=== PATIENT | female | born 1980 | race Caucasian/White ===

== ENCOUNTER 2023-06-23 20:13 | Inpatient (IN) | payer MEDICAID, SELFPAY ==
[2023-06-23 20:22] VITALS: BP 146/68; PULSE 120; RESP 16; TEMP 37.3; O2SAT 97; BMI 20.7
--- NOTE | 2023-06-23 21:18 | XRR_ITS ---
PROCEDURE INFORMATION: Exam: XR Right Tibia and Fibula Exam date and time: 06/23/2023 10:36 PM Age: 42 years old Clinical indication: Pain; Swelling, leg or foot; Right; Prior surgery; Surgery date: 1-6 months; Surgery type: Ankle orif 05/17/2023; Patient HX: Multiple skin ulcerations and infected drainage to incision site from aknle surgery. ; Additional info: Pain, skin ulceration post op TECHNIQUE: Imaging protocol: Radiologic exam of the right tibia and fibula. Views: 2 views. COMPARISON: No relevant prior studies available. FINDINGS: Bones/joints: Distal fibular orthopedic plate in place with a surgical screw extending through the fibula into the tibia. Posterior malleolar cortical irregularity may reflect sequelae of a prior fracture, if clinical concern for osteomyelitis exists in this area consider further evaluation with a CT scan or MRI. Soft tissues: Soft tissue swelling about the ankle. XR/XR tibia fibula RT 2V [id number] IMPRESSION: 1. Distal fibular orthopedic plate in place with a surgical screw extending through the fibula into the tibia. 2. Posterior malleolar cortical irregularity may reflect sequelae of a prior fracture, if clinical concern for osteomyelitis exists in this area consider further evaluation with a CT scan or MRI. 3. Soft tissue swelling about the ankle.
--- NOTE | 2023-06-23 21:18 | XRR_ITS ---
PROCEDURE INFORMATION: Exam: XR Right Foot Exam date and time: 06/23/2023 10:36 PM Age: 42 years old Clinical indication: Pain; Swelling, leg or foot; Right; Prior surgery; Surgery date: 1-6 months; Surgery type: Ankle orif 05/17/2023; Patient HX: Multiple skin ulcerations and infected drainage to incision site from aknle surgery. ; Additional info: Pain, skin ulceration post op TECHNIQUE: Imaging protocol: Radiologic exam of the right foot. Views: 3 or more views. COMPARISON: No relevant prior studies available. FINDINGS: Bones/joints: Distal fibular orthopedic plate in place with a surgical screw extending through the fibula into the tibia. Posterior malleolar cortical irregularity may reflect sequelae of prior fracture, if clinical concern for osteomyelitis exists in this area consider further evaluation with a CT scan or MRI. Soft tissues: Soft tissue swelling about the foot and ankle. Minimal subcutaneous emphysema seen about the foot and ankle may be postsurgical in nature, underlying infection is also a consideration. XR/XR foot RT min 3V* [id number] IMPRESSION: 1. Distal fibular orthopedic plate in place with a surgical screw extending through the fibula into the tibia. 2. Posterior malleolar cortical irregularity may reflect sequelae of prior fracture, if clinical concern for osteomyelitis exists in this area consider further evaluation with a CT scan or MRI. 3. Soft tissue swelling about the foot and ankle. 4. Minimal subcutaneous emphysema seen about the foot and ankle may be postsurgical in nature, underlying infection is also a consideration.
[2023-06-23 21:57] LABS: Basophils % 0.3 %; Eosinophils # 0.1 10^3/uL (0.0-0.8); Eosinophils % 1.2 %; Hematocrit 26.4 % (36-47); Lymphocytes # 1.3 10^3/uL (0.8-4.8); Mean Corpuscular HGB Conc 31.4 g/dL (30-55); Mean Corpuscular Hemoglobin 30.2 pg (27-33); Monocytes # 0.6 10^3/uL (0.2-0.9); Monocytes % 5.1 %; Neutrophils # 9.13 10^3/uL (1.8-7.7); Neutrophils % 79.5 %; Nucleated Red Blood Cells % 0 %; Platelet Count 535 10^3/cmm (157-399); Red Blood Count 2.75 10^6/uL (3.85-5.65); Red Cell Distribution Width 16.1 % (12.1-15.1)
[2023-06-23 22:17] LABS: HCG, Serum Qual Negative (Negative)
[2023-06-23 22:18] LABS: Erythrocyte Sedimentation Rate 50 mm/hr (0-15)
[2023-06-23 22:23] LABS: Alanine Aminotransferase 46 U/L (0-33); Albumin Level 3.1 g/dL (3.5-5.2); Alkaline Phosphatase 535 U/L (35-105); Anion Gap 17.9 (5-19); Aspartate Amino Transferase 11 U/L (0-32); Blood Urea Nitrogen 25 mg/dL (6-20); Carbon Dioxide 25 mmol/L (22-29); Chloride 85 mmol/L (98-107); Glomerular Filtration Rate 38.5 mL/min (90-130); Osmolality Calculated 291 mOsm/kg (285-295); Sodium 125 mmol/L (136-145); Total Bilirubin 0.3 mg/dL (0.15-1.2); Total Protein 7.1 g/dL (6.6-8.7)
[2023-06-23 22:24] LABS: Lactic Sepsis W/Reflex 1.4 mmol/L (0.5-2.2)
[2023-06-23 22:30] LABS: Glucose 569 mg/dL (65-115); Potassium 2.9 mmol/L (3.5-5.1)
[2023-06-23 22:40] LABS: Slide Review Slide Review Perform
[2023-06-23 22:48] LABS: C Reactive Protein 502.4 mg/L (0.0-4.9)
--- NOTE | 2023-06-23 22:52 | CTR_ITS ---
PROCEDURE INFORMATION: Exam: CT Right Lower Extremity Without Contrast Exam date and time: 06/23/2023 11:50 PM Age: 42 years old Clinical indication: Pain; Swelling, leg or foot; Foot and lower leg; Right; Prior surgery; Surgery date: 1-6 months; Surgery type: Ankle orif 05/17/2023; Patient HX: Swelling and redness from mid calf thru all of foot with multiple skin ulcerations and purulent drainage from incision site. Ankle orif on 05/17/2023. ; Additional info: Swelling, redness, drainage. TECHNIQUE: Imaging protocol: CT of the right lower extremity without contrast was performed. Radiation optimization: All CT scans at this facility use at least one of these dose optimization techniques: automated exposure control; mA and/or kV adjustment per patient size (includes targeted exams where dose is matched to clinical indication); or iterative reconstruction. Contrast material: OMNI 350; Contrast volume: 75 ml; Contrast route: INTRAVENOUS (IV); REPORTING DATA: Count of CT and Cardiac NM exams in prior 12 months: This patient has received 0 known CTs and 0 known cardiac nuclear medicine studies in the 12 months prior to the current study. COMPARISON: CR (LOW EXM, ) 06/23/2023 10:36 PM RADIATION DOSE METRICS: Total DLP (mGy-cm): 1089.95 FINDINGS: Bones/joints: Orthopedic plate seen in place overlying the distal fibula bridging a fracture in this area with good alignment at the fracture site. Cortical irregularity along the posterior malleolus likely reflects a small avulsion fracture, osteomyelitis is felt unlikely. Soft tissues: 5.1 x 1.1 collection of fluid containing air over the medial malleolus in the subcutaneous fat, best seen series 23, image 187, perhaps reflecting an abscess depending on the clinical scenario. Additionally a large amount of subcutaneous edema is seen about the foot and ankle, perhaps reflecting cellulitis and/or postsurgical changes. Subcutaneous emphysema is also seen over the distal fibula, likely postsurgical in nature, infection is not excluded. CT/CT lower leg RT w con [id number] IMPRESSION: 1. Orthopedic plate seen in place overlying the distal fibula bridging a fracture in this area with good alignment at the fracture site. 2. Cortical irregularity along the posterior malleolus likely reflects a small avulsion fracture, osteomyelitis is felt unlikely. 3. 5.1 x 1.1 collection of fluid containing air over the medial malleolus in the subcutaneous fat, best seen series 23, image 187, perhaps reflecting an abscess depending on the clinical scenario. Additionally a large amount of subcutaneous edema is seen about the foot and ankle, perhaps reflecting cellulitis and/or postsurgical changes. 4. Subcutaneous emphysema is also seen over the distal fibula, likely postsurgical in nature, infection is not excluded.
[2023-06-23 22:53] VITALS: BP 121/61; PULSE 123
[2023-06-23 23:00] VITALS: BP 140/79; PULSE 119; O2SAT 97
[2023-06-23] MEDS: insulin regular-human 100 units/1 mL 10 UNIT IVP (23:03)
[2023-06-23 23:04] LABS: Glucose Point of Care 546 mg/dL (70-110)
[2023-06-23] MEDS: potassium chloride oral liq 20 mEq/15 mL UDC PO (23:11)
[2023-06-23] MEDS: sodium chlor 0.9% + KCl 40 mEq 40 MEQ/1,000 ML BAG 500 MEQ IV (23:14)
[2023-06-23 23:30] VITALS: BP 108/62; PULSE 115; RESP 24; O2SAT 100
[2023-06-23] MEDS: iohexol 350 mg/mL 500 mL Btl (per mL) IV (23:55)
[2023-06-24] VITALS (30 sets, daily range): BP systolic 72–137; BP diastolic 44–91; PULSE 88–121; RESP 15–25; TEMP 36.4–38; O2SAT 90–100
[2023-06-24 00:03] LABS: Add Urine Microscopic? YES; Bilirubin Urine Neg (Negative); Blood Urine Neg (Negative); Glucose Urine UA 4+ (Normal); Ketones Urine Negative (Negative); Leukocyte Esterase Urine 2+ (Negative); Nitrate Urine Negative (Negative); Protein Urine Trace (Negative); Urine Appearance Hazy (CLEAR); Urine Color Yellow (Yellow); Urobilinogen Urine Neg (Negative); pH Urine 5 (5-7)
[2023-06-24 00:04] LABS: Add Urine Culture? No; Amorphous Sediment Urine 2+ /hpf; Bacteria Urine TRACE /hpf; RBC Urine 0-4 /hpf (0-2); Squamous Epithelial Cell Urine 15-25 /hpf (0-5); Trichomonas Urine 1+ /hpf; WBC Urine >100 /hpf (0-5)
[2023-06-24 00:12] LABS: Glucose Point of Care 307 mg/dL (70-110)
[2023-06-24 01:12] LABS: Glucose Point of Care 258 mg/dL (70-110)
[2023-06-24] MEDS: oxyCODONE-APAP 5-325 mg Tablet 2 TAB PO (01:19)
--- NOTE | 2023-06-24 01:19 | W.ED.WOUNDLC ---
HPI - Wound/Laceration General: Chief Complaint: Wound/Laceration Stated Complaint: Rt cast cutting into leg Time Seen by Provider: 06/23/23 20:15 History of Present Illness: 42-year-old female with a history of an ORIF to her right ankle in [place] on 05/19. She has been in a cast. She developed a fever a couple of days ago. She was placed on ciprofloxacin at an outside facility. She says that her pain is gotten worse, with smelly drainage coming out of the cast. And continued fevers. She is not vomiting. Associated symptoms: Reports chills, fever(s) and nausea; Denies vomiting Review of Systems Const: Reports: fever(s) and chills ENMT: Denies: throat pain Card: Denies: chest pain or palpitations Resp: Reports: non-productive cough; Denies: dyspnea or productive cough GI: Reports: nausea; Denies: abdominal pain or vomiting Skin/Breast: Reports: erythema, skin tenderness and changing lesions [facility] PFSH: Medical History (Updated 06/24/23 @ 02:02 by Salomon Cutler DO) Type 1 diabetes Surgical History (Updated 06/24/23 @ 01:59 by Jair Cha MD) History of appendectomy History of surgery on lower extremity History of tonsillectomy Social History Smoking and tobacco status: current every day smoker Alcohol intake: former Substance/Drug Use: current Substance/Drug use type: Marijuana Physical Exam Const: GENERAL APPEARANCE: cooperative and ill appearing; not frail appearing HENMT: COMMON NORMALS: normocephalic, atraumatic and Normal external nose present HEAD & SCALP: normocephalic and atraumatic FACE & SINUS: normal facial exam and face symmetric NOSE: Normal external nose present Eye: COMMON NORMALS: Equal, round and reactive pupils present and EOMs intact bilaterally PUPIL: Yes Equal, round and reactive pupils present Neck/C-Spine: GENERAL: Yes trachea midline Chest: CHEST: Yes Symmetrical chest wall rise Resp: COMMON NORMALS: normal respiratory effort, No retractions, No use of accessory muscles and clear to auscultation bilaterally AUSCULTATION: clear to auscultation bilaterally Cardio: COMMON NORMALS: regular rhythm RATE: tachycardic RHYTHM: regular rhythm GI: COMMON NORMALS: Normal to inspection, nondistended, normoactive bowel sounds present Extremity: NARRATIVE EXTREMITY EXAM: Cast is removed on the right for exam. The patient has swelling and edema with beefy erythema to the right foot. Surgical incision is lateral, with sutures in place. There is purulent drainage from the inferior portion of the incision, with skin ulceration over the lateral foot as well. Neuro: TOYA COMA SCALE: document GCS findings Toya coma scale eye opening: Spontaneous [place] coma scale verbal response: Orientated [place] coma scale motor response: Obey commands [place] coma scale total score: 15 SENSORY EXAM: Yes extremities (intact) Psych: COMMON NORMALS: speech normal SPEECH: Yes normal speech Skin: COMMON NORMALS: no rashes or lesions noted GENERAL SKIN EXAM: no rashes or lesions noted Course Vital Signs: Vital signs: Vital Signs Temperature 99.1 F 06/23/23 20:22 Pulse Rate 120 H 06/23/23 20:22 Respiratory Rate 20 H 06/24/23 01:19 Blood Pressure 146/68 06/23/23 20:22 Pulse Oximetry 98 06/24/23 01:19 Oxygen Delivery Me thod Room Air 06/23/23 20:22 MDM - Wound/Laceration Medical Decision Making Patient is awake and talking. She is mildly tachycardic. Temperature is 99.1. White blood cell count is 11.5 with a hemoglobin of 8.3. Her sugar is 569 on serum testing. Creatinine is 1.5. Urinalysis shows greater than 100 whites with 2+ leukocyte Estrace, but is contaminated with squamous cells. Her potassium was 2.9, which is repleted. She is given IV insulin here with some improvement in her sugar. She is not acidotic. Lactic acid is negative. However, her CRP is 502. Spoke with orthopedics. They are willing to consult and see her in the morning. Spoke with hospitalist who has seen the patient in the ER. CT scan does not reveal necrotizing fasciitis signs, but does show a 5 x 1 cm abscess present with surrounding cellulitis. She has had vancomycin and Zosyn in the ER after blood cultures. Lab Data 06/23/23 21:25 06/23/23 21:25 Radiology Impressions Foot X-Ray 06/23/23 21:18 IMPRESSION: 1. Distal fibular orthopedic plate in place with a surgical screw extending through the fibula into the tibia. 2. Posterior malleolar cortical irregularity may reflect sequelae of prior fracture, if clinical concern for osteomyelitis exists in this area consider further evaluation with a CT scan or MRI. 3. Soft tissue swelling about the foot and ankle. 4. Minimal subcutaneous emphysema seen about the foot and ankle may be postsurgical in nature, underlying infection is also a consideration. Tibia/Fibula X-Ray 06/23/23 21:18 IMPRESSION: 1. Distal fibular orthopedic plate in place with a surgical screw extending through the fibula into the tibia. 2. Posterior malleolar cortical irregularity may reflect sequelae of a prior fracture, if clinical concern for osteomyelitis exists in this area consider further evaluation with a CT scan or MRI. 3. Soft tissue swelling about the ankle. Lower Extremity CT 06/23/23 22:52 IMPRESSION: 1. Orthopedic plate seen in place overlying the distal fibula bridging a fracture in this area with good alignment at the fracture site. 2. Cortical irregularity along the posterior malleolus likely reflects a small avulsion fracture, osteomyelitis is felt unlikely. 3. 5.1 x 1.1 collection of fluid containing air over the medial malleolus in the subcutaneous fat, best seen series 23, image 187, perhaps reflecting an abscess depending on the clinical scenario. Additionally a large amount of subcutaneous edema is seen about the foot and ankle, perhaps reflecting cellulitis and/or postsurgical changes. 4. Subcutaneous emphysema is also seen over the distal fibula, likely postsurgical in nature, infection is not excluded. Laboratory Results WBC 11.50 10^3/uL (3.29-11.43) H 06/23/23 21:25 RBC 2.75 10^6/uL (3.85-5.65) L 06/23/23 21:25 Hgb 8.30 g/dL (11.27-16.99) L 06/23/23 21:25 Hct 26.4 % (36-47) L 06/23/23 21:25 MCV 96.0 fl (85-98) 06/23/23 21:25 MCH 30.2 pg (27-33) 06/23/23 21:25 MCHC 31.4 g/dL (30-55) 06/23/23 21:25 RDW 16.1 % (12.1-15.1) H 06/23/23 21:25 Plt Count 535 10^3/cmm (157-399) H 06/23/23 21:25 MPV 11.0 fL (7.4-10.4) H 06/23/23 21:25 Neut % (Auto) 79.5 % 06/23/23 21:25 Lymph % (Auto) 11.0 % 06/23/23 21:25 [place] % (Auto) 5.1 % 06/23/23 21:25 Eos % (Auto) 1.2 % 06/23/23 21:25 Baso % (Auto) 0.3 % 06/23/23 21:25 Neut # (Auto) 9.13 10^3/uL (1.8-7.7) H 06/23/23 21:25 Lymph # (Auto) 1.3 10^3/uL (0.8-4.8) 06/23/23 21:25 [place] # (Auto) 0.6 10^3/uL (0.2-0.9) 06/23/23 21:25 Eos # (Auto) 0.1 10^3/uL (0.0-0.8) 06/23/23 21:25 Baso # (Auto) 0.0 10^3/uL (0.0-0.1) 06/23/23 21:25 Nucleated RBC % (auto) 0 % 06/23/23 21: Nucleated RBCs # 0.0 /100WBC 06/23/23 21:25 ESR 50 mm/hr (0-15) H 06/23/23 21:25 Sodium 125 mmol/L (136-145) L 06/23/23 21:25 Potassium 2.9 mmol/L (3.5-5.1) L 06/23/23 21:25 Chloride 85 mmol/L (98-107) L 06/23/23 21:25 Carbon Dioxide 25 mmol/L (22-29) 06/23/23 21:25 Anion Gap 17.9 (5-19) 06/23/23 21:25 BUN 25 mg/dL (6-20) H 06/23/23 21:25 Creatinine 1.5 mg/dL (0.5-0.9) H 06/23/23 21:25 GFR Calculation 38.5 mL/min (90-130) L 06/23/23 21:25 Glucose 569 mg/dL (65-115) H* 06/23/23 21:25 POC Glucose 258 mg/dL (70-110) H 06/24/23 01:08 Calculated Osmolality 291 mOsm/kg (285-295) 06/23/23 21:25 Lactic Acid 1.4 mmol/L (0.5-2.2) 06/23/23 21:25 Calcium 9.0 mg/dL (8.5-10.5) 06/23/23 21:25 Total Bilirubin 0.3 mg/dL (0.15-1.2) 06/23/23 21:25 AST 11 U/L (0-32) 06/23/23 21:25 ALT 46 U/L (0-33) H 06/23/23 21:25 Alkaline Phosphatase 535 U/L (35-105) H 06/23/23 21:25 C-Reactive Protein 502.4 mg/L (0.0-4.9) H 06/23/23 21:25 Total Protein 7.1 g/dL (6.6-8.7) 06/23/23 21:25 Albumin 3.1 g/dL (3.5-5.2) L 06/23/23 21:25 Globulin 4.0 g/dL (1.3-4.6) 06/23/23 21:25 HCG, Qual Negative (Negative) 06/23/23 10:50 Urine Color Yellow (Yellow) 06/23/23 23:27 Urine Appearance Hazy (CLEAR) A 06/23/23 23:27 Urine pH 5 (5-7) 06/23/23 23:27 Ur Specific [place] 1.010 (1.005-1.030) 06/23/23 23:27 Urine Protein Trace (Negative) 06/23/23 23:27 Urine Glucose (UA) 4+ (Normal) H 06/23/23 23:27 Urine Ketones Negative (Negative) 06/23/23 23: Urine Blood Neg (Negative) 06/23/23 23: Urine Nitrate Negative (Negative) 06/23/23 23:27 Urine Bilirubin Neg (Negative) 06/23/23 23:27 Urine Urobilinogen Neg mg/dL (Negative) 06/23/23 23:27 Ur Leukocyte Esterase 2+ (Negative) H 06/23/23 23:27 Urine RBC 0-4 /hpf (0-2) H 06/23/23 23:27 Urine WBC >100 /hpf (0-5) H 06/23/23 23:27 Ur Squamous Epith Cells 15-25 /hpf (0-5) H 06/23/23 23:27 Amorphous Sediment 2+ /hpf 06/23/23 23:27 Urine Bacteria Trace /hpf (NONE) 06/23/23 23:27 Urine Trichomonas 1+ /hpf H 06/23/23 23:27 All radiology interpretation(s) finalized by discharge Discharge Plan Discharge Patient Disposition: Admitted As Inpatient Clinical Impression: Infected surgical wound, Abscess of skin of right ankle, Acute hyperglycemia, Acute hypokalemia Condition: Fair Coding Level of Care Code ED [employer] Specialist for Claudy Morgan
--- NOTE | 2023-06-24 01:52 | USR_ITS ---
PROCEDURE INFORMATION: Exam: US Retroperitoneal; Complete; Kidneys and Bladder Exam date and time: 06/24/2023 2:23 AM Age: 42 years old Clinical indication: Screening exam; Other: History of renal abscess; Additional info: Fever, HX of renal abscess TECHNIQUE: Imaging protocol: Real-time ultrasound of the retroperitoneum with image documentation. Complete exam focused on the kidneys and bladder. COMPARISON: No relevant prior studies available. FINDINGS: Right kidney: The right kidney measures 8.9 x 4.2 x 4 cm. No right hydronephrosis. There are no stones. Left kidney: The left kidney measures 8.9 x 6.3 x 5.6 cm. Nonspecific mild dilation of the left renal pelvis. There are no stones. Urinary bladder: Distended urinary bladder. No bladder wall thickening. US/US renal BI* [id number] IMPRESSION: 1. Nonspecific mild dilation of the left renal pelvis. 2. Distended urinary bladder.
--- NOTE | 2023-06-24 01:56 | PM.HP ---
Providers/Chief Complaint Admitting Physician: Jair Cha MD Chief Complaint: Rt cast cutting into leg History of Present Illness Anna Hart is a 42 year old female presents to the emergency department with complaints of feeling intermittent fevers for perhaps a week, some discomfort in the cast area for the last 3 days, difficulty moving the toes and feeling her toes in the right lower extremity for 3 days. She has had more swelling than usual, and some pain. She reports she initially sustained an ankle fracture sometime before May 17, and had ankle ORIF to fix this on May 17. She has been in a cast since then. She reports she did not follow-up appropriately, but when she did have follow-up it was reported this had not yet healed. She has since moved from [place] where the surgery was done. She states she has history of significant infections in the past with renal abscesses back in February for which she was on at least 4 weeks of Rocephin. 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 When she was on the Rocephin she did have a PICC line. Review of Systems General: Reports: 10 or more systems reviewed and unremarkable except in HPI and below Card: Denies: chest pain Resp: Denies: dyspnea GI: Denies: abdominal pain Musc: Reports: extremity pain and extremity swelling Medications/Allergies Allergies Allergy/AdvReac Type Severity Reaction Status Date / Time amoxicillin Allergy ALGY-Rash Verified 06/23/23 20:32 clavulanic acid Allergy ALGY-Difficulty Verified 06/23/23 20:32 [From Augmentin] Breathing Penicillins Allergy ALGY-Rash Verified 06/23/23 20:32 PFSH Acute PFSH: Medical History (Updated 06/24/23 @ 02:25 by Jair Cha MD) Chronic kidney disease Type 1 diabetes Surgical History (Updated 06/24/23 @ 01:59 by Jair Cha MD) History of appendectomy History of surgery on lower extremity History of tonsillectomy Social History (Updated 06/24/23 @ 02:00 by Jair Cha MD) Smoking and tobacco status: current every day smoker Alcohol intake: former Substance/Drug Use: current Substance/Drug use type: Marijuana Other PFSH information: Supplemental PFSH Information: Reports history of kidney disease When asked if she uses drugs she reports her father uses methamphetamine, and puts it in his coffee and if I did a urine drug screen on her it might be positive, as she had some coughing Vitals/I&O/Wt Last Vital Signs Temp 99.1 F 06/23/23 20:22 Pulse 120 H 06/23/23 20:22 Resp 20 H 06/24/23 01:19 BP 146/68 06/23/23 20:22 Pulse Ox 98 06/24/23 01:19 O2 Del Method Room Air 06/23/23 20:22 Weight last 48 hrs Weight 53.07 kg Physical Exam Narrative: General exam is white female, no distress Neck is supple no lymphadenopathy thyromegaly Cardiovascular slight tachycardia, no murmur Lungs clear no wheezing or crackles Abdomen is soft nontender. No obvious organomegaly exam is deferred Extremity left no cyanosis clubbing or edema, right with edema, sutures, slight amount of exudate lowest portion of surgical wound. She can dorsiflex. Cap refill in toes is about 2 seconds. Slightly moves toes to prompting Neuro: No obvious focal deficits. Skin see findings above Data 06/23/23 21:25 06/23/23 21:25 Other Labs: Sedimentation rate is 50 Lactic acid 1.4, calcium 9.0 LFTs normal with exception of ALT of 46 and alk phos of 535 CRP 502 Albumin 3.1 hCG negative Urinalysis with greater than 100 whites, 15-25 squamous 1+ trichomonas in urine I have ordered a chest x-ray, a.m. lab, TSH, magnesium, HIV, hepatitis panel, urine culture Lower extremity CT demonstrates orthopedic hardware, fluid collection medial malleolus with concern of possible abscess, subcutaneous emphysema distal fibula. Osteomyelitis not ruled out Tibia and fibula x-ray I reviewed demonstrating concern of osteomyelitis posterior malleolus, swelling, and orthopedic hardware. Foot x-ray shows the same and I reviewed this personally as well. Micro: Microbiology 06/23/23 21:42 Blood Culture - Preliminary Blood SPECIMEN COLLECTED 06/23/23 21:25 Blood Culture - Preliminary Blood SPECIMEN COLLECTED A&P Assessment and plan (1) Infected surgical wound: Patient presents with an infected right lower extremity surgical wound, with concern of abscess. She reports she has had fever for least a week, and really has not been able to feel or move her toes in 3 days with her cast on. Cast was removed in the emergency department. She has obvious erythema, concern for abscess on CT, and probable osteomyelitis. Orthopedic consult will be obtained I discussed with the patient that she could possibly lose her foot or leg secondary to this infection. She reports she is aware of this. Initiate vancomycin and meropenem Cultures have already been drawn I am concerned about her previous PICC line in and history of renal abscess. I have some concern about methamphetamine use secondary to her answers to questions regarding her social history. As she has low-grade fever, history of central line previously, will additionally start with a transthoracic echocardiogram. Note that ESR and CRP were elevated CBC, BMP tomorrow Does not appear septic currently. Pain control (2) Cellulitis: See above (3) Abscess: See above (4) UTI (urinary tract infection): Concern for UTI on urinalysis Culture urine IV meropenem should suffice for any urinary organism Check renal ultrasound Consider CT scan if creatinine improves secondary to her past history of renal abscesses in Trichomonas is noted in the urine. Initiate Flagyl 500 mg twice daily for 7 days. (5) Type 1 diabetes: Blood sugar markedly elevated She indicates she is on 20 units of long-acting insulin and a sliding scale As I will be making her n.p.o., she is already received a dose of insulin in the ER, will give her 10 units of Lantus now. Initiate 20 units of Lantus every night Moderate sliding scale No current anion gap, and no significant suspicion for DKA currently. Serum ketones were not checked, but urine ketones negative. (6) Chronic kidney disease: Patient has history of chronic kidney disease Avoid renal toxic medication BMP daily (7) Acute hypokalemia: Supplementation initiated in the ER. Recheck potassium after supplementation Check magnesium level (8) Anemia: I think this is most likely secondary to her infection. From her description this may have been going on for weeks. Other cofactors could be her chronic kidney disease. Check iron studies. (9) Transaminitis: Check hepatitis panel, HIV Plan Probable drug use Full code currently Heparin for DVT prophylaxis Attestations Medical Necessity Statement*: Will require greater than 2 midnight stay for evaluation and treatment of orthopedic hardware infection with cellulitis, possible abscess, UTI. Has significant threat to limb and/or life from current condition. Diagnoses Infected surgical wound T81.49XA Cellulitis L03.90 Abscess L02.91 UTI (urinary tract infection) N39.0 Type 1 diabetes E10.9 Chronic kidney disease N18.9 Acute hypokalemia E87.6 Anemia D64.9 Transaminitis R74.01 Time Spent (min) 49
--- NOTE | 2023-06-24 02:09 | XRR_ITS ---
PROCEDURE INFORMATION: Exam: XR Chest Exam date and time: 06/24/2023 2:42 AM Age: 42 years old Clinical indication: Fever and shortness of breath; Patient HX: Fever with mild hypoxia TECHNIQUE: Imaging protocol: Radiologic exam of the chest. Views: 1 view. COMPARISON: No relevant prior studies available. FINDINGS: Lungs: There are patchy left basilar opacities. Pleural spaces: Unremarkable. No pleural effusion. No pneumothorax. Heart/Mediastinum: No cardiomegaly. Bones/joints: No acute fracture. XR/XR chest 1V portable [id number] IMPRESSION: Left basilar atelectasis or other infiltrates.
[2023-06-24 02:31] LABS: Glucose Point of Care 261 mg/dL (70-110)
[2023-06-24 02:38] LABS: Thyroid Stimulating Hormone 2.51 uIU/mL (0.27-4.20)
[2023-06-24 02:46] LABS: Glucose Point of Care 245 mg/dL (70-110)
[2023-06-24 02:48] LABS: HIV 1 & 2 Antibody Non-Reactive (Non-Reactiv); HIV 1 & 2 Antigen Non-Reactive (Non-Reactiv)
[2023-06-24] MEDS: sodium chloride 0.9% 500 ML 999 ML IV (02:48)
[2023-06-24 02:49] LABS: Hepatitis A Antibody IgM Non-Reactive (Nonreactive); Hepatitis B Core IgM Non-Reactive (Nonreactive); Hepatitis B Surface Antigen Non-Reactive (Nonreactive); Hepatitis C Virus Antibody Non-Reactive (Nonreactive)
[2023-06-24 02:53] LABS: Ferritin 845 ng/mL (15-150); Iron 11 ug/dL (37-145); Percent Saturation 6.7 % (20-50); Total Iron Binding Capacity 164 mcg/dl; Unsaturated Iron Binding 153 ug/dL (112-347)
[2023-06-24] MEDS: naloxone 0.4 mg/ml SDV IVP (03:11)
[2023-06-24] MEDS: vancomycin 1,250 MG/250 ML PIGGYBACK 250 MG IV (03:21)
--- NOTE | 2023-06-24 03:46 | USCV_ITS ---
Anna Hart Age: 42 Gender: F : 1980 Exam Date: 06/24/2023 08:34 Ordering Phys: Jair Cha MD Technologist: ELSY [place]am [place] [facility] [place]: fever BP: 130 / 85 HR: 94 Rhythm: Sinus Technical Quality: Adequate MEASUREMENTS (Male / Female) Normal Values 2D ECHO LV Chamber Size 3.9 cm RV Chamber Size 2.2 cm LVOT Diameter 2.0 cm LV Ejection Fraction MOD 2C 59.9 % LV Ejection Fraction 2C AL 60.1 % LA Diameter 3.4 cm LA Width 3.4 cm LA Height 3.8 cm RA Width 3.4 cm RA Height 3.9 cm Aorta at Sinotubular Diameter 2.3 cm IVC Diameter 1.7 cm M-MODE Aortic Annulus Diameter 3.1 cm LA Ao Ratio MM 1.3 MV E Point Septal Separation 1.0 cm DOPPLER AV Peak Velocity 163.0 cm/s LVOT Peak Velocity 119.0 cm/s AV Area Cont Eq vti 2.7 cm squared AV Area Cont Eq pk 2.3 cm squared MV Peak Velocity 165.0 cm/s MV Area PHT 3.5 cm squared Mitral E to A Ratio 1.5 MV E' Velocity 87.5 cm/s Mitral E to MV E' Ratio 15.7 Mitral E to LV E' Lateral Ratio 15.7 Mitral E to LV E' Septal Ratio 15.9 TR Peak Velocity 125.0 cm/s TR Peak Gradient 6.3 mmHg TV Peak E Velocity 93.0 cm/s Right Atrial Pressure 3.0 mmHg Pulmonary Artery Systolic Pressu 9.3 mmHg PV Peak Velocity 100.0 cm/s FINDINGS Left Ventricle Normal left ventricular size, systolic function and wall thickness, with no regional wall motion abnormalities. LV EF is 55-60%. Right Ventricle The right ventricle is normal in size and function. Right Atrium The right atrium is normal in size. Left Atrium The left atrium is normal in size. Mitral Valve Structurally normal mitral valve. There is mild mitral regurgitation. Aortic Valve Structurally normal aortic valve without significant sclerosis or stenosis. There is no aortic regurgitation. Tricuspid Valve Trace tricuspid regurgitation. Insufficient TR jet to calculate RVSP Pulmonic Valve Not well visualized Pericardium Normal pericardium without effusion. Aorta Normal ascending aorta dimension. IVC The inferior vena cava appears normal. CONCLUSIONS LV systolic function is normal with EF 55 to 60%. Mild mitral regurgitation Trace tricuspid regurgitation No comparison studies are available. Orion Brown MD (Electronically Signed) Final Date: 24 June 2023 18:33 S
[2023-06-24] MEDS: insulin glargine 100 units/1 mL 10 UNIT SUBCUT (04:10)
[2023-06-24] MEDS: heparin 5,000 unit/mL INJ 1 mL 5000 UNIT SUBCUT (04:10)
[2023-06-24] MEDS: sodium chloride 0.9% 1,000 ML 125 ML IV (04:12)
[2023-06-24] MEDS: meropenem 1,000 MG in sodium chloride 0.9% (plus) 50 ML 100 MG IV ×3 (04:14→18:31)
[2023-06-24 06:36] LABS: Glucose Point of Care 257 mg/dL (70-110)
[2023-06-24 06:36] LABS: Glucose Point of Care 242 mg/dL (70-110)
--- NOTE | 2023-06-24 07:30 | PM.CONSULT ---
Providers/Reason For Consult Consulting Physician/Specialty*: Cade Cohen.P.Musa/podiatry Reason for Consult*: Infected hardware right ankle status post open reduction internal fixation Attending Physician: Jair Cha MD History of Present Illness History of Present Illness Anna Hart is a 42 year old female who presented to the emergency department early this morning 06/24/2023 with complaint of general malaise, intermittent fevers, pain to right ankle and drainage coming from the cast. Patient states that she had a right ankle fracture last month (May) when she lived in [place]. She was fishing when she slipped and fell and injured her right ankle. She continued to walk on it throughout the rest of the day. When she woke up the next morning the pain was worse. She went to the emergency department in [place] where they found that she had a right ankle fracture. Patient underwent open reduction internal fixation right ankle May 17. Patient states that after her surgery she remained in the hospital for approximately 6 days. She was then discharged with instructions to follow-up in the outpatient setting. Patient states that she was noncompliant and did not go to a single follow-up appointment after discharge from the hospital. She began to have family issues to the point that she moved here to [place] to live with her cousin approximately 1 week ago. She has been walking on her right ankle for approximately 3 to 4 weeks now, per the patient. Patient states that she knows that she has been noncompliant with her postoperative course and she fears that it may be to the point that she needs an amputation. Patient also has history of significant infections including renal abscess back in February for which she was treated with IV antibiotics. Podiatry is consulted by orthopedics to evaluate patient and provide recommendations for treatment and to determine if the limb is salvageable or not. Patient has a history of type 1 diabetes and presented to the emergency department with a blood glucose of 569 mg/dL. Work-up in the emergency department including CT scan of the right lower extremity showed subcutaneous emphysema surrounding the ankle with accumulation medially. A sending gas to the level of the mid tibia. Review of Systems General: Reports: 10 or more systems reviewed and unremarkable except in HPI and below Const: Denies: fever(s), chills, body aches or change in appetite Eyes: Denies: change in vision or blurry vision Card: Denies: chest pain, palpitations or irregular heart rhythm Resp: Denies: dyspnea GI: Denies: abdominal pain, nausea, vomiting or diarrhea Musc: Reports: joint stiffness Skin/Breast: Reports: non-healing lesions and lesions Neuro: Reports: numbness in extremities Medications/Allergies Home Medications Medication Instructions Recorded Confirmed Last Taken Type amitriptyline 25 mg tablet 25 mg PO BID 06/24/23 06/24/23 Unknown History gabapentin 600 mg tablet 600 mg PO TID 06/24/23 06/24/23 Unknown History hydrocodone 5 mg-acetaminophen 325 2 tab PO Q4H PRN Pain 06/24/23 06/24/23 Unknown History mg tablet ibuprofen 800 mg tablet 800 mg PO Q8H PRN Pain 06/24/23 06/24/23 Unknown History insulin NPH isoph U-100 human 100 10 unit SUBCUT BID 06/24/23 06/24/23 Unknown History unit/mL subcutaneous suspension (Novolin N NPH U-100 Insulin isophane) insulin lispro 100 unit/mL See Rx Instructions .Route .COMPLEX 06/24/23 06/24/23 Unknown History subcutaneous pen (Humalog KwikPen (U-100) Insulin) lamotrigine 150 mg tablet 150 mg PO DAILY 06/24/23 06/24/23 Unknown History (Lamictal) sulfamethoxazole 800 1 tab PO BID 06/24/23 06/24/23 Unknown History mg-trimethoprim 160 mg tablet Allergies Allergy/AdvReac Type Severity Reaction Status Date / Time amoxicillin Allergy ALGY-Rash Verified 06/23/23 20:32 clavulanic acid Allergy ALGY-Difficulty Verified 06/23/23 20:32 [From Augmentin] Breathing Penicillins Allergy ALGY-Rash Verified 06/23/23 20:32 Current Medications Generic Name Dose Route Start Last Admin Trade Name Freq PRN Reason Stop Dose Admin Heparin Sodium (Porcine) 5,000 unit 06/24/23 03:46 06/24/23 04:10 Heparin 5,000 Unit/Ml Inj 1 Ml SUBCUT 5,000 unit Q12H FABIAN Administration Meropenem 1,000 mg/ Sodium 50 mls @ 100 mls/hr 06/24/23 02:15 06/24/23 04:51 Chloride IV Infused Q8H FABIAN Infusion Protocol Sodium Chloride 1,000 mls @ 125 mls/hr 06/24/23 03:46 06/24/23 04:12 Sodium Chloride 0.9% IV 125 mls/hr .Q8H FABIAN Administration Insulin Human Lispro 0 unit 06/24/23 08:00 06/24/23 08:21 Insulin Lispro 100 Unit/1 Ml SUBCUT 6 unit WM&BEDTIME FABIAN Administration Protocol Metronidazole 500 mg 06/24/23 09:00 06/24/23 08:21 Metronidazole 500 Mg Tablet PO 500 mg BID FABIAN Administration Oxycodone HCl 5 mg 06/24/23 03:46 06/24/23 08:23 Oxycodone 5 Mg Ir Tab/Cap PO 5 mg Q6H PRN Administration SEVERE PAIN PFSH Acute PFSH: Medical History (Updated 06/24/23 @ 09:13 by Osman Doan PA-C) Chronic kidney disease Type 1 diabetes Surgical History (Updated 06/24/23 @ 01:59 by Jair Cha MD) History of appendectomy History of surgery on lower extremity History of tonsillectomy Social History (Updated 06/24/23 @ 02:00 by Jair Cha MD) Smoking and tobacco status: current every day smoker Alcohol intake: former Substance/Drug Use: current Substance/Drug use type: Marijuana Vitals/I&O/Wt Last Vital Signs Temp 97.5 F L 06/24/23 08:06 Pulse 95 06/24/23 08:06 Resp 16 06/24/23 08:23 BP 97/59 06/24/23 08:06 Pulse Ox 99 06/24/23 08:06 O2 Del Method Room Air 06/24/23 08:06 06/23/23 06/24/23 06/24/23 22:59 06:59 14:59 Intake Total 1550 / 1550 Output Total 200 / 200 Balance 1350 / 1350 Weight last 48 hrs Weight 117 lb Physical Exam Narrative: BELOW IS A FOCUSED LOWER EXTREMITY EXAM GENERAL: A&O x 3 VASCULAR: DP/PT pulses palpable 2/4 with CFT intact, <3seconds to distal digits. Significant edema to right foot and ankle DERMATOLOGICAL: Right lateral ankle incision shows sutures intact with dehiscence at the level of the malleolus with phlegmon present. Circumferential erythema of the foot and ankle with active purulent drainage from the lateral ankle incision. Medial malleoli are superficial abrasion from rubbing in cast with surrounding erythema. Dorsal lateral fifth metatarsophalangeal joint has full-thickness ulceration with surrounding erythema and active serosanguineous drainage. Again, likely attributed to rubbing of postoperative cast. MUSCULOSKELETAL: Pain with palpation of right ankle circumferentially as well as with calf squeeze. Pain with range of motion of right ankle joint. NEUROLOGICAL: Neurological sensation to the affected foot and ankle is present through L4-S1 dermatomes with no hyper/hypoesthesias, negative Tinel or Valleix's sign IMAGING: CT scan of right lower extremity person interpreted by me which shows fluid accumulation with subcutaneous emphysema at the area of the medial malleolus. Gas visualized at the level of the syndesmosis along the lateral fibula as well as posterior tibia up to the level of the mid tibia. Indicative of gas producing infection throughout the right ankle extending up to the mid tibia. Data 06/23/23 21:25 06/23/23 21:25 Micro: Microbiology 06/23/23 21:42 Blood Culture - Preliminary Blood SPECIMEN COLLECTED 06/23/23 21:25 Blood Culture - Preliminary Blood SPECIMEN COLLECTED A&P Assessment and plan (1) Osteomyelitis of ankle: (2) Infected surgical wound: (3) Abscess of skin of right ankle: (4) Cellulitis: (5) Type 1 diabetes: Plan LABS AND CLINICAL INFO: Right ankle abscess, infected hardware and gas gangrene extending proximally to the level of the mid tibia WBC 11.5 ESR 50 CRP 502.4 ABX: Vanco/meropenem/Flagyl PLAN: -Patient seen and evaluated. All clinical information pertaining to patient's condition reviewed. Based on clinical and imaging findings the extent of the infection necessitates below the knee amputation of the right lower extremity to prevent potential loss of life. Imaging was reviewed with the patient and patient questions answered regarding the extent of the infection. Patient verbalized understanding to the level of the infection and the necessary steps for source control. Discussion was had with orthopedic colleagues about podiatry recommendations. -Podiatry recommends below the knee amputation of right lower extremity. Limb deemed unsalvageable given the extent of gas gangrene -Nonweightbearing to right lower extremity -Continue IV antibiotic therapy -No further recommendations by podiatry at this time. Podiatry will sign off. Please reconsult if needed. Coding Level of Care Code Acute Code for Chg Fwd Diagnoses Osteomyelitis of ankle M86.9 Infected surgical wound T81.49XA Abscess of skin of right ankle L02.415 Cellulitis L03.90 Type 1 diabetes E10.9
[2023-06-24] MEDS: metroNIDAZOLE 500 MG Tablet PO (08:21)
[2023-06-24] MEDS: insulin lispro 100 unit/1 mL SUBCUT ×2 (08:21→21:04)
[2023-06-24] MEDS: oxyCODONE 5 mg IR Tab/Cap PO ×2 (08:23→21:12)
--- NOTE | 2023-06-24 09:09 | PM.CONSULT ---
Providers/Reason For Consult Consulting Physician/Specialty*: Orthopedics Reason for Consult*: Right leg pain Attending Physician: Jair Cha MD History of Present Illness History of Present Illness Anna Hart is a 42 year old female who is traveled here from [place] had increased right lower extremity pain following an ORIF of her right ankle performed in May. She did not have a follow-up and has developed increased pain swelling. She does admit to tobacco use admits to alcohol use as well as methamphetamine use. She presented to the emergency room with a grossly infected right lower extremity. She states she has had uncontrolled diabetes. She has had sharp stabbing pain any use of the right lower extremity is made her symptoms much worse. She admits to running fevers. She has had drainage from the incisional sites. She has not found any relief. Review of Systems General: Reports: 10 or more systems reviewed and unremarkable except in HPI and below Card: Denies: chest pain Resp: Denies: dyspnea GI: Denies: abdominal pain Musc: Reports: extremity pain and extremity swelling Medications/Allergies Home Medications Medication Instructions Recorded Confirmed Last Taken Type hydrocodone 5 mg-acetaminophen 325 2 tab PO Q4H PRN Pain 06/24/23 06/24/23 Unknown History mg tablet insulin NPH isoph U-100 human 100 10 unit SUBCUT BID 06/24/23 06/24/23 Unknown History unit/mL (3 mL) subcutaneous pen insulin lispro 100 unit/mL See Rx Instructions .Route .COMPLEX 06/24/23 06/24/23 Unknown History subcutaneous pen (Humalog KwikPen (U-100) Insulin) sulfamethoxazole 800 1 tab PO BID 06/24/23 06/24/23 Unknown History mg-trimethoprim 160 mg tablet Allergies Allergy/AdvReac Type Severity Reaction Status Date / Time amoxicillin Allergy ALGY-Rash Verified 06/23/23 20:32 clavulanic acid Allergy ALGY-Difficulty Verified 06/23/23 20:32 [From Augmentin] Breathing Penicillins Allergy ALGY-Rash Verified 06/23/23 20:32 Current Medications Generic Name Dose Route Start Last Admin Trade Name Freq PRN Reason Stop Dose Admin Heparin Sodium (Porcine) 5,000 unit 06/24/23 03:46 06/24/23 04:10 Heparin 5,000 Unit/Ml Inj 1 Ml SUBCUT 5,000 unit Q12H FABIAN Administration Meropenem 1,000 mg/ Sodium 50 mls @ 100 mls/hr 06/24/23 02:15 06/24/23 04:51 Chloride IV Infused Q8H FABIAN Infusion Protocol Sodium Chloride 1,000 mls @ 125 mls/hr 06/24/23 03:46 06/24/23 04:12 Sodium Chloride 0.9% IV 125 mls/hr .Q8H FABIAN Administration Insulin Human Lispro 0 unit 06/24/23 08:00 06/24/23 08:21 Insulin Lispro 100 Unit/1 Ml SUBCUT 6 unit WM&BEDTIME FABIAN Administration Protocol Metronidazole 500 mg 06/24/23 09:00 06/24/23 08:21 Metronidazole 500 Mg Tablet PO 500 mg BID FABIAN Administration Oxycodone HCl 5 mg 06/24/23 03:46 06/24/23 08:23 Oxycodone 5 Mg Ir Tab/Cap PO 5 mg Q6H PRN Administration SEVERE PAIN PFSH Acute PFSH: Medical History (Updated 06/24/23 @ 09:13 by Osman Doan PA-C) Chronic kidney disease Type 1 diabetes Surgical History (Updated 06/24/23 @ 01:59 by Jair Cha MD) History of appendectomy History of surgery on lower extremity History of tonsillectomy Social History (Updated 06/24/23 @ 02:00 by Jair Cha MD) Smoking and tobacco status: current every day smoker Alcohol intake: former Substance/Drug Use: current Substance/Drug use type: Marijuana Vitals/I&O/Wt Last Vital Signs Temp 97.5 F L 06/24/23 08:06 Pulse 95 06/24/23 08:06 Resp 16 06/24/23 08:23 BP 97/59 06/24/23 08:06 Pulse Ox 99 06/24/23 08:06 O2 Del Method Room Air 06/24/23 08:06 06/23/23 06/24/23 06/24/23 22:59 06:59 14:59 Intake Total 1550 / 1550 Output Total 200 / 200 Balance 1350 / 1350 Weight last 48 hrs Weight 117 lb Physical Exam Narrative: Splint on the right lower extremity was removed shows grossly infected right lower extremity. No palpable pain in the right knee or hip. Full range of motion left lower extremity. Toes are warm with 2+ swelling throughout the right lower extremity. Red erythematous. HENMT: COMMON NORMALS: normocephalic HEAD & SCALP: normocephalic Resp: COMMON NORMALS: normal respiratory effort Cardio: COMMON NORMALS: regular rate and regular rhythm RATE: regular rate RHYTHM: regular rhythm GI: COMMON NORMALS: Soft to palpation and non-tender PALPATION: Yes Soft to palpation : COMMON NORMALS: Yes no CVA tenderness BLADDER/KIDNEY EXAM: Yes no CVA tenderness Back/Pelvis: COMMON NORMALS: no CVA tenderness Psych: COMMON NORMALS: mental status grossly normal and cooperative Data 06/23/23 21:25 06/23/23 21:25 Micro: Microbiology 06/23/23 21:42 Blood Culture - Preliminary Blood SPECIMEN COLLECTED 06/23/23 21:25 Blood Culture - Preliminary Blood SPECIMEN COLLECTED Other CT: Radiologist's impression: CCESSION #: [id number] CT/CT lower leg RT w con [id number] IMPRESSION: 1. ? Orthopedic plate seen in place overlying the distal fibula bridging a fracture in this area with good alignment at the fracture site. 2. ? Cortical irregularity along the posterior malleolus likely reflects a small avulsion fracture, osteomyelitis is felt unlikely. 3. ? 5.1 x 1.1 collection of fluid containing air over the medial malleolus in the subcutaneous fat, best seen series 23, image 187, perhaps reflecting an abscess depending on the clinical scenario. Additionally a large amount of subcutaneous edema is seen about the foot and ankle, perhaps reflecting cellulitis and/or postsurgical changes. 4. ? Subcutaneous emphysema is also seen over the distal fibula, likely postsurgical in nature, infection is not excluded. ? A&P Assessment and plan (1) Osteomyelitis of ankle: Discussed with Dr. Rubio he is posing a right BKA given the nature of her osteomyelitis. Discussed with the patient she understands and is in agreement. Proceed with a right BKA. At length with patient to pursue tobacco cessation as well as pursue abstinence of her polysubstance abuse with methamphetamine and alcohol and nicotine. (2) Type 1 diabetes: (3) Acute hyperglycemia: Coding Level of Care Code Acute Code for g Fwd Diagnoses Osteomyelitis of ankle M86.9 Type 1 diabetes E10.9 Acute hyperglycemia R73.9 Time Spent (min) 32
--- NOTE | 2023-06-24 09:35 | PC.PHAR ---
PT PROVIDED MED LIST, WHICH WAS DOCUMENTED. CALLED [facility] IN [place] [phone] TO VERIFY. CORRECTIONS WERE MADE TO NOVOLIN N- (IS VIAL NOT PEN). IN ADDITION: 4 OTHER MEDS NOT ON PT LIST. GABAPENTIN 600 MG 3 TIMES DAILY, IBUPROFEN 800 MG 1 EVER 8 HOURS NEEDED FOR PAIN, LAMICTAL 150 MG 1 DAILY, AMITRIPTYLINE 25 MG 1 TWICE DAILY, ALL LAST FILLED IN APRIL. 06/24/23
[2023-06-24 11:32] LABS: Blood Urea Nitrogen 20 mg/dL (6-20); Calcium 8.4 mg/dL (8.5-10.5); Carbon Dioxide 19 mmol/L (22-29); Chloride 98 mmol/L (98-107); Glucose 75 mg/dL (65-115); Osmolality Calculated 273 mOsm/kg (285-295); Sodium 131 mmol/L (136-145)
[2023-06-24] MEDS: dextrose 50% syringe 50 mL 25 ML IVP (11:33)
--- NOTE | 2023-06-24 11:33 | PC.NURSE ---
Patient up to use the bathroom and states that her blood sugar feels low. Patient states, I feel dizzy. Patient blood sugar checked and it was 67. Patient is NPO because she maybe having surgery today. Per protocol patient was alert and talking and was given a 1/2 amp of D50 and D5 was started at [address] Cha notified.
[2023-06-24 11:35] LABS: Anion Gap 17.7 (5-19); Potassium 3.7 mmol/L (3.5-5.1)
[2023-06-24] MEDS: morphine 4 mg/mL SDV 1 mL 2 MG IVP (11:37)
[2023-06-24] MEDS: dextrose 5 % 500 ML 100 ML IV (12:27)
[2023-06-24 12:53] LABS: Glucose Point of Care 91 mg/dL (70-110)
[2023-06-24] MEDS: sodium chloride 0.9% 1,000 ML 30 ML IV (15:45)
--- NOTE | 2023-06-24 16:06 | ANES.PREANE2 ---
Pre-Anesthetic Assessment Height/Weight: Height 1.6 m Weight 53.07 kg Temp Pulse Resp BP Pulse Ox O2 Del Method 97.9 F 98 18 95/63 98 Room Air 06/24/23 12:15 06/24/23 12:15 06/24/23 12:15 06/24/23 12:15 06/24/23 12:15 06/24/23 12:15 Operation Date: 06/24/23 15:30 Proposed Procedures p Below Knee Amputation(Right) - Ochoa Rubio, DO Was Beta Kesha taken within 24 hours: N/A Was Clonidine taken within 24 hours: N/A Last intake: Intake Last Liquid Date 06/23/23 Last Liquid Time 21:00 Last Solid Date 06/23/23 Last Solid Time 09:00 Social Tobacco Meth Exam alert, oriented x 3 and clear to auscultation bilaterally Airway Submandibular: within normal limits Cervical ROM: within normal limits Mallampati: Class II Comments: Comments: Edentulous History/ROS No significant history except as noted CV/HEM + Blood cultures Metabolic Diabetes Mellitus T1 DM requires insulin Neuropsych Anxiety Anesthetic Plan ASA status: 3 Anesthesia: General Risk of > 500 ml blood loss (7ml/kg in children): No Medications/Allergies Home Medications Medication Instructions Recorded Confirmed Last Taken Type amitriptyline 25 mg tablet 25 mg PO BID 06/24/23 06/24/23 Unknown History gabapentin 600 mg tablet 600 mg PO TID 06/24/23 06/24/23 Unknown History hydrocodone 5 mg-acetaminophen 325 2 tab PO Q4H PRN Pain 06/24/23 06/24/23 Unknown History mg tablet ibuprofen 800 mg tablet 800 mg PO Q8H PRN Pain 06/24/23 06/24/23 Unknown History insulin NPH isoph U-100 human 100 10 unit SUBCUT BID 06/24/23 06/24/23 Unknown History unit/mL subcutaneous suspension (Novolin N NPH U-100 Insulin isophane) insulin lispro 100 unit/mL See Rx Instructions .Route .COMPLEX 06/24/23 06/24/23 Unknown History subcutaneous pen (Humalog KwikPen (U-100) Insulin) lamotrigine 150 mg tablet 150 mg PO DAILY 06/24/23 06/24/23 Unknown History (Lamictal) sulfamethoxazole 800 1 tab PO BID 06/24/23 06/24/23 Unknown History mg-trimethoprim 160 mg tablet Allergies Allergy/AdvReac Type Severity Reaction Status Date / Time amoxicillin Allergy ALGY-Rash Verified 06/23/23 20:32 clavulanic acid Allergy ALGY-Difficulty Verified 06/23/23 20:32 [From Augmentin] Breathing Penicillins Allergy ALGY-Rash Verified 06/23/23 20:32 Current Medications Generic Name Dose Route Start Last Admin Trade Name Freq PRN Reason Stop Dose Admin Dextrose 25 ml 06/24/23 03:46 06/24/23 11:33 Dextrose 50% Syringe 50 Ml IVP 25 ml ONCE PRN Administration hypoglycemia protocol Protocol Heparin Sodium (Porcine) 5,000 unit 06/24/23 03:46 06/24/23 04:10 Heparin 5,000 Unit/Ml Inj 1 Ml SUBCUT 5,000 unit Q12H FABIAN Administration Meropenem 1,000 mg/ Sodium 50 mls @ 100 mls/hr 06/24/23 02:15 06/24/23 11:22 Chloride IV Infused Q8H FABIAN Infusion Protocol Dextrose 500 mls @ 100 mls/hr 06/24/23 03:46 06/24/23 12:27 D5w IV 100 mls/hr ONCE PRN Administration Adult Acute Hypoglycemia Prot Protocol Sodium Chloride 1,000 mls @ 30 mls/hr 06/24/23 15:30 06/24/23 15:45 Sodium Chloride 0.9% IV 06/25/23 15:29 30 mls/hr .Q24H FABIAN Administration Insulin Human Lispro 0 unit 06/24/23 08:00 06/24/23 12:35 Insulin Lispro 100 Unit/1 Ml SUBCUT Not Given WM&BEDTIME FABIAN Protocol Metronidazole 500 mg 06/24/23 09:00 06/24/23 08:21 Metronidazole 500 Mg Tablet PO 500 mg BID FABIAN Administration Morphine Sulfate 2 mg 06/24/23 03:46 06/24/23 11:37 Morphine 4 Mg/Ml Sdv 1 Ml IVP 2 mg Q4H PRN Administration SEVERE PAIN Oxycodone HCl 5 mg 06/24/23 03:46 06/24/23 08:23 Oxycodone 5 Mg Ir Tab/Cap PO 5 mg Q6H PRN Administration SEVERE PAIN PFSH Anesthesia Medical History Chronic kidney disease Type 1 diabetes Surgical History (Updated 06/24/23 @ 01:59 by Jair Cha MD) History of appendectomy History of surgery on lower extremity History of tonsillectomy Social History (Updated 06/24/23 @ 02:00 by Jair Cha MD) Smoking and tobacco status: current every day smoker Alcohol intake: former Substance/Drug Use: current Substance/Drug use type: Marijuana Supplemental [facility] Information Reports history of kidney disease When asked if she uses drugs she reports her father uses methamphetamine, and puts it in his coffee and if I did a urine drug screen on her it might be positive, as she had some coughing Data Anesthesia 06/23/23 21:25 06/24/23 10:53 Short CBC 06/23/23 Range/Units 21:25 WBC 11.50 H (3.29-11.43) 10^3/uL Hgb 8.30 L (11.27-16.99) g/dL Hct 26.4 L (36-47) % MCV 96.0 (85-98) fl Plt Count 535 H (157-399) 10^3/cmm Neut % (Auto) 79.5 % Neut # (Auto) 9.13 H (1.8-7.7) 10^3/uL BMP 06/23/23 06/24/23 21:25 10:53 Sodium 125 L 131 L Potassium 2.9 L 3.7 Chloride 85 L 98 Carbon Dioxide 25 19 L BUN 25 H 20 Creatinine 1.5 H 1.1 H Glucose 569 H* 75 Calcium 9.0 8.4 L Liver Function 06/23/23 Range/Units 21:25 Total Bilirubin 0.3 (0.15-1.2) mg/dL AST 11 (0-32) U/L ALT 46 H (0-33) U/L Alkaline Phosphatase 535 H (35-105) U/L Albumin 3.1 L (3.5-5.2) g/dL Urine 06/23/23 Range/Units 23:27 Urine Color Yellow (Yellow) Urine Appearance Hazy A (CLEAR) Urine pH 5 (5-7) Ur Specific [place] 1.010 (1.005-1.030) Urine Protein Trace (Negative) Urine Glucose (UA) 4+ H (Normal) Urine Ketones Negative (Negative) Urine Nitrate Negative (Negative) Urine Bilirubin Neg (Negative) Ur Leukocyte Esterase 2+ H (Negative) Urine RBC 0-4 H (0-2) /hpf Urine WBC >100 H (0-5) /hpf Blood Bank 06/24/23 15:22 Blood Type O Positive Rho(D) Type Positive Coags 06/23/23 06/23/23 21:25 21:25 ESR 50 H C-Reactive Protein 502.4 H Microbiology 06/23/23 21:42 Blood Culture - Preliminary Blood 06/23/23 21:25 Blood Culture - Preliminary Blood Cardiac Studies: No Data to Display
[2023-06-24 16:36] LABS: Glucose Point of Care 97 mg/dL (70-110)
[2023-06-24] MEDS: vancomycin 1,000 MG SDV 1000 MG XX (17:20)
--- NOTE | 2023-06-24 17:49 | PM.OP ---
Operative Report Date of procedure: June 24, 2023 Pre-op diagnosis: Infected ankle on the right Post-op diagnosis: same Procedure done: Right below the knee amputation Surgeon: Ochoa Rubio DO Estimated blood loss (mL): 25 Procedure: Right below the knee amputation patient brought to operative suite after undergoing anesthesia was placed in supine position.? All areas of pressure well-padded.? Patient had a tourniquet applied.? Patient was then prepped and draped normal sterile fashion.? Patient had skin incision made circumferentially around the leg.? The tibia was exposed and cut.? The fibula was exposed and cut.? Posterior tibial nerve and sural nerve were identified and retracted.? And cut.? The tibial vessels were tied with silk ties.? And cut.? The flap of muscle and skin were made posteriorly.? The tibia cut was beveled.? Wounds were irrigated.? And then the gastroc muscle flap was then brought up and sutured over the bone and then the skin posteriorly was sutured to the skin with nylon suture.? Sterile dressings were applied patient was transferred to the PACU in stable condition.
--- NOTE | 2023-06-24 18:04 | ANE.PACU2 ---
Inpatient post-anesthesia follow up: Airway intact: Yes Vital signs: Temperature 97.9 F Pulse Rate 98 Respiratory Rate 18 Blood Pressure 95/63 Pulse Oximetry 98 Oxygen Delivery Me thod [ Room Air Current Rate & Del kaleigh] Oxygen Delivery Me thod Room Air Oxygen Flow Rate 6 Fraction of Inspir ed Oxygen Hydration adequate: Yes Nausea and vomiting: No Pain level: 1 Mental status: Baseline (Somnolent but responds to verbal cues)
[2023-06-24 18:27] LABS: Glucose Point of Care 147 mg/dL (70-110)
[2023-06-24 20:53] LABS: Glucose Point of Care 226 mg/dL (70-110)
[2023-06-24] MEDS: gabapentin 300 mg Capsule 600 MG PO (21:03)
[2023-06-24] MEDS: insulin glargine 100 units/1 mL 20 UNIT SUBCUT (21:04)
[2023-06-25] VITALS (13 sets, daily range): BP systolic 105–147; BP diastolic 65–82; PULSE 82–97; RESP 15–20; TEMP 36.6–36.8; O2SAT 97–100
[2023-06-25 01:31] LABS: Glucose Point of Care 265 mg/dL (70-110)
[2023-06-25] MEDS: oxyCODONE 5 mg IR Tab/Cap PO ×3 (03:20→16:01)
[2023-06-25] MEDS: meropenem 1,000 MG in sodium chloride 0.9% (plus) 50 ML 100 MG IV ×3 (03:21→22:20)
[2023-06-25] MEDS: vancomycin 1,000 MG in sodium chloride 0.9% 250 ML 250 MG IV (04:39)
[2023-06-25] MEDS: heparin 5,000 unit/mL INJ 1 mL 5000 UNIT SUBCUT ×2 (04:40→16:02)
[2023-06-25] MEDS: acetaminophen 1,000 MG/100 ML PIGGYBACK 400 MG IV (05:07)
[2023-06-25 05:13] LABS: Hematocrit 27.4 % (36-47); Mean Corpuscular HGB Conc 30.7 g/dL (30-55); Mean Corpuscular Hemoglobin 30.1 pg (27-33); Mean Corpuscular Volume 98.2 fl (85-98); Mean Platelet Volume 10.8 fL (7.4-10.4); Platelet Count 612 10^3/cmm (157-399); Red Blood Count 2.79 10^6/uL (3.85-5.65); Red Cell Distribution Width 16.7 % (12.1-15.1); White Blood Count 18.52 10^3/uL (3.29-11.43)
[2023-06-25 05:34] LABS: Alanine Aminotransferase 27 U/L (0-33); Albumin Level 2.5 g/dL (3.5-5.2); Alkaline Phosphatase 450 U/L (35-105); Anion Gap 22.1 (5-19); Aspartate Amino Transferase 22 U/L (0-32); Blood Urea Nitrogen 24 mg/dL (6-20); Calcium 8.2 mg/dL (8.5-10.5); Carbon Dioxide 18 mmol/L (22-29); Chloride 100 mmol/L (98-107); Globulin 3.6 g/dL (1.3-4.6); Glomerular Filtration Rate 61.4 mL/min (90-130); Glucose 351 mg/dL (65-115); Osmolality Calculated 298 mOsm/kg (285-295); Potassium 5.1 mmol/L (3.5-5.1); Sodium 135 mmol/L (136-145); Total Bilirubin 0.3 mg/dL (0.15-1.2); Total Protein 6.1 g/dL (6.6-8.7)
[2023-06-25 05:51] LABS: Absolute Segmented Neutrophil 15.7 10/cmm (1.6-7.1); Eosinophils 0 %; Lymphocytes 8 %; Monocytes Absolute 0.4 10^3/cmm (0.1-0.6); Platelet Estimate Increased (Normal); Segmented Neutrophils 85 %; Slide Review Slide Review Perform; Total Cells Counted 100 (0-100)
[2023-06-25 05:52] LABS: Smudge Cells 1+
[2023-06-25 06:25] LABS: Glucose Point of Care 462 mg/dL (70-110)
--- NOTE | 2023-06-25 06:36 | P.CONIM_ITS ---
Providers/Reason For Consult Consulting Physician/Specialty*: Deandra Traylor MD / Infectious Disease Reason for Consult*: GPC bacteremia, possible endocarditis Requesting Physician: Jair Cha MD Attending Physician: Jair Cha MD History of Present Illness History of Present Illness Anna Hart is a 42 year old female who was admitted to the hospital on June 24, 2023 after presenting with complaints of generalized malaise fever pain and drainage from the right ankle. Patient had recently sustained a right ankle fracture in May 2023 when she lived in [facility]. It appears this was a mechanical fall. She underwent open reduction internal fixation of the right ankle on May 17. States that her postop course was complicated by an MRSA infection however unable to give me any details about the same. She did not comply with restrictions post her surgery. She came in here on June 24, 2023 after having recently moved to the area with discharge from the right ankle. CT scan of the right lower extremity showed subcutaneous emphysema surrounding the ankle and an abscess medially. Ascending gas was seen to the level of mid tibia. Patient is now status post right BKA on June 24, 2023. Blood culture obtained upon admission is showing GPC's awaiting further identification. Of note patient has a history of MRSA bacteremia in January 2023. Patient states the primary source was not identified, however she had multiple abscesses affecting the kidneys and states that she was told all her bones are infected as well . Her urine culture at that time and also showed E. coli. He states she received an extended course of IV ceftriaxone for treatment while on midline at home. She discontinued treatment in May just prior to her ankle surgery. She states she also had a MRSA infection of her foot in Sep 2022. Review of Systems General: Reports: 10 or more systems reviewed and unremarkable except in HPI and below Const: Denies: fever(s), chills or body aches Eyes: Denies: change in vision, blurry vision or photophobia ENMT: Reports: hoarseness; Denies: throat pain, enlarged tonsils, odynophagia or nasal congestion Card: Denies: chest pain, palpitations, irregular heart rhythm, edema, swelling of feet/ankles, lightheadedness, pre-syncope, dyspnea on exertion or orthopnea Resp: Denies: dyspnea, productive cough, non-productive cough, wheezing, stridor, pain on inspiration, change in phlegm color, hemoptysis or chest congestion GI: Denies: abdominal pain, nausea, vomiting, hematemesis, coffee ground emesis, dysphagia, heartburn, diarrhea, constipation, GI cramping, change in stool character, hematochezia or melena : Denies: flank pain, difficulty voiding, dysuria, urinary frequency, urinary urgency, urinary hesitancy or hematuria Musc: Denies: neck pain, back pain, extremity pain, joint swelling, joint warmth or deformity Neuro: Denies: headache(s), numbness in extremities, weakness in extremities, sensory changes, difficulty walking, frequent falls, dizziness, vertigo, behavioral changes, Slurred speech present or seizure-like activity Psych: Denies: anxiety, depression, suicidal ideation or homicidal ideation Endo: Denies: polyuria, polydipsia, tired all the time, cold intolerance or hot flashes Derrick/Lymph: Denies: easy bruising or easy bleeding Medications/Allergies Home Medications Medication Instructions Recorded Confirmed Last Taken Type amitriptyline 25 mg tablet 25 mg PO BID 06/24/23 06/24/23 Unknown History gabapentin 600 mg tablet 600 mg PO TID 06/24/23 06/24/23 Unknown History hydrocodone 5 mg-acetaminophen 325 2 tab PO Q4H PRN Pain 06/24/23 06/24/23 Unkn own History mg tablet ibuprofen 800 mg tablet 800 mg PO Q8H PRN Pain 06/24/23 06/24/23 Unknown History insulin NPH isoph U-100 human 100 10 unit SUBCUT BID 06/24/23 06/24/23 Unknown History unit/mL subcutaneous suspension (Novolin N NPH U-100 Insulin isophane) insulin lispro 100 unit/mL See Rx Instructions .Route .COMPLEX 06/24/23 06/24/23 Unknown History subcutaneous pen (Humalog KwikPen (U-100) Insulin) lamotrigine 150 mg tablet 150 mg PO DAILY 06/24/23 06/24/23 Unknown History (Lamictal) sulfamethoxazole 800 1 tab PO BID 06/24/23 06/24/23 Unknown History mg-trimethoprim 160 mg tablet Allergies Allergy/AdvReac Type Severity Reaction Status Date / Time amoxicillin Allergy ALGY-Rash Verified 06/23/23 20:32 clavulanic acid Allergy ALGY-Difficulty Verified 06/23/23 20:32 [From Augmentin] Breathing Penicillins Allergy ALGY-Rash Verified 06/23/23 20:32 Current Medications Generic Name Dose Route Start Last Admin Trade Name Sebastian PRN Reason Stop Dose Admin Dextrose 25 ml 06/24/23 03:46 06/24/23 11:33 Dextrose 50% Syringe 50 Ml IVP 25 ml ONCE PRN Administration hypoglycemia protocol Protocol Gabapentin 600 mg 06/24/23 15:00 06/24/23 21:03 Gabapentin 300 Mg Capsule PO 600 mg TID FABIAN Administration Heparin Sodium (Porcine) 5,000 unit 06/24/23 03:46 06/25/23 04:40 Heparin 5,000 Unit/Ml Inj 1 Ml SUBCUT 5,000 unit Q12H FABIAN Administration Meropenem 1,000 mg/ Sodium 50 mls @ 100 mls/hr 06/24/23 02:15 06/25/23 04:10 Chloride IV Infused Q8H FABIAN Infusion Protocol Dextrose 500 mls @ 100 mls/hr 06/24/23 03:46 06/24/23 19:06 D5w IV Infused ONCE PRN Infusion Adult Acute Hypoglycemia Prot Protocol Vancomycin HCl 1,000 mg/ 250 mls @ 250 mls/hr 06/25/23 03:30 06/25/23 06:22 Sodium Chloride IV Infused Q24H FABIAN Infusion Insulin Glargine 20 unit 06/24/23 21:00 06/24/23 21:04 Insulin Glargine 100 Units/1 Ml SUBCUT 20 unit BEDTIME FABIAN Administration Insulin Human Lispro 0 unit 06/24/23 08:00 06/24/23 21:04 Insulin Lispro 100 Unit/1 Ml SUBCUT 6 unit WM&BEDTIME FABIAN Administration Protocol Metronidazole 500 mg 06/24/23 09:00 06/24/23 08:21 Metronidazole 500 Mg Tablet PO 500 mg BID FABIAN Administration Oxycodone HCl 5 mg 06/24/23 03:46 06/25/23 03:20 Oxycodone 5 Mg Ir Tab/Cap PO 5 mg Q6H PRN Administration SEVERE PAIN PFSH Acute PFSH: Medical History Chronic kidney disease Type 1 diabetes Surgical History History of appendectomy History of surgery on lower extremity History of tonsillectomy Social History Smoking and tobacco status: current every day smoker Alcohol intake: former Substance/Drug Use: current Substance/Drug use type: Marijuana Vitals/I&O/Wt Last Vital Signs Temp 97.9 F 06/25/23 03:51 Pulse 88 06/25/23 03:51 Resp 18 06/25/23 03:51 BP 141/77 06/25/23 03:51 Pulse Ox 100 06/25/23 03:51 O2 Del Method Room Air 06/25/23 03:51 O2 Flow Rate 6 06/24/23 17:49 06/24/23 06/24/23 06/25/23 14:59 22:59 06:59 Intake Total 1050 / 1050 900 / 1950 880 / 2830 Output Total Balance 1050 / 1050 875 / 1925 880 / 2805 Weight last 48 hrs Weight 53.07 kg Physical Exam Narrative: General: No acute distress, AO x3 HEENT: PERRLA, pupils bilaterally equal and reactive, pallors not present Chest: Normal vesicular breath sounds, no added sounds, equal good air entry nirmala aterally CVS: S1-S2 regular, no murmurs, no tachycardia, no gallops, no rubs Abdomen: Soft, nontender, no organomegaly, bowel sounds present Neuro: No focal deficits, no facial deformity, AO x3, power 5/5 in all limbs; s/p right BKA Data 06/25/23 04:53 06/25/23 04:53 Micro: Microbiology 06/25/23 04:59 Blood Culture - Preliminary Blood SPECIMEN COLLECTED 06/25/23 04:53 Blood Culture - Preliminary Blood SPECIMEN COLLECTED 06/23/23 21:42 Blood Culture - Preliminary Blood DIRECT GRAM STAIN: GRAM POSITIVE COCCI IN PAIRS AND CHAINS 06/23/23 21:25 Blood Culture - Preliminary DIRECT GRAM STAIN: GRAM POSITIVE COCCI IN PAIRS AND CHAINS Blood FINDINGS: Lungs:? There are patchy left basilar opacities. Pleural spaces: Unremarkable. No pleural effusion. No pneumothorax. Heart/Mediastinum: No cardiomegaly. Bones/joints: No acute fracture. XR/XR chest 1V portable [id number] IMPRESSION: Left basilar atelectasis or other infiltrates. [facility] [address] [place] [address] Ultrasound Report Signed Patient: Anna Hart Unit #: [id number] : 1980 Age/Sex: 42 / F ADM Date: 06/24/23 Loc: [facility] Room/Bed: [facility][note 3] Attending Dr: Jair Cha MD Ordering Provider/Ordering MD: Salomon Cutler DO Date of Service: 06/24/23 Procedure(s): US renal BI* [id number] Accession Number(s): [id number] Report Number: [id number] PROCEDURE INFORMATION: Exam: US Retroperitoneal; Complete; Kidneys and Bladder Exam date and time: 06/24/2023 2:23 AM Age: 42 years old Clinical indication: Screening exam; Other: History of renal abscess; Additional info: Fever, HX of renal abscess TECHNIQUE: Imaging protocol: Real-time ultrasound of the retroperitoneum with image documentation. Complete exam focused on the kidneys and bladder. COMPARISON: No relevant prior studies available. FINDINGS: Right kidney: The right kidney measures 8.9 x 4.2 x 4 cm. No right hydronephrosis. There are no stones. Left kidney: The left kidney measures 8.9 x 6.3 x 5.6 cm.? Nonspecific mild dilation of the left renal pelvis. There are no stones. Urinary bladder: Distended urinary bladder. No bladder wall thickening. US/US renal BI* [id number] IMPRESSION: 1. ? Nonspecific mild dilation of the left renal pelvis. 2. ? Distended urinary bladder. CT/CT lower leg RT w con [id number] IMPRESSION: 1. ? Orthopedic plate seen in place overlying the distal fibula bridging a fracture in this area with good alignment at the fracture site. 2. ? Cortical irregularity along the posterior malleolus likely reflects a small avulsion fracture, osteomyelitis is felt unlikely. 3. ? 5.1 x 1.1 collection of fluid containing air over the medial malleolus in the subcutaneous fat, best seen series 23, image 187, perhaps reflecting an abscess depending on the clinical scenario. Additionally a large amount of subcutaneous edema is seen about the foot and ankle, perhaps reflecting cellulitis and/or postsurgical changes. 4. ? Subcutaneous emphysema is also seen over the distal fibula, likely postsurgical in nature, infection is not excluded. XR/XR tibia fibula RT 2V [id number] IMPRESSION: 1. ? Distal fibular orthopedic plate in place with a surgical screw extending through the fibula into the tibia. 2. ? Posterior malleolar cortical irregularity may reflect sequelae of a prior fracture, if clinical concern for osteomyelitis exists in this area consider further evaluation with a CT scan or MRI. 3. ? Soft tissue swelling about the ankle. 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 She is now status post below-knee amputation Blood culture is positive for gram-positive cocci in pairs and chains awaiting further identification. Echocardiogram TTE without any gross vegetations Recent history of what appears to be Staph aureus bacteremia per her history, treated with ceftriaxone. However without records cannot be sure of this. We will obtain prior records. We will await final identification and blood cultures. If isolate turns out to be Staph aureus patient would likely need a prolonged course of antibiotics. And evaluation for secondary seeding. Further recommendations to be based on identification of the isolate and review of prior records which are awaited from [place] currently. Continue meropenem and vancomycin while awaiting final identification. Discontinue metronidazole, meropenem will suffice for anaerobic coverage. blood cx taken today to ascertain clerance Consult Attestations Medical Necessity Statement: Per admitting Coding Level of Care Code Acute Code for Chg Fwd High MDM includes number and complexity of problems actively addressed during encounter, amount and/or complexity of data reviewed/ordered and described risk of complication, morbidity or mortality of management as documented Diagnoses Gram-positive bacteremia R78.81 Osteomyelitis of ankle M86.9 Prosthetic joint infection T84.50XA S/P BKA (below knee amputation) Z89.519
--- NOTE | 2023-06-25 07:42 | P.PN_ITS ---
Subjective Subjective: POD 1 Patient resting comfortably. Denies chest pain shortness of breath. Vitals/I&O/Wt Last Vital Signs Temp 98.1 F 06/25/23 07:08 Pulse 97 06/25/23 07:08 Resp 19 H 06/25/23 07:08 BP 147/82 06/25/23 07:08 Pulse Ox 98 06/25/23 07:08 O2 Del Method Room Air 06/25/23 07:08 O2 Flow Rate 6 06/24/23 17:49 06/24/23 06/25/23 06/25/23 22:59 06:59 14:59 Intake Total 900 / 1950 880 / 2830 Output Total Balance 875 / 1925 880 / 2805 Weight last 48 hrs Weight 117 lb Physical Exam Narrative: Patient is alert and orient x3 has good general appearance normal normal affect. Right BKA stump with dressing clean and dry. There is no signs of erythema or drainage no signs of infection. Good motor strength throughout left lower extremity. Fires in all motor groups. Skin is clear warm, feet are warm with good cap refill in all digits. Normal sensation to light touch. no medial thigh tenderness, negative Homans' sign. No palpable edema peripherally. HENMT: COMMON NORMALS: normocephalic HEAD & SCALP: normocephalic Data 06/25/23 04:53 06/25/23 04:53 Micro: Microbiology 06/25/23 04:59 Blood Culture - Preliminary Blood SPECIMEN COLLECTED 06/25/23 04:53 Blood Culture - Preliminary Blood SPECIMEN COLLECTED 06/23/23 21:42 Blood Culture - Preliminary Blood 06/23/23 21:25 Blood Culture - Preliminary Blood A&P Assessment and plan (1) S/P BKA (below knee amputation): Physical therapy to evaluate. Encourage incentive spirometry for pulmonary toilet. 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
[2023-06-25] MEDS: insulin lispro 100 unit/1 mL SUBCUT ×4 (07:52→21:52)
[2023-06-25] MEDS: lamoTRIgine 100 mg Tablet 150 MG PO (07:52)
[2023-06-25] MEDS: gabapentin 300 mg Capsule 600 MG PO ×3 (07:53→21:51)
[2023-06-25] MEDS: HYDROmorphone 1 mg/mL INJ 1 mL IVP ×2 (07:54→23:47)
[2023-06-25] MEDS: sodium chloride 0.9% 1,000 ML 125 ML IV ×2 (08:17→23:46)
--- NOTE | 2023-06-25 08:44 | PM.PN ---
Subjective Subjective: Reports she wants to feel better, and be able to get on with her life. She states she has been off and on antibiotics so frequently since February. She was having some issues with pain, and pain medication was changed to Dilaudid by infectious disease this morning, appropriately. She underwent right below the knee amputation yesterday. Medications: Reviewed: Yes Vitals/I&O/Wt Last Vital Signs Temp 98.1 F 06/25/23 07:08 Pulse 96 06/25/23 07:51 Resp 20 H 06/25/23 07:54 BP 147/82 06/25/23 07:08 Pulse Ox 98 06/25/23 07:51 O2 Del Method Room Air 06/25/23 07:51 O2 Flow Rate 6 06/24/23 17:49 06/24/23 06/25/23 06/25/23 22:59 06:59 14:59 Intake Total 900 / 1950 880 / 2830 Output Total 25 / 25 Balance 875 / 1925 880 / 2805 Weight last 48 hrs Weight 53.07 kg Physical Exam Narrative: General exam no distress Neck is supple no lymphadenopathy thyromegaly Cardiovascular regular rate and rhythm without murmur Lungs clear no wheezing or crackles Abdomen is soft nontender. No obvious organomegaly Extremity left no cyanosis clubbing or edema, right with below the knee amputation dressing clean and dry Data 06/25/23 04:53 06/25/23 04:53 Micro: Microbiology 06/23/23 23:27 Urine Culture - Final Urine,Clean Catch 06/25/23 04:59 Blood Culture - Preliminary Blood SPECIMEN COLLECTED 06/25/23 04:53 Blood Culture - Preliminary Blood SPECIMEN COLLECTED 06/23/23 21:42 Blood Culture - Preliminary Blood 06/23/23 21:25 Blood Culture - Preliminary Blood A&P Assessment and plan (1) Gram-positive bacteremia: Patient now has gram-positive bacteremia, awaiting identification and sensitivity. 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 Continue vancomycin. Repeat cultures were drawn this morning. (2) Osteomyelitis of ankle: Status post amputation, right below the knee amputation on June 24 (3) Prosthetic joint infection: See above (4) S/P BKA (below knee amputation): See above (5) Infected surgical wound: Patient presents with an infected right lower extremity surgical wound, with concern of abscess. She reports she has had fever for least a week, and really has not been able to feel or move her toes in 3 days with her cast on. Cast was removed in the emergency department. She has obvious erythema, concern for abscess on CT, and probable osteomyelitis. Orthopedic consult appreciated, right below the knee amputation performed June 24 Continue vancomycin and meropenem, awaiting cultures Transthoracic echo demonstrates normal EF, mild MR, trace TR With her bacteremia, will await identification of bacteria to determine treatment course and whether any other studies such as JARET will be needed. CBC, BMP tomorrow Continue to adjust medication for pain control (6) Cellulitis: Resolved with amputation (7) Abscess: Resolved with amputation (8) UTI (urinary tract infection): Concern for UTI on urinalysis Urine culture greater than 100,000 colonies mixed cherise Renal ultrasound demonstrated mild dilation of left renal pelvis, slightly distended bladder, no other findings Continue Flagyl for trichomonas noted on urinalysis (9) Type 1 diabetes: Continue long-acting insulin. Had hypoglycemia yesterday but was n.p.o. Continue sliding scale insulin, changed to moderate as she is now eating. Moderate sliding scale Slight anion gap today. Recheck BMP tomorrow, sooner should any tachycardia, vomiting occur. Interestingly, although she reports type 1 diabetes, she reports she has never been in DKA and has never been hospitalized for such. (10) Chronic kidney disease: Patient has history of chronic kidney disease Avoid renal toxic medication BMP daily (11) Acute hypokalemia: Resolved (12) Anemia: I think this is most likely secondary to her infection. From her description this may have been going on for weeks. Other cofactors could be her chronic kidney disease. Check iron studies. (13) Transaminitis: Hepatitis panel, HIV negative Plan Full code Heparin for DVT prophylaxis Attestations Medical Necessity Statement*: Needs continued hospitalization for IV antibiotics secondary to bacteremia. High risk of and/or disability with bacteremia, and close monitoring needed on vancomycin with levels, in this patient with renal dysfunction. Diagnoses Gram-positive bacteremia R78.81 Osteomyelitis of ankle M86.9 Prosthetic joint infection T84.50XA S/P BKA (below knee amputation) Z89.519 Infected surgical wound T81.49XA Cellulitis L03.90 Abscess L02.91 UTI (urinary tract infection) N39.0 Type 1 diabetes E10.9 Chronic kidney disease N18.9 Acute hypokalemia E87.6 Anemia D64.9 Transaminitis R74.01 Time Spent (min) 31
[2023-06-25] MEDS: metroNIDAZOLE 500 MG Tablet PO ×2 (09:45→18:07)
--- NOTE | 2023-06-25 09:58 | PC.CHAP ---
Pastoral Care Encounter/Spiritual Assessment Type of Contact [] Declined scenic artist visit [] Patient/Family/Request visit [] Outpatient visit [] Follow-up visit [] Physician referral [] Code/Alert [x] Routine visit [] Staff referral [] Actively dying [] Patient sleeping [] Family support [] [] Out of room [] Palliative care [] [] Receiving care in room [] Pre-surgical visit [] Trauma [] Long length of stay [] ICU visit [] Other: Relational/Emotional Strength [x] Patient feels connected with others/family/visitors/staff [] Distress [] Loneliness/isolation [] Abandonment Spirituality of Patient [x] Person of [place] [x] Attends Yarsani of their [place] [x] Believes in Prayer [x] Reads Bible or Druze materials [] There are Spiritual issues to be addressed Patent Clerk Interventions [x] Prayer [x] Active listening [] Non-anxious presence [x] Spiritual/emotional support [] Crisis/trauma care [] Spiritual counseling [] Bereavement support [] Provided bereavement packet [] Provided Bible/devotional materials [] Provided toy/stuffed animal, coloring book to patient or family member [] Provided Communion [] Anointing/[place] [] Salvation [x] Completed spiritual assessment [] Other: Impact on Illness or Injury [] Angry [] Fearful [] Anxious [] Often cries [] Exhaustion [] Unable to work [] Unable to attend mormon [] Unable to walk/stand [] Unable to read [] Unable to drive [] Unable to eat/drink [] Unable to sleep [] Unable to be with family [] Patient intubated [] Other: Summary Time spent with patient 10 min
[2023-06-25 11:02] LABS: Glucose Point of Care 378 mg/dL (70-110)
[2023-06-25] MEDS: acetaminophen 325 mg Tablet 650 MG PO (11:18)
[2023-06-25 15:49] LABS: Glucose Point of Care 285 mg/dL (70-110)
[2023-06-25 21:19] LABS: Glucose Point of Care 232 mg/dL (70-110)
[2023-06-25] MEDS: insulin glargine 100 units/1 mL 20 UNIT SUBCUT (21:52)
[2023-06-26] VITALS (17 sets, daily range): BP systolic 98–141; BP diastolic 59–86; PULSE 77–93; RESP 15–22; TEMP 36.4–36.9; O2SAT 94–100
[2023-06-26] MEDS: heparin 5,000 unit/mL INJ 1 mL 5000 UNIT SUBCUT ×2 (03:37→16:15)
[2023-06-26] MEDS: vancomycin 1,000 MG in sodium chloride 0.9% 250 ML 250 MG IV (03:37)
[2023-06-26] MEDS: oxyCODONE 5 mg IR Tab/Cap PO ×4 (03:40→18:06)
[2023-06-26 04:53] LABS: Basophils # 0.1 10^3/uL (0.0-0.1); Basophils % 0.5 %; Eosinophils # 0.1 10^3/uL (0.0-0.8); Eosinophils % 0.5 %; Hematocrit 21.6 % (36-47); Lymphocytes # 3.2 10^3/uL (0.8-4.8); Lymphocytes % 24.2 %; Mean Corpuscular HGB Conc 30.6 g/dL (30-55); Mean Corpuscular Hemoglobin 30.1 pg (27-33); Mean Corpuscular Volume 98.6 fl (85-98); Mean Platelet Volume 10.4 fL (7.4-10.4); Monocytes # 0.7 10^3/uL (0.2-0.9); Monocytes % 5.2 %; Neutrophils # 7.48 10^3/uL (1.8-7.7); Neutrophils % 56.8 %; Nucleated Red Blood Cells % 0 %; Platelet Count 510 10^3/cmm (157-399); Red Blood Count 2.19 10^6/uL (3.85-5.65); Red Cell Distribution Width 17.1 % (12.1-15.1); White Blood Count 13.18 10^3/uL (3.29-11.43)
[2023-06-26 05:17] LABS: Anion Gap 12.8 (5-19); Blood Urea Nitrogen 22 mg/dL (6-20); Calcium 7.7 mg/dL (8.5-10.5); Carbon Dioxide 23 mmol/L (22-29); Chloride 103 mmol/L (98-107); Glomerular Filtration Rate 69.3 mL/min (90-130); Glucose 163 mg/dL (65-115); Osmolality Calculated 287 mOsm/kg (285-295); Potassium 3.8 mmol/L (3.5-5.1); Sodium 135 mmol/L (136-145)
[2023-06-26 05:26] LABS: Slide Review Slide Review Perform
[2023-06-26] MEDS: meropenem 1,000 MG in sodium chloride 0.9% (plus) 50 ML 100 MG IV (06:27)
[2023-06-26 06:34] LABS: Glucose Point of Care 194 mg/dL (70-110)
--- NOTE | 2023-06-26 06:42 | P.PN_ITS ---
Subjective Subjective: Infectious disease progress note Blood culture identified with group B strep Continues to complain of pain. Afebrile, hemodynamically stable Leukocytosis improving from 18-13. Medications: Reviewed: Yes Vitals/I&O/Wt Last Vital Signs Temp 98 F 06/27/23 04:00 Pulse 74 06/27/23 04:00 Resp 15 06/27/23 04:00 BP 142/66 06/27/23 04:00 Pulse Ox 96 06/27/23 04:00 O2 Del Method Room Air 06/27/23 04:00 O2 Flow Rate 6 06/24/23 17:49 06/26/23 06/26/23 06/27/23 14:59 22:59 06:59 Intake Total 2170 / 2170 1490.417 / 3660.417 Balance 2170 / 2170 1490.417 / 3660.417 Physical Exam Narrative: General: No acute distress, AO x3 HEENT: PERRLA, pupils bilaterally equal and reactive, pallors not present Chest: Normal vesicular breath sounds, no added sounds, equal good air entry bilaterally CVS: S1-S2 regular, no murmurs, no tachycardia, no gallops, no rubs Abdomen: Soft, nontender, no organomegaly, bowel sounds present Neuro: No focal deficits, no facial deformity, AO x3, power 5/5 in all limbs; s/ p right BKA Data 06/27/23 04:13 06/27/23 04:13 Micro: Microbiology 06/23/23 21:42 Blood Culture - Final Blood Strep agalactiae - (group b) 06/23/23 21:25 Blood Culture - Final Blood Strep agalactiae - (group b) 06/24/23 16:50 Gram Stain - Final Leg - #1 Anaerobic Culture - Preliminary Wound Culture - Preliminary gram-positive cocci in chains 06/25/23 04:59 Blood Culture - Preliminary Blood NEGATIVE TO DATE 06/25/23 04:53 Blood Culture - Preliminary Blood NEGATIVE TO DATE A&P Assessment and plan (1) Gram-positive bacteremia: (2) 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 It appears osteomyelitis of the ankle was a result of a direct injury over the site. Blood culture from admission is positive for gram-positive cocci in pairs and chains identified as group B streptococcus. Follow-up blood cultures from June 25 thus far negative to date Wound culture from amputation site with GPC's in pairs and chains, expected to be group B streptococcus She has a recent history of what appears to be MSSA bacteremia per her description in February 2023, treated with ceftriaxone for over a month. However without records cannot be sure of this. Still awaiting prior records from [facility]. She denies IVDU Given a second bacteremia in close succession, will need to exclude possibility of endocarditis. TTE without gross vegetations, recommend JARET. She has no underlying cardiac or orthopedic hardware anymore. If JARET negative, likely that current bacteremia with Streptococcus is related to her right ankle infection for which she has appropriately received a below-knee amputation for source control measures. If JARET negative, will anticipate discharge with ceftriaxone for 2 weeks from date of clearance of bacteremia. Discontinue meropenem and vancomycin today. Change treatment to ceftriaxone 2 g IV every 24 hours given recovery of strep isolate. Further recommendations to be based on results of JARET. Hopefully we will have records soon. Continue metronidazole for trichomonas We will follow Attestations Medical Necessity Statement*: Per admitting Coding Level of Care Code Acute Code for Chg Fwd Moderate MDM includes number and complexity of problems actively addressed during encounter, amount and/or complexity of data reviewed/ordered and described risk of complication, morbidity or mortality of management as documented Diagnoses Gram-positive bacteremia R78.81 Osteomyelitis of ankle M86.9 Prosthetic joint infection T84.50XA S/P BKA (below knee amputation) Z89.519
--- NOTE | 2023-06-26 06:53 | PM.PN ---
Vitals/I&O/Wt Last Vital Signs Temp 98 F 06/26/23 04:00 Pulse 91 06/26/23 04:00 Resp 18 06/26/23 04:00 BP 105/59 06/26/23 04:00 Pulse Ox 95 06/26/23 04:00 O2 Del Method Room Air 06/26/23 04:00 O2 Flow Rate 6 06/24/23 17:49 06/25/23 06/25/23 06/26/23 14:59 22:59 06:59 Intake Total 1010 / 1010 1050 / 2060 250 / 2310 Output Total 1100 / 1100 Balance -90 / -90 1050 / 960 250 / 1210 Physical Exam Narrative: Patient is alert and orient x3 has good general appearance normal normal affect.? Right BKA stump with dressing clean and dry.? There is no signs of erythema or drainage no signs of infection.? Good motor strength throughout left lower extremity.? Fires in all motor groups in the left lower extremity.? Skin is clear warm, left foot is warm with good cap refill in all digits.? Normal sensation to light touch.? no medial thigh tenderness, negative Homans' sign.? No palpable edema peripherally. 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 We will see her back in the office in 1 week's time for wound check. Attestations Medical Necessity Statement*: Defer to Medical team Coding Level of Care Code Acute Code for Chg Fwd Diagnoses S/P BKA (below knee amputation) Z89.519
[2023-06-26] MEDS: lamoTRIgine 100 mg Tablet 150 MG PO (07:49)
[2023-06-26] MEDS: gabapentin 300 mg Capsule 600 MG PO ×3 (07:50→20:48)
[2023-06-26] MEDS: cefTRIAXone 2,000 MG in sodium chloride 0.9% (plus) 50 ML 100 MG IV (07:50)
[2023-06-26] MEDS: insulin lispro 100 unit/1 mL SUBCUT ×2 (07:50→18:05)
[2023-06-26] MEDS: metroNIDAZOLE 500 MG Tablet PO ×2 (07:50→18:06)
[2023-06-26] MEDS: HYDROmorphone 1 mg/mL INJ 1 mL IVP ×2 (07:52→16:15)
--- NOTE | 2023-06-26 07:52 | P.PN_ITS ---
Subjective Subjective: Anna reports she has some pain. Otherwise feeling a little bit better, and her sugars are better under better control. I have visited with her about the changes that we made today, and that Dr. Bianchi recommended JARET, blood transfusion has been ordered, after changing her antibiotics. Medications: Reviewed: Yes Vitals/I&O/Wt Last Vital Signs Temp 98 F 06/26/23 04:00 Pulse 91 06/26/23 04:00 Resp 18 06/26/23 04:00 BP 105/59 06/26/23 04:00 Pulse Ox 95 06/26/23 04:00 O2 Del Method Room Air 06/26/23 04:00 O2 Flow Rate 6 06/24/23 17:49 06/25/23 06/26/23 06/26/23 22:59 06:59 14:59 Intake Total 1050 / 2060 250 / 2310 50 / 50 Balance 1050 / 960 250 / 1210 50 / 50 Physical Exam Narrative: General exam no distress Cardiovascular regular rate and rhythm without murmur Lungs clear no wheezing or crackles Abdomen is soft nontender. No obvious organomegaly Extremity left no cyanosis clubbing or edema, right with below the knee amputation dressing clean and dry Data 06/26/23 04:30 06/26/23 04:30 Micro: Microbiology 06/25/23 04:59 Blood Culture - Preliminary Blood NEGATIVE TO DATE 06/25/23 04:53 Blood Culture - Preliminary Blood NEGATIVE TO DATE 06/23/23 21:42 Blood Culture - Preliminary Blood Strep agalactiae - (group b) 06/23/23 21:25 Blood Culture - Preliminary Blood Strep agalactiae - (group b) 06/24/23 16:50 Gram Stain - Final Leg - #1 06/23/23 23:27 Urine Culture - Final Urine,Clean Catch A&P Assessment and plan (1) Gram-positive bacteremia: Patient now has gram-positive bacteremia, 4 of 4 bottles group B strep. 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 Continue vancomycin. Repeat cultures were drawn on June 25, negative to date. Infectious disease has been consulted. Recommendation today with this iden tification is changing IV antibiotics to Rocephin. She has been placed on 2 g IV every 24 hours. Continue to monitor CBC and BMP daily. Repeat cultures, should her second set of cultures turn positive. White blood cell count is decreasing appropriately. (2) Osteomyelitis of ankle: Status post amputation, right below the knee amputation on June 24 (3) Prosthetic joint infection: See above (4) S/P BKA (below knee amputation): See above (5) Infected surgical wound: Patient presents with an infected right lower extremity surgical wound, with concern of abscess. She reports she has had fever for least a week, and really has not been able to feel or move her toes in 3 days with her cast on. Cast was removed in the emergency department. She has obvious erythema, concern for abscess on CT, and probable osteomyelitis. Orthopedic consult appreciated, right below the knee amputation performed June 24 Continue vancomycin and meropenem, awaiting cultures Transthoracic echo demonstrates normal EF, mild MR, trace TR With her bacteremia, a JARET will be obtained. Infectious diseases consulted cardiology for this, and that will likely happen tomorrow. CBC, BMP tomorrow Continue to adjust medication for pain control, increasing OxyContin IR interval. (6) Cellulitis: Resolved with amputation (7) Abscess: Resolved with amputation (8) UTI (urinary tract infection): Concern for UTI on urinalysis Urine culture greater than 100,000 colonies mixed cherise Renal ultrasound demonstrated mild dilation of left renal pelvis, slightly distended bladder, no other findings Continue Flagyl for trichomonas noted on urinalysis (9) Type 1 diabetes: Continue long-acting insulin. Had hypoglycemia yesterday but was n.p.o. Continue sliding scale insulin, moderate No evidence of DKA, anion gap appropriate today (10) Chronic kidney disease: Patient has history of chronic kidney disease Avoid renal toxic medication BMP daily (11) Acute hypokalemia: Resolved (12) Anemia: I think this is most likely secondary to her infection. From her description this may have been going on for weeks. Other cofactors could be her chronic kidney disease. Check iron studies. (13) Transaminitis: Hepatitis panel, HIV negative Plan Full code Heparin for DVT prophylaxis Attestations Medical Necessity Statement*: Needs continued hospitalization for IV antibiotics secondary to bacteremia Diagnoses Gram-positive bacteremia R78.81 Osteomyelitis of ankle M86.9 Prosthetic joint infection T84.50XA S/P BKA (below knee amputation) Z89.519 Infected surgical wound T81.49XA Cellulitis L03.90 Abscess L02.91 UTI (urinary tract infection) N39.0 Type 1 diabetes E10.9 Chronic kidney disease N18.9 Acute hypokalemia E87.6 Anemia D64.9 Transaminitis R74.01 Time Spent (min) 24
[2023-06-26] MEDS: sodium chloride 0.9% 1,000 ML 125 ML IV ×2 (07:53→22:04)
--- NOTE | 2023-06-26 09:02 | PM.CONSULT ---
Providers/Reason For Consult Consulting Physician/Specialty*: Orion Brown MD/ Cardiology Reason for Consult*: Rule out endocarditis/ Transesophageal echocardiogram Requesting Physician: Dr Traylor Attending Physician: Jair Cha MD History of Present Illness History of Present Illness Anna Hart is a 42 year old female with recent osteomyelitis and BKA is Streptococcus group B bacteremia. In the recent past she had MSSA bacteremia. Infectious disease requesting transesophageal echocardiogram as this will determine duration of antibiotics if she has endocarditis. Transthoracic echo did not reveal endocarditis. Review of Systems General: Reports: 10 or more systems reviewed and unremarkable except in HPI and below Const: Denies: fever(s), chills or body aches Eyes: Denies: change in vision, blurry vision or photophobia ENMT: Reports: hoarseness; Denies: throat pain, enlarged tonsils, odynophagia or nasal congestion Card: Denies: chest pain, palpitations, irregular heart rhythm, edema, swelling of feet/ankles, lightheadedness, pre-syncope, dyspnea on exertion or orthopnea Resp: Denies: dyspnea, productive cough, non-productive cough, wheezing, stridor, pain on inspiration, change in phlegm color, hemoptysis or chest congestion GI: Denies: abdominal pain, nausea, vomiting, hematemesis, coffee ground emesis, dysphagia, heartburn, diarrhea, constipation, GI cramping, change in stool character, hematochezia or melena : Denies: flank pain, difficulty voiding, dysuria, urinary frequency, urinary urgency, urinary hesitancy or hematuria Musc: Denies: neck pain, back pain, extremity pain, joint swelling, joint warmth or deformity Neuro: Denies: headache(s), numbness in extremities, weakness in extremities, sensory changes, difficulty walking, frequent falls, dizziness, vertigo, behavioral changes, Slurred speech present or seizure-like activity Psych: Denies: anxiety, depression, suicidal ideation or homicidal ideation Endo: Denies: polyuria, polydipsia, tired all the time, cold intolerance or hot flashes Derrick/Lymph: Denies: easy bruising or easy bleeding Medications/Allergies Home Medications Medication Instructions Recorded Confirmed Last Taken Type amitriptyline 25 mg tablet 25 mg PO BID 06/24/23 06/24/23 Unknown History gabapentin 600 mg tablet 600 mg PO TID 06/24/23 06/24/23 Unknown History hydrocodone 5 mg-acetaminophen 325 2 tab PO Q4H PRN Pain 06/24/23 06/24/23 Unknown History mg tablet ibuprofen 800 mg tablet 800 mg PO Q8H PRN Pain 06/24/23 06/24/23 Unknown History insulin NPH isoph U-100 human 100 10 unit SUBCUT BID 06/24/23 06/24/23 Unknown History unit/mL subcutaneous suspension (Novolin N NPH U-100 Insulin isophane) insulin lispro 100 unit/mL See Rx Instructions .Route .COMPLEX 06/24/23 06/24/23 Unknown History subcutaneous pen (Humalog KwikPen (U-100) Insulin) lamotrigine 150 mg tablet 150 mg PO DAILY 06/24/23 06/24/23 Unknown History (Lamictal) sulfamethoxazole 800 1 tab PO BID 06/24/23 06/24/23 Unknown History mg-trimethoprim 160 mg tablet Allergies Allergy/AdvReac Type Severity Reaction Status Date / Time amoxicillin Allergy ALGY-Rash Verified 06/23/23 20:32 clavulanic acid Allergy ALGY-Difficulty Verified 06/23/23 20:32 [From Augmentin] Breathing Penicillins Allergy ALGY-Rash Verified 06/23/23 20:32 Current Medications Generic Name Dose Route Start Last Admin Trade Name Sebastian PRN Reason Stop Dose Admin Acetaminophen 650 mg 06/24/23 03:46 06/25/23 11:18 Acetaminophen 325 Mg Tablet PO 650 mg Q6H PRN Administration Mild Pain Or Temp >/= 101 Dextrose 25 ml 06/24/23 03:46 06/24/23 11:33 Dextrose 50% Syringe 50 Ml IVP 25 ml ONCE PRN Administration hypoglycemia protocol Protocol Gabapentin 600 mg 06/24/23 15:00 06/26/23 07:50 Gabapentin 300 Mg Capsule PO 600 mg TID FABIAN Administration Heparin Sodium (Porcine) 5,000 unit 06/24/23 03:46 06/26/23 03:37 Heparin 5,000 Unit/Ml Inj 1 Ml SUBCUT 5,000 unit Q12H FABIAN Administration Hydromorphone HCl 1 mg 06/25/23 04:57 06/26/23 07:52 Hydromorphone 1 Mg/Ml Inj 1 Ml IVP 1 mg Q6H PRN Administration severe pain Dextrose 500 mls @ 100 mls/hr 06/24/23 03:46 06/24/23 19:06 D5w IV Infused ONCE PRN Infusion Adult Acute Hypoglycemia Prot Protocol Sodium Chloride 1,000 mls @ 75 mls/hr 06/25/23 08:00 06/26/23 07:53 Sodium Chloride 0.9% IV 125 mls/hr .[id number] FABIAN Administration Ceftriaxone Sodium 2,000 mg/ 50 mls @ 100 mls/hr 06/26/23 07:15 06/26/23 07:50 Sodium Chloride IV 100 mls/hr Q24H FABIAN Administration Protocol Insulin Glargine 20 unit 06/24/23 21:00 06/25/23 21:52 Insulin Glargine 100 Units/1 Ml SUBCUT 20 unit BEDTIME FABIAN Administration Insulin Human Lispro 0 unit 06/24/23 08:00 06/26/23 07:50 Insulin Lispro 100 Unit/1 Ml SUBCUT 6 unit WM&BEDTIME FABIAN Administration Protocol Lamotrigine 150 mg 06/25/23 09:00 06/26/23 07:49 Lamotrigine 100 Mg Tablet PO 150 mg DAILY FABIAN Administration Metronidazole 500 mg 06/25/23 09:00 06/26/23 07:50 Metronidazole 500 Mg Tablet PO 500 mg BID FABIAN Administration PFSH Acute PFSH: Medical History Chronic kidney disease Type 1 diabetes Surgical History History of appendectomy History of surgery on lower extremity History of tonsillectomy Social History Smoking and tobacco status: current every day smoker Alcohol intake: former Substance/Drug Use: current Substance/Drug use type: Marijuana Vitals/I&O/Wt Last Vital Signs Temp 97.7 F 06/26/23 08:00 Pulse 83 06/26/23 08:00 Resp 22 H 06/26/23 08:00 BP 117/63 06/26/23 08:00 Pulse Ox 97 06/26/23 08:00 O2 Del Method Room Air 06/26/23 08:00 O2 Flow Rate 6 06/24/23 17:49 06/25/23 06/26/23 06/26/23 22:59 06:59 14:59 Intake Total 1050 / 2060 250 / 2310 1050 / 1050 Balance 1050 / 960 250 / 1210 1050 / 1050 Physical Exam Narrative: GENERAL: Patient is alert, awake and oriented x3. [] NECK: No jugular vein distension. [] HEENT: No cyanosis. No icterus. No pallor. [] HEART: Regular S1 and S2. No murmur, rub or gallop. [] LUNGS: Clear to auscultate bilaterally. [] CENTRAL NERVOUS SYSTEM: Grossly nonfocal. [] EXTREMITIES: No significant edema Data 06/27/23 04:13 06/27/23 04:13 Micro: Microbiology 06/25/23 04:59 Blood Culture - Preliminary Blood NEGATIVE TO DATE 06/25/23 04:53 Blood Culture - Preliminary Blood NEGATIVE TO DATE 06/23/23 21:42 Blood Culture - Preliminary Blood Strep agalactiae - (group b) 06/23/23 21:25 Blood Culture - Preliminary Blood Strep agalactiae - (group b) 06/24/23 16:50 Gram Stain - Final Leg - #1 06/23/23 23:27 Urine Culture - Final Urine,Clean Catch A&P Assessment and plan (1) Gram-positive bacteremia: (2) S/P BKA (below knee amputation): (3) Chronic kidney disease: (4) Anemia: Plan We will proceed with transesophageal echocardiogram to rule out endocarditis. TTE not showing vegetations. N.p.o. past midnight. Antibiotic therapy per infectious disease recommendations. Thank you for involving us with care of this patient. We will continue to follow. Please call with questions. Consult Attestations Medical Necessity Statement: Care expected to cross 2 midnights. Coding Level of Care Code Acute Code for [facility] Fwd Diagnoses Gram-positive bacteremia R78.81 S/P BKA (below knee amputation) Z89.519 Chronic kidney disease N18.9 Anemia D64.9
[2023-06-26] MEDS: acetaminophen 325 mg Tablet 650 MG PO (09:48)
--- NOTE | 2023-06-26 10:45 | PC.CHAP ---
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 [] Patient/Family/Request visit [] Outpatient visit [] Follow-up visit [] Physician referral [] Code/Alert [x] Routine visit [] Staff referral [] Actively dying [] Patient sleeping [] Family support [] [] Out of room [] Palliative care [] [] Receiving care in room [] Pre-surgical visit [] Trauma [] Long length of stay [] ICU visit [] Other: Relational/Emotional Strength [] Patient feels connected with others/family/visitors/staff [x] Distress [] Loneliness/isolation [] Abandonment Spirituality of Patient [] Person of [place] [] Attends Congregational of their [place] [x] Believes in Prayer [] Reads Bible or Cheondoism materials [x] There are Spiritual issues to be addressed Tire Care Manager Interventions [x] Prayer [x] Active listening [] Non-anxious presence [] Spiritual/emotional support [] Crisis/trauma care [] Spiritual counseling [] Bereavement support [] Provided bereavement packet [] Provided Bible/devotional materials [] Provided toy/stuffed animal, coloring book to patient or family member [] Provided Communion [] Anointing/[place] [] Salvation [] Completed spiritual assessment [] Other: Impact on Illness or Injury [] Angry [x] Fearful [] Anxious [x] Often cries [] Exhaustion [x] Unable to work [] Unable to attend episcopalian [] Unable to walk/stand [] Unable to read [] Unable to drive [] Unable to eat/drink [] Unable to sleep [] Unable to be with family [] Patient intubated [] Other: Summary Time spent with patient 10 min
[2023-06-26 11:45] LABS: Glucose Point of Care 135 mg/dL (70-110)
[2023-06-26 16:56] LABS: Glucose Point of Care 193 mg/dL (70-110)
[2023-06-26] MEDS: amitriptyline 25 mg Tablet PO (18:06)
[2023-06-26 20:31] LABS: Glucose Point of Care 120 mg/dL (70-110)
[2023-06-27] VITALS (15 sets, daily range): BP systolic 136–174; BP diastolic 66–94; PULSE 74–98; RESP 15–20; TEMP 36.4–36.8; O2SAT 95–99
[2023-06-27] MEDS: HYDROmorphone 1 mg/mL INJ 1 mL IVP ×4 (00:06→21:22)
[2023-06-27] MEDS: oxyCODONE 5 mg IR Tab/Cap PO ×3 (03:47→22:13)
[2023-06-27] MEDS: heparin 5,000 unit/mL INJ 1 mL 5000 UNIT SUBCUT ×2 (03:47→15:04)
[2023-06-27 05:02] LABS: Mean Corpuscular HGB Conc 30.7 g/dL (30-55); Mean Corpuscular Volume 97.5 fl (85-98); Mean Platelet Volume 10.6 fL (7.4-10.4); Platelet Count 567 10^3/cmm (157-399); Red Blood Count 2.77 10^6/uL (3.85-5.65); Red Cell Distribution Width 18.2 % (12.1-15.1); White Blood Count 15.24 10^3/uL (3.29-11.43)
[2023-06-27 05:27] LABS: Anion Gap 13.5 (5-19); Blood Urea Nitrogen 13 mg/dL (6-20); Calcium 7.5 mg/dL (8.5-10.5); Carbon Dioxide 23 mmol/L (22-29); Chloride 108 mmol/L (98-107); Glomerular Filtration Rate 69.3 mL/min (90-130); Glucose 144 mg/dL (65-115); Osmolality Calculated 293 mOsm/kg (285-295); Potassium 4.5 mmol/L (3.5-5.1); Sodium 140 mmol/L (136-145)
[2023-06-27 05:57] LABS: Absolute Eosinophils 0.6 10^3/cmm (0.0-0.7); Absolute Neutrophil 8.2 10^3/cmm (1.4-6.5); Absolute Segmented Neutrophil 8.2 10/cmm (1.6-7.1); Eosinophils 4 %; Lymphocytes 24 %; Monocytes Absolute 0.2 10^3/cmm (0.1-0.6); Platelet Estimate Increased (Normal); Segmented Neutrophils 54 %; Slide Review Slide Review Perform; Total Cells Counted 100 (0-100)
[2023-06-27] MEDS: cefTRIAXone 2,000 MG in sodium chloride 0.9% (plus) 50 ML 100 MG IV (06:25)
[2023-06-27 06:29] LABS: Glucose Point of Care 165 mg/dL (70-110)
[2023-06-27] MEDS: metroNIDAZOLE 500 MG Tablet PO ×2 (08:00→17:50)
[2023-06-27] MEDS: lamoTRIgine 100 mg Tablet 150 MG PO (08:00)
[2023-06-27] MEDS: amitriptyline 25 mg Tablet PO ×2 (08:00→17:50)
[2023-06-27] MEDS: gabapentin 300 mg Capsule 600 MG PO ×3 (08:00→21:24)
--- NOTE | 2023-06-27 08:03 | PM.PN ---
Subjective Subjective: Anna reports she is doing okay. Pain is still present. She is ready for her JARET. No shortness of breath. Medications: Reviewed: Yes Vitals/I&O/Wt Last Vital Signs Temp 98 F 06/27/23 04:00 Pulse 74 06/27/23 04:00 Resp 17 06/27/23 07:44 BP 142/66 06/27/23 04:00 Pulse Ox 96 06/27/23 04:00 O2 Del Method Room Air 06/27/23 04:00 O2 Flow Rate 6 06/24/23 17:49 06/26/23 06/27/23 06/27/23 22:59 06:59 14:59 Intake Total 1490.417 / 3660.417 Balance 1490.417 / 3660.417 Physical Exam Narrative: General exam no distress Cardiovascular regular rate and rhythm without murmur Lungs clear no wheezing or crackles Abdomen is soft nontender. No obvious organomegaly Extremity left no cyanosis clubbing or edema, right with below the knee amputation dressing clean and dry Data 06/27/23 04:13 06/27/23 04:13 Micro: Microbiology 06/23/23 21:42 Blood Culture - Final Blood Strep agalactiae - (group b) 06/23/23 21:25 Blood Culture - Final Blood Strep agalactiae - (group b) 06/24/23 16:50 Gram Stain - Final Leg - #1 Anaerobic Culture - Preliminary Wound Culture - Preliminary Strep agalactiae - (group b) 06/25/23 04:59 Blood Culture - Preliminary Blood NEGATIVE TO DATE 06/25/23 04:53 Blood Culture - Preliminary Blood NEGATIVE TO DATE A&P Assessment and plan (1) Gram-positive bacteremia: Patient now has gram-positive bacteremia, 4 of 4 bottles group B strep. 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 Continue vancomycin. Repeat cultures were drawn on June 25, negative to date. Cultures from leg are also growing group B strep. Infectious disease has been consulted. IV antibiotics have been changed to Rocephin. She has been placed on 2 g IV every 24 hours. Continue to monitor CBC and BMP daily. Repeat cultures, should her second set of cultures turn positive. White blood cell count still slightly elevated. If cultures negative it read today, and after JARET is done, PICC line will likely be ordered. (2) Osteomyelitis of ankle: Status post amputation, right below the knee amputation on June 24 (3) Prosthetic joint infection: See above (4) S/P BKA (below knee amputation): See above (5) Infected surgical wound: Patient presents with an infected right lower extremity surgical wound, with concern of abscess. She reports she has had fever for least a week, and really has not been able to feel or move her toes in 3 days with her cast on. Cast was removed in the emergency department. She has obvious erythema, concern for abscess on CT, and probable osteomyelitis. Orthopedic consult appreciated, right below the knee amputation performed June 24 Continue Rocephin, leg and blood growing group B strep Transthoracic echo demonstrates normal EF, mild MR, trace TR With her bacteremia, a JARET will be obtained. Infectious diseases consulted cardiology for this, and that will likely happen today. CBC, BMP tomorrow Continue to adjust medication for pain control, increasing OxyContin IR interval. (6) Cellulitis: Resolved with amputation (7) Abscess: Resolved with amputation (8) UTI (urinary tract infection): Concern for UTI on urinalysis Urine culture greater than 100,000 colonies mixed cherise Renal ultrasound demonstrated mild dilation of left renal pelvis, slightly distended bladder, no other findings Continue Flagyl for trichomonas noted on urinalysis (9) Type 1 diabetes: Continue long-acting insulin. Continue sliding scale insulin, moderate No evidence of DKA. (10) Chronic kidney disease: Patient has history of chronic kidney disease Avoid renal toxic medication BMP daily (11) Acute hypokalemia: Resolved (12) Anemia: I think this is most likely secondary to her infection. From her description this may have been going on for weeks. Other cofactors could be her chronic kidney disease. She was transfused 1 unit of packed red blood cells on June 26 (13) Transaminitis: Hepatitis panel, HIV negative Plan Full code Heparin for DVT prophylaxis Attestations Medical Necessity Statement*: Needs continued IV antibiotics for strep bacteremia, close monitoring after right below the knee amputation Diagnoses Gram-positive bacteremia R78.81 Osteomyelitis of ankle M86.9 Prosthetic joint infection T84.50XA S/P BKA (below knee amputation) Z89.519 Infected surgical wound T81.49XA Cellulitis L03.90 Abscess L02.91 UTI (urinary tract infection) N39.0 Type 1 diabetes E10.9 Chronic kidney disease N18.9 Acute hypokalemia E87.6 Anemia D64.9 Transaminitis R74.01 Time Spent (min) 27
[2023-06-27] MEDS: sodium chloride 0.9% 1,000 ML 30 ML IV (11:29)
--- NOTE | 2023-06-27 11:32 | W.PM.OPSUD ---
Surgery/Procedure H&P Update DATE OF PROCEDURE: June 27, 2023 DATE H&P PERFORMED: 06/26/23 H&P UPDATE INFORMATION: I have reviewed H&P completed within last 30 days, I have examined patient prior to procedure and No changes to prior documentation PREOP DIAGNOSIS: Rule out endocarditis PRIMARY INDICATION FOR PROCEDURE: Rule out endocarditis PLANNED PROCEDURE: Operation Date: 06/27/23 12:00 Proposed Procedures p JARET(Not Applicable) - Orion Brown M.D Anesthesia team adminitering sedation
--- NOTE | 2023-06-27 11:33 | PM.PN ---
Subjective Subjective: Patient is doing well. She underwent transesophageal echocardiogram which showed no evidence of endocarditis. Vitals/I&O/Wt Last Vital Signs Temp 98.3 F 06/27/23 08:00 Pulse 93 06/27/23 11:20 Resp 18 06/27/23 11:20 BP 174/88 06/27/23 11:20 Pulse Ox 96 06/27/23 11:20 O2 Del Method Room Air 06/27/23 11:20 O2 Flow Rate 6 06/27/23 08:00 06/26/23 06/27/23 06/27/23 22:59 06:59 14:59 Intake Total 1490.417 / 3660.417 50 / 50 Balance 1490.417 / 3660.417 50 / 50 Physical Exam Narrative: GENERAL: Patient is alert, awake and oriented x3. [] NECK: No jugular vein distension. [] HEENT: No cyanosis. No icterus. No pallor. [] HEART: Regular S1 and S2. No murmur, rub or gallop. [] LUNGS: Clear to auscultate bilaterally. [] CENTRAL NERVOUS SYSTEM: Grossly nonfocal. [] EXTREMITIES: No significant edema Data 06/27/23 04:13 06/27/23 04:13 Micro: Microbiology 06/23/23 21:42 Blood Culture - Final Blood Strep agalactiae - (group b) 06/23/23 21:25 Blood Culture - Final Blood Strep agalactiae - (group b) 06/24/23 16:50 Gram Stain - Final Leg - #1 Anaerobic Culture - Preliminary Wound Culture - Preliminary Strep agalactiae - (group b) A&P Assessment and plan (1) Gram-positive bacteremia: (2) S/P BKA (below knee amputation): (3) Chronic kidney disease: (4) Anemia: Plan No vegetations seen on cardiac valves. Antibiotic therapy per ID and primary team Thank you for involving us with care of this patient. Please call with questions. Attestations Medical Necessity Statement*: Care expected to cross 2 midnights. Coding Level of Care Code Acute Code for [facility] Fwd Diagnoses Gram-positive bacteremia R78.81 S/P BKA (below knee amputation) Z89.519 Chronic kidney disease N18.9 Anemia D64.9
--- NOTE | 2023-06-27 12:00 | USCV_ITS ---
TolbertAnna allred Age: 42 Gender: F : 1980 Exam Date: 06/27/2023 12:27 Ordering Phys: Deandra Traylor MD Technologist: Van Falcon [place] [facility] [place]: ? veg BP: / HR: Rhythm: Sinus Technical Quality: Adequate MEASUREMENTS (Male / Female) Normal Values Medications Complications None Proc. Components After anesthesia team sedated patient, we proceeded with JARET probe insertion. FINDINGS Left Ventricle Normal in size and function. Right Ventricle Normal in size and function. Right Atrium Normal in size Left Atrium Normal in size LA Appendage No left atrial appendage thrombus seen IA Septum Normal Mitral Valve Structurally normal mitral valve. Mild mitral regurgitation. No vegetations seen Aortic Valve Structurally normal aortic valve. No vegetations seen. Tricuspid Valve Structurally noraml tricuspid valve. No vegetations seen Pulmonic Valve No vegetation seen Pericardium Normal Aorta Normal CONCLUSIONS LV systolic function is normal. No vegetations seen. Mild mitral regurgitation Orion Brown MD (Electronically Signed) Final Date: 07 July 2023 12:24 S
--- NOTE | 2023-06-27 12:24 | P.ANESASSM_ITS ---
Pre-Anesthetic Assessment Height/Weight: Height 1.6 m Weight 53.07 kg Temp Pulse Resp BP Pulse Ox O2 Del Method O2 Flow Rate 98.3 F 93 18 174/88 96 Room Air 6 06/27/23 08:00 06/27/23 11:20 06/27/23 11:20 06/27/23 11:20 06/27/23 11:20 06/27/23 11:20 06/27/23 08:00 Preop Diagnosis: Rule out endocarditis Operation Date: 06/24/23 15:30 Proposed Procedures p Below Knee Amputation(Right) - Ochoa Rubio DO Operation Date: 06/27/23 12:00 Proposed Procedures p JARET(Not Applicable) - Nguyen Dillon anesthetic complications: none Was Beta Kesha taken within 24 hours: N/A Was Clonidine taken within 24 hours: N/A Last intake: Intake Last Liquid Date 06/23/23 Last Liquid Time 21:00 Last Solid Date 06/23/23 Last Solid Time 09:00 Social Tobacco and No alcohol Exam alert and oriented x 3 Airway Submandibular: within normal limits Cervical ROM: within normal limits Mallampati: Class IV Dentition: full History/ROS No significant history except as noted CV/HEM None reported Chronic Renal Insufficiency Hepatic None reported Metabolic Diabetes Mellitus [facility] None reported Neuropsych None reported Anesthetic Plan ASA status: 3 Anesthesia: Anesthesia Evaluation, General and MAC Medications/Allergies Home Medications Medication Instructions Recorded Confirmed Last Taken Type amitriptyline 25 mg tablet 25 mg PO BID 06/24/23 06/24/23 Unknown History gabapentin 600 mg tablet 600 mg PO TID 06/24/23 06/24/23 Unknown History hydrocodone 5 mg-acetaminophen 325 2 tab PO Q4H PRN Pain 06/24/23 06/24/23 Unknown History mg tablet ibuprofen 800 mg tablet 800 mg PO Q8H PRN Pain 06/24/23 06/24/23 Unknown History insulin NPH isoph U-100 human 100 10 unit SUBCUT BID 06/24/23 06/24/23 Unknown History unit/mL subcutaneous suspension (Novolin N NPH U-100 Insulin isophane) insulin lispro 100 unit/mL See Rx Instructions .Route .COMPLEX 06/24/23 06/24/23 Unknown History subcutaneous pen (Humalog KwikPen (U-100) Insulin) lamotrigine 150 mg tablet 150 mg PO DAILY 06/24/23 06/24/23 Unknown History (Lamictal) sulfamethoxazole 800 1 tab PO BID 06/24/23 06/24/23 Unknown History mg-trimethoprim 160 mg tablet Allergies Allergy/AdvReac Type Severity Reaction Status Date / Time amoxicillin Allergy ALGY-Rash Verified 06/23/23 20:32 clavulanic acid Allergy ALGY-Difficulty Verified 06/23/23 20:32 [From Augmentin] Breathing Penicillins Allergy ALGY-Rash Verified 06/23/23 20:32 Current Medications Generic Name Dose Route Start Last Admin Trade Name Freq PRN Reason Stop Dose Admin Acetaminophen 650 mg 06/24/23 03:46 06/26/23 09:48 Acetaminophen 325 Mg Tablet PO 650 mg Q6H PRN Administration Mild Pain Or Temp >/= 101 Amitriptyline HCl 25 mg 06/26/23 18:00 06/27/23 08:00 Amitriptyline 25 Mg Tablet PO 25 mg BID FABIAN Administration Dextrose 25 ml 06/24/23 03:46 06/24/23 11:33 Dextrose 50% Syringe 50 Ml IVP 25 ml ONCE PRN Administration hypoglycemia protocol Protocol Gabapentin 600 mg 06/24/23 15:00 06/27/23 08:00 Gabapentin 300 Mg Capsule PO 600 mg TID FABIAN Administration Heparin Sodium (Porcine) 5,000 unit 06/24/23 03:46 06/27/23 03:47 Heparin 5,000 Unit/Ml Inj 1 Ml SUBCUT 5,000 unit Q12H FABIAN Administration Hydromorphone HCl 1 mg 06/25/23 04:57 06/27/23 07:44 Hydromorphone 1 Mg/Ml Inj 1 Ml IVP 1 mg Q6H PRN Administration severe pain Dextrose 500 mls @ 100 mls/hr 06/24/23 03:46 06/24/23 19:06 D5w IV Infused ONCE PRN Infusion Adult Acute Hypoglycemia Prot Protocol Sodium Chloride 1,000 mls @ 50 mls/hr 06/25/23 08:00 06/26/23 22:09 Sodium Chloride 0.9% IV 75 mls/hr .Q20H FABIAN Infusion Ceftriaxone Sodium 2,000 mg/ 50 mls @ 100 mls/hr 06/26/23 07:15 06/27/23 08:16 Sodium Chloride IV Infused Q24H FABIAN Infusion Protocol Sodium Chloride 1,000 mls @ 30 mls/hr 06/27/23 11:30 06/27/23 11:29 Sodium Chloride 0.9% IV 06/28/23 11:29 30 mls/hr .Q24H FABIAN Administration Insulin Glargine 20 unit 06/24/23 21:00 06/26/23 20:50 Insulin Glargine 100 Units/1 Ml SUBCUT Not Given BEDTIME FABIAN Insulin Human Lispro 0 unit 06/24/23 08:00 06/27/23 07:59 Insulin Lispro 100 Unit/1 Ml SUBCUT Not Given WM&BEDTIME FABIAN Protocol Lamotrigine 150 mg 06/25/23 09:00 06/27/23 08:00 Lamotrigine 100 Mg Tablet PO 150 mg DAILY FABIAN Administration Metronidazole 500 mg 06/25/23 09:00 06/27/23 08:00 Metronidazole 500 Mg Tablet PO 500 mg BID FABIAN Administration Oxycodone HCl 5 mg 06/26/23 07:52 06/27/23 03:47 Oxycodone 5 Mg Ir Tab/Cap PO 5 mg Q4H PRN Administration moderate PAIN PFSH Anesthesia Medical History Chronic kidney disease Type 1 diabetes Surgical History History of appendectomy History of surgery on lower extremity History of tonsillectomy Social History Smoking and tobacco status: current every day smoker Alcohol intake: former Substance/Drug Use: current Substance/Drug use type: Marijuana Supplemental PFSH Information Reports history of kidney disease When asked if she uses drugs she reports her father uses methamphetamine, and puts it in his coffee and if I did a urine drug screen on her it might be positive, as she had some coughing Data Anesthesia 06/27/23 04:13 06/27/23 04:13 Short CBC 06/26/23 06/27/23 Range/Units 04:30 04:13 WBC 13.18 H 15.24 H (3.29-11.43) 10^3/uL Hgb 6.60 L 8.30 L (11.27-16.99) g/dL Hct 21.6 L 27.0 L (36-47) % MCV 98.6 H 97.5 (85-98) fl Plt Count 510 H 567 H (157-399) 10^3/cmm Neut % (Auto) 56.8 % Neut # (Auto) 7.48 (1.8-7.7) 10^3/uL BMP 06/26/23 06/27/23 04:30 04:13 Sodium 135 L 140 Potassium 3.8 4.5 Chloride 103 108 H Carbon Dioxide 23 23 BUN 22 H 13 Creatinine 0.9 0.9 Glucose 163 H 144 H Calcium 7.7 L 7.5 L Blood Bank 06/24/23 15:22 Blood Type O Positive Rho(D) Type Positive Antibody Screen Negative Microbiology 06/23/23 21:42 Blood Culture - Final Blood Strep agalactiae - (group b) 06/23/23 21:25 Blood Culture - Final Blood Strep agalactiae - (group b) 06/24/23 16:50 Gram Stain - Final Leg - #1 Anaerobic Culture - Preliminary Wound Culture - Preliminary Strep agalactiae - (group b) Cardiac Studies: Echocardiogram 06/24/23
--- NOTE | 2023-06-27 13:10 | ANE.PACU2 ---
Inpatient post-anesthesia follow up: Airway intact: Yes Vital signs: Temperature 98.0 F Pulse Rate 86 Respiratory Rate 18 Blood Pressure 158/94 Pulse Oximetry 98 Oxygen Delivery Me thod [ Room Air Current Rate & Del kaleigh] Oxygen Delivery Me thod Room Air Oxygen Flow Rate 6 Fraction of Inspir ed Oxygen Hydration adequate: Yes Nausea and vomiting: No Pain level: 1 Mental status: Baseline
[2023-06-27 17:39] LABS: Glucose Point of Care 306 mg/dL (70-110)
[2023-06-27] MEDS: insulin lispro 100 unit/1 mL SUBCUT ×2 (17:50→21:24)
[2023-06-27 21:24] LABS: Glucose Point of Care 234 mg/dL (70-110)
[2023-06-27] MEDS: insulin glargine 100 units/1 mL 20 UNIT SUBCUT (21:25)
[2023-06-28] VITALS (14 sets, daily range): BP systolic 116–169; BP diastolic 66–81; PULSE 87–94; RESP 15–18; TEMP 36.7–37.1; O2SAT 92–98
--- NOTE | 2023-06-28 02:37 | PC.PHAR ---
Pharmacokinetic dosing service Date: 06/28/23 Time: 236 Objective: Patient: Anna Tolbert Floor: 270-1 Age: 42 yo Serum creatinine: 0.9 mg/dL Height: 63.0 Inches Weight (kg): 53.07 Diagnosis: Relevant medical/social history: Cultures and sensitivities: Other labs: Assessment: IBW (kg): 52.40 Dosing wt(kg): 53.07 Estimated Creatinine clearance (ml/min): 68.7 CRCL method: Cockcroft and Gault using ibw(default). Drug selected: Vancomycin Loading dose (mg): 0 Vd (liters): 47.8 (factor used: 0.9 L/kg) Rene (hr-1): 0.061 Half life (hrs): 11.36 Recommended dose: 1000 mg Interval: 18 hrs Infusion time (hrs): 1.5 Predicted peak (mcg/mL): 30.0 Predicted trough (mcg/mL): 10.96 Total body weight is being used for vancomycin dosing. Renal function is stable [ ] /unstable [ ] Recommendations: Give Vancomycin 1000 mg q 18 hrs with an expected Cpeak of 30.0 mcg/ml and an expected Ctrough of 10.96 mcg/ml Renal dosing of other antibiotics (review renal dosing of other medications and list guidelines here): Thank you for the consult, will continue to follow. Signature: Angela Mcallister [facility]
[2023-06-28] MEDS: heparin 5,000 unit/mL INJ 1 mL 5000 UNIT SUBCUT ×2 (03:58→14:50)
[2023-06-28] MEDS: vancomycin 1,000 MG in sodium chloride 0.9% 250 ML 250 MG IV ×2 (03:58→21:21)
[2023-06-28] MEDS: HYDROmorphone 1 mg/mL INJ 1 mL IVP ×4 (04:10→22:48)
[2023-06-28 05:06] LABS: Basophils # 0.1 10^3/uL (0.0-0.1); Basophils % 0.3 %; Eosinophils # 0.3 10^3/uL (0.0-0.8); Eosinophils % 1.7 %; Hematocrit 27.6 % (36-47); Lymphocytes # 3.5 10^3/uL (0.8-4.8); Lymphocytes % 20.2 %; Mean Corpuscular HGB Conc 30.8 g/dL (30-55); Mean Corpuscular Hemoglobin 30.2 pg (27-33); Mean Corpuscular Volume 98.2 fl (85-98); Monocytes # 0.7 10^3/uL (0.2-0.9); Monocytes % 4.1 %; Neutrophils # 8.83 10^3/uL (1.8-7.7); Neutrophils % 51.3 %; Nucleated Red Blood Cells % 0.1 %; Platelet Count 423 10^3/cmm (157-399); Red Blood Count 2.81 10^6/uL (3.85-5.65); White Blood Count 17.21 10^3/uL (3.29-11.43)
[2023-06-28] MEDS: oxyCODONE 5 mg IR Tab/Cap PO ×4 (05:12→21:11)
[2023-06-28 05:21] LABS: Slide Review Slide Review Perform
[2023-06-28 05:26] LABS: Alanine Aminotransferase 19 U/L (0-33); Albumin Level 2.2 g/dL (3.5-5.2); Alkaline Phosphatase 296 U/L (35-105); Blood Urea Nitrogen 7 mg/dL (6-20); Calcium 7.7 mg/dL (8.5-10.5); Carbon Dioxide 26 mmol/L (22-29); Chloride 103 mmol/L (98-107); Creatinine Clr Calc Pharmacy 103.6292; Globulin 3.4 g/dL (1.3-4.6); Glomerular Filtration Rate 110.7 mL/min (90-130); Glucose 99 mg/dL (65-115); Osmolality Calculated 282 mOsm/kg (285-295); Sodium 137 mmol/L (136-145); Total Bilirubin 0.2 mg/dL (0.15-1.2); Total Protein 5.6 g/dL (6.6-8.7)
[2023-06-28 05:33] LABS: Anion Gap 12.4 (5-19); Aspartate Amino Transferase 21 U/L (0-32); Potassium 4.4 mmol/L (3.5-5.1)
[2023-06-28 06:38] LABS: Glucose Point of Care 154 mg/dL (70-110)
--- NOTE | 2023-06-28 07:23 | XR_ITS ---
WS: [id number] XR chest 1V portable 32008 REASON FOR EXAM: Post PICC insertion FINDINGS: Left arm PICC line placement. The PICC line is in the superior vena cava proximal to the atrium in good position for use. IMPRESSION: Properly positioned left arm PICC line as above. PICC line position was discussed with the x-ray tech nologist at the time of the examination with no position change recommended. 8:25 a.m. 06/28/2023.
[2023-06-28] MEDS: cefTRIAXone 2,000 MG in sodium chloride 0.9% (plus) 50 ML 100 MG IV (07:26)
--- NOTE | 2023-06-28 08:34 | CT_ITS ---
WS: [id number] CT ABDOMEN PELVIS TECHNIQUE: Contrast-enhanced CT of the abdomen and pelvis with coronal and sagittal reformatted image s. CLINICAL INFORMATION: history of renal abscesses COMPARISON: None. DLP: 623.[address] scans at [facility] use at least one of these dose optimization techniques: automated e xposure control; mA and/or kV adjustment per patient size (includes targeted exams where dose is matc hed to clinical indication); or iterative reconstruction. FINDINGS: Diffuse body wall anasarca. Small bilateral pleural effusions. Bibasilar atelectasis. Marked hepatomegaly. Portal vein and splenic vein are patent. Spleen size upper limits of normal. Nor mal GE junction. Adrenal glands are normal. Normal renal parenchymal enhancement. No hydronephrosis. Normal caliber abdominal aorta. RIGHT renal cortical scarring. Markedly distended urinary bladder. Gallbladder is contracted. Normal pancreatic parenchymal enhance ment. Prominent inguinal lymph nodes RIGHT greater than LEFT nonspecific but likely reactive. Trace f ree fluid in the cul-de-sac. IMPRESSION: 1. Small bilateral pleural effusions with compressive atelectasis in the lung bases LEFT greater benito n RIGHT. Recommend correlation for pneumonia. 2. Marked hepatomegaly with heterogeneous parenchymal enhancement. Recommend correlation with liver function tests. 3. No hydronephrosis in either kidney. Normal renal parenchymal enhancement. RIGHT renal cortical sc arring. 4. Markedly distended urinary bladder. 5. Diffuse body wall anasarca.
--- NOTE | 2023-06-28 08:52 | PM.PN ---
Subjective Subjective: Pain is controlled patient is resting in bed. Vitals/I&O/Wt Last Vital Signs Temp 98.3 F 06/28/23 07:25 Pulse 89 06/28/23 07:25 Resp 16 06/28/23 07:25 BP 134/76 06/28/23 07:25 Pulse Ox 96 06/28/23 07:25 O2 Del Method Room Air 06/28/23 07:25 O2 Flow Rate 6 06/27/23 08:00 06/27/23 06/28/23 06/28/23 22:59 06:59 14:59 Intake Total 1589.583 / 1714.583 250 / 1963.583 50 / 50 Balance 1589.583 / 1714.583 250 / 1963.583 50 / 50 Physical Exam Narrative: Dressing was taken down the wound is clean dry and intact no evidence of any erythema or any evidence of any infection at this time Data 06/28/23 04:08 06/28/23 04:08 Micro: Microbiology 06/24/23 16:50 Gram Stain - Final Leg - #1 Anaerobic Culture - Preliminary Wound Culture - Preliminary Strep agalactiae - (group b) Coag positive Staphylococcus A&P Assessment and plan (1) S/P BKA (below knee amputation): Dressing changes as needed continue with physical therapy Attestations Medical Necessity Statement*: Per primary service Coding Level of Care Code Acute Code for [facility] Fwd Diagnoses S/P BKA (below knee amputation) Z89.519
--- NOTE | 2023-06-28 09:00 | PC.NURSE ---
I was requested by Dr. Rubio to assist with taking down the dressing to patient's surgical site, right BKA, and re-dressing it. Dressing was removed and incision assessed by Dr. Rubio and myself. Incision is well approximated and intact with running sutures. No s/s of infection noted. Surrounding area is pink and normal for ethnicity at this time. Small amount of gayatri blood drainage noted from incision. Verbal order received at bedside for dressing change and performed as followed using aseptic technique: cleansed incision with saline moistened gauze and patted dry. Covered incision with Xeroform and dry gauze. Secured with kerlix and OUMOU wrap. Patient tolerated procedure well with minimal discomfort to the incision site. She was hesitant to look at the incision, stating I'm afraid it will be awful like you see in the movies. I reassured her that it looked great and she did look at it and agreed that it looked better than she had anticipated. I provided education on s/s of wound infection, including: severe, increased pain that is not relieved with pain medications, sustained fever >101.0F, change in amount, color, clarity, or odor of the drainage. She verbalizes understanding. She denies further questions/concerns at this time. I placed the OUMOU wraps from her old dressing in a patient belongings bag and set on her window sill for her to take home with her, wash, and reuse if needed to outside of the clean dressing.
[2023-06-28] MEDS: iohexol 350 mg/mL 500 mL Btl (per mL) IV (09:26)
[2023-06-28] MEDS: insulin lispro 100 unit/1 mL SUBCUT ×4 (09:35→21:21)
[2023-06-28] MEDS: lamoTRIgine 100 mg Tablet 150 MG PO (09:36)
[2023-06-28] MEDS: gabapentin 300 mg Capsule 600 MG PO ×3 (09:36→21:11)
[2023-06-28] MEDS: amitriptyline 25 mg Tablet PO ×2 (09:36→18:07)
[2023-06-28] MEDS: metroNIDAZOLE 500 MG Tablet PO ×2 (09:36→18:07)
--- NOTE | 2023-06-28 10:00 | PM.PN ---
Subjective Subjective: Anna reports she is doing okay today. Is having occasional loose stool. Reports she has pain all over but not specific to her back. States her flanks hurt some. She underwent a PICC line today to facilitate outpatient treatment with ceftriaxone. Medications: Reviewed: Yes Vitals/I&O/Wt Last Vital Signs Temp 98.3 F 06/28/23 07:25 Pulse 89 06/28/23 07:25 Resp 16 06/28/23 07:25 BP 134/76 06/28/23 07:25 Pulse Ox 96 06/28/23 07:25 O2 Del Method Room Air 06/28/23 07:25 O2 Flow Rate 6 06/27/23 08:00 06/27/23 06/28/23 06/28/23 22:59 06:59 14:59 Intake Total 1589.583 / 1714.583 250 / 1964.583 170 / 170 Balance 1589.583 / 1714.583 250 / 1964.583 170 / 170 Physical Exam Narrative: General exam no distress Cardiovascular regular rate and rhythm without murmur Lungs clear no wheezing or crackles Abdomen is soft nontender. No obvious organomegaly Extremity left no cyanosis clubbing or edema, right with below the knee amputation dressing clean and dry with no evidence of infection. PICC line noted Data 06/28/23 04:08 06/28/23 04:08 Other Labs: Wound culture is now growing a coag positive staph in addition to strep group B Micro: Microbiology 06/24/23 16:50 Gram Stain - Final Leg - #1 Anaerobic Culture - Preliminary Wound Culture - Preliminary Strep agalactiae - (group b) Coag positive Staphylococcus A&P Assessment and plan (1) Gram-positive bacteremia: Patient now has gram-positive bacteremia, 4 of 4 bottles group B strep. 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 Repeat cultures were drawn on June 25, negative to date. She had been changed from vancomycin to Rocephin and the vancomycin was really added when wound culture started growing coag positive staph. Infectious diseases following. Cultures from leg are also growing group B strep. Plan currently is to continue Rocephin 2 g IV every 24 hours for 14 days from negative culture, however plan may change depending upon growth from wound. Continue to monitor CBC and BMP daily. White blood cell count has trended up. 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 She reports she has had fever for least a week, and really has not been able to feel or move her toes in 3 days with her cast on. Cast was removed in the emergency department. She has obvious erythema, concern for abscess on CT, and probable osteomyelitis. Orthopedic consult appreciated, right below the knee amputation performed June 24 Continue Rocephin, and vancomycin currently Transthoracic echo demonstrates normal EF, mild MR, trace TR JARET did not show endocarditis CBC, BMP tomorrow Continue to adjust medication for pain control, increasing OxyContin IR interval. (6) Cellulitis: Resolved with amputation (7) Abscess: Resolved with amputation (8) UTI (urinary tract infection): Concern for UTI on urinalysis Urine culture greater than 100,000 colonies mixed cherise Renal ultrasound demonstrated mild dilation of left renal pelvis, slightly distended bladder, no other findings Continue Flagyl for trichomonas noted on urinalysis to have 7 days total of treatment (9) Type 1 diabetes: Continue long-acting insulin. Continue sliding scale insulin, moderate No evidence of DKA. (10) Chronic kidney disease: Patient has history of chronic kidney disease Avoid renal toxic medication BMP daily (11) Acute hypokalemia: Resolved (12) Anemia: I think this is most likely secondary to her infection. From her description this may have been going on for weeks. Other cofactors could be her chronic kidney disease. She was transfused 1 unit of packed red blood cells on June 26 (13) Transaminitis: Hepatitis panel, HIV negative Plan Some loose stools. Check C. difficile toxin. This could explain elevated white blood cell count as well. Full code Heparin for DVT prophylaxis Attestations Medical Necessity Statement*: Needs continued hospital stay for IV antibiotics, CT scan of abdomen and pelvis, close follow-up considering white blood cell count increasing. Currently on vancomycin and ceftriaxone Diagnoses Gram-positive bacteremia R78.81 Osteomyelitis of ankle M86.9 Prosthetic joint infection T84.50XA S/P BKA (below knee amputation) Z89.519 Infected surgical wound T81.49XA Cellulitis L03.90 Abscess L02.91 UTI (urinary tract infection) N39.0 Type 1 diabetes E10.9 Chronic kidney disease N18.9 Acute hypokalemia E87.6 Anemia D64.9 Transaminitis R74.01 Time Spent (min) 25
[2023-06-28 10:31] LABS: Glucose Point of Care 170 mg/dL (70-110)
[2023-06-28] MEDS: tamsulosin 0.4 mg Capsule PO (14:36)
[2023-06-28 16:40] LABS: Glucose Point of Care 142 mg/dL (70-110)
[2023-06-28 20:40] LABS: Glucose Point of Care 184 mg/dL (70-110)
[2023-06-28] MEDS: acetaminophen 325 mg Tablet 650 MG PO (21:11)
[2023-06-28] MEDS: insulin glargine 100 units/1 mL 20 UNIT SUBCUT (21:21)
[2023-06-28 22:55] LABS: Glucose Point of Care 152 mg/dL (70-110)
[2023-06-29] VITALS (19 sets, daily range): BP systolic 121–174; BP diastolic 68–90; PULSE 68–109; RESP 14–20; TEMP 36.5–37; O2SAT 92–96
[2023-06-29] MEDS: heparin 5,000 unit/mL INJ 1 mL 5000 UNIT SUBCUT ×2 (03:05→15:25)
[2023-06-29] MEDS: oxyCODONE 5 mg IR Tab/Cap PO ×4 (03:05→20:20)
[2023-06-29 05:28] LABS: Hematocrit 25.6 % (36-47); Mean Corpuscular HGB Conc 29.7 g/dL (30-55); Mean Corpuscular Hemoglobin 29.8 pg (27-33); Mean Corpuscular Volume 100.4 fl (85-98); Mean Platelet Volume 10.2 fL (7.4-10.4); Platelet Count 485 10^3/cmm (157-399); Red Blood Count 2.55 10^6/uL (3.85-5.65); Red Cell Distribution Width 17.5 % (12.1-15.1); White Blood Count 15.23 10^3/uL (3.29-11.43)
[2023-06-29 05:47] LABS: Anion Gap 7.8 (5-19); Blood Urea Nitrogen 6 mg/dL (6-20); Calcium 7.5 mg/dL (8.5-10.5); Carbon Dioxide 33 mmol/L (22-29); Chloride 99 mmol/L (98-107); Glomerular Filtration Rate 92.7 mL/min (90-130); Glucose 137 mg/dL (65-115); Osmolality Calculated 282 mOsm/kg (285-295); Potassium 3.8 mmol/L (3.5-5.1); Sodium 136 mmol/L (136-145)
[2023-06-29 06:06] LABS: Slide Review Slide Review Perform
[2023-06-29 06:07] LABS: Absolute Eosinophils 0.6 10^3/cmm (0.0-0.7); Absolute Neutrophil 10.2 10^3/cmm (1.4-6.5); Absolute Segmented Neutrophil 10.1 10/cmm (1.6-7.1); Band Neutrophils Absolute 0.2 10^3/cmm (0.0-1.2); Eosinophils 4 %; Lymphocytes 21 %; Lymphocytes Absolute 3.2 10^3/cmm (1.2-3.4); Platelet Estimate Increased (Normal); Segmented Neutrophils 66 %; Total Cells Counted 100 (0-100)
[2023-06-29] MEDS: cefTRIAXone 2,000 MG in sodium chloride 0.9% (plus) 50 ML 100 MG IV (06:21)
[2023-06-29 06:28] LABS: Glucose Point of Care 176 mg/dL (70-110)
[2023-06-29] MEDS: HYDROmorphone 1 mg/mL INJ 1 mL IVP ×3 (06:32→18:31)
--- NOTE | 2023-06-29 07:40 | PM.PN ---
Subjective Subjective: Infectious disease progress note. JARET was completed and shows no signs of endocarditis CT of the chest abdomen and pelvis performed yesterday shows no evidence of persisting perinephric abscess Additional [place] are obtained [place] [facility] [place] [facility]. Per review of records Ms. Hart has a past medical history of bipolar 1 disorder, generalized anxiety disorder, type I DM, polysubstance abuse with meth use who was manic on her last admission in May 2023. She presented to an early May after she got her foot caught in the mud while fishing and rolled her right ankle. There was a comminuted impacted fracture of the right fibular metadiaphysis which was fixed. Notes from May indicate that she had a history of nonresolving perinephric abscess on her right kidney in January 2023 and gram-negative bacteremia which was treated with IV Rocephin, antibiotics were discontinued on January 23, 2023. It appears she had been planned for an interval nephrectomy at some point. CT abdomen and pelvis performed there in May 2023 did not show any signs of a perinephric abscess. Blood cultures were negative. Urine culture was positive for E. coli which was pansensitive. She was treated for UTI on this admission initially with cefepime and then converted to p.o. Bactrim at discharge. She did not follow-up with urology. Her leukocytosis ranged from 7.9 to 19K. Blood cx from 05/13 was negative I do not have any records available directly from January 2023 admission, however referencing notes from May 2023 it appears patient only had gram-negative bacteremia. There is no history of MSSA or gram-positive bacteremia on these records. Medications: Reviewed: Yes Vitals/I&O/Wt Last Vital Signs Temp 98.2 F 06/29/23 04:00 Pulse 68 06/29/23 04:00 Resp 16 06/29/23 06:32 BP 121/80 06/29/23 04:00 Pulse Ox 95 06/29/23 04:00 O2 Del Method Room Air 06/29/23 04:00 O2 Flow Rate 6 06/27/23 08:00 06/28/23 06/29/23 06/29/23 22:59 06:59 14:59 Intake Total 120 / 410 250 / 660 50 / 50 Output Total 1900 / 1900 950 / 2850 Balance -1780 / -1490 -700 / -2190 50 / 50 Physical Exam Narrative: General: No acute distress, AO x3 HEENT: PERRLA, pupils bilaterally equal and reactive, pallors not present Chest: Normal vesicular breath sounds, no added sounds, equal good air entry bilaterally CVS: S1-S2 regular, no murmurs, no tachycardia, no gallops, no rubs Abdomen: Soft, nontender, no organomegaly, bowel sounds present Neuro: No focal deficits, no facial deformity, AO x3, power 5/5 in all limbs Urinary Catheter Management: Bustos: Cath Placed During This Visit: yes Reason for Continuing Indwelling Catheter: Acute Urinary Retention or Obstruction Urinary Catheter Date of Insertion: 06/28/23 Urinary Catheter Time of Insertion: 14:45 Data 06/29/23 04:36 06/29/23 04:36 Micro: Microbiology 06/24/23 16:50 Gram Stain - Final Leg - #1 Anaerobic Culture - Preliminary Wound Culture - Final Strep agalactiae - (group b) Methicillin Resis Staph Aureus MRSA M.I.C. RX --------- ------ * Ampicillin >8 R * Ciprofloxacin <=1 S * Clindamycin <=0.5 S * Erythromycin >4 R * Gentamicin <=4 S * Levofloxacin <=1 S * Linezolid 2 S * Oxacillin >2 R * Penicillin >8 R * Rifampin <=1 S * Tetracycline <=4 S * Trimethoprim/Sulfamethoxazole <=0.5/9.5 S Vancomycin 2 S Daptomycin <=0.5 S Urine Culture Final 06/25/23-0807 >100,000 COLS/ML Mixed urogenital cherise on day 1 Blood Culture Final 06/26/23-1632 4 OF 4 BOTTLES POSITIVE DIRECT GRAM STAIN: GRAM POSITIVE COCCI IN PAIRS AND CHAINS Organism 1 Strep agalactiae - (group b) Growth IN 4 BOTTLES Strep Typing Strep Typing Gram Stain Charge Charge for Gram Stain CRITICAL RESULT YES/NO: YES CRITICAL CALLED BY: KATI TO AND READ BACK BY: JOVANNI DATE: 06/24/23 TIME: 1018 S aga(gr b M.I.C. RX --------- ------ * Ampicillin 0.12 S * Azithromycin >2 R * Cefepime <=0.25 S * Ceftriaxone <=0.25 S * Clindamycin >0.5 R * Erythromycin >0.5 R * Levofloxacin 0.5 S * Penicillin 0.06 S * Tetracycline >4 R Vancomycin 1 S [facility] [address] [place] [id number] [address] WU TRACEY, VINYL [employer] INST[employer]ER NAME: Anna Tolbert LOC: [facility] U #: [id number] AGE/SX: 42/F ROOM: 270 RE06/24/[address]: Jair Cha MD : 1980 BED: 1 DIS: FAX #: STATUS: ADM IN TLOC: Spec #: [id number] Yasmine: 06/25/23 Status: RES Req #: [id number] Recd: 06/25/[address]: Jair Cha MD Src: Blood SpDesc: Ordered: Bcult Procedure Result Verified Site Blood Culture Preliminary 06/26/23 NEGATIVE TO DATE Blood Culture Preliminary (changed) 06/25/23 SPECIMEN COLLECTED A&P Assessment and plan (1) Bacteremia due to group B Streptococcus: (2) S/P BKA (below knee amputation): (3) Prosthetic joint infection: (4) Osteomyelitis of ankle: (5) Gram-positive bacteremia: Plan 42-year-old lady with recent ORIF in May 2023 for ankle fracture currently presenting with osteomyelitis and hardware infection, now status post right BKA on June 24, 2023. Patient is an unreliable historian, uncertain if she had recurrent trauma. She did not keep any follows ups with her surgeons after her surgery. Blood culture from admission is positive for gram-positive cocci in pairs and chains identified as group B streptococcus. Follow-up blood cultures from June 25 thus far negative to date Wound culture from amputation site with group B streptococcus and MRSA. She denies IVDU however unreliable, prior notes from OSH indicate h/o polysubstance abuse include meth abuse and intoxication at time of admission in 05/2023. Other significant past history is that of a perinephric abscess in January 2023. General direct notes from this admission are not available, several references are noted in records from 05/2023. It appears patient has a history of a right perinephric abscess, pyelonephritis and E. coli bacteremia in January 2023 for which she was treated with ceftriaxone until January 23, 2023. He was again treated for E. coli UTI in May 2023 with p.o. Bactrim. It appears she was planned for an interval nephrectomy however she declined to follow-up with urology. JARET is currently negative for endocarditis. She has no underlying cardiac or orthopedic hardware anymore. She has been on treatment with meropenem and vancomycin initially, narrowed to ceftriaxone 2 g IV every 24 hours given recovery of strep isolate from blood. Current active issues include persistent leukocytosis however overall patient is clinically improving. He has developed some interim diarrhea for which C. difficile has been ordered. CT of the abdomen and pelvis did not show any current perinephric abscess. Stump site is being monitored by orthopedic service. Wound is clean dry and intact without evidence of any erythema or infection at this time. She is on daily dressing for the same. Plan: Continue ceftriaxone 2 g IV every 24 hours for group B strep bacteremia Source appears to be infected right ankle joint and hardware which is now status post a below-knee amputation. Recommend total treatment duration to be 14 days from clearance of bacteremia (06/25-07/09) Blood culture only with identification of Streptococcus, wound culture with Streptococcus and MRSA. Can discontinue IV vancomycin today. Change treatment to Bactrim DS twice daily for MRSA at wound site. Overall duration of both antibiotics until July 09, 2023. Patient does have persisting leukocytosis, however clinically showing all signs of improvement. No gross evidence of untreated infection. She has developed diarrhea in the interim, currently reporting 2 -3 episodes, C. difficile testing is pending. We will follow-up. Overall given clinical improvement, okay for discharge from ID standpoint f/up ID clinic in 2 weeks Attestations Medical Necessity Statement*: per admitting Coding Level of Care Code Acute Code for Chg Fwd Moderate MDM includes number and complexity of problems actively addressed during encounter, amount and/or complexity of data reviewed/ordered and described risk of complication, morbidity or mortality of management as documented Diagnoses Bacteremia due to group B Streptococcus R78.81; B95.1 S/P BKA (below knee amputation) Z89.519 Prosthetic joint infection T84.50XA Osteomyelitis of ankle M86.9 Gram-positive bacteremia R78.81
[2023-06-29] MEDS: amitriptyline 25 mg Tablet PO ×2 (08:07→18:31)
[2023-06-29] MEDS: metroNIDAZOLE 500 MG Tablet PO ×2 (08:07→18:31)
[2023-06-29] MEDS: lamoTRIgine 100 mg Tablet 150 MG PO (08:07)
[2023-06-29] MEDS: gabapentin 300 mg Capsule 600 MG PO ×3 (08:07→20:21)
[2023-06-29] MEDS: tamsulosin 0.4 mg Capsule PO (08:07)
[2023-06-29] MEDS: insulin lispro 100 unit/1 mL SUBCUT ×3 (08:08→20:21)
[2023-06-29] MEDS: sucralfate 1 gm Tablet PO ×2 (09:48→20:20)
[2023-06-29] MEDS: pantoprazole 40 mg SDV IVP ×2 (09:48→20:46)
[2023-06-29 11:25] LABS: Glucose Point of Care 132 mg/dL (70-110)
--- NOTE | 2023-06-29 16:29 | P.PN_ITS ---
Subjective Subjective: Patient was seen this morning, she continues to complain of generalized weakness, no fevers, no chills, no cough, denies bloody or black stools, she reports feeling tired, we discussed her anemia her hemoglobin 7.6, she denies ever having EGD or colonoscopy, no personal, history of colon cancer, plan is to give her a unit of blood today, and to monitor her hemoglobin closely, she is on heparin for DVT prophylaxis she is at high risk of hypercoagulable Vensel continue for now monitor hemoglobin, collect Hemoccult stool, started on Protonix, Carafate, there is a possibility that some of her anemia likely is multifactorial from bone marrow suppression from chronic infection, from antibiotics but it could also be a slow GI bleed we will have to monitor closely she is agreeable Vitals/I&O/Wt Last Vital Signs Temp 98.2 F 06/29/23 14:03 Pulse 98 06/29/23 14:03 Resp 17 06/29/23 14:03 BP 144/74 06/29/23 14:03 Pulse Ox 92 06/29/23 14:03 O2 Del Method Room Air 06/29/23 04:00 O2 Flow Rate 6 06/29/23 08:00 06/29/23 06/29/23 06/29/23 06:59 14:59 22:59 Intake Total 250 / 660 530 / 530 Output Total 950 / 2850 1525 / 1525 Balance -700 / -2190 530 / 530 -1525 / -995 Physical Exam Const: COMMON NORMALS: no acute distress and patient oriented x3 Resp: COMMON NORMALS: normal respiratory effort, No retractions, No use of accessory muscles and clear to auscultation bilaterally AUSCULTATION: clear to auscultation bilaterally Cardio: COMMON NORMALS: regular rate, regular rhythm, S1 normal heart sound present and S2 normal heart sound present RATE: regular rate RHYTHM: regular rhythm HEART SOUNDS: S1 normal heart sound present and S2 normal heart sound present GI: COMMON NORMALS: Normal to inspection, nondistended, normoactive bowel sounds present and non-tender Extremity: COMMON NORMALS: no pedal edema Neuro: COMMON NORMALS: patient oriented x3 Psych: COMMON NORMALS: mental status grossly normal Urinary Catheter Management: Bustos: Cath Placed During This Visit: yes Reason for Continuing Indwelling Catheter: Acute Urinary Retention or Obstruction Urinary Catheter Date of Insertion: 06/28/23 Urinary Catheter Time of Insertion: 14:45 Data 06/29/23 04:36 06/29/23 04:36 Micro: Microbiology 06/24/23 16:50 Gram Stain - Final Leg - #1 Anaerobic Culture - Preliminary Wound Culture - Final Strep agalactiae - (group b) Methicillin Resis Staph Aureus A&P Assessment and plan (1) Gram-positive bacteremia: Group B strep bacteremia Cultures from leg are also growing group B strep. Plan currently is to continue Rocephin 2 g IV every 24 hours for 14 days from negative culture Continue to monitor CBC and BMP daily. CT scan abdomen pelvis did not show any perinephric abscess Note the JARET was done and no evidence of endocarditis (2) Osteomyelitis of ankle: Status post amputation, right below the knee amputation on June 24 (3) Prosthetic joint infection: See above (4) S/P BKA (below knee amputation): See above (5) Infected surgical wound: Patient presents with an infected right lower extremity surgical wound, with concern of abscess. She reports she has had fever for least a week, and really has not been able to feel or move her toes in 3 days with her cast on. Cast was removed in the emergency department. She has obvious erythema, concern for abscess on CT, and probable osteomyelitis. Orthopedic consult appreciated, right below the knee amputation performed June 24 Continue Rocephin, and vancomycin currently Transthoracic echo demonstrates normal EF, mild MR, trace TR JARET did not show endocarditis CBC, BMP tomorrow Continue to adjust medication for pain control, increasing OxyContin IR interval. (6) Cellulitis: Resolved with amputation (7) Abscess: Resolved with amputation (8) UTI (urinary tract infection): Concern for UTI on urinalysis Urine culture greater than 100,000 colonies mixed cherise Renal ultrasound demonstrated mild dilation of left renal pelvis, slightly distended bladder, no other findings Continue Flagyl for trichomonas noted on urinalysis to have 7 days total of treatment (9) Type 1 diabetes: Continue long-acting insulin. Continue sliding scale insulin, moderate No evidence of DKA. (10) Chronic kidney disease: Patient has history of chronic kidney disease Avoid renal toxic medication BMP daily (11) Acute hypokalemia: Resolved (12) Anemia: - Does have evidence of iron deficiency anemia -Anemia could be multifactorial -From CKD -From bone marrow suppression -From infection -From antibiotics -It also possibly could be from a slow GI bleed, however no reported bloody or black stools, no hemodynamic compromise -However her hemoglobin 7.6 she is status post 1 unit during her hospitalization does report feeling fatigued and tired today -We will transfuse 1 unit PRBC -Monitor ferritin, iron, B12, folate -Hemoccult stool -For now continue heparin for DVT prophylaxis, as she is a high risk of h ypercoagulable events -Repeat hemoglobin in the afternoon (13) Transaminitis: Hepatitis panel, HIV negative Plan Patient was seen this morning, she continues to complain of generalized weakness, no fevers, no chills, no cough, denies bloody or black stools, she reports feeling tired, we discussed her anemia her hemoglobin 7.6, she denies ever having EGD or colonoscopy, no personal, history of colon cancer, plan is to give her a unit of blood today, and to monitor her hemoglobin closely, she is on heparin for DVT prophylaxis she is at high risk of hypercoagulable Vensel continue for now monitor hemoglobin, collect Hemoccult stool, started on Protonix, Carafate, there is a possibility that some of her anemia likely is multifactorial from bone marrow suppression from chronic infection, from antibiotics but it could also be a slow GI bleed we will have to monitor closely she is agreeable, continue IV Rocephin, Attestations Medical Necessity Statement*: Patient requires position for group B strep bacteremia, now with anemia, requiring transfusion Diagnoses Gram-positive bacteremia R78.81 Osteomyelitis of ankle M86.9 Prosthetic joint infection T84.50XA S/P BKA (below knee amputation) Z89.519 Infected surgical wound T81.49XA Cellulitis L03.90 Abscess L02.91 UTI (urinary tract infection) N39.0 Type 1 diabetes E10.9 Chronic kidney disease N18.9 Acute hypokalemia E87.6 Anemia D64.9 Transaminitis R74.01
[2023-06-29 17:04] LABS: Glucose Point of Care 388 mg/dL (70-110)
[2023-06-29 17:35] LABS: Ferritin 298 ng/mL (15-150); Iron 30 ug/dL (37-145); Percent Saturation 20.2 % (20-50); Total Iron Binding Capacity 148 mcg/dl; Unsaturated Iron Binding 118 ug/dL (112-347)
[2023-06-29 17:53] LABS: Vitamin B12 > 2000 pg/mL (232-1245)
[2023-06-29 20:11] LABS: Glucose Point of Care 224 mg/dL (70-110)
[2023-06-29] MEDS: insulin glargine 100 units/1 mL 20 UNIT SUBCUT (20:21)
[2023-06-29 23:24] LABS: Basophils # 0.1 10^3/uL (0.0-0.1); Basophils % 0.4 %; Eosinophils # 0.3 10^3/uL (0.0-0.8); Eosinophils % 1.6 %; Hematocrit 28.7 % (36-47); Lymphocytes # 3.2 10^3/uL (0.8-4.8); Mean Corpuscular HGB Conc 31.4 g/dL (30-55); Mean Corpuscular Hemoglobin 30.4 pg (27-33); Mean Platelet Volume 9.8 fL (7.4-10.4); Monocytes # 0.8 10^3/uL (0.2-0.9); Monocytes % 4.1 %; Neutrophils # 11.43 10^3/uL (1.8-7.7); Neutrophils % 61.5 %; Nucleated Red Blood Cells % 0 %; Platelet Count 515 10^3/cmm (157-399); Red Blood Count 2.96 10^6/uL (3.85-5.65); Red Cell Distribution Width 17.9 % (12.1-15.1); White Blood Count 18.58 10^3/uL (3.29-11.43)
[2023-06-29 23:57] LABS: Slide Review Slide Review Perform
[2023-06-30] VITALS (12 sets, daily range): BP systolic 134–176; BP diastolic 68–83; PULSE 91–106; RESP 16–19; TEMP 36.6–36.9; O2SAT 90–98
[2023-06-30] MEDS: oxyCODONE 5 mg IR Tab/Cap PO ×5 (00:25→21:27)
[2023-06-30 02:04] LABS: Folate Level 9.1 ng/mL (4.8-37.3)
[2023-06-30] MEDS: heparin 5,000 unit/mL INJ 1 mL 5000 UNIT SUBCUT ×2 (03:48→15:57)
[2023-06-30 05:24] LABS: Hematocrit 30.6 % (36-47); Mean Corpuscular HGB Conc 31.4 g/dL (30-55); Mean Corpuscular Hemoglobin 30.6 pg (27-33); Mean Corpuscular Volume 97.5 fl (85-98); Mean Platelet Volume 10.1 fL (7.4-10.4); Platelet Count 531 10^3/cmm (157-399); Red Blood Count 3.14 10^6/uL (3.85-5.65); White Blood Count 21.12 10^3/uL (3.29-11.43)
[2023-06-30 05:37] LABS: Anion Gap 6.2 (5-19); Blood Urea Nitrogen 6 mg/dL (6-20); Calcium 7.6 mg/dL (8.5-10.5); Carbon Dioxide 36 mmol/L (22-29); Chloride 99 mmol/L (98-107); Creatinine Clr Calc Pharmacy 103.6292; Glomerular Filtration Rate 110.7 mL/min (90-130); Glucose 104 mg/dL (65-115); Osmolality Calculated 282 mOsm/kg (285-295); Potassium 4.2 mmol/L (3.5-5.1); Sodium 137 mmol/L (136-145)
[2023-06-30 05:54] LABS: Slide Review Slide Review Perform
[2023-06-30 05:55] LABS: Absolute Eosinophils 0.2 10^3/cmm (0.0-0.7); Absolute Neutrophil 15.6 10^3/cmm (1.4-6.5); Absolute Segmented Neutrophil 14.8 10/cmm (1.6-7.1); Band Neutrophils Absolute 0.8 10^3/cmm (0.0-1.2); Eosinophils 1 %; Lymphocytes 12 %; Lymphocytes Absolute 2.5 10^3/cmm (1.2-3.4); Monocytes Absolute 0.8 10^3/cmm (0.1-0.6); Platelet Estimate Normal (Normal); Segmented Neutrophils 70 %; Total Cells Counted 100 (0-100)
[2023-06-30] MEDS: cefTRIAXone 2,000 MG in sodium chloride 0.9% (plus) 50 ML 100 MG IV (06:37)
[2023-06-30 06:47] LABS: Glucose Point of Care 84 mg/dL (70-110)
[2023-06-30] MEDS: pantoprazole 40 mg SDV IVP ×2 (08:38→21:27)
[2023-06-30 09:30] LABS: Erythrocyte Sedimentation Rate 58 mm/hr (0-15)
[2023-06-30 09:33] LABS: Alanine Aminotransferase 13 U/L (0-33); Albumin Level 2.5 g/dL (3.5-5.2); Alkaline Phosphatase 232 U/L (35-105); Aspartate Amino Transferase 9 U/L (0-32); C Reactive Protein 17.4 mg/L (0.0-4.9); Globulin 3.4 g/dL (1.3-4.6); Lipase 13 U/L (13-60); Total Bilirubin 0.2 mg/dL (0.15-1.2); Total Protein 5.9 g/dL (6.6-8.7)
[2023-06-30 09:40] LABS: Procalcitonin 0.17 ng/mL (0-0.5)
[2023-06-30] MEDS: HYDROmorphone 1 mg/mL INJ 1 mL IVP ×2 (10:06→16:18)
[2023-06-30 10:32] LABS: D Dimer 2.33 ug/mLFEU (0-0.59)
[2023-06-30] MEDS: metroNIDAZOLE 500 MG Tablet PO ×2 (10:45→21:27)
[2023-06-30] MEDS: lamoTRIgine 100 mg Tablet 150 MG PO (10:45)
[2023-06-30] MEDS: sucralfate 1 gm Tablet PO ×2 (10:45→21:27)
[2023-06-30] MEDS: sodium chloride 0.9% 1,000 ML 50 ML IV (10:45)
[2023-06-30] MEDS: amlodipine 10 mg Tablet PO (10:46)
[2023-06-30] MEDS: tamsulosin 0.4 mg Capsule PO (10:46)
[2023-06-30] MEDS: amitriptyline 25 mg Tablet PO ×2 (10:46→17:24)
[2023-06-30 11:02] LABS: Glucose Point of Care 136 mg/dL (70-110)
--- NOTE | 2023-06-30 12:48 | CTR_ITS ---
PROCEDURE INFORMATION: Exam: CTA Chest With Contrast Exam date and time: 06/30/2023 1:15 PM Age: 42 years old Clinical indication: Other: Weakness; Additional info: Leukocytosis, weaness, fatigue TECHNIQUE: Imaging protocol: Computed tomographic angiography of the chest with contrast. Exam focused on the arteries. 3D rendering (Not supervised by radiologist): MIP and/or 3D reconstructed images were created by the technologist. Radiation optimization: All CT scans at this facility use at least one of these dose optimization techniques: automated exposure control; mA and/or kV adjustment per patient size (includes targeted exams where dose is matched to clinical indication); or iterative reconstruction. Contrast material: OMNI 350; Contrast volume: 49 ml; Contrast route: INTRAVENOUS (IV); REPORTING DATA: Count of CT and Cardiac NM exams in prior 12 months: This patient has received 2 known CTs and 0 known cardiac nuclear medicine studies in the 12 months prior to the current study. COMPARISON: CR XR chest 1V portable [id number] 06/28/2023 8:20 AM RADIATION DOSE METRICS: Total DLP (mGy-cm): 195 FINDINGS: Pulmonary arteries: Normal. No pulmonary emboli. Aorta: Unremarkable. No aortic aneurysm. No aortic dissection. Celiac trunk and mesenteric arteries: Flow within the visualized portions of the celiac artery and superior mesenteric artery. Lungs: See Pleural spaces finding. Pleural spaces: Small pleural effusions bilaterally. Airspace consolidation within the left lower lobe slightly greater than right. Given the history, findings are concerning for pneumonic process with parapneumonic effusions. Heart: Unremarkable. No cardiomegaly. No pericardial effusion. Mediastinal space: The thoracic inlet is unremarkable. Lymph nodes: Unremarkable. No enlarged lymph nodes. Diaphragm: Small hiatal hernia. Liver: Suspected hepatomegaly. Splenomegaly. Nodularity of the liver. Correlate regarding risk factors for hepatocellular disease. Stomach and bowel: Particulate filled stomach Bones/joints: Unremarkable. No acute fracture. Soft tissues: Unremarkable. Other findings: No dissection. No visualized embolism as characterized to the segmental level. CT/CT angio chest PE protcl [id number] IMPRESSION: 1. No dissection. No visualized embolism as characterized to the segmental level. 2. Small pleural effusions bilaterally. Airspace consolidation within the left lower lobe slightly greater than right. Given the history, findings are concerning for pneumonic process with parapneumonic effusions. 3. Suspected hepatomegaly. Splenomegaly. Nodularity of the liver. Correlate regarding risk factors for hepatocellular disease. Follow-up nonemergent CT abdomen and pelvis suggested. 4. Small hiatal hernia.
--- NOTE | 2023-06-30 12:48 | P.PN_ITS ---
Subjective Subjective: Patient was seen this morning, she continues to complain of fatigue, malaise, no fevers overnight, does have diarrhea, she reports phantom pain of her right below-knee amputation site, no abdominal pain, does have a cough, does report feeling winded at times, no headache, blurry vision, no neck pain, Vitals/I&O/Wt Last Vital Signs Temp 98.5 F 06/30/23 11:26 Pulse 93 06/30/23 11:26 Resp 16 06/30/23 12:31 BP 143/79 06/30/23 11:26 Pulse Ox 98 06/30/23 11:26 O2 Del Method Room Air 06/29/23 04:00 O2 Flow Rate 6 06/29/23 08:00 06/29/23 06/30/23 06/30/23 22:59 06:59 14:59 Intake Total 600 / 1130 530 / 530 Output Total 1525 / 1525 3300 / 4825 1999 Balance -925 / -395 -3300 / -3695 -1470 / -1470 Physical Exam Const: COMMON NORMALS: no acute distress and patient oriented x3 Resp: COMMON NORMALS: normal respiratory effort, No retractions, No use of accessory muscles and clear to auscultation bilaterally AUSCULTATION: clear to auscultation bilaterally Cardio: COMMON NORMALS: regular rate, regular rhythm, S1 normal heart sound present and S2 normal heart sound present RATE: regular rate RHYTHM: regular rhythm HEART SOUNDS: S1 normal heart sound present and S2 normal heart sound present GI: COMMON NORMALS: Normal to inspection, nondistended, normoactive bowel sounds present and non-tender Extremity: NARRATIVE EXTREMITY EXAM: Right BKA Neuro: COMMON NORMALS: patient oriented x3 Psych: COMMON NORMALS: mental status grossly normal Urinary Catheter Management: Bustos: Cath Placed During This Visit: yes Reason for Continuing Indwelling Catheter: Acute Urinary Retention or Obstruc tion Urinary Catheter Date of Insertion: 06/28/23 Urinary Catheter Time of Insertion: 14:45 Data 06/30/23 04:58 06/30/23 04:58 Micro: Microbiology 06/30/23 10:00 Blood Culture - Preliminary Blood SPECIMEN COLLECTED 06/30/23 09:50 Blood Culture - Preliminary Blood SPECIMEN COLLECTED 06/25/23 04:59 Blood Culture - Final Blood NO GROWTH AFTER 5 DAYS 06/25/23 04:53 Blood Culture - Final Blood NO GROWTH AFTER 5 DAYS 06/24/23 16:50 Gram Stain - Final Leg - #1 Anaerobic Culture - Preliminary Wound Culture - Final Strep agalactiae - (group b) Methicillin Resis Staph Aureus A&P Assessment and plan (1) Gram-positive bacteremia: Group B strep bacteremia Cultures from leg are also growing group B strep. Plan currently is to continue Rocephin 2 g IV every 24 hours for 14 days from negative culture Continue to monitor CBC and BMP daily. CT scan abdomen pelvis did not show any perinephric abscess Note the JARET was done and no evidence of endocarditis (2) Osteomyelitis of ankle: Status post amputation, right below the knee amputation on June 24 (3) Prosthetic joint infection: See above (4) S/P BKA (below knee amputation): See above (5) Infected surgical wound: Patient presents with an infected right lower extremity surgical wound, with concern of abscess. She reports she has had fever for least a week, and really has not been able to feel or move her toes in 3 days with her cast on. Cast was removed in the emergency department. She has obvious erythema, concern for abs cess on CT, and probable osteomyelitis. Orthopedic consult appreciated, right below the knee amputation performed June 24 Continue Rocephin, and vancomycin currently Transthoracic echo demonstrates normal EF, mild MR, trace TR JARET did not show endocarditis CBC, BMP tomorrow Continue to adjust medication for pain control, increasing OxyContin IR interval. (6) Cellulitis: Resolved with amputation (7) Abscess: Resolved with amputation (8) UTI (urinary tract infection): Concern for UTI on urinalysis Urine culture greater than 100,000 colonies mixed cherise Renal ultrasound demonstrated mild dilation of left renal pelvis, slightly distended bladder, no other findings Continue Flagyl for trichomonas noted on urinalysis to have 7 days total of treatment (9) Type 1 diabetes: Continue long-acting insulin. Continue sliding scale insulin, moderate No evidence of DKA. (10) Chronic kidney disease: Patient has history of chronic kidney disease Avoid renal toxic medication BMP daily (11) Acute hypokalemia: Resolved (12) Anemia: - Does have evidence of iron deficiency anemia -Anemia could be multifactorial -From CKD -From bone marrow suppression -From infection -From antibiotics -It also possibly could be from a slow GI bleed, however no reported bloody or black stools, no hemodynamic compromise -Status post 2 units PRBC -Monitor ferritin, iron, B12, folate -Hemoccult stool pending -For now continue heparin for DVT prophylaxis, as she is a high risk of hypercoagulable events (13) Transaminitis: Hepatitis panel, HIV negative (14) Leukocytosis: - Persistent leukocytosis -Repeat blood cultures so far negative -Drawn repeat blood cultures today -Remains afebrile -C. difficile is still pending, has to be sent out to [facility], given her diarrhea complaints, and she has been on Rocephin for 3 months according to him, I am going to place her on C. difficile precautions and started on p.o. vancomycin -Repeat UA -Repeat Pro-Dominki, CRP, ESR -D-dimer is elevated 2.33, will order CT angiogram of the chest -CT scan abdomen pelvis -1.? Small bilateral pleural effusions with compressive atelectasis in the lung bases LEFT greater than RIGHT. Recommend correlation for pneumonia. 2.? Marked hepatomegaly with heterogeneous parenchymal enhancement. Recommend c orrelation with liver function tests. 3.? No hydronephrosis in either kidney. Normal renal parenchymal enhancement. RIGHT renal cortical scarring. 4.? Markedly distended urinary bladder. 5.? Diffuse body wall anasarca. Plan Plan for today work-up for leukocytosis, as above, CT angiogram, Pro-Dominik, CRP, ESR, blood cultures, UA, started on treatment for possible C. difficile, start p.o. vancomycin Attestations Medical Necessity Statement*: Patient requires hospitalization for persistent leukocytosis, Diagnoses Gram-positive bacteremia R78.81 Osteomyelitis of ankle M86.9 Prosthetic joint infection T84.50XA S/P BKA (below knee amputation) Z89.519 Infected surgical wound T81.49XA Cellulitis L03.90 Abscess L02.91 UTI (urinary tract infection) N39.0 Type 1 diabetes E10.9 Chronic kidney disease N18.9 Acute hypokalemia E87.6 Anemia D64.9 Transaminitis R74.01 Leukocytosis D72.829
[2023-06-30] MEDS: iohexol 350 mg/mL 500 mL Btl (per mL) IV (13:19)
[2023-06-30] MEDS: gabapentin 300 mg Capsule 900 MG PO ×2 (15:56→21:27)
[2023-06-30] MEDS: acetaminophen 325 mg Tablet 650 MG PO (15:56)
[2023-06-30 16:53] LABS: Glucose Point of Care 272 mg/dL (70-110)
[2023-06-30] MEDS: insulin lispro 100 unit/1 mL SUBCUT (17:24)
[2023-06-30 21:01] LABS: Glucose Point of Care 127 mg/dL (70-110)
[2023-06-30] MEDS: insulin glargine 100 units/1 mL 20 UNIT SUBCUT (21:28)
[2023-07-01] VITALS (13 sets, daily range): BP systolic 109–151; BP diastolic 68–84; PULSE 92–105; RESP 14–19; TEMP 36.7–36.9; O2SAT 92–96
[2023-07-01] MEDS: oxyCODONE 5 mg IR Tab/Cap PO ×4 (01:41→21:31)
[2023-07-01] MEDS: heparin 5,000 unit/mL INJ 1 mL 5000 UNIT SUBCUT ×2 (03:52→15:29)
[2023-07-01] MEDS: sodium chloride 0.9% 1,000 ML 50 ML IV (05:41)
[2023-07-01] MEDS: HYDROmorphone 1 mg/mL INJ 1 mL IVP ×3 (05:51→19:34)
[2023-07-01 06:03] LABS: Basophils # 0.1 10^3/uL (0.0-0.1); Basophils % 0.5 %; Eosinophils # 0.4 10^3/uL (0.0-0.8); Eosinophils % 2.1 %; Hematocrit 30.5 % (36-47); Lymphocytes # 3.1 10^3/uL (0.8-4.8); Lymphocytes % 16.1 %; Mean Corpuscular HGB Conc 31.5 g/dL (30-55); Mean Corpuscular Hemoglobin 31.2 pg (27-33); Monocytes # 0.8 10^3/uL (0.2-0.9); Neutrophils # 12.91 10^3/uL (1.8-7.7); Neutrophils % 67.6 %; Nucleated Red Blood Cells % 0 %; Platelet Count 479 10^3/cmm (157-399); Red Blood Count 3.08 10^6/uL (3.85-5.65); Red Cell Distribution Width 17.1 % (12.1-15.1); White Blood Count 19.13 10^3/uL (3.29-11.43)
[2023-07-01] MEDS: cefTRIAXone 2,000 MG in sodium chloride 0.9% (plus) 50 ML 100 MG IV (06:23)
[2023-07-01 06:25] LABS: Anion Gap 6.8 (5-19); Blood Urea Nitrogen 8 mg/dL (6-20); C Reactive Protein 23.2 mg/L (0.0-4.9); Calcium 7.9 mg/dL (8.5-10.5); Carbon Dioxide 35 mmol/L (22-29); Chloride 97 mmol/L (98-107); Creatinine Clr Calc Pharmacy 103.6292; Glomerular Filtration Rate 110.7 mL/min (90-130); Glucose 147 mg/dL (65-115); Osmolality Calculated 279 mOsm/kg (285-295); Potassium 4.8 mmol/L (3.5-5.1); Sodium 134 mmol/L (136-145)
[2023-07-01 06:32] LABS: Procalcitonin 0.14 ng/mL (0-0.5)
[2023-07-01 07:18] LABS: Slide Review Slide Review Perform
[2023-07-01 08:09] LABS: Glucose Point of Care 151 mg/dL (70-110)
[2023-07-01] MEDS: metroNIDAZOLE 500 MG Tablet PO ×2 (10:13→17:51)
[2023-07-01] MEDS: sucralfate 1 gm Tablet PO ×2 (10:14→19:34)
[2023-07-01] MEDS: lamoTRIgine 100 mg Tablet 150 MG PO (10:14)
[2023-07-01] MEDS: gabapentin 300 mg Capsule 900 MG PO ×3 (10:15→21:31)
[2023-07-01] MEDS: amlodipine 10 mg Tablet PO (10:15)
[2023-07-01] MEDS: amitriptyline 25 mg Tablet PO ×2 (10:15→17:51)
[2023-07-01] MEDS: tamsulosin 0.4 mg Capsule PO (10:15)
[2023-07-01] MEDS: insulin lispro 100 unit/1 mL SUBCUT ×4 (10:16→21:32)
[2023-07-01] MEDS: pantoprazole 40 mg SDV IVP ×2 (10:17→19:34)
[2023-07-01 10:56] LABS: Glucose Point of Care 262 mg/dL (70-110)
--- NOTE | 2023-07-01 13:34 | CTR_ITS ---
PROCEDURE INFORMATION: Exam: CT Thoracic Spine With Contrast Exam date and time: 07/01/2023 5:30 PM Age: 42 years old Clinical indication: Pain; Other: Bacteremia; Additional info: Bacteremia, per rads request w/ only TECHNIQUE: Imaging protocol: Computed tomography of the thoracic spine with contrast. Radiation optimization: All CT scans at this facility use at least one of these dose optimization techniques: automated exposure control; mA and/or kV adjustment per patient size (includes targeted exams where dose is matched to clinical indication); or iterative reconstruction. Contrast material: OMNI 350; Contrast volume: 100 ml; Contrast route: INTRAVENOUS (IV); REPORTING DATA: Count of CT and Cardiac NM exams in prior 12 months: This patient has received 3 known CTs and 0 known cardiac nuclear medicine studies in the 12 months prior to the current study. COMPARISON: CT abdomen pelvis w con* [id number] 06/28/2023 9:24 AM RADIATION DOSE METRICS: Total DLP (mGy-cm): 681 FINDINGS: Tubes, catheters and devices: Left central venous catheter somewhat visualized. Bones/joints: No acute fracture. Normal alignment. T1-T2: No significant disc bulge or herniation. No severe spinal canal stenosis. No significant neural foraminal narrowing. T2-T3: No significant disc bulge or herniation. No severe spinal canal stenosis. No significant neural foraminal narrowing. T3-T4: No significant disc bulge or herniation. No severe spinal canal stenosis. No significant neural foraminal narrowing. T4-T5: No significant disc bulge or herniation. No severe spinal canal stenosis. No significant neural foraminal narrowing. T5-T6: No significant disc bulge or herniation. No severe spinal canal stenosis. No significant neural foraminal narrowing. T6-T7: No significant disc bulge or herniation. No severe spinal canal stenosis. No significant neural foraminal narrowing. T7-T8: No significant disc bulge or herniation. No severe spinal canal stenosis. No significant neural foraminal narrowing. T8-T9: No significant disc bulge or herniation. No severe spinal canal stenosis. No significant neural foraminal narrowing. T9-T10: No significant disc bulge or herniation. No severe spinal canal stenosis. No significant neural foraminal narrowing. T10-T11: No significant disc bulge or herniation. No severe spinal canal stenosis. No significant neural foraminal narrowing. T11-T12: No significant disc bulge or herniation. No severe spinal canal stenosis. No significant neural foraminal narrowing. T12-L1: No significant disc bulge or herniation. No severe spinal canal stenosis. No significant neural foraminal narrowing. Lungs: Bibasilar atelectasis. Pleural spaces: Small bilateral pleural effusions. Heart: Cardiomegaly. CT/CT thoracic spine w con [id number] IMPRESSION: 1. Negative for acute appearing abnormality of the thoracic spine. 2. Small bilateral pleural effusions. 3. Bibasilar atelectasis. 4. Cardiomegaly. 5. Left central venous catheter somewhat visualized.
--- NOTE | 2023-07-01 13:34 | CTR_ITS ---
PROCEDURE INFORMATION: Exam: CT Lumbar Spine With Contrast Exam date and time: 07/01/2023 5:30 PM Age: 42 years old Clinical indication: Other: Bacteremia; Additional info: Bacteremia, per rads request w/ only TECHNIQUE: Imaging protocol: Computed tomography of the lumbar spine with contrast. Radiation optimization: All CT scans at this facility use at least one of these dose optimization techniques: automated exposure control; mA and/or kV adjustment per patient size (includes targeted exams where dose is matched to clinical indication); or iterative reconstruction. Contrast material: OMNI 350; Contrast volume: 100 ml; Contrast route: INTRAVENOUS (IV); REPORTING DATA: Count of CT and Cardiac NM exams in prior 12 months: This patient has received 3 known CTs and 0 known cardiac nuclear medicine studies in the 12 months prior to the current study. COMPARISON: CT abdomen pelvis w con* [id number] 06/28/2023 9:24 AM RADIATION DOSE METRICS: Total DLP (mGy-cm): 562 FINDINGS: Bones/joints: No acute fracture. Normal alignment. L1-L2: No significant disc bulge or herniation. No severe spinal canal stenosis. No significant neural foraminal narrowing. L2-L3: No significant disc bulge or herniation. No severe spinal canal stenosis. No significant neural foraminal narrowing. L3-L4: No significant disc bulge or herniation. No severe spinal canal stenosis. No significant neural foraminal narrowing. L4-L5: No significant disc bulge or herniation. No severe spinal canal stenosis. No significant neural foraminal narrowing. L5-S1: No significant disc bulge or herniation. No severe spinal canal stenosis. No significant neural foraminal narrowing. Soft tissues: Anasarca. CT/CT lumbar spine w con [id number] IMPRESSION: 1. Unremarkable spine. 2. Anasarca.
[2023-07-01 16:54] LABS: Glucose Point of Care 220 mg/dL (70-110)
[2023-07-01] MEDS: sulfamethoxazole-trimeth DS 160-800 mg Tablet 1 TAB PO (17:51)
[2023-07-01] MEDS: iohexol 350 mg/mL 500 mL Btl (per mL) IV ×2 (17:59)
--- NOTE | 2023-07-01 19:20 | PM.PN ---
Subjective Subjective: She has been having some phantom pains in her right stump. Reports otherwise has not had any other symptoms. Denies any shortness of breath or cough, no phlegm production. No chest pain. Medications: Reviewed: Yes Vitals/I&O/Wt Last Vital Signs Temp 98.3 F 07/01/23 16:00 Pulse 105 H 07/01/23 16:00 Resp 14 07/01/23 16:00 BP 135/80 07/01/23 16:00 Pulse Ox 92 07/01/23 16:00 O2 Del Method Room Air 07/01/23 16:00 O2 Flow Rate 6 06/30/23 20:00 07/01/23 07/01/23 07/01/23 06:59 14:59 22:59 Intake Total 946.667 / 1596.667 530 / 530 600 / 1130 Balance 946.667 / -2078.333 530 / 530 600 / 1130 Physical Exam Const: COMMON NORMALS: patient oriented x3 and alert GENERAL APPEARANCE: cooperative ORIENTATION/CONSCIOUSNESS: Yes awake HENMT: COMMON NORMALS: oropharynx normal Neck/C-Spine: COMMON NORMALS: no JVD Resp: COMMON NORMALS: normal respiratory effort and clear to auscultation bilaterally AUSCULTATION: clear to auscultation bilaterally Cardio: COMMON NORMALS: no JVD, regular rhythm, S1 normal heart sound present, S2 normal heart sound present and No murmurs present (Cardio) RHYTHM: regular rhythm HEART SOUNDS: S1 normal heart sound present and S2 normal heart sound present GI: COMMON NORMALS: Normal to inspection, nondistended, normoactive bowel sounds present, Soft to palpation and non-tender PALPATION: Yes Soft to palpation Extremity: COMMON NORMALS: no joint enlargement and no pedal edema OTHER: R BKE. Dressing w/o strikethrough. No proximal erythma or swelling. Neuro: COMMON NORMALS: patient oriented x3 and moves all extremities SENSORIUM/ORIENTATION: Yes alert Skin: COMMON NORMALS: no rashes or lesions noted GENERAL SKIN EXAM: no rashes or lesions noted Urinary Catheter Management: Bustos: Cath Placed During This Visit: yes, but has since been removed by the nurse Reason for Continuing Indwelling Catheter: Decision to DC Catheter Urinary Catheter Date of Insertion: 06/28/23 Urinary Catheter Time of Insertion: 14:45 Date Urinary Catheter Removed: 06/30/23 Time Urinary Catheter Discontinued: 16:06 Data 07/01/23 05:40 07/01/23 05:40 Micro: Microbiology 06/24/23 16:50 Gram Stain - Final Leg - #1 Anaerobic Culture - Preliminary Wound Culture - Final Strep agalactiae - (group b) Methicillin Resis Staph Aureus 06/30/23 10:00 Blood Culture - Preliminary Blood NEGATIVE TO DATE 06/30/23 09:50 Blood Culture - Preliminary Blood NEGATIVE TO DATE 06/30/23 16:18 Occult Blood (FIT) - Final Stool - Stool Aspirate A&P Assessment and plan (1) Leukocytosis: Reviewed C. difficile, pending. Has had to be sent out to outside lab. Discussed with her. She is still having some loose stools. Not gayatri diarrhea. Currently empirically on p.o. vancomycin. Discussed with infectious disease. Discussed findings on CT, some infiltrate/consolidation possible in left lower lobe, small effusions. Does not have any respiratory symptoms to suggest pneumonia. Requesting incentive spirometer. Reviewed blood cultures. Reviewed blood counts. She remains afebrile. Add Bactrim for MRSA from stump wound. As per discussion with ID, discussed with her additional imaging of spine with contrast CT. Requested. Reviewed procalcitonin. Continue empiric antibiotics for now. Follow-up with infectious disease in clinic for reassessmentin a couple of weeks. Discussed with case management. (2) Gram-positive bacteremia: Continue Rocephin via left arm PICC line until 07/09. JARET was done and no evidence of endocarditis until 07/09. 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 She reports she has had fever for least a week, and really has not been able to feel or move her toes in 3 days with her cast on. Cast was removed in the emergency department. She has obvious erythema, concern for abscess on CT, and probable osteomyelitis. Orthopedic consult appreciated, right below the knee amputation performed June 24 Continue Rocephin, and vancomycin currently Transthoracic echo demonstrates normal EF, mild MR, trace TR JARET did not show endocarditis CBC, BMP tomorrow Continue to adjust medication for pain control, increasing OxyContin IR interval. (7) Cellulitis: Resolved with amputation (8) Abscess: Resolved with amputation (9) UTI (urinary tract infection): Reviewed urine culture, urine culture greater than 100,000 colonies mixed cherise Renal ultrasound demonstrated mild dilation of left renal pelvis, slightly distended bladder, no other findings Complete Flagyl for trichomonas noted on urinalysis to have 7 days total of treatment (10) Type 1 diabetes: Continue long-acting insulin. Continue sliding scale insulin, moderate No evidence of DKA. (11) Chronic kidney disease: BMP daily (12) Acute hypokalemia: Resolved (13) Anemia: Reviewed blood counts, hemoglobin appears steady from prior. Reassess CBC. - Does have evidence of iron deficiency anemia -Anemia could be multifactorial -From CKD -From bone marrow suppression -From infection -From antibiotics -It also possibly could be from a slow GI bleed, however no reported bloody or black stools, no hemodynamic compromise -Status post 2 units PRBC -Monitor ferritin, iron, B12, folate -Hemoccult stool pending -For now continue heparin for DVT prophylaxis, as she is a high risk of hypercoagulable events (14) Transaminitis: Hepatitis panel, HIV negative Attestations Medical Necessity Statement*: Continue admission for assessment management of leukocytosis following right lower extremity infection requiring amputation, additional assessment following bacteremia for other possible location of infection seeding. and High MDM includes amount and/or complexity of data reviewed/ordered [ resulted lab(s)/test(s), ordered lab(s)/test(s) and other healthcare professional discussion] as documented Diagnoses Leukocytosis D72.829 Gram-positive bacteremia R78.81 Osteomyelitis of ankle M86.9 Prosthetic joint infection T84.50XA S/P BKA (below knee amputation) Z89.519 Infected surgical wound T81.49XA Cellulitis L03.90 Abscess L02.91 UTI (urinary tract infection) N39.0 Type 1 diabetes E10.9 Chronic kidney disease N18.9 Acute hypokalemia E87.6 Anemia D64.9 Transaminitis R74.01
[2023-07-01 21:06] LABS: Glucose Point of Care 184 mg/dL (70-110)
[2023-07-01] MEDS: insulin glargine 100 units/1 mL 20 UNIT SUBCUT (21:32)
[2023-07-02] VITALS (13 sets, daily range): BP systolic 112–129; BP diastolic 70–77; PULSE 96–105; RESP 16–19; TEMP 36.8–37; O2SAT 91–99
[2023-07-02] MEDS: HYDROmorphone 1 mg/mL INJ 1 mL IVP ×4 (01:36→21:47)
[2023-07-02] MEDS: sodium chloride 0.9% 1,000 ML 50 ML IV ×2 (01:36→21:48)
[2023-07-02] MEDS: heparin 5,000 unit/mL INJ 1 mL 5000 UNIT SUBCUT ×2 (02:45→15:43)
[2023-07-02] MEDS: oxyCODONE 5 mg IR Tab/Cap PO ×3 (04:52→18:13)
[2023-07-02 06:17] LABS: Basophils # 0.1 10^3/uL (0.0-0.1); Basophils % 0.3 %; Eosinophils # 0.4 10^3/uL (0.0-0.8); Eosinophils % 1.9 %; Hematocrit 28.4 % (36-47); Lymphocytes # 2.7 10^3/uL (0.8-4.8); Lymphocytes % 14.9 %; Mean Corpuscular Hemoglobin 30.7 pg (27-33); Mean Platelet Volume 9.5 fL (7.4-10.4); Monocytes # 0.8 10^3/uL (0.2-0.9); Monocytes % 4.7 %; Neutrophils # 12.87 10^3/uL (1.8-7.7); Neutrophils % 71.6 %; Nucleated Red Blood Cells % 0 %; Platelet Count 514 10^3/cmm (157-399); Red Blood Count 2.87 10^6/uL (3.85-5.65); Red Cell Distribution Width 16.9 % (12.1-15.1); White Blood Count 17.97 10^3/uL (3.29-11.43)
[2023-07-02] MEDS: cefTRIAXone 2,000 MG in sodium chloride 0.9% (plus) 50 ML 100 MG IV (06:19)
[2023-07-02 06:45] LABS: Glucose Point of Care 106 mg/dL (70-110)
[2023-07-02 06:46] LABS: Anion Gap 12.1 (5-19); Blood Urea Nitrogen 9 mg/dL (6-20); Carbon Dioxide 32 mmol/L (22-29); Chloride 97 mmol/L (98-107); Glomerular Filtration Rate 92.7 mL/min (90-130); Glucose 125 mg/dL (65-115); Osmolality Calculated 282 mOsm/kg (285-295); Potassium 5.1 mmol/L (3.5-5.1); Sodium 136 mmol/L (136-145)
[2023-07-02 07:34] LABS: Slide Review Slide Review Perform
[2023-07-02] MEDS: sulfamethoxazole-trimeth DS 160-800 mg Tablet 1 TAB PO ×2 (08:36→18:13)
[2023-07-02] MEDS: lamoTRIgine 100 mg Tablet 150 MG PO (08:36)
[2023-07-02] MEDS: metroNIDAZOLE 500 MG Tablet PO (08:37)
[2023-07-02] MEDS: tamsulosin 0.4 mg Capsule PO (08:37)
[2023-07-02] MEDS: amitriptyline 25 mg Tablet PO ×2 (08:37→18:13)
[2023-07-02] MEDS: sucralfate 1 gm Tablet PO ×2 (08:37→20:32)
[2023-07-02] MEDS: pantoprazole 40 mg SDV IVP ×2 (08:37→20:32)
[2023-07-02] MEDS: amlodipine 10 mg Tablet PO (08:37)
[2023-07-02] MEDS: gabapentin 300 mg Capsule 900 MG PO ×3 (08:37→20:33)
[2023-07-02 11:57] LABS: Glucose Point of Care 155 mg/dL (70-110)
[2023-07-02] MEDS: insulin lispro 100 unit/1 mL SUBCUT ×2 (12:42→18:13)
--- NOTE | 2023-07-02 15:47 | PM.PN ---
Vitals/I&O/Wt Last Vital Signs Temp 98.2 F 07/02/23 12:00 Pulse 100 07/02/23 12:00 Resp 18 07/02/23 12:32 BP 129/70 07/02/23 12:00 Pulse Ox 95 07/02/23 12:00 O2 Del Method Room Air 07/02/23 03:55 O2 Flow Rate 6 06/30/23 20:00 07/02/23 07/02/23 07/02/23 06:59 14:59 22:59 Intake Total 1215.833 / 2345.833 650 / 650 Output Total 650 / 650 Balance 565.833 / 1695.833 650 / 650 Physical Exam Const: COMMON NORMALS: patient oriented x3 and alert GENERAL APPEARANCE: cooperative ORIENTATION/CONSCIOUSNESS: Yes awake HENMT: COMMON NORMALS: oropharynx normal Neck/C-Spine: COMMON NORMALS: no JVD Resp: COMMON NORMALS: normal respiratory effort and clear to auscultation bilaterally AUSCULTATION: clear to auscultation bilaterally Cardio: COMMON NORMALS: no JVD, regular rhythm, S1 normal heart sound present, S2 normal heart sound present and No murmurs present (Cardio) RHYTHM: regular rhythm HEART SOUNDS: S1 normal heart sound present and S2 normal heart sound present GI: COMMON NORMALS: Normal to inspection, nondistended, normoactive bowel sounds present, Soft to palpation and non-tender PALPATION: Yes Soft to palpation Extremity: COMMON NORMALS: no joint enlargement and no pedal edema OTHER: R BKE. Dressing w/o strikethrough. No proximal erythma or swelling. Neuro: COMMON NORMALS: patient oriented x3 and moves all extremities SENSORIUM/ORIENTATION: Yes alert Skin: COMMON NORMALS: no rashes or lesions noted GENERAL SKIN EXAM: no rashes or lesions noted Urinary Catheter Management: Bustos: Cath Placed During This Visit: yes, but has since been removed by the nurse Reason for Continuing Indwelling Catheter: Decision to DC Catheter Urinary Catheter Date of Insertion: 06/28/23 Urinary Catheter Time of Insertion: 14:45 Date Urinary Catheter Removed: 06/30/23 Time Urinary Catheter Discontinued: 16:06 Data 07/02/23 06:05 07/02/23 06:05 Micro: Microbiology 06/24/23 16:50 Gram Stain - Final Leg - #1 Anaerobic Culture - Final Wound Culture - Final Strep agalactiae - (group b) Methicillin Resis Staph Aureus A&P Assessment and plan (1) Leukocytosis: Some improvement in leukocytosis on review of blood counts, but still elevated on review at 17.97. C diff not listed, checking with lab, discussed w power lineman technician, test completed. Reviewed results, reported negative. Stop PO vanco. She has been having a lot of pain in her right stump. Still needing IV Dilaudid. With still high leukocytosis discussed with her imaging stump with contrast CT. Reassess renal function, risk of contrast nephropathy. Reviewed blood cultures, noted preliminarily negative. Reviewed thoracic spine CT. Reviewed lumbar spine CT. Discussed findings with her. No suggestion of infection. Still denies any respiratory symptoms. Continue incentive spirometer. Discussed with case management, continue ceftriaxone - plans for outpatient antibiotic infusions to complete course. Bactrim for MRSA from stump wound. Risk of kidney injury, reassess renal function. As per discussion with ID, discussed with her additional imaging of spine with contrast CT. Requested. Reviewed procalcitonin. Continue empiric antibiotics for now. Follow-up with infectious disease in clinic for reassessmentin a couple of weeks. (2) Gram-positive bacteremia: Continue Rocephin via left arm PICC line until 07/09. JARET was done and no evidence of endocarditis until 07/09. 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 She reports she has had fever for least a week, and really has not been able to feel or move her toes in 3 days with her cast on. Cast was removed in the emergency department. She has obvious erythema, concern for abscess on CT, and probable osteomyelitis. Orthopedic consult appreciated, right below the knee amputation performed June 24 Continue Rocephin, and vancomycin currently Transthoracic echo demonstrates normal EF, mild MR, trace TR JARET did not show endocarditis CBC, BMP tomorrow Continue to adjust medication for pain control, increasing OxyContin IR interval. (7) Cellulitis: Resolved with amputation (8) Abscess: Resolved with amputation (9) UTI (urinary tract infection): Reviewed urine culture, urine culture greater than 100,000 colonies mixed cherise Renal ultrasound demonstrated mild dilation of left renal pelvis, slightly distended bladder, no other findings Complete Flagyl for trichomonas noted on urinalysis to have 7 days total of treatment (10) Type 1 diabetes: Continue long-acting insulin. Continue sliding scale insulin, moderate No evidence of DKA. (11) Chronic kidney disease: BMP daily (12) Acute hypokalemia: Resolved (13) Anemia: Reviewed blood counts, hemoglobin appears steady from prior. Reassess CBC. - Does have evidence of iron deficiency anemia -Anemia could be multifactorial -From CKD -From bone marrow suppression -From infection -From antibiotics -It also possibly could be from a slow GI bleed, however no reported bloody or black stools, no hemodynamic compromise -Status post 2 units PRBC -Monitor ferritin, iron, B12, folate -Hemoccult stool pending -For now continue heparin for DVT prophylaxis, as she is a high risk of hypercoagulable events (14) Transaminitis: Hepatitis panel, HIV negative Attestations Medical Necessity Statement*: Continue admission for additional assessment of high leukocytosis, MRSA stump wound infection, additional assessment for any abscess, continued IV antibiotics following bacteremia, arrangements for completion of IV antibiotic course after discharge. and High MDM includes amount and/or complexity of data reviewed/ordered [ resulted lab(s)/test(s), ordered lab(s)/test(s) and other healthcare professional discussion] and described risk of complication, morbidity or mortality of management as documented Diagnoses Leukocytosis D72.829 Gram-positive bacteremia R78.81 Osteomyelitis of ankle M86.9 Prosthetic joint infection T84.50XA S/P BKA (below knee amputation) Z89.519 Infected surgical wound T81.49XA Cellulitis L03.90 Abscess L02.91 UTI (urinary tract infection) N39.0 Type 1 diabetes E10.9 Chronic kidney disease N18.9 Acute hypokalemia E87.6 Anemia D64.9 Transaminitis R74.01
--- NOTE | 2023-07-02 15:52 | CTR_ITS ---
PROCEDURE INFORMATION: Exam: CT Right Lower Extremity Without Contrast Exam date and time: 07/02/2023 4:54 PM Age: 42 years old Clinical indication: Pain; Other: Phantom per patient; Prior surgery; Surgery date: 3-7 days post-operative; Surgery type: Amputation; Additional info: Stump pain, leukocytosis, assess for any abscess TECHNIQUE: Imaging protocol: CT of the right lower extremity without contrast was performed. Radiation optimization: All CT scans at this facility use at least one of these dose optimization techniques: automated exposure control; mA and/or kV adjustment per patient size (includes targeted exams where dose is matched to clinical indication); or iterative reconstruction. Contrast material: OMNI 350; Contrast volume: 100 ml; Contrast route: INTRAVENOUS (IV); REPORTING DATA: Count of CT and Cardiac NM exams in prior 12 months: This patient has received 5 known CTs and 0 known cardiac nuclear medicine studies in the 12 months prior to the current study. COMPARISON: CT abdomen pelvis w con* [id number] 06/28/2023 9:24 AM RADIATION DOSE METRICS: Total DLP (mGy-cm): 702 FINDINGS: Bones/joints: Status post [id number] amputation. There are gas collections and fluid in the soft tissues distal to the stump. There is an organized fluid collection in the posterior soft tissues of the stump measuring 3.7 x 2.6 cm. There is a gas fluid collection in the anterior soft tissues of the distal stump measuring approximately 2.6 x 1.1 cm. Soft tissues: There is induration of the skin. CT/CT lower leg RT w con [id number] IMPRESSION: Status post [id number] amputation surgical change. There is diffuse soft tissue swelling, fluid and gas collections in the stump region. There is an organized fluid collection in the distal stomach measuring approximately 3.7 x 2.6 cm. There is a 2nd organized fluid collection in the anterior soft tissues of the distal stump measuring a proximally 2.6 x 1.1 cm. There is induration of the skin.
[2023-07-02] MEDS: iohexol 350 mg/mL 500 mL Btl (per mL) IV (17:03)
[2023-07-02 17:40] LABS: Glucose Point of Care 276 mg/dL (70-110)
[2023-07-02 20:57] LABS: Glucose Point of Care 91 mg/dL (70-110)
[2023-07-02] MEDS: insulin glargine 100 units/1 mL 20 UNIT SUBCUT (21:47)
[2023-07-03] VITALS (14 sets, daily range): BP systolic 105–116; BP diastolic 60–70; PULSE 96–103; RESP 16–20; TEMP 36.6–37.1; O2SAT 94–98
[2023-07-03] MEDS: oxyCODONE 5 mg IR Tab/Cap PO ×5 (00:18→20:21)
[2023-07-03] MEDS: heparin 5,000 unit/mL INJ 1 mL 5000 UNIT SUBCUT ×2 (03:18→16:05)
[2023-07-03] MEDS: cefTRIAXone 2,000 MG in sodium chloride 0.9% (plus) 50 ML 100 MG IV (06:14)
[2023-07-03] MEDS: HYDROmorphone 1 mg/mL INJ 1 mL IVP ×3 (06:14→18:37)
[2023-07-03 06:26] LABS: Basophils # 0.1 10^3/uL (0.0-0.1); Basophils % 0.5 %; Eosinophils # 0.3 10^3/uL (0.0-0.8); Eosinophils % 1.7 %; Hematocrit 30.5 % (36-47); Lymphocytes # 2.7 10^3/uL (0.8-4.8); Lymphocytes % 16.3 %; Mean Corpuscular HGB Conc 30.5 g/dL (30-55); Mean Corpuscular Hemoglobin 30.1 pg (27-33); Mean Corpuscular Volume 98.7 fl (85-98); Mean Platelet Volume 9.3 fL (7.4-10.4); Monocytes # 0.8 10^3/uL (0.2-0.9); Monocytes % 4.7 %; Neutrophils # 11.85 10^3/uL (1.8-7.7); Neutrophils % 72.9 %; Nucleated Red Blood Cells % 0 %; Platelet Count 588 10^3/cmm (157-399); Red Blood Count 3.09 10^6/uL (3.85-5.65); Red Cell Distribution Width 16.7 % (12.1-15.1); White Blood Count 16.25 10^3/uL (3.29-11.43)
[2023-07-03 06:42] LABS: Glucose Point of Care 191 mg/dL (70-110)
[2023-07-03 06:42] LABS: Anion Gap 12.2 (5-19); Blood Urea Nitrogen 11 mg/dL (6-20); Calcium 8.6 mg/dL (8.5-10.5); Carbon Dioxide 31 mmol/L (22-29); Chloride 95 mmol/L (98-107); Glomerular Filtration Rate 79.4 mL/min (90-130); Glucose 207 mg/dL (65-115); Osmolality Calculated 281 mOsm/kg (285-295); Potassium 5.2 mmol/L (3.5-5.1); Sodium 133 mmol/L (136-145)
[2023-07-03] MEDS: pantoprazole 40 mg SDV IVP ×2 (07:27→20:21)
[2023-07-03] MEDS: insulin lispro 100 unit/1 mL SUBCUT ×3 (07:28→21:11)
[2023-07-03] MEDS: sucralfate 1 gm Tablet PO ×2 (07:28→20:21)
[2023-07-03] MEDS: tamsulosin 0.4 mg Capsule PO (08:12)
[2023-07-03] MEDS: lamoTRIgine 100 mg Tablet 150 MG PO (08:12)
[2023-07-03] MEDS: sulfamethoxazole-trimeth DS 160-800 mg Tablet 1 TAB PO ×2 (08:12→17:28)
[2023-07-03] MEDS: amitriptyline 25 mg Tablet PO ×2 (08:12→17:28)
[2023-07-03] MEDS: gabapentin 300 mg Capsule 900 MG PO ×3 (08:12→20:21)
[2023-07-03] MEDS: amlodipine 10 mg Tablet PO (08:13)
[2023-07-03 11:39] LABS: Glucose Point of Care 232 mg/dL (70-110)
--- NOTE | 2023-07-03 15:21 | PM.DCS ---
Discharge Providers Date of Admission: 06/24/23 03:09 Date of Discharge: July 03, 2023 Attending Provider at Admission: Jair Cha MD Attending Provider at Discharge: Felice Jennings Diagnoses at Discharge Discharge Diagnosis (1) Leukocytosis: Status: Acute (2) Gram-positive bacteremia: Status: Acute (3) Osteomyelitis of ankle: Status: Acute (4) Prosthetic joint infection: Status: Acute (5) S/P BKA (below knee amputation): Status: Acute (6) Infected surgical wound: Status: Acute (7) Cellulitis: Status: Acute (8) Abscess: Status: Acute (9) UTI (urinary tract infection): Status: Acute (10) Type 1 diabetes: Status: Acute (11) Chronic kidney disease: Status: Acute (12) Acute hypokalemia: Status: Acute (13) Anemia: Status: Acute (14) Transaminitis: Status: Acute Reason for Visit Reason for Visit: Rt cast cutting into leg Physical Exam Const: COMMON NORMALS: patient oriented x3 and alert GENERAL APPEARANCE: cooperative ORIENTATION/CONSCIOUSNESS: Yes awake HENMT: COMMON NORMALS: oropharynx normal Neck/C-Spine: COMMON NORMALS: no JVD Resp: COMMON NORMALS: normal respiratory effort and clear to auscultation bilaterally AUSCULTATION: clear to auscultation bilaterally Cardio: COMMON NORMALS: no JVD, regular rhythm, S1 normal heart sound present, S2 normal heart sound present and No murmurs present (Cardio) RHYTHM: regular rhythm HEART SOUNDS: S1 normal heart sound present and S2 normal heart sound present GI: COMMON NORMALS: Normal to inspection, nondistended, normoactive bowel sounds present, Soft to palpation and non-tender PALPATION: Yes Soft to palpation Extremity: COMMON NORMALS: no joint enlargement and no pedal edema OTHER: R BKE. Dressing w/o strikethrough. No proximal erythma or swelling. Neuro: COMMON NORMALS: patient oriented x3 and moves all extremities SENSORIUM/ORIENTATION: Yes alert Skin: COMMON NORMALS: no rashes or lesions noted GENERAL SKIN EXAM: no rashes or lesions noted Urinary Catheter Management: Bustos: Cath Placed During This Visit: yes, but has since been removed by the nurse Reason for Continuing Indwelling Catheter: Decision to DC Catheter Urinary Catheter Date of Insertion: 06/28/23 Urinary Catheter Time of Insertion: 14:45 Date Urinary Catheter Removed: 06/30/23 Time Urinary Catheter Discontinued: 16:06 Discharge Data Studies Completed and Pending Completed Studies During Hospitalization Category Date Time Status CT abdomen pelvis w con* [id number] Routine Cat Scan 06/28/23 08:[address] angio chest PE protcl [id number] Stat Cat Scan 06/30/23 12:[address] lower leg RT w con [id number] Routine Cat Scan 07/02/23 15:[address] lower leg RT w con [id number] Stat Cat Scan 06/23/23 22:[address] lumbar spine w con [id number] Routine Cat Scan 07/01/23 13:[address] thoracic spine w con [id number] Routine Cat Scan 07/01/23 13:34 Completed CXRP [XR chest 1V portable [id number]] Routine Exams 06/28/23 07:23 Completed XR chest 1V portable [id number] Routine Exams 06/24/23 02:09 Completed XR foot RT min 3V* [id number] Stat Exams 06/23/23 21:18 Completed XR tibia fibula RT 2V [id number] Stat Exams 06/23/23 21:18 Completed Pathology: Surgical [PTH] Routine Pth 06/24/23 17:09 Completed CV. echo complete* [id number] Routine Ultrasound 06/24/23 03:46 Completed US renal BI* [id number] Stat Ultrasound 06/24/23 01:52 Completed Pending at discharge Category Date Time Status Basic Metabolic Panel AM LABS Lab 07/04/23 04:00 Ordered Basic Metabolic Panel AM LABS Lab 07/05/23 04:00 Ordered Blood Culture Stat Lab 06/30/23 10:00 Results Complete Blood Count w/Auto AM LABS Lab 07/04/23 04:00 Ordered Complete Blood Count w/Auto AM LABS Lab 07/05/23 04:00 Ordered CV. echo transesophageal [id number] Routine Ultrasound 06/27/23 12:00 Taken Radiology Impressions Foot X-Ray 06/23/23 21:18 IMPRESSION: 1. Distal fibular orthopedic plate in place with a surgical screw extending through the fibula into the tibia. 2. Posterior malleolar cortical irregularity may reflect sequelae of prior fracture, if clinical concern for osteomyelitis exists in this area consider further evaluation with a CT scan or MRI. 3. Soft tissue swelling about the foot and ankle. 4. Minimal subcutaneous emphysema seen about the foot and ankle may be postsurgical in nature, underlying infection is also a consideration. Tibia/Fibula X-Ray 06/23/23 21:18 IMPRESSION: 1. Distal fibular orthopedic plate in place with a surgical screw extending through the fibula into the tibia. 2. Posterior malleolar cortical irregularity may reflect sequelae of a prior fracture, if clinical concern for osteomyelitis exists in this area consider further evaluation with a CT scan or MRI. 3. Soft tissue swelling about the ankle. Renal Ultrasound 06/24/23 01:52 IMPRESSION: 1. Nonspecific mild dilation of the left renal pelvis. 2. Distended urinary bladder. Chest CTA 06/30/23 12:48 IMPRESSION: 1. No dissection. No visualized embolism as characterized to the segmental level. 2. Small pleural effusions bilaterally. Airspace consolidation within the left lower lobe slightly greater than right. Given the history, findings are concerning for pneumonic process with parapneumonic effusions. 3. Suspected hepatomegaly. Splenomegaly. Nodularity of the liver. Correlate regarding risk factors for hepatocellular disease. Follow-up nonemergent CT abdomen and pelvis suggested. 4. Small hiatal hernia. Lumbar Spine CT 07/01/23 13:34 IMPRESSION: 1. Unremarkable spine. 2. Anasarca. Thoracic Spine CT 07/01/23 13:34 IMPRESSION: 1. Negative for acute appearing abnormality of the thoracic spine. 2. Small bilateral pleural effusions. 3. Bibasilar atelectasis. 4. Cardiomegaly. 5. Left central venous catheter somewhat visualized. Lower Extremity CT 07/02/23 15:52 IMPRESSION: Status post [id number] amputation surgical change. There is diffuse soft tissue swelling, fluid and gas collections in the stump region. There is an organized fluid collection in the distal stomach measuring approximately 3.7 x 2.6 cm. There is a 2nd organized fluid collection in the anterior soft tissues of the distal stump measuring a proximally 2.6 x 1.1 cm. There is induration of the skin. Laboratory Results WBC 16.25 10^3/uL (3.29-11.43) H 07/03/23 06:13 RBC 3.09 10^6/uL (3.85-5.65) L 07/03/23 06:13 Hgb 9.30 g/dL (11.27-16.99) L 07/03/23 06:13 Hct 30.5 % (36-47) L 07/03/23 06:13 MCV 98.7 fl (85-98) H 07/03/23 06:13 MCH 30.1 pg (27-33) 07/03/23 06:13 MCHC 30.5 g/dL (30-55) 07/03/23 06:13 RDW 16.7 % (12.1-15.1) H 07/03/23 06:13 Plt Count 588 10^3/cmm (157-399) H 07/03/23 06:13 MPV 9.3 fL (7.4-10.4) 07/03/23 06:13 Neut % (Auto) 72.9 % 07/03/23 06:13 Lymph % (Auto) 16.3 % 07/03/23 06:13 [place] % (Auto) 4.7 % 07/03/23 06:13 Eos % (Auto) 1.7 % 07/03/23 06:13 Baso % (Auto) 0.5 % 07/03/23 06:13 Neut # (Auto) 11.85 10^3/uL (1.8-7.7) H 07/03/23 06:13 Lymph # (Auto) 2.7 10^3/uL (0.8-4.8) 07/03/23 06:13 [place] # (Auto) 0.8 10^3/uL (0.2-0.9) 07/03/23 06:13 Eos # (Auto) 0.3 10^3/uL (0.0-0.8) 07/03/23 06:13 Baso # (Auto) 0.1 10^3/uL (0.0-0.1) 07/03/23 06:13 Nucleated RBC % (auto) 0 % 07/03/23 06:13 Total Counted 100 (0-100) 06/30/23 04:58 Atypical Lymphs % 0.0 % (0-5) 06/30/23 04:58 Absolute Neutrophils 15.6 10^3/cmm (1.4-6.5) H 06/30/23 04:58 Segmented Neutrophils 70 % 06/30/23 04:58 Abs Segm Neuts (Man) 14.8 10/cmm (1.6-7.1) H 06/30/23 04:58 Band Neutrophils 4.0 % 06/30/23 04:58 Abs Band Neuts (Man) 0.8 10^3/cmm (0.0-1.2) 06/30/23 04:58 Absolute Lymphocytes 2.5 10^3/cmm (1.2-3.4) 06/30/23 04:58 Lymphocytes (Manual) 12 % 06/30/23 04:58 Monocytes (Manual) 4.0 % 06/30/23 04:58 Absolute Monocytes 0.8 10^3/cmm (0.1-0.6) H 06/30/23 04:58 Eosinophils (Manual) 1 % 06/30/23 04:58 Absolute Eosinophils 0.2 10^3/cmm (0.0-0.7) 06/30/23 04:58 Basophils (Manual) 0.0 % 06/30/23 04:58 Absolute Basophils 0.0 10^3/cmm (0.0-0.2) 06/30/23 04:58 Metamyelocytes 7.0 % 06/30/23 04:58 Myelocytes 4.0 % 06/29/23 04:36 Promyelocytes 3.0 % 06/25/23 04:53 Nucleated RBCs # 0.0 /100WBC 07/03/23 06:13 Smudge Cells 1+ H 06/25/23 04:53 Platelet Estimate Normal (Normal) 06/30/23 04:58 ESR 58 mm/hr (0-15) H 06/30/23 04:58 D-Dimer 2.33 ug/mLFEU (0-0.59) H 06/30/23 09:50 Sodium 133 mmol/L (136-145) L 07/03/23 06:13 Potassium 5.2 mmol/L (3.5-5.1) H 07/03/23 06:13 Chloride 95 mmol/L (98-107) L 07/03/23 06:13 Carbon Dioxide 31 mmol/L (22-29) H 07/03/23 06:13 Anion Gap 12.2 (5-19) 07/03/23 06:13 BUN 11 mg/dL (6-20) 07/03/23 06:13 Creatinine 0.8 mg/dL (0.5-0.9) 07/03/23 06:13 GFR Calculation 79.4 mL/min (90-130) L 07/03/23 06:13 Glucose 207 mg/dL (65-115) H 07/03/23 06:13 POC Glucose 232 mg/dL (70-110) H 07/03/23 11:33 Calculated Osmolality 281 mOsm/kg (285-295) L 07/03/23 06:13 Lactic Acid 1.4 mmol/L (0.5-2.2) 06/23/23 21:25 Calcium 8.6 mg/dL (8.5-10.5) 07/03/23 06:13 Magnesium 2.0 mg/dL (1.7-2.3) 06/23/23 21:25 Iron 30 ug/dL (37-145) L 06/29/23 04:36 TIBC 148 mcg/dl 06/29/23 04:36 % Saturation 20.2 % (20-50) 06/29/23 04:36 Unsat Iron Binding 118 ug/dL (112-347) 06/29/23 04:36 Ferritin 298 ng/mL (15-150) H 06/29/23 04:36 Total Bilirubin 0.2 mg/dL (0.15-1.2) 06/30/23 04:58 Direct Bilirubin 0.20 mg/dL (0.00-0.30) 06/30/23 04:58 AST 9 U/L (0-32) 06/30/23 04:58 ALT 13 U/L (0-33) 06/30/23 04:58 Alkaline Phosphatase 232 U/L (35-105) H 06/30/23 04:58 C-Reactive Protein 23.2 mg/L (0.0-4.9) H 07/01/23 05:40 Total Protein 5.9 g/dL (6.6-8.7) L 06/30/23 04:58 Albumin 2.5 g/dL (3.5-5.2) L 06/30/23 04:58 Globulin 3.4 g/dL (1.3-4.6) 06/30/23 04:58 Lipase 13 U/L (13-60) 06/30/23 04:58 Vitamin B12 > 2000 pg/mL (232-1245) H 06/29/23 04:36 Folate 9.1 ng/mL (4.8-37.3) 06/29/23 23:15 Procalcitonin 0.14 ng/mL (0-0.5) 07/01/23 05:40 TSH 2.51 uIU/mL (0.27-4.20) 06/23/23 21:25 HCG, Qual Negative (Negative) 06/23/23 10:50 Urine Color Yellow (Yellow) 06/23/23 23: Urine Appearance Hazy (CLEAR) A 06/23/23 23:27 Urine pH 5 (5-7) 06/23/23 23:27 Ur Specific [place] 1.010 (1.005-1.030) 06/23/23 23:27 Urine Protein Trace (Negative) 06/23/23 23: Urine Glucose (UA) 4+ (Normal) H 06/23/23 23:27 Urine Ketones Negative (Negative) 06/23/23 23:27 Urine Blood Neg (Negative) 06/23/23 23:27 Urine Nitrate Negative (Negative) 06/23/23 23:27 Urine Bilirubin Neg (Negative) 06/23/23 23:27 Urine Urobilinogen Neg mg/dL (Negative) 06/23/23 23:27 Ur Leukocyte Esterase 2+ (Negative) H 06/23/23 23:27 Urine RBC 0-4 /hpf (0-2) H 06/23/23 23:27 Urine WBC >100 /hpf (0-5) H 06/23/23 23:27 Ur Squamous Epith Cells 15-25 /hpf (0-5) H 06/23/23 23:27 Amorphous Sediment 2+ /hpf 06/23/23 23:27 Urine Bacteria Trace /hpf (NONE) 06/23/23 23:27 Urine Trichomonas 1+ /hpf H 06/23/23 23:27 Stl C. difficile Result See note 06/28/23 08:49 C. difficile Tox (PCR) Cancelled 06/28/23 16:25 Hepatitis A IgM Ab Non-reactive (Nonreactive) 06/23/23 21:25 Hep Bs Antigen Non-reactive (Nonreactive) 06/23/23 21:25 Hep B Core IgM Ab Non-reactive (Nonreactive) 06/23/23 21:25 Hepatitis C Antibody Non-reactive (Nonreactive) 06/23/23 21:25 HIV 1&2 Ab & HIV 1 Ag Non-reactive (Non-Reactiv) 06/24/23 00:00 HIV 1&2 Antibody Non-reactive (Non-Reactiv) 06/24/23 00:00 Blood Type O Positive 06/29/23 08:38 Rho(D) Type Positive 06/29/23 08:38 Antibody Screen Negative 06/29/23 08:38 Crossmatch See Detail 06/29/23 08:38 Vitals Last Vital Signs Temp 98.5 F 07/03/23 10:51 Pulse 99 07/03/23 10:51 Resp 17 07/03/23 14:12 BP 114/70 07/03/23 10:51 Pulse Ox 95 07/03/23 10:51 O2 Del Method Room Air 07/03/23 10:51 O2 Flow Rate 6 06/30/23 20:00 Discharge Plan Discharge Patient Disposition: Home Condition: Stable Prescriptions: New sulfamethoxazole-trimethoprim 800-160 mg Tablet 1 tab PO BID Qty: 14 0RF pantoprazole 40 mg tablet,delayed release (DR/EC) 40 mg PO BID Qty: 84 0RF Continued insulin lispro [Humalog KwikPen Insulin] 100 unit/mL Insulin Pen See Rx Instructions .ROUTE .COMPLEX Rx Instructions: 6 unit subcutaneously three times daily plus sliding scale lamotrigine [Lamictal] 150 mg Tablet 150 mg PO DAILY gabapentin 600 mg Tablet 600 mg PO TID amitriptyline 25 mg Tablet 25 mg PO BID Novolin N NPH U-100 Insulin 100 unit/mL Suspension 10 unit SUBCUT BID hydrocodone-acetaminophen 5-325 mg Tablet 2 tab PO Q4H PRN (Reason: Pain) Qty: 15 0RF ceftriaxone 2 gram Recon Soln 2 g IV Q24H Qty: 6 0RF Discontinued sulfamethoxazole-trimethoprim [Septra DS] 800-160 mg Tablet 1 tab PO BID ibuprofen 800 mg Tablet 800 mg PO Q8H PRN (Reason: Pain) Discharge Orders: Discharge Order (Routine); Ordered 07/03/23 Ordered By: Felice Jennings Other Ambulatory Orders: DME: Wheelchair (Order) Location: None Selected Ordered By: Jair Cha Miscellaneous Procedure ( DIRECTED) Timeframe: [id number] Facility: [facility] - Location: GI Lab Ordered By: Jair Cha Referrals: [facility] [Other] - 07/11/23 9:00 am (This appointment will be to establish primary care w/ Dr. Wick. ) Outpatient IV Procedure [Other] - 06/30/23 10:00 am (On Saturday 06/30 you will present to ER for registration @ 1000am. and thenwill be redirected to surgical services to have the infusion. On Saturday-Saturday @ 1000 am you will present to Surgical Services for registration and then will go to GI lab for infusion. ) Ochoa Rubio DO [Physician] - 7-10 days () Deandra Traylor MD [Hospitalist] - 2 weeks (We have notified your physician's clinic of the need for a follow-up appointment to be scheduled. If you have not heard from them within the next 2 business days, please call them directly. You may also reach out to our production control manager at [phone] and she can assist you.) Discharge Diet: Advance as tolerated and Diabetic Discharge Activity: Use walker/crutches as instructed Patient Instructions: Sulfamethoxazole/Trimethoprim (By mouth), Ceftriaxone (By injection), Potassium Content of Foods List (GEN), Hyperkalemia (GEN), Anemia (GEN), Bacteremia (GEN), Below the Knee Amputation in Children (GEN), Opioid Safety Activity Restrictions/Additional Instructions: You are being discharged from the hospital today during which time you have been under the care of Dr Rubio. You had a Right BKA. You may resume you normal diet (including any special diets as directed by your primary doctor) as well as your home medications. You should follow up with you primary doctor if you have any questions regarding medication you took prior to your stay in the hospital. You may take your pain medication as prescribed. After the first few days, take your pain medication as needed. Do not drive or drink alcohol while taking your pain medication. Your injury may increase your risk of developing a blood clot,or DVT, in your arm or leg. This could potentially dislodge and travel to your lungs and become a life threatening condition called apulmonary embolus,or PE. You have been prescribed eliquis to be taken to prevent this. Frequent movement of the legs will also help prevent this from occurring. If you develop any new or worsening cough, chestpain, bloody sputum or shortness of breath, call 911 or go to the EmergencyRoom. Always keep your surgical incision/dressing clean and dry. If you experience increasing pain at your incision site, redness, swelling, increasing discharge, foul odors, or fevers (greater than 100.4), night sweats or chills you should call the office at the above number. If you feel this is an emergency you should be evaluated in the Emergency Department of a nearby hospital. Orthopedic Patient Instructions Summary: Weight Bearing: NWB RLE Activity: as tolerated. Diet: regular. Wound Care: Keep dressing clean and dry. 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 Ice, rest and elevation will be of great benefit. Please plan to follow-up [facility] Dr Rubio in 1 weeks. You will need to call the clinic [phone] to schedule. Do not hesitate to call the office with any questions or concerns. [facility] [phone] Continue dressing changes with Xeroform on the wound, ABD and Timbo wrap daily. Follow-up with orthopedic surgery in 7 to 10 days for reassessment. Follow-up with infectious disease in 2 weeks for reassessment. Complete antibiotic infusions with ceftriaxone for bacteremia until July 09. Continue Bactrim for MRSA found growing from stump wound. Maintain low potassium diet. Continue monitoring her blood sugars and insulin therapy. Follow-up with your primary provider as well as orthopedics. Have your primary provider reassess your kidney function, as well as your blood counts and anemia. Follow-up with your primary provider for reassessment of diarrhea. C. difficile was negative. Seek medical attention in case of any worsening or new concerning symptoms Discharge Attestations Time Spent in Discharge Care*: greater than 30 min Quality Metrics Clinical Quality Measures [ No reported AMI, CVA or VTE this stay] Coding Level of Care Code 36970 Total time (in minutes) for Discharge: 55 Diagnoses Leukocytosis D72.829 Gram-positive bacteremia R78.81 Osteomyelitis of ankle M86.9 Prosthetic joint infection T84.50XA S/P BKA (below knee amputation) Z89.519 Infected surgical wound T81.49XA Cellulitis L03.90 Abscess L02.91 UTI (urinary tract infection) N39.0 Type 1 diabetes E10.9 Chronic kidney disease N18.9 Acute hypokalemia E87.6 Anemia D64.9 Transaminitis R74.01
--- NOTE | 2023-07-03 16:05 | P.PN_ITS ---
Subjective Subjective: This morning she is feeling about the same, still having some pain/phantom pain in the right BKA stump. Still having some diarrhea. Vitals/I&O/Wt Last Vital Signs Temp 98.5 F 07/03/23 10:51 Pulse 99 07/03/23 10:51 Resp 17 07/03/23 14:12 BP 114/70 07/03/23 10:51 Pulse Ox 95 07/03/23 10:51 O2 Del Method Room Air 07/03/23 10:51 O2 Flow Rate 6 06/30/23 20:00 07/03/23 07/03/23 07/03/23 06:59 14:59 22:59 Intake Total 1939 1000 / 1000 Balance 1939 1000 / 1000 Physical Exam Const: COMMON NORMALS: patient oriented x3 and alert GENERAL APPEARANCE: cooperative ORIENTATION/CONSCIOUSNESS: Yes awake HENMT: COMMON NORMALS: oropharynx normal Neck/C-Spine: COMMON NORMALS: no JVD Resp: COMMON NORMALS: normal respiratory effort and clear to auscultation bilaterally AUSCULTATION: clear to auscultation bilaterally Cardio: COMMON NORMALS: no JVD, regular rhythm, S1 normal heart sound present, S2 normal heart sound present and No murmurs present (Cardio) RHYTHM: regular rhythm HEART SOUNDS: S1 normal heart sound present and S2 normal heart sound present GI: COMMON NORMALS: Normal to inspection, nondistended, normoactive bowel sounds present, Soft to palpation and non-tender PALPATION: Yes Soft to palpation Extremity: COMMON NORMALS: no joint enlargement and no pedal edema OTHER: R BKE. Dressing w/o strikethrough. No proximal erythma or swelling. Neuro: COMMON NORMALS: patient oriented x3 and moves all extremities SENSORIUM/ORIENTATION: Yes alert Skin: COMMON NORMALS: no rashes or lesions noted GENERAL SKIN EXAM: no linnette hes or lesions noted Urinary Catheter Management: Bustos: Cath Placed During This Visit: yes, but has since been removed by the nurse Reason for Continuing Indwelling Catheter: Decision to DC Catheter Urinary Catheter Date of Insertion: 06/28/23 Urinary Catheter Time of Insertion: 14:45 Date Urinary Catheter Removed: 06/30/23 Time Urinary Catheter Discontinued: 16:06 Data 07/03/23 06:13 07/03/23 06:13 Micro: Microbiology 09/18/23 16:50 Gram Stain - Final Leg - #1 Anaerobic Culture - Final Wound Culture - Final Strep agalactiae - (group b) Methicillin Resis Staph Aureus A&P Assessment and plan (1) Leukocytosis: Gradually decreasing leukocytosis, still 16.25. Noted fluid and gas collections in the right stump on CT. Discussed with orthopedics, orthopedics reassessed, finding currently no surgical intervention indicated. Would like to follow-up with her in office. Continue dressing changes. Continue antibiotic including for MRSA coverage. At risk of contrast nephropathy, reassess renal function, reviewed, noted WNL, will recheck again tomorrow. Noted mild hyperkalemia. Changed to low potassium diet. C. difficile noted negative. Can discontinue isolation unless needs to continue for MRSA. Today reviewed blood cultures, noted preliminarily remain negative. Thoracic spine CT, lumbar spine CT. No suggestion of infection. Still denies any respiratory symptoms. Continue incentive spirometer. Continue ceftriaxone to complete course. Bactrim for MRSA from stump wound. Risk of kidney injury, reassess renal function. Follow-up with infectious disease in clinic for reassessmentin a couple of weeks. Follow-up with orthopedics in 7 to 10 days. (2) Gram-positive bacteremia: Continue Rocephin via left arm PICC line until 07/09. JARET was done and no evidence of endocarditis until 07/09. (3) Osteomyelitis of ankle: Status post amputation, right below the knee amputation on June 24 (4) Prosthetic joint infection: See above (5) S/P BKA (below knee amputation): See above (6) Infected surgical wound: As above. On admission with an infected right lower extremity surgical wound, with concern of abscess. She reports she has had fever for least a week, and really has not been able to feel or move her toes in 3 days with her cast on. Cast was removed in the emergency department. She has obvious erythema, concern for abscess on CT, and probable osteomyelitis. Orthopedic consult appreciated, right below the knee amputation performed June 24 Continue Rocephin, and vancomycin currently Transthoracic echo demonstrates normal EF, mild MR, trace TR JARET did not show endocarditis CBC, BMP tomorrow Continue to adjust medication for pain control, increasing OxyContin IR interval. (7) Cellulitis: Resolved with amputation (8) Abscess: Resolved with amputation (9) UTI (urinary tract infection): Flagyl stopped, completed for trichomonas. Reviewed urine culture, urine culture greater than 100,000 colonies mixed cherise Renal ultrasound demonstrated mild dilation of left renal pelvis, slightly distended bladder, no other findings (10) Type 1 diabetes: Continue long-acting insulin. Continue sliding scale insulin, moderate No evidence of DKA. (11) Chronic kidney disease: BMP daily (12) Acute hypokalemia: Resolved (13) Anemia: Reviewed hemoglobin appears steady from prior. Reassess CBC. - Does have evidence of iron deficiency anemia -Anemia could be multifactorial -From CKD -From bone marrow suppression -From infection -From antibiotics -It also possibly could be from a slow GI bleed, however no reported bloody or black stools, no hemodynamic compromise -Status post 2 units PRBC -Monitor ferritin, iron, B12, folate -Hemoccult stool pending -For now continue heparin for DVT prophylaxis, as she is a high risk of hypercoagulable events (14) Transaminitis: Hepatitis panel, HIV negative Attestations Medical Necessity Statement*: Continue admission for additional assessment of high leukocytosis, MRSA stump wound infection, additional assessment for any abscess, continued IV antibiotics following bacteremia, arrangements for completion of IV antibiotic course. Diagnoses Leukocytosis D72.829 Gram-positive bacteremia R78.81 Osteomyelitis of ankle M86.9 Prosthetic joint infection T84.50XA S/P BKA (below knee amputation) Z89.519 Infected surgical wound T81.49XA Cellulitis L03.90 Abscess L02.91 UTI (urinary tract infection) N39.0 Type 1 diabetes E10.9 Chronic kidney disease N18.9 Acute hypokalemia E87.6 Anemia D64.9 Transaminitis R74.01
[2023-07-03 17:01] LABS: Glucose Point of Care 117 mg/dL (70-110)
[2023-07-03] MEDS: sodium chloride 0.9% 1,000 ML 50 ML IV (18:38)
[2023-07-03 21:08] LABS: Glucose Point of Care 362 mg/dL (70-110)
[2023-07-03] MEDS: insulin glargine 100 units/1 mL 20 UNIT SUBCUT (21:11)
[2023-07-04] VITALS (9 sets, daily range): BP systolic 100–127; BP diastolic 65–78; PULSE 94–100; RESP 16–18; TEMP 36.5–37.1; O2SAT 93–97
[2023-07-04] MEDS: oxyCODONE 5 mg IR Tab/Cap PO ×2 (01:20→07:55)
[2023-07-04] MEDS: heparin 5,000 unit/mL INJ 1 mL 5000 UNIT SUBCUT (03:43)
[2023-07-04] MEDS: HYDROmorphone 1 mg/mL INJ 1 mL IVP ×2 (03:43→10:35)
[2023-07-04 05:08] LABS: Basophils # 0.1 10^3/uL (0.0-0.1); Basophils % 0.7 %; Eosinophils # 0.3 10^3/uL (0.0-0.8); Eosinophils % 1.9 %; Hematocrit 29.5 % (36-47); Lymphocytes # 2.5 10^3/uL (0.8-4.8); Lymphocytes % 17.7 %; Mean Corpuscular HGB Conc 30.5 g/dL (30-55); Mean Corpuscular Hemoglobin 30.8 pg (27-33); Mean Platelet Volume 9.4 fL (7.4-10.4); Monocytes # 0.8 10^3/uL (0.2-0.9); Monocytes % 5.8 %; Neutrophils # 10.19 10^3/uL (1.8-7.7); Neutrophils % 71.4 %; Nucleated Red Blood Cells % 0 %; Platelet Count 574 10^3/cmm (157-399); Red Blood Count 2.92 10^6/uL (3.85-5.65); Red Cell Distribution Width 16.4 % (12.1-15.1); White Blood Count 14.26 10^3/uL (3.29-11.43)
[2023-07-04 05:31] LABS: Anion Gap 12.1 (5-19); Blood Urea Nitrogen 15 mg/dL (6-20); Calcium 8.3 mg/dL (8.5-10.5); Carbon Dioxide 30 mmol/L (22-29); Chloride 99 mmol/L (98-107); Glomerular Filtration Rate 61.4 mL/min (90-130); Glucose 240 mg/dL (65-115); Osmolality Calculated 291 mOsm/kg (285-295); Potassium 5.1 mmol/L (3.5-5.1); Sodium 136 mmol/L (136-145)
[2023-07-04 06:29] LABS: Glucose Point of Care 228 mg/dL (70-110)
[2023-07-04] MEDS: cefTRIAXone 2,000 MG in sodium chloride 0.9% (plus) 50 ML 100 MG IV (06:31)
[2023-07-04] MEDS: insulin lispro 100 unit/1 mL SUBCUT (07:55)
[2023-07-04] MEDS: gabapentin 300 mg Capsule 900 MG PO (08:36)
[2023-07-04] MEDS: tamsulosin 0.4 mg Capsule PO (08:37)
[2023-07-04] MEDS: amlodipine 10 mg Tablet PO (08:37)
[2023-07-04] MEDS: sucralfate 1 gm Tablet PO (08:37)
[2023-07-04] MEDS: pantoprazole 40 mg SDV IVP (08:37)
[2023-07-04] MEDS: amitriptyline 25 mg Tablet PO (08:37)
[2023-07-04] MEDS: sulfamethoxazole-trimeth DS 160-800 mg Tablet 1 TAB PO (08:37)
[2023-07-04] MEDS: lamoTRIgine 100 mg Tablet 150 MG PO (08:37)
--- NOTE | 2023-07-04 11:15 | P.DS_ITS ---
Discharge Providers Date of Admission: 06/24/23 03:09 Date of Discharge: July 04, 2023 Attending Provider at Admission: Jair Cha MD Attending Provider at Discharge: Felice Jennings Diagnoses at Discharge Discharge Diagnosis (1) Leukocytosis: Status: Acute (2) Gram-positive bacteremia: Status: Acute (3) Osteomyelitis of ankle: Status: Acute (4) Prosthetic joint infection: Status: Acute (5) S/P BKA (below knee amputation): Status: Acute (6) Infected surgical wound: Status: Acute (7) Cellulitis: Status: Acute (8) Abscess: Status: Acute (9) UTI (urinary tract infection): Status: Acute (10) Type 1 diabetes: Status: Acute (11) Chronic kidney disease: Status: Acute (12) Acute hypokalemia: Status: Acute (13) Anemia: Status: Acute (14) Transaminitis: Status: Acute Reason for Visit Reason for Visit: Rt cast cutting into leg Hospital Course Hospital Course Pleasant 42-year-old lady with history of DM1, CKD, recent ankle fracture and ORIF around May 17, status post ORIF, in a cast subsequently, came in due to pain, swelling, difficulty moving toes on the right foot. Prior history of infection including renal abscess in February for which had to have 4 weeks of Rocephin, MRSA carrier. Lost to follow-up with urology. She came here originally from [place]. Came to the hospital due to intermittent fevers, pain, swelling, difficulty moving and feeling her toes in the right lower extremity. Found to have right lower extremity infection, concern for abscess on CT, probable osteomyelitis. Was assessed by podiatry and orthopedics, started on IV antibiotics. With the extent of the infection right lower extreme amputation was deemed necessary and she underwent BKA on 06/24. Blood culture eventually showing bacteremia with group B strep. Additionally leg wound cultures grew MRSA. Repeat blood cultures negative both on 06/25 and 06/30. She had continued on ceftriaxone and vancomycin coverage for group B strep with MRSA coverage. UA suggestive of UTI with trichomonal infection, so also completed a course of Flagyl for that. During hospitalization was assessed with JARET which showed no evidence of endocarditis. Has had some persistent elevation of WBC count. Some lower pulmonary infiltrates, small effusions, however, has had no respiratory symptoms to suggest pneumonia and remained on antibiotic coverage. Pneumonia found to be of low likelihood, but please follow-up any respiratory symptoms. Additional imaging of thoracic and lumbar spine without signs of paraspinal infection. Had also imaging of chest with CTA as well as abdomen pelvis. No perinephric infection seen on CT abdomen pelvis. She has been having some diarrhea, although C. difficile has been negative. Transiently on oral vancomycin which has been discontinued. Infectious disease has been following with her in the hospital and she will be following up with them in the office. Has been having some pain in the right stump with possibly component of phantom pain. Pain control has been instituted. Reimaging of the stump did reveal some fluid collections, was reassessed by orthopedics and stump found to be healing appropriately without signs of infection, suspected seromas. She will be following up for reassessment with orthopedics and ID in office. She is recommended to complete course of ceftriaxone which she will do with outpatient infusions until 07/09. With concern of lost to follow-up in the past PICC line was removed prior to discharge, also with questionable history of polysubstance abuse though reportedly she denies IVDU. She is also provided empiric Bactrim coverage with leg culture positive for MRSA. Please follow-up with her. Follow-up renal function. Potassium on the higher side, 5.1, she is instructed to maintain low potassium diet. Please follow-up. Reassess diabetes control. Please follow-up incidentally noted hepatomegaly, splenomegaly, nodularity of the liver seen on CT. Acute hepatitis panel was unremarkable. HIV nonreactive. Incidentally seen small hiatal hernia. Please follow up regarding macrocytic anemia. Hemoccult stool negative. B12 and folate unremarkable. Consider follow-up with [facility]. Physical Exam Const: COMMON NORMALS: patient oriented x3 and alert GENERAL APPEARANCE: cooperative ORIENTATION/CONSCIOUSNESS: Yes awake HENMT: COMMON NORMALS: oropharynx normal Neck/C-Spine: COMMON NORMALS: no JVD Resp: COMMON NORMALS: normal respiratory effort and clear to auscultation bilaterally AUSCULTATION: clear to auscultation bilaterally Cardio: COMMON NORMALS: no JVD, regular rhythm, S1 normal heart sound present, S2 normal heart sound present and No murmurs present (Cardio) RHYTHM: regular rhythm HEART SOUNDS: S1 normal heart sound present and S2 normal heart sound present GI: COMMON NORMALS: Normal to inspection, nondistended, normoactive bowel soun ds present, Soft to palpation and non-tender PALPATION: Yes Soft to palpation Extremity: COMMON NORMALS: no joint enlargement and no pedal edema OTHER: R BKE. Dressing w/o strikethrough. No proximal erythma or swelling. Neuro: COMMON NORMALS: patient oriented x3 and moves all extremities SENSORIUM/ORIENTATION: Yes alert Skin: COMMON NORMALS: no rashes or lesions noted GENERAL SKIN EXAM: no rashes or lesions noted Urinary Catheter Management: Bustos: Cath Placed During This Visit: yes, but has since been removed by the nurse Reason for Continuing Indwelling Catheter: Decision to DC Catheter Urinary Catheter Date of Insertion: 06/28/23 Urinary Catheter Time of Insertion: 14:45 Date Urinary Catheter Removed: 06/30/23 Time Urinary Catheter Discontinued: 16:06 Discharge Data Studies Completed and Pending Completed Studies During Hospitalization Category Date Time Status CT abdomen pelvis w con* [id number] Routine Cat Scan 06/28/23 08:[address] angio chest PE protcl [id number] Stat Cat Scan 06/30/23 12:[address] lower leg RT w con [id number] Routine Cat Scan 07/02/23 15:[address] lower leg RT w con [id number] Stat Cat Scan 06/23/23 22:[address] lumbar spine w con [id number] Routine Cat Scan 07/01/23 13:[address] thoracic spine w con [id number] Routine Cat Scan 07/01/23 13:34 Completed CXRP [XR chest 1V portable [id number]] Routine Exams 06/28/23 07:23 Completed XR chest 1V portable [id number] Routine Exams 06/24/23 02:09 Completed XR foot RT min 3V* [id number] Stat Exams 06/23/23 21:18 Completed XR tibia fibula RT 2V [id number] Stat Exams 06/23/23 21:18 Completed Pathology: Surgical [PTH] Routine Pth 06/24/23 17:09 Completed CV. echo complete* [id number] Routine Ultrasound 06/24/23 03:46 Completed US renal BI* [id number] Stat Ultrasound 06/24/23 01:52 Completed Pending at discharge Category Date Time Status Basic Metabolic Panel AM LABS Lab 07/05/23 04:00 Ordered Blood Culture Stat Lab 06/30/23 10:00 Results Complete Blood Count w/Auto AM LABS Lab 07/05/23 04:00 Ordered CV. echo transesophageal [id number] Routine Ultrasound 06/27/23 12:00 Taken Radiology Impressions Foot X-Ray 06/23/23 21:18 IMPRESSION: 1. Distal fibular orthopedic plate in place with a surgical screw extending through the fibula into the tibia. 2. Posterior malleolar cortical irregularity may reflect sequelae of prior fracture, if clinical concern for osteomyelitis exists in this area consider further evaluation with a CT scan or MRI. 3. Soft tissue swelling about the foot and ankle. 4. Minimal subcutaneous emphysema seen about the foot and ankle may be postsurgical in nature, underlying infection is also a consideration. Tibia/Fibula X-Ray 06/23/23 21:18 IMPRESSION: 1. Distal fibular orthopedic plate in place with a surgical screw extending through the fibula into the tibia. 2. Posterior malleolar cortical irregularity may reflect sequelae of a prior fracture, if clinical concern for osteomyelitis exists in this area consider further evaluation with a CT scan or MRI. 3. Soft tissue swelling about the ankle. Renal Ultrasound 06/24/23 01:52 IMPRESSION: 1. Nonspecific mild dilation of the left renal pelvis. 2. Distended urinary bladder. Chest CTA 06/30/23 12:48 IMPRESSION: 1. No dissection. No visualized embolism as characterized to the segmental level. 2. Small pleural effusions bilaterally. Airspace consolidation within the left lower lobe slightly greater than right. Given the history, findings are concerning for pneumonic process with parapneumonic effusions. 3. Suspected hepatomegaly. Splenomegaly. Nodularity of the liver. Correlate regarding risk factors for hepatocellular disease. Follow-up nonemergent CT abdomen and pelvis suggested. 4. Small hiatal hernia. Lumbar Spine CT 07/01/23 13:34 IMPRESSION: 1. Unremarkable spine. 2. Anasarca. Thoracic Spine CT 07/01/23 13:34 IMPRESSION: 1. Negative for acute appearing abnormality of the thoracic spine. 2. Small bilateral pleural effusions. 3. Bibasilar atelectasis. 4. Cardiomegaly. 5. Left central venous catheter somewhat visualized. Lower Extremity CT 07/02/23 15:52 IMPRESSION: Status post [id number] amputation surgical change. There is diffuse soft tissue swelling, fluid and gas collections in the stump region. There is an organized fluid collection in the distal stomach measuring approximately 3.7 x 2.6 cm. There is a 2nd organized fluid collection in the anterior soft tissues of the distal stump measuring a proximally 2.6 x 1.1 cm. There is induration of the skin. Laboratory Results WBC 14.26 10^3/uL (3.29-11.43) H 07/04/23 05:02 RBC 2.92 10^6/uL (3.85-5.65) L 07/04/23 05:02 Hgb 9.00 g/dL (11.27-16.99) L 07/04/23 05:02 Hct 29.5 % (36-47) L 07/04/23 05:02 MCV 101.0 fl (85-98) H 07/04/23 05:02 MCH 30.8 pg (27-33) 07/04/23 05:02 MCHC 30.5 g/dL (30-55) 07/04/23 05:02 RDW 16.4 % (12.1-15.1) H 07/04/23 05:02 Plt Count 574 10^3/cmm (157-399) H 07/04/23 05:02 MPV 9.4 fL (7.4-10.4) 07/04/23 05:02 Neut % (Auto) 71.4 % 07/04/23 05:02 Lymph % (Auto) 17.7 % 07/04/23 05:02 Harnett % (Auto) 5.8 % 07/04/23 05:02 Eos % (Auto) 1.9 % 07/04/23 05:02 Baso % (Auto) 0.7 % 07/04/23 05:02 Neut # (Auto) 10.19 10^3/uL (1.8-7.7) H 07/04/23 05:02 Lymph # (Auto) 2.5 10^3/uL (0.8-4.8) 07/04/23 05:02 [place] # (Auto) 0.8 10^3/uL (0.2-0.9) 07/04/23 05:02 Eos # (Auto) 0.3 10^3/uL (0.0-0.8) 07/04/23 05:02 Baso # (Auto) 0.1 10^3/uL (0.0-0.1) 07/04/23 05:02 Nucleated RBC % (auto) 0 % 07/04/23 05:02 Total Counted 100 (0-100) 06/30/23 04:58 Atypical Lymphs % 0.0 % (0-5) 06/30/23 04:58 Absolute Neutrophils 15.6 10^3/cmm (1.4-6.5) H 06/30/23 04:58 Segmented Neutrophils 70 % 06/30/23 04:58 Abs Segm Neuts (Man) 14.8 10/cmm (1.6-7.1) H 06/30/23 04:58 Band Neutrophils 4.0 % 06/30/23 04:58 Abs Band Neuts (Man) 0.8 10^3/cmm (0.0-1.2) 06/30/23 04:58 Absolute Lymphocytes 2.5 10^3/cmm (1.2-3.4) 06/30/23 04:58 Lymphocytes (Manual) 12 % 06/30/23 04:58 Monocytes (Manual) 4.0 % 06/30/23 04:58 Absolute Monocytes 0.8 10^3/cmm (0.1-0.6) H 06/30/23 04:58 Eosinophils (Manual) 1 % 06/30/23 04:58 Absolute Eosinophils 0.2 10^3/cmm (0.0-0.7) 06/30/23 04:58 Basophils (Manual) 0.0 % 06/30/23 04:58 Absolute Basophils 0.0 10^3/cmm (0.0-0.2) 06/30/23 04:58 Metamyelocytes 7.0 % 06/30/23 04:58 Myelocytes 4.0 % 06/29/23 04:36 Promyelocytes 3.0 % 06/25/23 04:53 Nucleated RBCs # 0.0 /100WBC 07/04/23 05:02 Smudge Cells 1+ H 06/25/23 04:53 Platelet Estimate Normal (Normal) 06/30/23 04:58 ESR 58 mm/hr (0-15) H 06/30/23 04:58 D-Dimer 2.33 ug/mLFEU (0-0.59) H 06/30/23 09:50 Sodium 136 mmol/L (136-145) 07/04/23 05:02 Potassium 5.1 mmol/L (3.5-5.1) 07/04/23 05:02 Chloride 99 mmol/L (98-107) 07/04/23 05:02 Carbon Dioxide 30 mmol/L (22-29) H 07/04/23 05:02 Anion Gap 12.1 (5-19) 07/04/23 05:02 BUN 15 mg/dL (6-20) 07/04/23 05:02 Creatinine 1.0 mg/dL (0.5-0.9) H 07/04/23 05:02 GFR Calculation 61.4 mL/min (90-130) L 07/04/23 05:02 Glucose 240 mg/dL (65-115) H 07/04/23 05:02 POC Glucose 228 mg/dL (70-110) H 07/04/23 06:25 Calculated Osmolality 291 mOsm/kg (285-295) 07/04/23 05:02 Lactic Acid 1.4 mmol/L (0.5-2.2) 06/23/23 21:25 Calcium 8.3 mg/dL (8.5-10.5) L 07/04/23 05:02 Magnesium 2.0 mg/dL (1.7-2.3) 06/23/23 21:25 Iron 30 ug/dL (37-145) L 06/29/23 04:36 TIBC 148 mcg/dl 06/29/23 04:36 % Saturation 20.2 % (20-50) 06/29/23 04:36 Unsat Iron Binding 118 ug/dL (112-347) 06/29/23 04:36 Ferritin 298 ng/mL (15-150) H 06/29/23 04:36 Total Bilirubin 0.2 mg/dL (0.15-1.2) 06/30/23 04:58 Direct Bilirubin 0.20 mg/dL (0.00-0.30) 06/30/23 04:58 AST 9 U/L (0-32) 06/30/23 04:58 ALT 13 U/L (0-33) 06/30/23 04:58 Alkaline Phosphatase 232 U/L (35-105) H 06/30/23 04:58 C-Reactive Protein 23.2 mg/L (0.0-4.9) H 07/01/23 05:40 Total Protein 5.9 g/dL (6.6-8.7) L 06/30/23 04:58 Albumin 2.5 g/dL (3.5-5.2) L 06/30/23 04:58 Globulin 3.4 g/dL (1.3-4.6) 06/30/23 04:58 Lipase 13 U/L (13-60) 06/30/23 04:58 Vitamin B12 > 2000 pg/mL (232-1245) H 06/29/23 04:36 Folate 9.1 ng/mL (4.8-37.3) 06/29/23 23:15 Procalcitonin 0.14 ng/mL (0-0.5) 07/01/23 05:40 TSH 2.51 uIU/mL (0.27-4.20) 06/23/23 21:25 HCG, Qual Negative (Negative) 06/23/23 10:50 Urine Color Yellow (Yellow) 06/23/23 23:27 Urine Appearance Hazy (CLEAR) A 06/23/23 23:27 Urine pH 5 (5-7) 06/23/23 23:27 Ur Specific [place] 1.010 (1.005-1.030) 06/23/23 23:27 Urine Protein Trace (Negative) 06/23/23 23: Urine Glucose (UA) 4+ (Normal) H 06/23/23 23:27 Urine Ketones Negative (Negative) 06/23/23 23:27 Urine Blood Neg (Negative) 06/23/23 23:27 Urine Nitrate Negative (Negative) 06/23/23 23:27 Urine Bilirubin Neg (Negative) 06/23/23 23:27 Urine Urobilinogen Neg mg/dL (Negative) 06/23/23 23:27 Ur Leukocyte Esterase 2+ (Negative) H 06/23/23 23:27 Urine RBC 0-4 /hpf (0-2) H 06/23/23 23:27 Urine WBC >100 /hpf (0-5) H 06/23/23 23:27 Ur Squamous Epith Cells 15-25 /hpf (0-5) H 06/23/23 23:27 Amorphous Sediment 2+ /hpf 06/23/23 23:27 Urine Bacteria Trace /hpf (NONE) 09/17/23 23:27 Urine Trichomonas 1+ /hpf H 06/23/23 23:27 Stl C. difficile Result See note 06/28/23 08:49 C. difficile Tox (PCR) Cancelled 06/28/23 16:25 Hepatitis A IgM Ab Non-reactive (Nonreactive) 06/23/23 21:25 Hep Bs Antigen Non-reactive (Nonreactive) 06/23/23 21:25 Hep B Core IgM Ab Non-reactive (Nonreactive) 06/23/23 21:25 Hepatitis C Antibody Non-reactive (Nonreactive) 06/23/23 21:25 HIV 1&2 Ab & HIV 1 Ag Non-reactive (Non-Reactiv) 06/24/23 00:00 HIV 1&2 Antibody Non-reactive (Non-Reactiv) 06/24/23 00:00 Blood Type O Positive 06/29/23 08:38 Rho(D) Type Positive 06/29/23 08:38 Antibody Screen Negative 06/29/23 08:38 Crossmatch See Detail 06/29/23 08:38 Vitals Last Vital Signs Temp 98.7 F 07/04/23 11:05 Pulse 100 07/04/23 11:05 Resp 16 07/04/23 11:05 BP 100/65 07/04/23 11:05 Pulse Ox 97 07/04/23 11:05 O2 Del Method Room Air 07/03/23 20:00 O2 Flow Rate 6 06/30/23 20:00 Discharge Plan Discharge Patient Disposition: Home Condition: Stable Prescriptions: New sulfamethoxazole-trimethoprim 800-160 mg Tablet 1 tab PO BID Qty: 14 0RF pantoprazole 40 mg tablet,delayed release (DR/EC) 40 mg PO BID Qty: 84 0RF (DME) Xeroform Petrolatum Dressing 5 X 9 bandage See Rx Instructions .Route Qty: 50 3RF Rx Instructions: As directed (DME) Combine ABD 5 X 9 bandage See Rx Instructions .Route Qty: 20 3RF Rx Instructions: As directed (DME) elastic bandage 2 X 1.9 -yard bandage See Rx Instructions .Route Qty: 14 3RF Rx Instructions: As directed lidocaine 5 % adhesive patch,medicated 1 patch topical DAILY Qty: 15 0RF Rx Instructions: leave on most painful area for up to 12 hrs Continued insulin lispro [Humalog KwikPen Insulin] 100 unit/mL Insulin Pen See Rx Instructions .ROUTE .COMPLEX Rx Instructions: 6 unit subcutaneously three times daily plus sliding scale lamotrigine [Lamictal] 150 mg Tablet 150 mg PO DAILY gabapentin 600 mg Tablet 600 mg PO TID amitriptyline 25 mg Tablet 25 mg PO BID Novolin N NPH U-100 Insulin 100 unit/mL Suspension 10 unit SUBCUT BID ceftriaxone 2 gram Recon Soln 2 g IV Q24H Qty: 6 0RF hydrocodone-acetaminophen 5-325 mg Tablet 2 tab PO Q4H PRN (Reason: Pain) Qty: 15 0RF Discontinued sulfamethoxazole-trimethoprim [Septra DS] 800-160 mg Tablet 1 tab PO BID ibuprofen 800 mg Tablet 800 mg PO Q8H PRN (Reason: Pain) Discharge Orders: Discharge Order (Routine); Ordered 07/04/23 Ordered By: Felice Jennings Other Ambulatory Orders: DME: Wheelchair (Order) Location: None Selected Ordered By: Jair Cha Miscellaneous Procedure ( DIRECTED) Timeframe: [id number] Facility: [facility] - Location: GI Lab Ordered By: Jair Cha Referrals: [facility] Medicine [Other] - 07/11/23 9:00 am (This appointment will be to establish primary care w/ Dr. Wick. ) Outpatient IV Procedure [Other] - 07/05/23 10:00 am (On weekends, you will present to ER for registration @ 1000am. and then will be redirected to surgical services to have the infusion. On Saturday-Saturday @ 1000 am you will present to Surgical Services for registration and then will go to GI lab for infusion. ) Ochoa Rubio DO [Physician] - 07/11/23 8:00 am (APPOINTMENT WITH [facility]) Deandra Traylor MD [Hospitalist] - 2 weeks (We have notified your physician's clinic of the need for a follow-up appointment to be scheduled. If you have not heard from them within the next 2 business days, please call them directly. You may also reach out to our risk manager at [phone] and she can assist you. FAXED REFERRAL 07-03-2023) Discharge Diet: Advance as tolerated and Diabetic Discharge Activity: Use walker/crutches as instructed Patient Instructions: Sulfamethoxazole/Trimethoprim (By mouth), Ceftriaxone (By injection), Potassium Content of Foods List (GEN), Hyperkalemia (GEN), Anemia (GEN), Bacteremia (GEN), Below the Knee Amputation (GEN), Opioid Safety, PICC Activity Restrictions/Additional Instructions: You are being discharged from the hospital today during which time you have been under the care of Dr Rubio. You had a Right BKA. You may resume you normal diet (including any special diets as directed by your primary doctor) as well as your home medications. You should follow up with you primary doctor if you have any questions regarding medication you took prior to your stay in the hospital. You may take your pain medication as prescribed. After the first few days, take your pain medication as needed. Do not drive or drink alcohol while taking your pain medication. Your injury may increase your risk of developing a blood clot,or DVT, in your arm or leg. This could potentially dislodge and travel to your lungs and become a life threatening condition called apulmonary embolus,or PE. You have been prescribed eliquis to be taken to prevent this. Frequent movement of the legs will also help prevent this from occurring. If you develop any new or worsening cough, chestpain, bloody sputum or shortness of breath, call 911 or go to the EmergencyRoom. Always keep your surgical incision/dressing clean and dry. If you experience increasing pain at your incision site, redness, swelling, increasing discharge, foul odors, or fevers (greater than 100.4), night sweats or chills you should call the office at the above number. If you feel this is an emergency you should be evaluated in the Emergency Department of a nearby hospital. Orthopedic Patient Instructions Summary: Weight Bearing: NWB RLE Activity: as tolerated. Diet: regular. Wound Care: Keep dressing clean and dry. 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 Ice, rest and elevation will be of great benefit. Please plan to follow-up [facility] Dr Rubio in 1 weeks. You will need to call the clinic [phone] to schedule. Do not hesitate to call the office with any questions or concerns. [facility] [phone] Continue dressing changes with Xeroform on the wound, ABD and Timbo wrap daily. Follow-up with orthopedic surgery in 7 to 10 days for reassessment. Follow-up with infectious disease in 2 weeks for reassessment. Complete antibiotic infusions with ceftriaxone for bacteremia until July 09. Continue Bactrim for MRSA found growing from stump wound. Maintain low potassium diet. Continue monitoring her blood sugars and insulin therapy. Follow-up with your primary provider as well as orthopedics. Have your primary provider reassess your kidney function, as well as your blood counts and anemia. Follow-up with your primary provider for reassessment of diarrhea. C. dif ficile was negative. Seek medical attention in case of any worsening or new concerning symptoms Discharge Attestations Time Spent in Discharge Care*: greater than 30 min Quality Metrics Clinical Quality Measures [ No reported AMI, CVA or VTE this stay] Coding Level of Care Code 47306 Total time (in minutes) for Discharge: 55 Diagnoses Leukocytosis D72.829 Gram-positive bacteremia R78.81 Osteomyelitis of ankle M86.9 Prosthetic joint infection T84.50XA S/P BKA (below knee amputation) Z89.519 Infected surgical wound T81.49XA Cellulitis L03.90 Abscess L02.91 UTI (urinary tract infection) N39.0 Type 1 diabetes E10.9 Chronic kidney disease N18.9 Acute hypokalemia E87.6 Anemia D64.9 Transaminitis R74.01
[2023-07-04 11:22] LABS: Glucose Point of Care 84 mg/dL (70-110)
== END 2023-07-04 13:01 | disposition home or self-care (01) | DRG 474 ==
LOC: ER 06-24 02:02 → MEDSURG 06-24 03:10
PROVIDERS: Family Medicine; Internal Medicine; Orthopaedic Surgery; Student in an Organized Health Care Education/Training Program; Admitting Provider Internal Medicine; Emergency Provider Emergency Medicine; Visit Provider Internal Medicine
PROC: 0Y6H0Z1 Detachment at Right Lower Leg, High, Open Approach (ICD-10-PCS; CPT 27880; principal; 2023-06-24 15:20)
PROC: (CPT 93312; principal; 2023-06-27 12:00)
DX: T84.622A Infection and inflammatory reaction due to internal fixation device of right tibia, initial encounter (principal); A48.0 Gas gangrene; M86.9 Osteomyelitis, unspecified; E10.52 Type 1 diabetes mellitus with diabetic peripheral angiopathy with gangrene; N39.0 Urinary tract infection, site not specified; L03.115 Cellulitis of right lower limb; L02.611 Cutaneous abscess of right foot; Y79.8 Miscellaneous orthopedic devices associated with adverse incidents, not elsewhere classified; E10.69 Type 1 diabetes mellitus with other specified complication; E10.65 Type 1 diabetes mellitus with hyperglycemia; E10.22 Type 1 diabetes mellitus with diabetic chronic kidney disease; N18.9 Chronic kidney disease, unspecified; B95.1 Streptococcus, group B, as the cause of diseases classified elsewhere; B95.62 Methicillin resistant Staphylococcus aureus infection as the cause of diseases classified elsewhere; K44.9 Diaphragmatic hernia without obstruction or gangrene; R16.2 Hepatomegaly with splenomegaly, not elsewhere classified; D63.1 Anemia in chronic kidney disease; Z79.4 Long term (current) use of insulin; Z79.891 Long term (current) use of opiate analgesic; D50.9 Iron deficiency anemia, unspecified; F41.1 Generalized anxiety disorder; F31.9 Bipolar disorder, unspecified; R19.7 Diarrhea, unspecified; F10.90 Alcohol use, unspecified, uncomplicated; F15.90 Other stimulant use, unspecified, uncomplicated; F12.90 Cannabis use, unspecified, uncomplicated; F17.200 Nicotine dependence, unspecified, uncomplicated; Z91.199 Patient's noncompliance with other medical treatment and regimen due to unspecified reason; R74.01 Elevation of levels of liver transaminase levels; E87.6 Hypokalemia
CPT/HCPCS: 36415; 36416; 36430; 36573; 36592; 51702; 51798; 71045; 71275; 72129; 72132; 73590; 73630; 73701; 74177; 76770; 80048; 80053; 80074; 80076; 81001; 81003; 82274; 82607; 82728; 82746; 82962; 83540; 83550; 83605; 83690; 83735; 84145; 84443; 84703; 85007; 85025; 85378; 85651; 86140; 86850; 86900; 86920; 87040; 87070; 87075; 87077; 87086; 87186; 87205; 87324; 87449; 87806; 88307; 88311; 93306; 93312; 93320; 93325; 96365; 96366; 96367; 96372; 97110; 97161; 97165; 97530; 97535; 99285; C9113; J0131; J0171; J0696; J1170; J1644; J1815; J2185; J2250; J2270; J2310; J2371; J2405; J2704; J2795; J2930; J3010; J3370; J3490; J7030; J7040; J7050; J7060; P9016; P9040; P9045; Q9967

== ENCOUNTER 2023-07-06 10:00 | Outpatient (RCR) | payer MEDICAID, SELFPAY ==
[2023-07-05] MEDS: cefTRIAXone 2,000 MG in sodium chloride 0.9% (plus) 50 ML 100 MG IV (10:06)
[2023-07-05 10:11] VITALS: BP 129/68; PULSE 105; RESP 18; TEMP 36.7; O2SAT 98
[2023-07-06] MEDS: cefTRIAXone 2,000 MG in sodium chloride 0.9% (plus) 50 ML 100 MG IV (09:58)
[2023-07-06 10:27] VITALS: BP 129/68; PULSE 99; RESP 18; TEMP 36.7; O2SAT 99
== END 2023-07-06 23:59 | disposition home or self-care (01) ==
LOC: OPS 10:00
PROVIDERS: Visit Provider Internal Medicine
DX: R78.81 Bacteremia (principal)
CPT/HCPCS: 96365; J0696

== ENCOUNTER 2023-07-09 10:00 | Outpatient (RCR) | payer MEDICAID, SELFPAY ==
[2023-07-07 09:50] VITALS: BP 149/87; PULSE 107; RESP 18; TEMP 36.7; O2SAT 100
[2023-07-07] MEDS: cefTRIAXone 2,000 MG in sodium chloride 0.9% (plus) 50 ML 100 MG IV (10:05)
[2023-07-08 09:52] VITALS: BP 170/85; PULSE 106; RESP 18; TEMP 36.4; O2SAT 100
[2023-07-08] MEDS: cefTRIAXone 2,000 MG in sodium chloride 0.9% (plus) 50 ML 100 MG IV (09:55)
[2023-07-09] MEDS: cefTRIAXone 2,000 MG in sodium chloride 0.9% (plus) 50 ML 100 MG IV (10:15)
[2023-07-09 10:21] VITALS: BP 142/93; PULSE 80; RESP 18; TEMP 36.6; O2SAT 94
== END 2023-08-06 23:59 | disposition home or self-care (01) ==
LOC: OPS 10:00
PROVIDERS: Visit Provider Internal Medicine
DX: R78.81 Bacteremia (principal)
CPT/HCPCS: 96365; J0696

== ENCOUNTER 2023-11-07 12:55 | Inpatient (IN) | payer MEDICAID, SELFPAY ==
[2023-11-07 13:29] VITALS: BP 110/81; PULSE 118; RESP 18; TEMP 36.8; O2SAT 96; BMI 22.6
[2023-11-07 13:38] LABS: Basophils # 0.1 10^3/uL (0.0-0.1); Basophils % 0.8 %; Eosinophils # 0.2 10^3/uL (0.0-0.8); Eosinophils % 1.3 %; Hematocrit 50.8 % (36-47); Lymphocytes # 2.8 10^3/uL (0.8-4.8); Lymphocytes % 20.8 %; Mean Corpuscular HGB Conc 33.9 g/dL (30-55); Mean Corpuscular Hemoglobin 32.3 pg (27-33); Mean Corpuscular Volume 95.3 fl (85-98); Mean Platelet Volume 10.6 fL (7.4-10.4); Monocytes # 0.6 10^3/uL (0.2-0.9); Monocytes % 4.3 %; Neutrophils % 72.4 %; Nucleated Red Blood Cells % 0 %; Platelet Count 469 10^3/cmm (157-399); Red Blood Count 5.33 10^6/uL (3.85-5.65); White Blood Count 13.25 10^3/uL (3.29-11.43)
[2023-11-07 13:59] LABS: Alanine Aminotransferase 15 U/L (0-33); Alkaline Phosphatase 211 U/L (35-105); Anion Gap 22.1 (5-19); Aspartate Amino Transferase 15 U/L (0-32); Blood Urea Nitrogen 14 mg/dL (6-20); Calcium 10.4 mg/dL (8.5-10.5); Carbon Dioxide 25 mmol/L (22-29); Chloride 88 mmol/L (98-107); Globulin 3.8 g/dL (1.3-4.6); Glomerular Filtration Rate 79.4 mL/min (90-130); Glucose 469 mg/dL (65-115); Lipase 36 U/L (13-60); Osmolality Calculated 291 mOsm/kg (285-295); Potassium 5.1 mmol/L (3.5-5.1); Sodium 130 mmol/L (136-145); Total Bilirubin 0.3 mg/dL (0.15-1.2); Total Protein 8.8 g/dL (6.6-8.7)
--- NOTE | 2023-11-07 14:09 | ED_ITS ---
HPI - Abdominal Pain 2 General: Chief Complaint: ER Hold Stated Complaint: nausea, trouble urinating Time Seen by Provider: 11/07/23 14:04 Source: patient Mode of arrival: ambulatory History of Present Illness: 42-year-old female presents emergency ro om with chronic nausea and dysuria. She had a right below the knee amputation due to complications from diabetes and diabetic foot ulcer in June 2023 during that time she developed a pyelonephritis evidently per her report with MRSA in the urine. Associated Symptoms: Denies chills, dysuria and fever(s) Review of Systems 2 Const: Denies: fever(s) or chills Card: Denies: chest pain Resp: Denies: dyspnea GI: Denies: abdominal pain : Denies: dysuria, urinary frequency or urinary urgency Musc: Denies: neck pain or back pain Skin/Breast: Denies: rash PFSH ED 2 PFSH: Medical History Chronic kidney disease Type 1 diabetes Surgical History History of appendectomy History of surgery on lower extremity History of tonsillectomy Social History Smoking and tobacco/nicotine status: current every day tobacco/nicotine user Alcohol intake: former Substance/Drug Use: current Physical Exam 2 Const: COMMON NORMALS: no acute distress GENERAL APPEARANCE: cooperative and comfortable ORIENTATION/CONSCIOUSNESS: Yes awake, Yes oriented to person, Yes oriented to place and Yes oriented to time HENMT: COMMON NORMALS: normocephalic, atraumatic and hearing grossly normal bilaterally HEAD & SCALP: normocephalic and atraumatic Resp: COMMON NORMALS: normal respiratory effort, No retractions, No use of accessory muscles and clear to auscultation bilaterally AUSCULTATION: clear to auscultation bilaterally Cardio: COMMON NORMALS: regular rate, regular rhythm and No murmurs present (Cardio) RATE: regular rate RHYTHM: regular rhythm GI: COMMON NORMALS: Soft to palpation and No hepatosplenomegaly present A USCULTATION: Yes normoactive bowel sounds PALPATION: Yes Soft to palpation, No Tenderness to palpation present (GI), No Guarding due to palpation present (GI) and Yes No hepatosplenomegaly present Extremity: COMMON NORMALS: normal to inspection, capillary refill normal, no clubbing, cyanosis or edema, no calf tenderness and no pedal edema Neuro: SENSORIUM/ORIENTATION: Yes oriented to person, Yes oriented to place and Yes oriented to time Skin: COMMON NORMALS: no rashes or lesions noted GENERAL SKIN EXAM: no rashes or lesions noted Course 2 Vital Signs: Vital signs: Vital Signs Temperature 97.5 F L 11/09/23 16:48 Pulse Rate 98 11/09/23 16:48 Respiratory Rate 16 11/09/23 16:48 Blood Pressure 133/83 11/09/23 16:48 Pulse Oximetry 100 11/09/23 16:48 Oxygen Delivery Me thod Room Air 11/09/23 11:56 MDM - Abdominal Pain Medical Decision Making Leukocytosis tachycardia. She has a history of strep B septicemia she did complete a course of antibiotics for this per her report. No obstructive pulm nephropathy. Will admit discussed with Dr. Jennings orders written Medical Records I reviewed the patient's medical records. Lab Data I reviewed the patient's lab results. 11/09/23 04:32 11/09/23 04:32 Labs/Radiology: Radiology Impressions Chest X-Ray 11/07/23 15:32 IMPRESSION: 1. No acute cardiopulmonary abnormality. Soft Tissue Ultrasound 11/09/23 10:22 IMPRESSION: No abscess formation. Laboratory Results WBC 13.25 10^3/uL (3.29-11.43) H 11/07/23 13:25 RBC 5.33 10^6/uL (3.85-5.65) 11/07/23 13:25 Hgb 17.20 g/dL (11.27-16.99) H 11/07/23 13:25 Hct 50.8 % (36-47) H 11/07/23 13:25 MCV 95.3 fl (85-98) 11/07/23 13:25 MCH 32.3 pg (27-33) 11/07/23 13:25 MCHC 33.9 g/dL (30-55) 11/07/23 13:25 RDW 13.0 % (12.1-15.1) 11/07/23 13:25 Plt Count 469 10^3/cmm (157-399) H 11/07/23 13:25 MPV 10.6 fL (7.4-10.4) H 11/07/23 13:25 Neut % (Auto) 72.4 % 11/07/23 13:25 Lymph % (Auto) 20.8 % 11/07/23 13:25 Gage % (Auto) 4.3 % 11/07/23 13:25 Eos % (Auto) 1.3 % 11/07/23 13:25 Baso % (Auto) 0.8 % 11/07/23 13:25 Neut # (Auto) 9.60 10^3/uL (1.8-7.7) H 11/07/23 13:25 Lymph # (Auto) 2.8 10^3/uL (0.8-4.8) 11/07/23 13:25 Gage # (Auto) 0.6 10^3/uL (0.2-0.9) 11/07/23 13:25 Eos # (Auto) 0.2 10^3/uL (0.0-0.8) 11/07/23 13:25 Baso # (Auto) 0.1 10^3/uL (0.0-0.1) 11/07/23 13:25 Nucleated RBC % (auto) 0 % 11/07/23 13:25 Nucleated RBCs # 0.0 /100WBC 11/07/23 13:25 Sodium 130 mmol/L (136-145) L 11/07/23 13:25 Potassium 5.1 mmol/L (3.5-5.1) 11/07/23 13:25 Chloride 88 mmol/L (98-107) L 11/07/23 13:25 Carbon Dioxide 25 mmol/L (22-29) 11/07/23 13:25 Anion Gap 22.1 (5-19) H 11/07/23 13:25 BUN 14 mg/dL (6-20) 11/07/23 13:25 Creatinine 0.8 mg/dL (0.5-0.9) 11/07/23 13:25 GFR Calculation 79.4 mL/min (90-130) L 11/07/23 13:25 Glucose 469 mg/dL (65-115) H 11/07/23 13:25 Calculated Osmolality 291 mOsm/kg (285-295) 11/07/23 13:25 Lactic Acid 1.5 mmol/L (0.5-2.2) 11/07/23 13:25 Calcium 10.4 mg/dL (8.5-10.5) 11/07/23 13:25 Total Bilirubin 0.3 mg/dL (0.15-1.2) 11/07/23 13:25 AST 15 U/L (0-32) 11/07/23 13:25 ALT 15 U/L (0-33) 11/07/23 13:25 Alkaline Phosphatase 211 U/L (35-105) H 11/07/23 13:25 Total Protein 8.8 g/dL (6.6-8.7) H 11/07/23 13:25 Albumin 5.0 g/dL (3.5-5.2) 11/07/23 13:25 Globulin 3.8 g/dL (1.3-4.6) 11/07/23 13:25 Lipase 36 U/L (13-60) 11/07/23 13:25 HCG, Qual Negative (Negative) 11/07/23 13:25 Urine Color Yellow (Yellow) 11/07/23 14:15 Urine Appearance Hazy (CLEAR) A 11/07/23 14:15 Urine pH 6 (5-7) 11/07/23 14:15 Ur Specific [place] 1.005 (1.005-1.030) 11/07/23 14:15 Urine Protein Neg (Negative) 11/07/23 14:15 Urine Glucose (UA) 4+ (Normal) H 11/07/23 14:15 Urine Ketones Negative (Negative) 11/07/23 14:15 Urine Blood Neg (Negative) 11/07/23 14:15 Urine Nitrate Negative (Negative) 11/07/23 14:15 Urine Bilirubin Neg (Negative) 11/07/23 14:15 Urine Urobilinogen Norm mg/dL (Negative) 11/07/23 14:15 Ur Leukocyte Esterase 2+ (Negative) H 11/07/23 14:15 Urine RBC 10-15 /hpf (0-2) H 11/07/23 14:15 Urine WBC 55-80 /hpf (0-5) H 11/07/23 14:15 Ur Squamous Epith Cells 15-25 /hpf (0-5) H 11/07/23 14:15 Ur Transition Epith Cell 0-4 /hpf 11/07/23 14:15 Amorphous Sediment Not Reportable 11/07/23 14:15 Urine Bacteria 1+ /hpf (NONE) H 11/07/23 14:15 Urine Mucus Trace /hpf 11/07/23 14:15 Urine Yeast 1+ /hpf H 11/07/23 14:15 Serum Ketones Negative (Negative) 11/07/23 13:25 All radiology interpretation(s) finalized by discharge Discharge Plan Discharge Patient Disposition: Admitted As Inpatient Admit Provider: Felice Jennings Clinical Impression: UTI (urinary tract infection), Type 1 diabetes, Chronic kidney disease, Anemia, S/P BKA (below knee amputation), Pyelonephritis Condition: Stable Discharge Diet: Diabetic Discharge Activity: Limit activity as instructed Coding Level of Care Code ED Front End Drupal Developer for Claudy Morgan
[2023-11-07 14:19] VITALS: BP 153/109; PULSE 127; RESP 16; O2SAT 94
[2023-11-07 14:21] LABS: HCG, Serum Qual Negative (Negative)
[2023-11-07 14:43] LABS: Add Urine Microscopic? YES; Bilirubin Urine Neg (Negative); Blood Urine Neg (Negative); Glucose Urine UA 4+ (Normal); Ketones Urine Negative (Negative); Leukocyte Esterase Urine 2+ (Negative); Nitrate Urine Negative (Negative); Protein Urine Neg (Negative); Specific Gravity, Urine 1.005 (1.005-1.030); Urine Appearance Hazy (CLEAR); Urine Color Yellow (Yellow); Urobilinogen Urine Norm (Negative); pH Urine 6 (5-7)
[2023-11-07 14:47] LABS: Add Urine Culture? Yes; Bacteria Urine 1+ /hpf; Mucus Urine TRACE /hpf; Squamous Epithelial Cell Urine 15-25 /hpf (0-5); Transitional Epi Cells Urine 0-4 /hpf; WBC Urine 55-80 /hpf (0-5)
--- NOTE | 2023-11-07 14:49 | CT_ITS ---
WS: [id number] CT ABDOMEN AND PELVIS NONCONTRAST HISTORY: flank pain TECHNIQUE: Imaging performed through the abdomen and pelvis. Coronal and sagittal reformats are submi tted. All CT scans at [facility] use at least one of these dose optimization techniques: auto mated exposure control; mA and/or kV adjustment per patient size (includes targeted exams where dose is matched to clinical indication); or iterative reconstruction. DLP: 364.18 mGy.cm COMPARISON: 06/28/2023 Lower thorax: Hyperinflated lung bases. Liver: Normal size liver. No mass or bile duct dilatation. Gallbladder: Mildly contracted gallbladder. Pancreas: Normal size and attenuation. Normal pancreatic duct. No pancreatitis or mass. Spleen: Normal. Adrenal glands: Normal. No mass. Right kidney: Moderate atrophy RIGHT kidney. Nonobstructing central calcification. No renal obstructi on. No hydronephrosis. Left kidney: Normal size kidney. No obstruction. Aorta: Mild atherosclerosis abdominal aorta with no aneurysm. No free fluid, intraperitoneal air or significant lymphadenopathy. GI tract: Prior appendectomy. No obstruction. Abdominal wall: Negative. No hernia. Pelvis: No free fluid or mass. Prior tubal ligation clips. Osseous structures: Unremarkable. IMPRESSION: 1. Normal size LEFT kidney with a nonobstructing calcification. No ureteral calcification or obstruc tion. 2. No free fluid or adenopathy. 3. Moderate atrophy RIGHT kidney with a nonobstructing central calcification. 4. No GI tract obstruction.
[2023-11-07 15:20] LABS: Lactic Sepsis W/Reflex 1.5 mmol/L (0.5-2.2)
--- NOTE | 2023-11-07 15:27 | PC.PHAR ---
PT STATES MOVING AROUND A LOT AND NEEDS TO FIND A DOCTOR HERE. SHE IS OUT OF ALL HER MEDICATIONS EXCEPT HER INSULINS. PT ALSO STATES NEEDS THE GABAPENTIN FOR PAIN.
--- NOTE | 2023-11-07 15:32 | XRR_ITS ---
PROCEDURE INFORMATION: Exam: XR Chest Exam date and time: 11/07/2023 4:04 PM Age: 42 years old Clinical indication: Other: Abdominal; Patient HX: Patient states that in June for bka. She then got MRSA on her skin and kidneys. She is now having pain in her left side, not being able to urinate. She belives that she has MRSA back in her kidneys; Additional info: Abd pain TECHNIQUE: Imaging protocol: Radiologic exam of the chest. Views: 1 view. COMPARISON: CT angio chest PE protcl [id number] 06/30/2023 1:15 PM FINDINGS: Lungs: No focal consolidation. Pleural spaces: No evidence of pneumothorax. No evidence of pleural effusion. Heart/Mediastinum: Cardiomediastinal silhouette is within normal limits. Bones/joints: No evidence of acute osseous abnormality. XR/XR chest 1V portable [id number] IMPRESSION: 1. No acute cardiopulmonary abnormality.
[2023-11-07] MEDS: morphine 4 mg/mL SDV 1 mL IVP (15:53)
[2023-11-07] MEDS: ondansetron 2 mg/ML SDV 2 mL 4 MG IVP ×2 (15:53→22:56)
[2023-11-07] MEDS: cefTRIAXone 1,000 MG in sodium chloride 0.9% (plus) 50 ML 100 MG IV (15:57)
[2023-11-07] MEDS: sodium chloride 0.9% 1,000 ML 999 ML IV ×2 (15:58→18:14)
[2023-11-07 16:09] LABS: Ketone (Acetest) Serum Negative (Negative)
[2023-11-07 16:24] VITALS: PULSE 103; RESP 16; O2SAT 94
[2023-11-07 18:14] VITALS: BP 153/109; PULSE 103; RESP 16; TEMP 36.8; O2SAT 94
[2023-11-07 20:14] VITALS: RESP 16
[2023-11-07] MEDS: morphine 4 mg/mL SDV 1 mL 2 MG IVP (20:14)
[2023-11-07] MEDS: sodium chloride 0.9% 1,000 ML 100 ML IV (20:38)
--- NOTE | 2023-11-07 20:55 | P.HP_ITS ---
Providers/Chief Complaint 2 Admitting Physician: Felice Jennings Chief Complaint: nausea, trouble urinating History of Present Illness Anna Tolbert is a 42 year old female comes to the hospital complaining of nausea, malaise, reports fever at home, has not vomited. No diarrhea. In ER with leukocytosis, sinus tachycardia. With history of recurrent MRSA infections, including right lower extremity infection, status post BKA, stump infection, status post course of IV antibiotics back in July which she says she had completed. Review of Systems 2 Const: Reports: fever(s), change in appetite and malaise Eyes: Denies: change in vision, eye discomfort or eye redness ENMT: Denies: throat pain, oral sores or ear or mastoid pain Card: Denies: chest pain, edema, pre-syncope or dyspnea on exertion Resp: Denies: dyspnea, productive cough, change in phlegm color or hemoptysis GI: Reports: nausea; Denies: abdominal pain, vomiting, diarrhea, constipation, hematochezia or melena : Denies: flank pain, urinary frequency or hematuria Musc: Denies: back pain, joint swelling or joint redness Skin/Breast: Denies: rash or new lesions Neuro: Denies: headache(s), numbness in extremities, weakness in extremities, dizziness, confusion or seizure-like activity Endo: Denies: polyuria or polydipsia Medications/Allergies Home Medications Medication Instructions Recorded Confirmed Last Taken Type amitriptyline 25 mg tablet 25 mg PO BID 06/24/23 11/07/23 07/05/23 History gabapentin 600 mg tablet 600 mg PO TID 06/24/23 11/07/23 07/05/23 History insulin NPH isoph U-100 human 100 21 unit SUBCUT BID 06/24/23 11/07/23 11/07/23 History unit/mL subcutaneous suspension (Novolin N NPH U-100 Insulin isophane) insulin lispro 100 unit/mL See Rx Instructions .Route .COMPLEX 06/24/23 11/07/23 11/07/23 History subcutaneous pen (Humalog KwikPen (U-100) Insulin) lamotrigine 150 mg tablet 150 mg PO DAILY 06/24/23 11/07/23 07/05/23 History (Lamictal) bismuth tribrom-petrolatum,wh 5 X #50 ea 07/03/23 11/07/23 07/05/23 Rx 9 bandage (Xeroform Petrolatum Dressing) elastic bandage 2 X 1.9 yard #14 ea 07/03/23 11/07/23 07/05/23 Rx hydrocodone 5 mg-acetaminophen 325 2 tab PO Q4H PRN Pain #15 tabs 07/03/23 11/07/23 07/05/23 Rx mg tablet pantoprazole 40 mg tablet,delayed 40 mg PO BID #84 tabs 07/03/23 11/07/23 07/05/23 Rx release lidocaine 5 % topical patch 1 patch topical DAILY #15 ea 07/04/23 11/07/23 07/05/23 Rx ibuprofen 200 mg tablet 600 mg PO Q6H PRN Pain 11/07/23 11/07/23 Unknown History non-adherent bandage 5 X 9 11/07/23 11/07/23 Unknown History topiramate 25 mg tablet (Topamax) 25 mg PO TID 11/07/23 11/07/23 Unknown History Allergies Allergy/AdvReac Type Severity Reaction Status Date / Time amoxicillin Allergy ALGY-Rash Verified 11/07/23 13:32 clavulanic acid Allergy ALGY-Difficulty Verified 11/07/23 13:32 [From Augmentin] Breathing Penicillins Allergy ALGY-Rash Verified 11/07/23 13:32 PFSH Acute 2 PFSH: Medical History Chronic kidney disease Type 1 diabetes Surgical History History of appendectomy History of surgery on lower extremity History of tonsillectomy Social History Smoking and tobacco/nicotine status: current every day tobacco/nicotine user Alcohol intake: former Substance/Drug Use: current Vitals/I&O/Wt Last Vital Signs Temp 98.2 F 11/07/23 18:14 Pulse 103 H 11/07/23 18:14 Resp 16 11/07/23 20:14 BP 153/109 11/07/23 18:14 Pulse Ox 94 11/07/23 18:14 O2 Del Method Room Air 11/07/23 18:34 11/07/23 11/07/23 11/07/23 06:59 14:59 22:59 Intake Total 1050 / 1050 Balance 1050 / 1050 Weight last 48 hrs Weight 58.06 kg Physical Exam 2 Const: COMMON NORMALS: patient oriented x3 and alert GENERAL APPEARANCE: c ooperative ORIENTATION/CONSCIOUSNESS: Yes awake HENMT: COMMON NORMALS: oropharynx normal Neck/C-Spine: COMMON NORMALS: no JVD Resp: COMMON NORMALS: normal respiratory effort and clear to auscultation bilaterally AUSCULTATION: clear to auscultation bilaterally Cardio: COMMON NORMALS: no JVD, regular rhythm, S1 normal heart sound present, S2 normal heart sound present and No murmurs present (Cardio) RHYTHM: regular rhythm HEART SOUNDS: S1 normal heart sound present and S2 normal heart sound present GI: COMMON NORMALS: Normal to inspection, nondistended, normoactive bowel sounds present, Soft to palpation and non-tender PALPATION: Yes Soft to palpation Extremity: COMMON NORMALS: no joint enlargement and no pedal edema N ARRATIVE EXTREMITY EXAM: R BKA, scar without any wound dehiscence, no erythema, drainage, no swelling or fluctuance. Neuro: COMMON NORMALS: patient oriented x3 and moves all extremities S ENSORIUM/ORIENTATION: Yes alert Skin: COMMON NORMALS: no rashes or lesions noted GENERAL SKIN EXAM: no rashes or lesions noted Sepsis: Focused sepsis exam: She is awake alert, maintaining blood pressure. Good capillary refill. No cyanosis or mottling. Data 11/07/23 13:25 11/07/23 13:25 A&P Assessment and plan (1) UTI (urinary tract infection): UTI with leukocytosis, sinus tachycardia, possible sepsis without endorgan damage, reviewed vital signs, CBC, CMP, lactic acid, lipase, UA, CT abdomen pelvis, chest x-ray. Blood cultures collected. She is started on Ceftriaxone. Follow-up blood and urine culture. Reviewed ER note, discussed with ER physician. Concern for ascending UTI, early pyelonephritis given possible sepsis, systemic symptoms. Plan DM1: Continue insulin, check Accu-Cheks. Consistent carb diet. Chronic kidney disease Anemia Other medical problems. Attestations 2 Medical Necessity Statement*: Admission of over 2 midnights anticipated for assessment of management of UTI with possible sepsis. Diagnoses UTI (urinary tract infection) N39.0
[2023-11-07 21:18] VITALS: BP 130/80; PULSE 93; RESP 18; TEMP 36.5; O2SAT 95
[2023-11-07] MEDS: heparin 5,000 unit/mL INJ 1 mL 5000 UNIT SUBCUT (21:57)
[2023-11-07] MEDS: lactated ringers 1,000 ML 75 ML IV (21:57)
[2023-11-08] VITALS (11 sets, daily range): BP systolic 91–156; BP diastolic 60–91; PULSE 83–94; RESP 16–18; TEMP 36.4–37.1; O2SAT 96–100
[2023-11-08 04:15] LABS: Basophils # 0.1 10^3/uL (0.0-0.1); Basophils % 0.8 %; Eosinophils # 0.2 10^3/uL (0.0-0.8); Eosinophils % 2.4 %; Hematocrit 37.3 % (36-47); Lymphocytes # 2.8 10^3/uL (0.8-4.8); Lymphocytes % 32.4 %; Mean Corpuscular HGB Conc 32.2 g/dL (30-55); Mean Corpuscular Hemoglobin 31.9 pg (27-33); Mean Corpuscular Volume 99.2 fl (85-98); Mean Platelet Volume 10.2 fL (7.4-10.4); Monocytes # 0.6 10^3/uL (0.2-0.9); Monocytes % 7.1 %; Neutrophils # 4.96 10^3/uL (1.8-7.7); Nucleated Red Blood Cells % 0 %; Platelet Count 318 10^3/cmm (157-399); Red Blood Count 3.76 10^6/uL (3.85-5.65); Red Cell Distribution Width 13.2 % (12.1-15.1); White Blood Count 8.71 10^3/uL (3.29-11.43)
[2023-11-08 04:35] LABS: Alanine Aminotransferase 12 U/L (0-33); Albumin Level 3.4 g/dL (3.5-5.2); Alkaline Phosphatase 136 U/L (35-105); Aspartate Amino Transferase 9 U/L (0-32); Blood Urea Nitrogen 17 mg/dL (6-20); Calcium 8.6 mg/dL (8.5-10.5); Carbon Dioxide 23 mmol/L (22-29); Chloride 99 mmol/L (98-107); Globulin 2.3 g/dL (1.3-4.6); Glomerular Filtration Rate 110.7 mL/min (90-130); Glucose 347 mg/dL (65-115); Osmolality Calculated 289 mOsm/kg (285-295); Sodium 132 mmol/L (136-145); Total Bilirubin 0.2 mg/dL (0.15-1.2); Total Protein 5.7 g/dL (6.6-8.7)
[2023-11-08 06:43] LABS: Glucose Point of Care 350 mg/dL (70-110)
[2023-11-08] MEDS: morphine 4 mg/mL SDV 1 mL 2 MG IVP ×4 (07:14→20:24)
[2023-11-08] MEDS: insulin lispro 100 unit/1 mL SUBCUT ×4 (08:55→21:29)
[2023-11-08] MEDS: cefTRIAXone 1,000 MG in sodium chloride 0.9% (plus) 50 ML 100 MG IV (09:02)
[2023-11-08] MEDS: ondansetron 2 mg/ML SDV 2 mL 4 MG IVP ×3 (09:03→21:20)
[2023-11-08] MEDS: pantoprazole DR 40 mg Tablet PO ×2 (09:03→17:48)
[2023-11-08] MEDS: heparin 5,000 unit/mL INJ 1 mL 5000 UNIT SUBCUT ×2 (09:03→20:58)
[2023-11-08 10:46] LABS: Glucose Point of Care 280 mg/dL (70-110)
--- NOTE | 2023-11-08 10:54 | PC.CHAP ---
Pastoral Care Encounter/Spiritual Assessment Type of Contact [] Declined cage/vault supervisor visit [] Patient/Family/Request visit [] Outpatient visit [] Follow-up visit [] Physician referral [] Code/Alert [] Routine visit [] Staff referral [] Actively dying [] Patient sleeping [] Family support [] [] Out of room [] Palliative care [] [x] Receiving care in room [] Pre-surgical visit [] Trauma [] Long length of stay [] ICU visit [] Other: Relational/Emotional Strength [] Patient feels connected with others/family/visitors/staff [] Distress [] Loneliness/isolation [] Abandonment Spirituality of Patient [] Person of E[place]se [] Attends Restoration of their [place] [] Believes in Prayer [] Reads Bible or Faith materials [] There are Spiritual issues to be addressed Subscription Crew Leader Interventions [] Prayer [] Active listening [] Non-anxious presence [] Spiritual/emotional support [] Crisis/trauma care [] Spiritual counseling [] Bereavement support [] Provided bereavement packet [] Provided Bible/devotional materials [] Provided toy/stuffed animal, coloring book to patient or family member [] Provided Communion [] Anointing/[place] [] Salvation [] Completed spiritual assessment [] Other: Impact on Illness or Injury [] Angry [] Fearful [] Anxious [] Often cries [] Exhaustion [] Unable to work [] Unable to attend yarsanism [] Unable to walk/stand [] Unable to read [] Unable to drive [] Unable to eat/drink [] Unable to sleep [] Unable to be with family [] Patient intubated [] Other: Summary Time spent with patient
[2023-11-08] MEDS: insulin glargine 100 units/1 mL 5 UNIT SUBCUT (11:14)
[2023-11-08 14:38] LABS: Glucose Point of Care 88 mg/dL (70-110)
[2023-11-08] MEDS: gabapentin 300 mg Capsule PO ×2 (15:20→20:18)
[2023-11-08 15:33] LABS: Glucose Point of Care 240 mg/dL (70-110)
[2023-11-08 15:37] LABS: Bilirubin Urine Neg (Negative); Blood Urine 3+ (Negative); Glucose Urine UA 4+ (Normal); Ketones Urine Negative (Negative); Nitrate Urine Negative (Negative); Protein Urine Neg (Negative); Specific Gravity, Urine 1.015 (1.005-1.030); Urine Appearance Cloudy (CLEAR); Urine Color Other (Yellow); Urobilinogen Urine Norm (Negative); pH Urine 7 (5-7)
[2023-11-08 15:38] LABS: Add Urine Culture? Yes; Add Urine Microscopic? YES; Bacteria Urine TRACE /hpf; Leukocyte Esterase Urine 2+ (Negative); RBC Urine >100 /hpf (0-2); Sperm Urine 1+ /hpf; Squamous Epithelial Cell Urine 15-25 /hpf (0-5); WBC Urine TOO NUMEROUS TO CNT /hpf (0-5)
[2023-11-08 17:16] LABS: Glucose Point of Care 311 mg/dL (70-110)
[2023-11-08] MEDS: amitriptyline 25 mg Tablet PO (17:48)
[2023-11-08] MEDS: sodium chloride 0.9% 1,000 ML 75 ML IV (17:48)
--- NOTE | 2023-11-08 18:13 | P.PN_ITS ---
Subjective 2 Subjective: She is not doing the best, having some aching of multiple muscles, still nauseated. Malaised. Vitals/I&O/Wt Last Vital Signs Temp 97.6 F 11/08/23 15:39 Pulse 91 11/08/23 15:39 Resp 18 11/08/23 15:39 BP 154/77 11/08/23 15:39 Pulse Ox 100 11/08/23 15:39 O2 Del Method Room Air 11/08/23 15:39 11/08/23 11/08/23 11/08/23 06:59 14:59 22:59 Intake Total 960 / 3110 1650.0 / 1650.0 360 2009.0 Balance 960 / 3110 1650.0 / 1650.0 2009.0 Weight last 48 hrs Weight 57.776 kg Weight 58.06 kg Physical Exam 2 Const: COMMON NORMALS: patient oriented x3 and alert GENERAL APPEARANCE: c ooperative ORIENTATION/CONSCIOUSNESS: Yes awake HENMT: COMMON NORMALS: oropharynx normal Neck/C-Spine: COMMON NORMALS: no JVD Resp: COMMON NORMALS: normal respiratory effort and clear to auscultation bilaterally AUSCULTATION: clear to auscultation bilaterally Cardio: COMMON NORMALS: no JVD, regular rhythm, S1 normal heart sound present, S2 normal heart sound present and No murmurs present (Cardio) RHYTHM: regular rhythm HEART SOUNDS: S1 normal heart sound present and S2 normal heart sound present GI: COMMON NORMALS: Normal to inspection, nondistended, normoactive bowel sounds present, Soft to palpation and non-tender PALPATION: Yes Soft to palpation Extremity: COMMON NORMALS: no joint enlargement and no pedal edema N ARRATIVE EXTREMITY EXAM: R BKA, scar without any wound dehiscence, no erythema, drainage, no swelling or fluctuance. Neuro: COMMON NORMALS: patient oriented x3 and moves all extremities S ENSORIUM/ORIENTATION: Yes alert Skin: COMMON NORMALS: no rashes or lesions noted GENERAL SKIN EXAM: no rashes or lesions noted Data 11/08/23 03:54 11/08/23 03:54 A&P Assessment and plan (1) UTI (urinary tract infection): Reviewed vitals, CBC, she is still having malaise. WBC is with improvement. Reviewed urine culture, so far no growth. Blood cultures pending. Continue treatment of UTI, suspected early ascending UTI/nonobstructive pyelonephritis.Continue ceftriaxone. Follow-up cultures. Continue IV fluid, switch to normal saline due to compatibility issues. Plan Malaise: Possibly secondary to UTI as above. Additionally resume her home medications, gabapentin, lamotrigine. Reported concern for possibility of withdrawal. Assess UDS. DM1: Continue insulin, check Accu-Cheks. Consistent carb diet. Chronic kidney disease Anemia Other medical problems. Attestations 2 Medical Necessity Statement*: Continue admission for assessment management of UTI, improving possible sepsis, suspected early pyelonephritis. Assessment for possible bacteremia and lady with bacteremia several months ago, history of recurrent MRSA infections. Diagnoses UTI (urinary tract infection) N39.0
[2023-11-08 20:57] LABS: Glucose Point of Care 280 mg/dL (70-110)
[2023-11-09] VITALS (7 sets, daily range): BP systolic 120–133; BP diastolic 74–85; PULSE 75–103; RESP 16–20; TEMP 36.3–36.8; O2SAT 96–100
[2023-11-09 05:14] LABS: Basophils # 0.1 10^3/uL (0.0-0.1); Basophils % 0.6 %; Eosinophils # 0.2 10^3/uL (0.0-0.8); Eosinophils % 1.9 %; Hematocrit 38.6 % (36-47); Lymphocytes # 2.2 10^3/uL (0.8-4.8); Lymphocytes % 23.9 %; Mean Corpuscular HGB Conc 31.9 g/dL (30-55); Mean Corpuscular Hemoglobin 31.4 pg (27-33); Mean Corpuscular Volume 98.5 fl (85-98); Mean Platelet Volume 10.3 fL (7.4-10.4); Monocytes # 0.6 10^3/uL (0.2-0.9); Monocytes % 6.8 %; Neutrophils # 6.15 10^3/uL (1.8-7.7); Neutrophils % 66.5 %; Nucleated Red Blood Cells % 0 %; Platelet Count 291 10^3/cmm (157-399); Red Blood Count 3.92 10^6/uL (3.85-5.65); Red Cell Distribution Width 13.2 % (12.1-15.1); White Blood Count 9.27 10^3/uL (3.29-11.43)
[2023-11-09] MEDS: HYDROmorphone 1 mg/mL INJ 1 mL 0.5 MG IVP ×3 (05:36→14:39)
[2023-11-09 05:46] LABS: Alanine Aminotransferase 12 U/L (0-33); Albumin Level 3.2 g/dL (3.5-5.2); Alkaline Phosphatase 102 U/L (35-105); Anion Gap 11.6 (5-19); Aspartate Amino Transferase 10 U/L (0-32); Blood Urea Nitrogen 11 mg/dL (6-20); Calcium 8.1 mg/dL (8.5-10.5); Carbon Dioxide 25 mmol/L (22-29); Chloride 106 mmol/L (98-107); Globulin 2.3 g/dL (1.3-4.6); Glomerular Filtration Rate 136.6 mL/min (90-130); Glucose 118 mg/dL (65-115); Osmolality Calculated 288 mOsm/kg (285-295); Potassium 3.6 mmol/L (3.5-5.1); Sodium 139 mmol/L (136-145); Total Bilirubin 0.2 mg/dL (0.15-1.2); Total Protein 5.5 g/dL (6.6-8.7)
[2023-11-09 06:27] LABS: Glucose Point of Care 146 mg/dL (70-110)
[2023-11-09] MEDS: insulin lispro 100 unit/1 mL SUBCUT ×2 (10:07→13:50)
[2023-11-09] MEDS: sodium chloride 0.9% 1,000 ML 75 ML IV (10:07)
[2023-11-09] MEDS: lamoTRIgine 100 mg Tablet 150 MG PO (10:08)
[2023-11-09] MEDS: heparin 5,000 unit/mL INJ 1 mL 5000 UNIT SUBCUT (10:08)
[2023-11-09] MEDS: gabapentin 300 mg Capsule PO ×2 (10:09→14:39)
[2023-11-09] MEDS: pantoprazole DR 40 mg Tablet PO (10:09)
[2023-11-09] MEDS: ondansetron 2 mg/ML SDV 2 mL 4 MG IVP (10:09)
[2023-11-09] MEDS: cefTRIAXone 1,000 MG in sodium chloride 0.9% (plus) 50 ML 100 MG IV (10:09)
[2023-11-09] MEDS: amitriptyline 25 mg Tablet PO (10:10)
--- NOTE | 2023-11-09 10:22 | USR_ITS ---
PROCEDURE INFORMATION: Exam: US Right Non-Vascular Joint or Other Extremity Structure Exam date and time: 11/09/2023 12:05 PM Age: 42 years old Clinical indication: Pain; Right; Prior surgery; Surgery date: 1-6 months; Surgery type: Below knee amputee RT; Additional info: R knee cap ulcer/swelling, assess for any underlying abscess TECHNIQUE: Imaging protocol: Right US joint or other nonvascular extremity structure or structures. Real-time ultrasound with image documentation. Limited study. Exam focused on the lower extremity in the region of clinical interest. COMPARISON: CT lower leg RT w con [id number] 07/02/2023 4:54 PM FINDINGS: Soft tissues: There is mild swelling at the lateral inferior aspect of the knee cap. No loculated collections. US/US soft tissue/extremity [id number] IMPRESSION: No abscess formation.
[2023-11-09] MEDS: insulin glargine 100 units/1 mL 5 UNIT SUBCUT (10:42)
[2023-11-09 11:42] LABS: Glucose Point of Care 277 mg/dL (70-110)
--- NOTE | 2023-11-09 15:39 | PM.DCS ---
Discharge Providers Date of Admission: 11/07/23 15:38 Date of Discharge: November 09, 2023 Attending Provider at Admission: Felice Jennings Attending Provider at Discharge: Felice Jennings Diagnoses at Discharge Discharge Diagnosis (1) UTI (urinary tract infection): Status: Acute Reason for Visit Reason for Visit: nausea, trouble urinating Hospital Course Hospital Course 42-year-old lady with history of recurrent infections with MRSA, recent hospitalization in June with lower extremity infection, requiring BKA, also with streptococcal bacteremia at the time, required prolonged IV antibiotic course return to the hospital with malaise, nausea, found to have urinary tract infection. Started on treatment. No obvious pyelonephritis on CT. On presentation possible sepsis with leukocytosis, tachycardia. These gradually improved/resolved with treatment. Blood cultures obtained due to prior bacteremia, these are pending. Urine cultures pending. She is otherwise doing better. No suggestion of ongoing sepsis. Right stump wound has healed well. There is a small ulceration on the right knee Appears due to pressure, some swelling around it, imaged with ultrasound, no abscess. Please reassess for healing. She is asked to avoid putting any pressure on the right knee cap. Physical Exam Const: COMMON NORMALS: patient oriented x3 and alert GENERAL APPEARANCE: cooperative ORIENTATION/CONSCIOUSNESS: Yes awake HENMT: COMMON NORMALS: oropharynx normal Neck/C-Spine: COMMON NORMALS: no JVD Resp: COMMON NORMALS: normal respiratory effort and clear to auscultation bilaterally AUSCULTATION: clear to auscultation bilaterally Cardio: COMMON NORMALS: no JVD, regular rhythm, S1 normal heart sound present, S2 normal heart sound present and No murmurs present (Cardio) RHYTHM: regular rhythm HEART SOUNDS: S1 normal heart sound present and S2 normal heart sound present GI: COMMON NORMALS: Normal to inspection, nondistended, normoactive bowel sounds present, Soft to palpation and non-tender PALPATION: Yes Soft to palpation Extremity: COMMON NORMALS: no joint enlargement and no pedal edema NARRATIVE EXTREMITY EXAM: R BKA, scar without any wound dehiscence, no erythema, drainage, no swelling or fluctuance. Shallow ulceration less than 1 cm in size on the right knee. Some swelling around the ulceration. No drainage. No tunneling or undermining. No obvious fluctuance. Neuro: COMMON NORMALS: patient oriented x3 and moves all extremities SENSORIUM/ORIENTATION: Yes alert Skin: COMMON NORMALS: no rashes or lesions noted GENERAL SKIN EXAM: no rashes or lesions noted Discharge Data Studies Completed and Pending Completed Studies During Hospitalization Category Date Time Status CT kidney stone [id number] Stat Cat Scan 11/07/23 14:49 Completed XR chest 1V portable [id number] Stat Exams 11/07/23 15:32 Completed US soft tissue and or extremity [US soft tissue/ Ultrasound 11/09/23 10:22 Completed extremity [id number]] Routine Pending at discharge Category Date Time Status Blood Cultures ([facility]) Routine Lab 11/07/23 15:52 Received Blood Cultures ([facility]) Routine Lab 11/07/23 15:58 Received Complete Blood Count w/Auto AM LABS Lab 11/10/23 04:00 Ordered Comprehensive Metabolic Panel AM LABS Lab 11/10/23 04:00 Ordered Drug Screen, Urine Routine Lab 11/08/23 18:24 Ordered Urine Culture Routine Lab 11/08/23 15:12 Received Urine Culture Stat Lab 11/07/23 14:15 Results Radiology Impressions Chest X-Ray 11/07/23 15:32 IMPRESSION: 1. No acute cardiopulmonary abnormality. Soft Tissue Ultrasound 11/09/23 10:22 IMPRESSION: No abscess formation. Laboratory Results WBC 9.27 10^3/uL (3.29-11.43) 11/09/23 04:32 RBC 3.92 10^6/uL (3.85-5.65) 11/09/23 04:32 Hgb 12.30 g/dL (11.27-16.99) 11/09/23 04:32 Hct 38.6 % (36-47) 11/09/23 04:32 MCV 98.5 fl (85-98) H 11/09/23 04:32 MCH 31.4 pg (27-33) 11/09/23 04:32 MCHC 31.9 g/dL (30-55) 11/09/23 04:32 RDW 13.2 % (12.1-15.1) 11/09/23 04:32 Plt Count 291 10^3/cmm (157-399) 11/09/23 04:32 MPV 10.3 fL (7.4-10.4) 11/09/23 04:32 Neut % (Auto) 66.5 % 11/09/23 04:32 Lymph % (Auto) 23.9 % 11/09/23 04:32 [place] % (Auto) 6.8 % 11/09/23 04:32 Eos % (Auto) 1.9 % 11/09/23 04:32 Baso % (Auto) 0.6 % 11/09/23 04:32 Neut # (Auto) 6.15 10^3/uL (1.8-7.7) 11/09/23 04:32 Lymph # (Auto) 2.2 10^3/uL (0.8-4.8) 11/09/23 04:32 [place] # (Auto) 0.6 10^3/uL (0.2-0.9) 11/09/23 04:32 Eos # (Auto) 0.2 10^3/uL (0.0-0.8) 11/09/23 04:32 Baso # (Auto) 0.1 10^3/uL (0.0-0.1) 11/09/23 04:32 Nucleated RBC % (auto) 0 % 11/09/23 04:32 Nucleated RBCs # 0.0 /100WBC 11/09/23 04:32 Sodium 139 mmol/L (136-145) 11/09/23 04:32 Potassium 3.6 mmol/L (3.5-5.1) 11/09/23 04:32 Chloride 106 mmol/L (98-107) 11/09/23 04:32 Carbon Dioxide 25 mmol/L (22-29) 11/09/23 04:32 Anion Gap 11.6 (5-19) 11/09/23 04:32 BUN 11 mg/dL (6-20) 11/09/23 04:32 Creatinine 0.5 mg/dL (0.5-0.9) 11/09/23 04:32 GFR Calculation 136.6 mL/min (90-130) H 11/09/23 04:32 Glucose 118 mg/dL (65-115) H 11/09/23 04:32 POC Glucose 277 mg/dL (70-110) H 11/09/23 11:34 Calculated Osmolality 288 mOsm/kg (285-295) 11/09/23 04:32 Lactic Acid 1.5 mmol/L (0.5-2.2) 11/07/23 13:25 Calcium 8.1 mg/dL (8.5-10.5) L 11/09/23 04:32 Total Bilirubin 0.2 mg/dL (0.15-1.2) 11/09/23 04:32 AST 10 U/L (0-32) 11/09/23 04:32 ALT 12 U/L (0-33) 11/09/23 04:32 Alkaline Phosphatase 102 U/L (35-105) 11/09/23 04:32 Total Protein 5.5 g/dL (6.6-8.7) L 11/09/23 04:32 Albumin 3.2 g/dL (3.5-5.2) L 11/09/23 04:32 Globulin 2.3 g/dL (1.3-4.6) 11/09/23 04:32 Lipase 36 U/L (13-60) 11/07/23 13:25 HCG, Qual Negative (Negative) 11/07/23 13:25 Urine Color Other (Yellow) A 11/08/23 15:12 Urine Appearance Cloudy (CLEAR) A 11/08/23 15:12 Urine pH 7 (5-7) 11/08/23 15:12 Ur Specific [place] 1.015 (1.005-1.030) 11/08/23 15:12 Urine Protein Neg (Negative) 11/08/23 15:12 Urine Glucose (UA) 4+ (Normal) H 11/08/23 15:12 Urine Ketones Negative (Negative) 11/08/23 15:12 Urine Blood 3+ (Negative) H 11/08/23 15:12 Urine Nitrate Negative (Negative) 11/08/23 15:12 Urine Bilirubin Neg (Negative) 11/08/23 15:12 Urine Urobilinogen Norm mg/dL (Negative) 11/08/23 15:12 Ur Leukocyte Esterase 2+ (Negative) H 11/08/23 15:12 Urine RBC >100 /hpf (0-2) H 11/08/23 15:12 Urine WBC Too numerous to cnt /hpf (0-5) H 11/08/23 15:12 Ur Squamous Epith Cells 15-25 /hpf (0-5) H 11/08/23 15:12 Ur Transition Epith Cell 0-4 /hpf 11/07/23 14:15 Amorphous Sediment Not Reportable 11/08/23 15:12 Urine Bacteria Trace /hpf (NONE) 11/08/23 15:12 Urine Mucus Trace /hpf 11/07/23 14:15 Urine Yeast 1+ /hpf H 11/07/23 14:15 Urine Sperm 1+ /hpf 11/08/23 15:12 Serum Ketones Negative (Negative) 11/07/23 13:25 Vitals Last Vital Signs Temp 97.5 F L 11/09/23 11:56 Pulse 103 H 11/09/23 11:56 Resp 16 11/09/23 14:39 BP 133/83 11/09/23 11:56 Pulse Ox 100 11/09/23 11:56 O2 Del Method Room Air 11/09/23 11:56 Discharge Plan Discharge Patient Disposition: Home Condition: Stable Prescriptions: New ciprofloxacin HCl 500 mg tablet 500 mg PO BID Qty: 10 0RF gabapentin 600 mg tablet 600 mg PO TID Qty: 90 0RF Continued Topamax 25 mg Tablet 25 mg PO TID ibuprofen 200 mg Tablet 600 mg PO Q6H PRN (Reason: Pain) (DME) non-adherent bandage 5 X 9 bandage See Rx Instructions .ROUTE Rx Instructions: As directed insulin lispro [Humalog KwikPen Insulin] 100 unit/mL Insulin Pen See Rx Instructions .ROUTE .COMPLEX Rx Instructions: 6 unit subcutaneously three times daily plus sliding scale lamotrigine [Lamictal] 150 mg Tablet 150 mg PO DAILY amitriptyline 25 mg Tablet 25 mg PO BID Novolin N NPH U-100 Insulin 100 unit/mL Suspension 21 unit SUBCUT BID pantoprazole 40 mg tablet,delayed release (DR/EC) 40 mg PO BID Qty: 84 0RF hydrocodone-acetaminophen 5-325 mg Tablet 2 tab PO Q4H PRN (Reason: Pain) Qty: 15 0RF (DME) Xeroform Petrolatum Dressing 5 X 9 bandage See Rx Instructions .Route Qty: 50 3RF Rx Instructions: As directed (DME) elastic bandage 2 X 1.9 -yard bandage See Rx Instructions .Route Qty: 14 3RF Rx Instructions: As directed lidocaine 5 % adhesive patch,medicated 1 patch topical DAILY Qty: 15 0RF Rx Instructions: leave on most painful area for up to 12 hrs Discontinued gabapentin 600 mg Tablet 600 mg PO TID Discharge Orders: Discharge Order (Routine); Ordered 11/09/23 Ordered By: Felice Jennings Referrals: Everett Huddleston MD [Physician] - 11/21/23 10:00 am Discharge Diet: Diabetic Discharge Activity: Limit activity as instructed Patient Instructions: Ciprofloxacin (By mouth), Urinary Tract Infection in Women (GEN) Activity Restrictions/Additional Instructions: Elevated preventative reassessment after urinary tract infection. Follow-up final blood and urine cultures which are currently pending. Apply foam dressing daily to shallow ulceration on the right knee. Avoid putting any pressure on the knee. Return to the hospital in case of any worsening or new concerning symptoms. Discharge Attestations Time Spent in Discharge Care*: greater than 30 min Quality Metrics Clinical Quality Measures [ No reported AMI, CVA or VTE this stay] Coding Level of Care Code 53738 Total time (in minutes) for Discharge: 40 Diagnoses UTI (urinary tract infection) N39.0
[2023-11-11 06:43] LABS: Amphetamines Screen Urine Negative (Negative); Barbiturates Screen Urine Negative (Negative); Benzodiazepines Screen Urine Negative (Negative); Cocaine Screen Urine Negative (Negative); Opiate Screen Urine Positive (Negative); PCP Screen Urine Negative (Negative); THC Screen Urine Positive (Negative)
== END 2023-11-09 16:49 | disposition home or self-care (01) | DRG 872 ==
LOC: ER 14:10 → ER IP 17:06 → MEDSURG 17:36
PROVIDERS: Emergency Medicine; Admitting Provider Internal Medicine; Emergency Provider Family Medicine; Visit Provider Internal Medicine
DX: A41.9 Sepsis, unspecified organism (principal); N39.0 Urinary tract infection, site not specified; E10.22 Type 1 diabetes mellitus with diabetic chronic kidney disease; D63.1 Anemia in chronic kidney disease; N18.9 Chronic kidney disease, unspecified; F17.210 Nicotine dependence, cigarettes, uncomplicated; Z89.511 Acquired absence of right leg below knee; Z79.4 Long term (current) use of insulin; L89.899 Pressure ulcer of other site, unspecified stage; Z86.14 Personal history of Methicillin resistant Staphylococcus aureus infection
CPT/HCPCS: 36415; 36416; 71045; 74176; 76882; 80053; 80306; 81001; 82009; 82962; 83605; 83690; 84703; 85025; 87040; 87086; 96365; 96372; 96375; 99285; J0696; J1170; J1644; J1815; J2270; J2405; J7030; J7120

== ENCOUNTER 2023-11-19 14:36 | Inpatient (IN) | payer MEDICAID, SELFPAY ==
[2023-11-19] VITALS (11 sets, daily range): BP systolic 108–146; BP diastolic 73–92; PULSE 86–96; RESP 16–18; TEMP 36.8; O2SAT 91–99
--- NOTE | 2023-11-19 14:41 | ED_ITS ---
Documented by User: Nacho Pinzon DO 11/26/23 06:19 HPI - Abdominal Pain 2 General: Chief Complaint: Abdominal Pain Stated Complaint: Abd pain Time Seen by Provider: 11/19/23 14:37 Source: patient Mode of arrival: ambulatory History of Present Illness: 43-year-old female presents to the emerg ency department with complaints of lower abdominal pain, nausea and vomiting and diarrhea. Approximately 5 months ago the patient was admitted to the hospital for urinary tract infection and has had a history of bacteremia and a BKA. Patient denies hematochezia melena hematemesis coffee-ground emesis mild dysuria. Symptoms began 2 days ago. No relief of symptoms with [id number] medications. History of prior C. difficile infection MD elicited complaint: abdominal pain Pertinent past history: past UTI and other (Prior C. difficile infection) Onset (ago): day(s) (2) Pain Consistency: constant Location: Diffuse Quality: cramping Radiation: none Exacerbating factors: eating and bowel movement Relieving factors: nothing Associated Symptoms: Reports GI cramping and diarrhea; Denies anorexia, belching, bloating, change in bowel habits, change in stool character, chills, coffee ground emesis, constipation, dyspepsia, dysuria, excessive flatus, fever(s), heartburn, hematochezia, hematuria, hematemesis, fecal incontinence, loose stools, melena, nausea, poor appetite, syncope and vomiting Review of Systems 2 Const: Denies: fever(s) or chills Card: Denies: chest pain or syncope Resp: Denies: dyspnea GI: Reports: diarrhea and GI cramping; Denies: abdominal pain, nausea, vomiting, hematemesis, coffee ground emesis, heartburn, constipation, bloating, belching, excessive flatus, fecal incontinence, change in bowel habits, change in stool character, hematochezia or melena : Denies: dysuria, urinary frequency, urinary urgency or hematuria Musc: Denies: neck pain or back pain Skin/Breast: Denies: rash PFSH ED 2 PFSH: Medical History Chronic kidney disease Type 1 diabetes Surgical History History of appendectomy History of surgery on lower extremity History of tonsillectomy Social History Smoking and tobacco/nicotine status: current every day tobacco/nicotine user Alcohol intake: former Substance/Drug Use: current Physical Exam 2 Const: GENERAL APPEARANCE: cooperative ORIENTATION/CONSCIOUSNESS: Yes awake, Yes oriented to person, Yes oriented to place and Yes oriented to time HENMT: COMMON NORMALS: normocephalic, atraumatic and hearing grossly normal bilaterally HEAD & SCALP: normocephalic and atraumatic Resp: COMMON NORMALS: normal respiratory effort, No retractions, No use of accessory muscles and clear to auscultation bilaterally AUSCULTATION: clear to auscultation bilaterally Cardio: COMMON NORMALS: regular rate, regular rhythm and No murmurs present (Cardio) RATE: regular rate RHYTHM: regular rhythm GI: COMMON NORMALS: No hepatosplenomegaly present AUSCULTATION: Yes normoactive bowel sounds PALPATION: Yes Tenderness to palpation present (GI) (Diffuse), No Guarding due to palpation present (GI) and Yes No hepatosplenomegaly present Extremity: COMMON NORMALS: normal to inspection, capillary refill normal, no clubbing, cyanosis or edema, no calf tenderness and no pedal edema Neuro: SENSORIUM/ORIENTATION: Yes oriented to person, Yes oriented to place and Yes oriented to time Skin: COMMON NORMALS: no rashes or lesions noted GENERAL SKIN EXAM: no rashes or lesions noted Course 2 Vital Signs: Vital signs: Vital Signs Temperature 98.1 F 11/25/23 12:17 Pulse Rate 86 11/25/23 12:17 Respiratory Rate 15 11/25/23 12:17 Blood Pressure 134/79 11/25/23 12:17 Pulse Oximetry 96 11/25/23 12:17 Oxygen Delivery Me thod Room Air 11/24/23 15:46 MDM - Abdominal Pain Medical Decision Making Labs and imaging pending. Ana Sherman Patient does have slight leukocytosis Actiq acid at 3.2 as well as hyponatremia at 128. CT scan of the abdomen pelvis is concerning for severe infection- enteritis we have requested admission to the hospital and we will provide her with antibiotics and IV fluid rehydration. Lab Data 11/25/23 03:02 11/25/23 03:02 Labs/Radiology: Radiology Impressions Abdomen/Pelvis CTA 11/19/23 16:45 IMPRESSION: 1. Mild to moderate four-quadrant ascites which could be secondary to extensive small bowel inflammation. 2. Patent celiac axis, SMA and ALEX without obvious stenosis or occlusion. 3. Prominent moderate to severe bowel wall thickening in multiple loops of right-sided small bowel with some midline small bowel also most consistent with moderate to severe infectious enteritis with enhancing bowel identified. 4. On arterial phase images the distal branches of the superior mesenteric veins are opacified however the central superior mesenteric vein is indeterminate because there are no venous phase delayed images. ADDENDUM: 11/19/23 1830 CTA chest was not performed. Please disregard the CTA chest report. ADDENDUM: 11/19/23 1838 THIS REPORT CONTAINS FINDINGS THAT MAY BE CRITICAL TO PATIENT CARE. The findings were verbally communicated via telephone conference with Dr. Sherman at 6:36 PM POLYMER SCIENTIST on 11/19/2023. The findings were acknowledged and understood. Abdomen/Pelvis CT 11/23/23 04:36 IMPRESSION: 1. Decreased extent of small bowel wall thickening with residual moderately thick-walled bowel loop in the left/midline abdomen. 2. Slightly increased size of bilateral pleural effusions. 3. Similar moderate body wall edema and mild ascites. KUB X-Ray 11/24/23 08:00 IMPRESSION: No significant bowel dilatation. Gallbladder Ultrasound 11/24/23 10:56 IMPRESSION: No cholelithiasis or cholecystitis. Laboratory Results WBC 11.45 10^3/uL (3.29-11.43) H 11/19/23 14:50 RBC 4.15 10^6/uL (3.85-5.65) 11/19/23 14:50 Hgb 13.20 g/dL (11.27-16.99) 11/19/23 14:50 Hct 39.7 % (36-47) 11/19/23 14:50 MCV 95.7 fl (85-98) 11/19/23 14:50 MCH 31.8 pg (27-33) 11/19/23 14:50 MCHC 33.2 g/dL (30-55) 11/19/23 14:50 RDW 13.1 % (12.1-15.1) 11/19/23 14:50 Plt Count 346 10^3/cmm (157-399) 11/19/23 14:50 MPV 11.1 fL (7.4-10.4) H 11/19/23 14:50 Neut % (Auto) 68.1 % 11/19/23 14:50 Lymph % (Auto) 23.4 % 11/19/23 14:50 [place] % (Auto) 5.5 % 11/19/23 14:50 Eos % (Auto) 1.9 % 11/19/23 14:50 Baso % (Auto) 0.7 % 11/19/23 14:50 Neut # (Auto) 7.79 10^3/uL (1.8-7.7) H 11/19/23 14:50 Lymph # (Auto) 2.7 10^3/uL (0.8-4.8) 11/19/23 14:50 [place] # (Auto) 0.6 10^3/uL (0.2-0.9) 11/19/23 14:50 Eos # (Auto) 0.2 10^3/uL (0.0-0.8) 11/19/23 14:50 Baso # (Auto) 0.1 10^3/uL (0.0-0.1) 11/19/23 14:50 Nucleated RBC % (auto) 0 % 11/19/23 14:50 Nucleated RBCs # 0.0 /100WBC 11/19/23 14:50 Specimen Type Arterial 11/19/23 14:56 Sample Site Radial, left 11/19/23 14:56 ABG pH 7.43 (7.35-7.45) 11/19/23 14:56 ABG pCO2 42.4 mmHg (35-45) 11/19/23 14:56 ABG pO2 71.5 mmHg (80.0-100.0) L 11/19/23 14:56 ABG PO2/FiO2 Ratio 0 11/19/23 14:56 ABG HCO3 28.1 mmol/L (22-26) H 11/19/23 14:56 ABG O2 Saturation 97.1 11/19/23 14:56 ABG Base Excess 3.4 mmol/L (-2.0-2.0) H 11/19/23 14:56 Don Test Pos 11/19/23 14:56 A-a O2 Gradient 3.4 mmHg (5-10) L 11/19/23 14:56 Hematocrit 37.8 % (37-47) 11/19/23 14:56 Hgb O2 Saturation 90.7 % (95-100) L 11/19/23 14:56 Carboxyhemoglobin 6.2 %THgb (0.4-20.1) 11/19/23 14:56 Methemoglobin 0.5 % (0.4-1.5) 11/19/23 14:56 Total Hemoglobin 12.3 g/dL (12-16) 11/19/23 14:56 Sodium 130.0 mmol/L (131-143) L 11/19/23 14:56 Potassium 3.9 mmol/L (3.5-5.0) 11/19/23 14:56 Glucose 441.0 mg/dL (70-115) H 11/19/23 14:56 Ionized Calcium 1.2 mmol/L (1.1-1.4) 11/19/23 14:56 O2 Delivery Device Room air 11/19/23 14:56 FiO2 21.0 % 11/19/23 14:56 Canal Superintendent ID [place]ci 11/19/23 14:56 Sodium 128 mmol/L (136-145) L 11/19/23 14:50 Potassium 4.1 mmol/L (3.5-5.1) 11/19/23 14:50 Chloride 91 mmol/L (98-107) L 11/19/23 14:50 Carbon Dioxide 26 mmol/L (22-29) 11/19/23 14:50 Anion Gap 15.1 (5-19) 11/19/23 14:50 BUN 6 mg/dL (6-20) 11/19/23 14:50 Creatinine 0.7 mg/dL (0.5-0.9) 11/19/23 14:50 GFR Calculation 92.2 mL/min (90-130) 11/19/23 14:50 Glucose 499 mg/dL (65-115) H 11/19/23 14:50 POC Glucose 355 mg/dL (70-110) H 11/19/23 18:23 Calculated Osmolality 286 mOsm/kg (285-295) 11/19/23 14:50 Lactic Acid 3.2 mmol/L (0.5-2.2) H 11/19/23 14:50 Lactic Acid (Sepsis) 1.4 mmol/L (0.5-2.2) 11/19/23 17:59 Calcium 8.3 mg/dL (8.5-10.5) L 11/19/23 14:50 Total Bilirubin 0.3 mg/dL (0.15-1.2) 11/19/23 14:50 AST 9 U/L (0-32) 11/19/23 14:50 ALT 24 U/L (0-33) 11/19/23 14:50 Alkaline Phosphatase 150 U/L (35-105) H 11/19/23 14:50 Creatine Kinase 26 U/L (26-192) 11/19/23 14:50 Total Protein 6.1 g/dL (6.6-8.7) L 11/19/23 14:50 Albumin 3.5 g/dL (3.5-5.2) 11/19/23 14:50 Globulin 2.6 g/dL (1.3-4.6) 11/19/23 14:50 Lipase 33 U/L (13-60) 11/19/23 14:50 Procalcitonin 0.13 ng/mL (0-0.5) 11/19/23 14:40 Ser , Semi-Qnt 1.00 mIU/mL 11/19/23 14:50 Urine Color Yellow (Yellow) 11/19/23 16:50 Urine Appearance Clear (CLEAR) 11/19/23 16:50 Urine pH 5 (5-7) 11/19/23 16:50 Ur Specific [place] 1.015 (1.005-1.030) 11/19/23 16:50 Urine Protein Neg (Negative) 11/19/23 16:50 Urine Glucose (UA) 4+ (Normal) H 11/19/23 16:50 Urine Ketones Negative (Negative) 11/19/23 16:50 Urine Blood Neg (Negative) 11/19/23 16:50 Urine Nitrate Negative (Negative) 11/19/23 16:50 Urine Bilirubin Neg (Negative) 11/19/23 16:50 Urine Urobilinogen Norm mg/dL (Negative) 11/19/23 16:50 Ur Leukocyte Esterase Negative (Negative) 11/19/23 16:50 Serum Ketones Negative (Negative) 11/19/23 14:50 Discharge Plan Discharge Patient Disposition: Admitted As Inpatient Admit Provider: Felice Jennings Clinical Impression: Enteritis, Abdominal pain Condition: Stable Discharge Diet: Advance as tolerated and Usual diet Discharge Activity: Resume usual activity and Increase activity as tolerated Coding Level of Care Code ED Cassandra Consultant for Chg Fwd Documented by User: Elvis Sherman MD 11/25/23 20:29 HPI - Abdominal Pain 2 General: Chief Complaint: Abdominal Pain Stated Complaint: Abd pain Time Seen by Provider: 11/19/23 14:37 History of Present Illness: 43-year-old female presents to the emerg ency department with complaints of lower abdominal pain, nausea and vomiting. Approximately 5 months ago the patient was admitted to the hospital for urinary tract infection and has had a history of bacteremia and a BKA. PFSH ED 2 PFSH: Medical History Chronic kidney disease Type 1 diabetes Surgical History History of appendectomy History of surgery on lower extremity History of tonsillectomy Social History Smoking and tobacco/nicotine status: current every day tobacco/nicotine user Alcohol intake: former Substance/Drug Use: current Course 2 Vital Signs: Vital signs: Vital Signs Temperature 98.1 F 11/25/23 12:17 Pulse Rate 86 11/25/23 12:17 Respiratory Rate 15 11/25/23 12:17 Blood Pressure 134/79 11/25/23 12:17 Pulse Oximetry 96 11/25/23 12:17 Oxygen Delivery Me thod Room Air 11/24/23 15:46 MDM - Abdominal Pain Medical Decision Making Patient does have slight leukocytosis Actiq acid at 3.2 as well as hyponatremia at 128. CT scan of the abdomen pelvis is concerning for severe infection- enteritis we have requested admission to the hospital and we will provide her with antibiotics and IV fluid rehydration. Medical Records I reviewed the patient's medical records. Lab Data I reviewed the patient's lab results. 11/25/23 03:02 11/25/23 03:02 Labs/Radiology: Radiology Impressions Abdomen/Pelvis CTA 11/19/23 16:45 IMPRESSION: 1. Mild to moderate four-quadrant ascites which could be secondary to extensive small bowel inflammation. 2. Patent celiac axis, SMA and ALEX without obvious stenosis or occlusion. 3. Prominent moderate to severe bowel wall thickening in multiple loops of right-sided small bowel with some midline small bowel also most consistent with moderate to severe infectious enteritis with enhancing bowel identified. 4. On arterial phase images the distal branches of the superior mesenteric veins are opacified however the central superior mesenteric vein is indeterminate because there are no venous phase delayed images. ADDENDUM: 11/19/231829 CTA chest was not performed. Please disregard the CTA chest report. ADDENDUM: 11/19/23 1838 THIS REPORT CONTAINS FINDINGS THAT MAY BE CRITICAL TO PATIENT CARE. The findings were verbally communicated via telephone conference with Dr. Sherman at 6:36 PM POLYMER SCIENTIST on 11/19/2023. The findings were acknowledged and understood. Abdomen/Pelvis CT 11/23/23 04:36 IMPRESSION: 1. Decreased extent of small bowel wall thickening with residual moderately thick-walled bowel loop in the left/midline abdomen. 2. Slightly increased size of bilateral pleural effusions. 3. Similar moderate body wall edema and mild ascites. KUB X-Ray 11/24/23 08:00 IMPRESSION: No significant bowel dilatation. Gallbladder Ultrasound 11/24/23 10:56 IMPRESSION: No cholelithiasis or cholecystitis. Laboratory Results WBC 11.45 10^3/uL (3.29-11.43) H 11/19/23 14:50 RBC 4.15 10^6/uL (3.85-5.65) 11/19/23 14:50 Hgb 13.20 g/dL (11.27-16.99) 11/19/23 14:50 Hct 39.7 % (36-47) 11/19/23 14:50 MCV 95.7 fl (85-98) 11/19/23 14:50 MCH 31.8 pg (27-33) 11/19/23 14:50 MCHC 33.2 g/dL (30-55) 11/19/23 14:50 RDW 13.1 % (12.1-15.1) 11/19/23 14:50 Plt Count 346 10^3/cmm (157-399) 11/19/23 14:50 MPV 11.1 fL (7.4-10.4) H 11/19/23 14:50 Neut % (Auto) 68.1 % 11/19/23 14:50 Lymph % (Auto) 23.4 % 11/19/23 14:50 [place] % (Auto) 5.5 % 11/19/23 14:50 Eos % (Auto) 1.9 % 11/19/23 14:50 Baso % (Auto) 0.7 % 11/19/23 14:50 Neut # (Auto) 7.79 10^3/uL (1.8-7.7) H 11/19/23 14:50 Lymph # (Auto) 2.7 10^3/uL (0.8-4.8) 11/19/23 14:50 [place] # (Auto) 0.6 10^3/uL (0.2-0.9) 11/19/23 14:50 Eos # (Auto) 0.2 10^3/uL (0.0-0.8) 11/19/23 14:50 Baso # (Auto) 0.1 10^3/uL (0.0-0.1) 11/19/23 14:50 Nucleated RBC % (auto) 0 % 11/19/23 14:50 Nucleated RBCs # 0.0 /100WBC 11/19/23 14:50 Specimen Type Arterial 11/19/23 14:56 Sample Site Radial, left 11/19/23 14:56 ABG pH 7.43 (7.35-7.45) 11/19/23 14:56 ABG pCO2 42.4 mmHg (35-45) 11/19/23 14:56 ABG pO2 71.5 mmHg (80.0-100.0) L 11/19/23 14:56 ABG PO2/FiO2 Ratio 0 11/19/23 14:56 ABG HCO3 28.1 mmol/L (22-26) H 11/19/23 14:56 ABG O2 Saturation 97.1 11/19/23 14:56 ABG Base Excess 3.4 mmol/L (-2.0-2.0) H 11/19/23 14:56 Don Test Pos 11/19/23 14:56 A-a O2 Gradient 3.4 mmHg (5-10) L 11/19/23 14:56 Hematocrit 37.8 % (37-47) 11/19/23 14:56 Hgb O2 Saturation 90.7 % (95-100) L 11/19/23 14:56 Carboxyhemoglobin 6.2 %THgb (0.4-20.1) 11/19/23 14:56 Methemoglobin 0.5 % (0.4-1.5) 11/19/23 14:56 Total Hemoglobin 12.3 g/dL (12-16) 11/19/23 14:56 Sodium 130.0 mmol/L (131-143) L 11/19/23 14:56 Potassium 3.9 mmol/L (3.5-5.0) 11/19/23 14:56 Glucose 441.0 mg/dL (70-115) H 11/19/23 14:56 Ionized Calcium 1.2 mmol/L (1.1-1.4) 11/19/23 14:56 O2 Delivery Device Room air 11/19/23 14:56 FiO2 21.0 % 11/19/23 14:56 Canal Superintendent ID [place] 11/19/23 14:56 Sodium 128 mmol/L (136-145) L 11/19/23 14:50 Potassium 4.1 mmol/L (3.5-5.1) 11/19/23 14:50 Chloride 91 mmol/L (98-107) L 11/19/23 14:50 Carbon Dioxide 26 mmol/L (22-29) 11/19/23 14:50 Anion Gap 15.1 (5-19) 11/19/23 14:50 BUN 6 mg/dL (6-20) 11/19/23 14:50 Creatinine 0.7 mg/dL (0.5-0.9) 11/19/23 14:50 GFR Calculation 92.2 mL/min (90-130) 11/19/23 14:50 Glucose 499 mg/dL (65-115) H 11/19/23 14:50 POC Glucose 355 mg/dL (70-110) H 11/19/23 18:23 Calculated Osmolality 286 mOsm/kg (285-295) 11/19/23 14:50 Lactic Acid 3.2 mmol/L (0.5-2.2) H 11/19/23 14:50 Lactic Acid (Sepsis) 1.4 mmol/L (0.5-2.2) 11/19/23 17:59 Calcium 8.3 mg/dL (8.5-10.5) L 11/19/23 14:50 Total Bilirubin 0.3 mg/dL (0.15-1.2) 11/19/23 14:50 AST 9 U/L (0-32) 11/19/23 14:50 ALT 24 U/L (0-33) 11/19/23 14:50 Alkaline Phosphatase 150 U/L (35-105) H 11/19/23 14:50 Creatine Kinase 26 U/L (26-192) 11/19/23 14:50 Total Protein 6.1 g/dL (6.6-8.7) L 11/19/23 14:50 Albumin 3.5 g/dL (3.5-5.2) 11/19/23 14:50 Globulin 2.6 g/dL (1.3-4.6) 11/19/23 14:50 Lipase 33 U/L (13-60) 11/19/23 14:50 Procalcitonin 0.13 ng/mL (0-0.5) 11/19/23 14:40 Ser , Semi-Qnt 1.00 mIU/mL 11/19/23 14:50 Urine Color Yellow (Yellow) 11/19/23 16:50 Urine Appearance Clear (CLEAR) 11/19/23 16:50 Urine pH 5 (5-7) 11/19/23 16:50 Ur Specific [place] 1.015 (1.005-1.030) 11/19/23 16:50 Urine Protein Neg (Negative) 11/19/23 16:50 Urine Glucose (UA) 4+ (Normal) H 11/19/23 16:50 Urine Ketones Negative (Negative) 11/19/23 16:50 Urine Blood Neg (Negative) 11/19/23 16:50 Urine Nitrate Negative (Negative) 11/19/23 16:50 Urine Bilirubin Neg (Negative) 11/19/23 16:50 Urine Urobilinogen Norm mg/dL (Negative) 11/19/23 16:50 Ur Leukocyte Esterase Negative (Negative) 11/19/23 16:50 Serum Ketones Negative (Negative) 11/19/23 14:50 All radiology interpretation(s) finalized by discharge Discharge Plan Discharge Patient Disposition: Admitted As Inpatient Admit Provider: Felice Jennings Clinical Impression: Enteritis, Abdominal pain Condition: Stable Discharge Diet: Advance as tolerated and Usual diet Discharge Activity: Resume usual activity and Increase activity as tolerated Coding Level of Care Code ED Cassandra Consultant for Claudy Morgan
[2023-11-19 15:02] LABS: Basophils # 0.1 10^3/uL (0.0-0.1); Basophils % 0.7 %; Eosinophils # 0.2 10^3/uL (0.0-0.8); Eosinophils % 1.9 %; Hematocrit 39.7 % (36-47); Lymphocytes # 2.7 10^3/uL (0.8-4.8); Lymphocytes % 23.4 %; Mean Corpuscular HGB Conc 33.2 g/dL (30-55); Mean Corpuscular Hemoglobin 31.8 pg (27-33); Mean Corpuscular Volume 95.7 fl (85-98); Mean Platelet Volume 11.1 fL (7.4-10.4); Monocytes # 0.6 10^3/uL (0.2-0.9); Monocytes % 5.5 %; Neutrophils # 7.79 10^3/uL (1.8-7.7); Neutrophils % 68.1 %; Nucleated Red Blood Cells % 0 %; Platelet Count 346 10^3/cmm (157-399); Red Blood Count 4.15 10^6/uL (3.85-5.65); Red Cell Distribution Width 13.1 % (12.1-15.1); White Blood Count 11.45 10^3/uL (3.29-11.43)
[2023-11-19 15:07] LABS: ABG PCO2 42.4 mmHg (35-45); ABG PH Result 7.43 (7.35-7.45); Alveolar-Arterial Oxygen Gradi 3.4 mmHg (5-10); Arterial Blood Gas Hematocrit 37.8 % (37-47); Base Excess ABG 3.4 mmol/L (-2.0-2.0); Blood Gas Allen Test Pos; Blood Gas Operator Identificat WALCI; Blood Gas Sample Site Radial, left; Blood Gas Sample Type Arterial; Carboxyhemoglobin 6.2 %THgb (0.4-20.1); HCO3 ABG 28.1 mmol/L (22-26); HGB O2 Sat 90.7 % (95-100); Ionized Calcium Level - ABG 1.2 mmol/L (1.1-1.4); Methemoglobin 0.5 % (0.4-1.5); Oxygen Device ROOM AIR; Oxygen Saturation ABG 97.1; PO2 ABG 71.5 mmHg (80.0-100.0); PO2 FiO2 Ratio Arterial Blood 0; Potassium Level - ABG 3.9 mmol/L (3.5-5.0); Total Hemoglobin 12.3 g/dL (12-16)
[2023-11-19] MEDS: sodium chloride 0.9% 1,000 ML 999 ML IV (15:09)
[2023-11-19 15:14] LABS: Ketone (Acetest) Serum Negative (Negative)
[2023-11-19 15:16] LABS: Alanine Aminotransferase 24 U/L (0-33); Albumin Level 3.5 g/dL (3.5-5.2); Alkaline Phosphatase 150 U/L (35-105); Anion Gap 15.1 (5-19); Aspartate Amino Transferase 9 U/L (0-32); Blood Urea Nitrogen 6 mg/dL (6-20); Calcium 8.3 mg/dL (8.5-10.5); Carbon Dioxide 26 mmol/L (22-29); Chloride 91 mmol/L (98-107); Globulin 2.6 g/dL (1.3-4.6); Glomerular Filtration Rate 92.2 mL/min (90-130); Glucose 499 mg/dL (65-115); Lipase 33 U/L (13-60); Osmolality Calculated 286 mOsm/kg (285-295); Potassium 4.1 mmol/L (3.5-5.1); Sodium 128 mmol/L (136-145); Total Bilirubin 0.3 mg/dL (0.15-1.2); Total Protein 6.1 g/dL (6.6-8.7)
[2023-11-19 15:17] LABS: Lactic Sepsis W/Reflex 3.2 mmol/L (0.5-2.2)
[2023-11-19 15:28] LABS: Creatine Phosphokinase 26 U/L (26-192)
--- NOTE | 2023-11-19 15:37 | CTR_ITS ---
PROCEDURE INFORMATION: Exam: CT Abdomen And Pelvis Without Contrast Exam date and time: 11/19/2023 3:55 PM Age: 43 years old Clinical indication: Abdominal pain; Other: Rlq & llq pain; Prior surgery; Surgery date: 6+ months; Surgery type: Appy, TECHNIQUE: Imaging protocol: Computed tomography of the abdomen and pelvis without contrast. Radiation optimization: All CT scans at this facility use at least one of these dose optimization techniques: automated exposure control; mA and/or kV adjustment per patient size (includes targeted exams where dose is matched to clinical indication); or iterative reconstruction. COMPARISON: CT kidney stone [id number] 11/07/2023 2:53 PM RADIATION DOSE METRICS: Total DLP (mGy-cm): 425 FINDINGS: Liver: Normal. No mass. Gallbladder and bile ducts: Normal. No calcified stones. No ductal dilation. Pancreas: Normal. No ductal dilation. Spleen: Normal. No splenomegaly. Adrenal glands: Normal. No mass. Kidneys and ureters: Normal. No hydronephrosis. Stomach and bowel: Moderate jejunal and proximal ileal bowel wall thickening in the right abdomen most consistent with moderate infectious enteritis although ischemic bowel is not completely excluded. CTA abdomen pelvis with delayed venous phase images may be helpful. Appendix: No evidence of appendicitis. Intraperitoneal space: Unremarkable. No free air. No significant fluid collection. Vasculature: Unremarkable. No abdominal aortic aneurysm. Lymph nodes: Unremarkable. No enlarged lymph nodes. Urinary bladder: Unremarkable as visualized. Reproductive: Stable bilateral tubal ligation. Bones/joints: Unremarkable. No acute fracture. Soft tissues: Unremarkable. CT/CT abdomen pelvis wo con [id number] IMPRESSION: Moderate jejunal and proximal ileal bowel wall thickening in the right abdomen most consistent with moderate infectious enteritis versus ischemic bowel. CTA abdomen pelvis with delayed venous phase images may be helpful rule out ischemic bowel.
[2023-11-19 16:44] LABS: Reflex Lactate Order REFLEX LACTIC ORDERD
--- NOTE | 2023-11-19 16:45 | CTR_ITS ---
PROCEDURE INFORMATION: Exam: CTA Chest With Contrast CTA Abdomen and Pelvis With Contrast Exam date and time: 11/19/2023 5:39 PM Age: 43 years old Clinical indication: Other: Iscemic bowel; Abdominal pain; Prior surgery; Surgery date: 6+ months; Surgery type: Appy TECHNIQUE: Imaging protocol: Computed tomographic angiography of the chest with contrast. Exam focused on the arteries. Computed tomographic angiography of the abdomen and pelvis with contrast. Exam focused on the arteries. 3D rendering (Not supervised by radiologist): MIP and/or 3D reconstructed images were created by the technologist. Radiation optimization: All CT scans at this facility use at least one of these dose optimization techniques: automated exposure control; mA and/or kV adjustment per patient size (includes targeted exams where dose is matched to clinical indication); or iterative reconstruction. Contrast material: OMNI 350; Contrast volume: 100 ml; Contrast route: INTRAVENOUS (IV); COMPARISON: CT abdomen pelvis wo con [id number] 11/19/2023 3:55 PM RADIATION DOSE METRICS: Total DLP (mGy-cm): 393 FINDINGS: VASCULATURE: Pulmonary arteries: Normal. No pulmonary emboli. Aorta: No aortic aneurysm. No aortic dissection. Celiac trunk and mesenteric arteries: Patent celiac axis, SMA and ALEX without obvious stenosis or occlusion. Renal arteries: No occlusion or significant stenosis. Right iliac arteries: No occlusion or significant stenosis. Left iliac arteries: No occlusion or significant stenosis. Veins: On arterial phase images the distal branches of the superior mesenteric veins are opacified however the central superior mesenteric vein is indeterminate because there are no venous phase delayed images. CHEST: Lungs: Unremarkable. No consolidation. No masses. Pleural spaces: Unremarkable. No pneumothorax. No pleural effusion. Heart: Unremarkable. No cardiomegaly. No pericardial effusion. ABDOMEN AND PELVIS: Liver: No mass. Gallbladder and bile ducts: Unremarkable. No calcified stones. No ductal dilation. Pancreas: Unremarkable. No mass. No ductal dilation. Spleen: Unremarkable. No splenomegaly. Adrenal glands: Unremarkable. No mass. Kidneys and ureters: Unremarkable. No solid mass. No hydronephrosis. Stomach and bowel: Mild to moderate four-quadrant ascites which could be secondary to extensive small bowel inflammation. Prominent moderate to severe bowel wall thickening in multiple loops of right-sided small bowel with some midline small bowel most consistent with moderate to severe infectious enteritis with enhancing bowel identified. Appendix: No evidence of appendicitis. Intraperitoneal space: See Stomach and bowel finding. Urinary bladder: Unremarkable. No mass. Reproductive: Unremarkable as visualized. Lymph nodes: Unremarkable. No enlarged lymph nodes. Bones/joints: Unremarkable. No acute fracture. Soft tissues: Unremarkable. CT/CT angio abdomen pelvis [id number] IMPRESSION: 1. Mild to moderate four-quadrant ascites which could be secondary to extensive small bowel inflammation. 2. Patent celiac axis, SMA and ALEX without obvious stenosis or occlusion. 3. Prominent moderate to severe bowel wall thickening in multiple loops of right-sided small bowel with some midline small bowel also most consistent with moderate to severe infectious enteritis with enhancing bowel identified. 4. On arterial phase images the distal branches of the superior mesenteric veins are opacified however the central superior mesenteric vein is indeterminate because there are no venous phase delayed images.
[2023-11-19] MEDS: iohexol 350 mg/mL 500 mL Btl (per mL) IV (17:16)
[2023-11-19] MEDS: ciprofloxacin 400 MG/200 ML PREMIX 200 MG IV (17:19)
[2023-11-19 17:23] LABS: Add Urine Microscopic? NO; Charge for UA Resulting for Rev
[2023-11-19 17:27] LABS: Bilirubin Urine Neg (Negative); Blood Urine Neg (Negative); Glucose Urine UA 4+ (Normal); Ketones Urine Negative (Negative); Leukocyte Esterase Urine Negative (Negative); Nitrate Urine Negative (Negative); Protein Urine Neg (Negative); Specific Gravity, Urine 1.015 (1.005-1.030); Urine Appearance Clear (CLEAR); Urine Color Yellow (Yellow); Urobilinogen Urine Norm (Negative); pH Urine 5 (5-7)
[2023-11-19 18:22] LABS: Lactic Acid level (Lactate) 1.4 mmol/L (0.5-2.2)
[2023-11-19 18:32] LABS: Glucose Point of Care 355 mg/dL (70-110)
[2023-11-19] MEDS: metroNIDAZOLE IV 500 MG/100 ML PREMIX 100 MG IV (18:51)
[2023-11-19] MEDS: insulin regular-human 100 units/1 mL 20 UNIT IVP (18:53)
[2023-11-19 19:01] LABS: Procalcitonin 0.13 ng/mL (0-0.5)
[2023-11-19] MEDS: ondansetron 2 mg/ML SDV 2 mL 4 MG IVP (19:27)
[2023-11-19] MEDS: fentaNYL 50 mcg/mL INJ 2mL IVP (19:27)
[2023-11-19] MEDS: sodium chloride 0.9% 1,000 ML 125 ML IV (20:07)
--- NOTE | 2023-11-19 21:40 | P.HP_ITS ---
Providers/Chief Complaint 2 Admitting Physician: Felice Jennings Chief Complaint: Abd pain History of Present Illness Pleasant 43-year-old lady recently hospitalized for treatment of urinary tract infection, previously with admission in June of last year with complicated infections including MRSA, streptococcal bacteremia, lower extremity infection requiring BKA requiring prolonged antibiotic at that time. After recent admission discharged with ciprofloxacin for UTI. Returns due to lower abdominal pain, diarrhea, nausea, malaise. In ER leukocytosis 11.45. Hyponatremia 128. Lactic acid 3.2. Moderate alk phos elevation 150 although this is chronic. UA unremarkable, urine and serum ketones negative. CT abdomen pelvis with jejunal and proximal ileal bowel wall thickening in the right abdomen most consistent with moderate infectious enteritis versus ischemic bowel. CT angiogram abdomen pelvis performed subsequently with confirmation of prominent moderate to severe bowel wall thickening and multiple loops of bowel of right-sided small bowel with some midline small bowel also most consistent with moderate to severe infection enteritis with enhancing bowel identified. Incidentally also noted mild to moderate four-quadrant ascites. Patent celiac axis SMA and ALEX without obvious stenosis or occlusion. On arterial phase imaging distal branches of superior mesenteric vein are opacified however her central superior mesenteric vein is indeterminate because of lack of venous phase delayed images. She received fluid boluses, Cipro, Flagyl insulin for hyperglycemia glucose 499 on presentation. Review of Systems 2 Const: Denies: fever(s), chills, body aches or malaise ENMT: Denies: throat pain Card: Denies: chest pain, edema, pre-syncope or dyspnea on exertion Resp: Denies: dyspnea, productive cough, change in phlegm color or hemoptysis GI: Reports: abdominal pain, nausea and diarrhea; Denies: constipation, hematochezia or melena : Denies: flank pain, urinary frequency or hematuria Musc: Denies: back pain, joint swelling or joint redness Skin/Breast: Denies: rash or new lesions Medications/Allergies Home Medications Medication Instructions Recorded Confirmed Last Taken Type insulin NPH isoph U-100 human 100 21 unit SUBCUT BID 06/24/23 11/19/23 11/07/23 History unit/mL subcutaneous suspension (Novolin N NPH U-100 Insulin isophane) insulin lispro 100 unit/mL See Rx Instructions .Route .COMPLEX 06/24/23 11/19/23 11/07/23 History subcutaneous pen (Humalog KwikPen (U-100) Insulin) lamotrigine 150 mg tablet 150 mg PO DAILY 06/24/23 11/19/23 07/05/23 History (Lamictal) bismuth tribrom-petrolatum,wh 5 X #50 ea 07/03/23 11/19/23 07/05/23 Rx 9 bandage (Xeroform Petrolatum Dressing) elastic bandage 2 X 1.9 yard #14 ea 07/03/23 11/19/23 07/05/23 Rx non-adherent bandage 5 X 9 11/07/23 11/19/23 Unknown History gabapentin 600 mg tablet 600 mg PO TID #90 tabs 11/09/23 11/19/23 Unknown Rx Allergies Allergy/AdvReac Type Severity Reaction Status Date / Time amoxicillin Allergy ALGY-Rash Verified 11/07/23 13:32 clavulanic acid Allergy ALGY-Difficulty Verified 11/07/23 13:32 [From Augmentin] Breathing morphine Allergy Unknown Verified 11/19/23 15:39 Penicillins Allergy ALGY-Rash Verified 11/07/23 13:32 PFSH Acute 2 PFSH: Medical History Chronic kidney disease Type 1 diabetes Surgical History History of appendectomy History of surgery on lower extremity History of tonsillectomy Social History Smoking and tobacco/nicotine status: current every day tobacco/nicotine user Alcohol intake: former Substance/Drug Use: current Vitals/I&O/Wt Last Vital Signs Temp 98.2 F 11/19/23 21:17 Pulse 86 11/19/23 21:17 Resp 16 11/19/23 21:17 BP 118/79 11/19/23 21:17 Pulse Ox 91 11/19/23 21:17 O2 Del Method Room Air 11/19/23 19:39 11/19/23 11/19/23 11/19/23 06:59 14:59 22:59 Intake Total 3550 / 3550 Balance 3550 / 3550 Physical Exam 2 Const: COMMON NORMALS: patient oriented x3 and alert GENERAL APPEARANCE: c ooperative ORIENTATION/CONSCIOUSNESS: Yes awake HENMT: COMMON NORMALS: oropharynx normal Neck/C-Spine: COMMON NORMALS: no JVD Resp: COMMON NORMALS: normal respiratory effort and clear to auscultation bilaterally AUSCULTATION: clear to auscultation bilaterally Cardio: COMMON NORMALS: no JVD, regular rhythm, S1 normal heart sound present, S2 normal heart sound present and No murmurs present (Cardio) RHYTHM: regular rhythm HEART SOUNDS: S1 normal heart sound present and S2 normal heart sound present GI: COMMON NORMALS: Soft to palpation PALPATION: Yes Soft to palpation and Yes Tenderness to palpation present (GI) Details: other (lower) Extremity: COMMON NORMALS: no joint enlargement and no pedal edema N ARRATIVE EXTREMITY EXAM: R BKA Neuro: COMMON NORMALS: patient oriented x3 and moves all extremities S ENSORIUM/ORIENTATION: Yes alert Skin: COMMON NORMALS: no rashes or lesions noted GENERAL SKIN EXAM: no rashes or lesions noted Data 11/19/23 14:50 11/19/23 14:50 Micro: Microbiology 11/19/23 15:04 Blood Culture - Preliminary Blood SPECIMEN COLLECTED 11/19/23 15:08 Blood Culture - Preliminary Blood SPECIMEN COLLECTED A&P Assessment and plan (1) Enteritis: Continue Cipro and Flagyl for now, however, she is at risk of C. difficile with recent antibiotic treatment. Requesting C. difficile test. Isolation for now. With elevated concern for C. difficile, severity of enteritis on CT will for now empirically start oral vancomycin. Please de-escalate in case C. difficile is negative. Additional stool studies to be requested including for Salmonella, Shigella, combo doctor, WBC, Hemoccult. Reviewed vitals, CBC, ABG, CMP, procalcitonin, hCG, UA, urine ketones, serum ketones, CT abdomen post, CT abdomen pelvis, ER note, discussed with ER physician. N.p.o. for now. IV hydration. IV antiemetics. IV dilaudid for severe pain. Incidentally noted borderline ascites, suspected secondary to inflammation/enteritis. (2) Hyponatremia: Moderate hyponatremia. Suspected hypovolemic hyponatremia with diarrhea, poor oral intake, enteritis, received fluid challenge. Recheck chemistry. Plan Alk phos elevation: Appears chronic component. Recheck CMP. DM1: Continue insulin CKD: Currently appears at baseline Anemia Right BKA Other medical problems Attestations 2 Medical Necessity Statement*: Admission of over 2 midnights anticipated for assessment management of moderate to severe enteritis, moderate hypovolemic hyponatremia, risk of C. difficile, with multiple recent hospitalizations. Diagnoses Enteritis K52.9 Hyponatremia E87.1
[2023-11-19 22:23] LABS: Glucose Point of Care 197 mg/dL (70-110)
[2023-11-19] MEDS: heparin 5,000 unit/mL INJ 1 mL 5000 UNIT SUBCUT (22:35)
[2023-11-19] MEDS: vancomycin 125 mg Capsule PO (22:35)
[2023-11-19] MEDS: insulin lispro 100 unit/1 mL SUBCUT (22:35)
[2023-11-19] MEDS: insulin glargine 100 units/1 mL 15 UNIT SUBCUT (23:27)
[2023-11-20] VITALS (12 sets, daily range): BP systolic 103–129; BP diastolic 67–81; PULSE 78–88; RESP 15–20; TEMP 36.4–36.8; O2SAT 95–97
[2023-11-20] MEDS: HYDROmorphone 1 mg/mL INJ 1 mL 0.4 MG IVP ×5 (02:50→21:45)
[2023-11-20 05:09] LABS: Glucose Point of Care 99 mg/dL (70-110)
[2023-11-20] MEDS: sodium chloride 0.9% 1,000 ML 125 ML IV ×2 (05:20→14:28)
[2023-11-20 05:56] LABS: Basophils # 0.1 10^3/uL (0.0-0.1); Basophils % 0.5 %; Eosinophils # 0.3 10^3/uL (0.0-0.8); Eosinophils % 3.3 %; Hematocrit 34.6 % (36-47); Lymphocytes # 3.1 10^3/uL (0.8-4.8); Lymphocytes % 32.3 %; Mean Corpuscular HGB Conc 32.7 g/dL (30-55); Mean Corpuscular Hemoglobin 31.7 pg (27-33); Mean Corpuscular Volume 97.2 fl (85-98); Mean Platelet Volume 10.9 fL (7.4-10.4); Monocytes # 0.6 10^3/uL (0.2-0.9); Monocytes % 6.3 %; Neutrophils % 57.2 %; Nucleated Red Blood Cells % 0 %; Platelet Count 323 10^3/cmm (157-399); Red Blood Count 3.56 10^6/uL (3.85-5.65); Red Cell Distribution Width 13.3 % (12.1-15.1); White Blood Count 9.46 10^3/uL (3.29-11.43)
[2023-11-20 06:19] LABS: Alanine Aminotransferase 15 U/L (0-33); Albumin Level 2.8 g/dL (3.5-5.2); Alkaline Phosphatase 97 U/L (35-105); Anion Gap 10.9 (5-19); Aspartate Amino Transferase 10 U/L (0-32); Blood Urea Nitrogen 5 mg/dL (6-20); Calcium 7.3 mg/dL (8.5-10.5); Carbon Dioxide 25 mmol/L (22-29); Chloride 109 mmol/L (98-107); Globulin 2.1 g/dL (1.3-4.6); Glucose 106 mg/dL (65-115); Osmolality Calculated 290 mOsm/kg (285-295); Potassium 3.9 mmol/L (3.5-5.1); Sodium 141 mmol/L (136-145); Total Bilirubin 0.2 mg/dL (0.15-1.2); Total Protein 4.9 g/dL (6.6-8.7)
[2023-11-20] MEDS: gabapentin 300 mg Capsule 600 MG PO ×3 (08:20→21:43)
[2023-11-20] MEDS: lamoTRIgine 100 mg Tablet 150 MG PO (08:20)
[2023-11-20] MEDS: vancomycin 125 mg Capsule PO ×4 (08:20→21:43)
[2023-11-20] MEDS: ondansetron 2 mg/ML SDV 2 mL 4 MG IVP ×2 (08:24→17:22)
[2023-11-20 10:25] LABS: Glucose Point of Care 131 mg/dL (70-110)
[2023-11-20] MEDS: heparin 5,000 unit/mL INJ 1 mL 5000 UNIT SUBCUT ×2 (10:30→21:43)
[2023-11-20] MEDS: insulin glargine 100 units/1 mL 15 UNIT SUBCUT ×2 (10:30→22:28)
--- NOTE | 2023-11-20 13:15 | P.PN_ITS ---
Subjective 2 Subjective: Patient was seen this morning, she continues to have abdominal bloating, no nausea, no vomiting, she would like to try clear liquids, her abdominal pain is improving no fevers, no chills, she tells me that she uses regular probiotics as she did on antibiotics in the last year for her multiple episodes infection so she would be surprised if she had C. difficile Vitals/I&O/Wt Last Vital Signs Temp 98.2 F 11/20/23 11:10 Pulse 80 11/20/23 11:10 Resp 16 11/20/23 11:10 BP 109/74 11/20/23 11:10 Pulse Ox 96 11/20/23 11:10 O2 Del Method Room Air 11/20/23 11:10 11/19/23 11/20/23 11/20/23 22:59 06:59 14:59 Intake Total 3550 / 3550 1000 / 4550 Balance 3550 / 3550 1000 / 4550 Physical Exam 2 Const: COMMON NORMALS: no acute distress and patient oriented x3 Resp: COMMON NORMALS: normal respiratory effort, No retractions, No use of accessory muscles and clear to auscultation bilaterally AUSCULTATION: clear to auscultation bilaterally Cardio: COMMON NORMALS: regular rate, regular rhythm, S1 normal heart sound present and S2 normal heart sound present RATE: regular rate RHYTHM: r egular rhythm HEART SOUNDS: S1 normal heart sound present and S2 normal heart sound present GI: COMMON NORMALS: Normal to inspection, nondistended, normoactive bowel sounds present, non-tender and no masses Extremity: COMMON NORMALS: no pedal edema Neuro: COMMON NORMALS: patient oriented x3 Psych: COMMON NORMALS: mental status grossly normal Data 11/20/23 05:40 11/20/23 05:40 Micro: Microbiology 11/19/23 22:44 Stool Lactoferrin - Final Stool Occult Blood (FIT) - Final 11/19/23 15:04 Blood Culture - Preliminary Blood SPECIMEN COLLECTED 11/19/23 15:08 Blood Culture - Preliminary Blood SPECIMEN COLLECTED A&P Assessment and plan (1) Enteritis: CT/CT angio abdomen pelvis 16660 IMPRESSION: 1. Mild to moderate four-quadrant ascites which could be secondary to extensive small bowel inflammation. 2. Patent celiac axis, SMA and ALEX without obvious stenosis or occlusion. 3. Prominent moderate to severe bowel wall thickening in multiple loops of right-sided small bowel with some midline small bowel also most consistent with moderate to severe infectious enteritis with enhancing bowel identified. 4. On arterial phase images the distal branches of the superior mesenteric veins are opacified however the central superior mesenteric vein is indeterminate because there are no venous phase delayed images. - Awaiting C. difficile test result, continue p.o. vancomycin -Given enteritis, will hold off on antibiotics for now, has received Cipro and Flagyl emergency room, will consider antibiotics based on clinical progress -Will await stool studies -For now continue isolation (2) Hyponatremia: Likely hypovolemic hyponatremia related to dehydration Continue IV fluids Plan Alk phos elevation: Appears chronic component. Recheck CMP. DM1: Continue insulin CKD: Currently appears at baseline Anemia Right BKA Other medical problems Attestations 2 Medical Necessity Statement*: Patient requires hospitalization, for enteritis, concerns for C. difficile colitis, requiring IV hydration, pain control, inpatient admission Diagnoses Enteritis K52.9 Hyponatremia E87.1
[2023-11-20 16:57] LABS: Glucose Point of Care 228 mg/dL (70-110)
[2023-11-20 22:17] LABS: Glucose Point of Care 311 mg/dL (70-110)
[2023-11-20] MEDS: insulin lispro 100 unit/1 mL SUBCUT (22:27)
[2023-11-21] VITALS (8 sets, daily range): BP systolic 99–144; BP diastolic 61–74; PULSE 66–76; RESP 16–20; TEMP 36.3–36.8; O2SAT 92–100; BMI 25.2
[2023-11-21] MEDS: sodium chloride 0.9% 1,000 ML 125 ML IV (00:03)
[2023-11-21] MEDS: ondansetron 2 mg/ML SDV 2 mL 4 MG IVP ×4 (01:24→21:57)
[2023-11-21 04:25] LABS: Glucose Point of Care 69 mg/dL (70-110)
[2023-11-21 05:37] LABS: Basophils # 0.1 10^3/uL (0.0-0.1); Basophils % 0.8 %; Eosinophils # 0.2 10^3/uL (0.0-0.8); Eosinophils % 3.1 %; Hematocrit 35.7 % (36-47); Lymphocytes # 1.9 10^3/uL (0.8-4.8); Lymphocytes % 24.7 %; Mean Corpuscular HGB Conc 31.1 g/dL (30-55); Mean Corpuscular Hemoglobin 31.7 pg (27-33); Mean Platelet Volume 10.7 fL (7.4-10.4); Monocytes # 0.5 10^3/uL (0.2-0.9); Monocytes % 5.7 %; Neutrophils # 5.14 10^3/uL (1.8-7.7); Neutrophils % 65.3 %; Nucleated Red Blood Cells % 0 %; Platelet Count 292 10^3/cmm (157-399); Red Cell Distribution Width 13.7 % (12.1-15.1); White Blood Count 7.86 10^3/uL (3.29-11.43)
[2023-11-21 05:53] LABS: Alanine Aminotransferase 14 U/L (0-33); Albumin Level 2.8 g/dL (3.5-5.2); Alkaline Phosphatase 89 U/L (35-105); Aspartate Amino Transferase 13 U/L (0-32); Blood Urea Nitrogen 4 mg/dL (6-20); Calcium 7.6 mg/dL (8.5-10.5); Carbon Dioxide 22 mmol/L (22-29); Chloride 110 mmol/L (98-107); Globulin 2.3 g/dL (1.3-4.6); Glomerular Filtration Rate 110.2 mL/min (90-130); Glucose 81 mg/dL (65-115); Osmolality Calculated 286 mOsm/kg (285-295); Sodium 140 mmol/L (136-145); Total Bilirubin 0.2 mg/dL (0.15-1.2); Total Protein 5.1 g/dL (6.6-8.7)
[2023-11-21 06:39] LABS: Glucose Point of Care 89 mg/dL (70-110)
[2023-11-21] MEDS: lamoTRIgine 100 mg Tablet 150 MG PO (08:54)
[2023-11-21] MEDS: gabapentin 300 mg Capsule 600 MG PO ×3 (08:54→20:07)
[2023-11-21] MEDS: vancomycin 125 mg Capsule PO (08:54)
[2023-11-21] MEDS: insulin glargine 100 units/1 mL 15 UNIT SUBCUT ×2 (09:32→21:58)
[2023-11-21 09:43] LABS: Glucose Point of Care 218 mg/dL (70-110)
[2023-11-21] MEDS: heparin 5,000 unit/mL INJ 1 mL 5000 UNIT SUBCUT ×2 (09:46→21:57)
[2023-11-21] MEDS: insulin lispro 100 unit/1 mL SUBCUT (09:47)
[2023-11-21] MEDS: HYDROmorphone 1 mg/mL INJ 1 mL 0.4 MG IVP ×3 (09:47→20:29)
[2023-11-21 10:51] LABS: Glucose Point of Care 178 mg/dL (70-110)
[2023-11-21 12:10] LABS: C.Diff PCR (Lab) POSITIVE (Negative)
--- NOTE | 2023-11-21 12:13 | XR_ITS ---
WS: [id number] KUB, AP portable supine, 11/21/2023 Clinical Data: abdominal pain, cdiff Comparison: None. Findings: No abnormal intraabdominal masses or calcifications are seen. There is moderate dilatated small bowel . There is air in the stomach. There are radiopaque clips in the lower left abdomen. The bladder is ful l. Impression: Moderate dilated small bowel which can be seen with severe ileus or early small bowel obstruction.
[2023-11-21 12:27] LABS: Clostridioides Difficile Toxin NEGATIVE (Negative)
[2023-11-21] MEDS: potassium chloride ER 20 mEq Tablet 40 MEQ PO (13:18)
[2023-11-21] MEDS: vancomycin 125 mg Capsule 250 MG PO ×3 (13:19→20:07)
[2023-11-21] MEDS: metroNIDAZOLE IV 500 MG/100 ML PREMIX 100 MG IV ×2 (13:20→20:05)
--- NOTE | 2023-11-21 13:47 | P.PN_ITS ---
Subjective 2 Subjective: patient was seen this morning complains of diarrhea, abdominal distention Vitals/I&O/Wt Last Vital Signs Temp 97.4 F L 11/21/23 12:00 Pulse 66 11/21/23 12:00 Resp 17 11/21/23 12:00 BP 109/74 11/21/23 12:00 Pulse Ox 94 11/21/23 12:00 O2 Del Method Room Air 11/21/23 07:58 11/20/23 11/21/23 11/21/23 22:59 06:59 14:59 Intake Total 1240 / 2240 806.25 / 3046.25 1230 / 1230 Balance 1240 / 2240 806.25 / 3046.25 1230 / 1230 Weight last 48 hrs Weight 64.637 kg Weight 64.637 kg Physical Exam 2 Const: COMMON NORMALS: no acute distress and patient oriented x3 Resp: COMMON NORMALS: normal respiratory effort, No retractions, No use of accessory muscles and clear to auscultation bilaterally AUSCULTATION: clear to auscultation bilaterally Cardio: COMMON NORMALS: regular rate, regular rhythm, S1 normal heart sound present and S2 normal heart sound present RATE: regular rate RHYTHM: r egular rhythm HEART SOUNDS: S1 normal heart sound present and S2 normal heart sound present GI: COMMON NORMALS: Normal to inspection, nondistended, normoactive bowel sounds present and non-tender Extremity: COMMON NORMALS: no pedal edema Neuro: COMMON NORMALS: patient oriented x3 Psych: COMMON NORMALS: mental status grossly normal Data 11/21/23 05:27 11/21/23 05:27 Micro: Microbiology 11/19/23 15:08 Blood Culture - Preliminary Blood NEGATIVE TO DATE 11/19/23 15:04 Blood Culture - Preliminary Blood NEGATIVE TO DATE A&P Assessment and plan (1) Enteritis: CT/CT angio abdomen pelvis 09199 IMPRESSION: 1. Mild to moderate four-quadrant ascites which could be secondary to extensive small bowel inflammation. 2. Patent celiac axis, SMA and ALEX without obvious stenosis or occlusion. 3. Prominent moderate to severe bowel wall thickening in multiple loops of right-sided small bowel with some midline small bowel also most consistent with moderate to severe infectious enteritis with enhancing bowel identified. 4. On arterial phase images the distal branches of the superior mesenteric veins are opacified however the central superior mesenteric vein is indeterminate because there are no venous phase delayed images. - Awaiting C. difficile test result, continue p.o. vancomycin -Given enteritis, will hold off on antibiotics for now, has received Cipro and Flagyl emergency room, will consider antibiotics based on clinical progress -Will await stool studies -For now continue isolation (2) Hyponatremia: Likely hypovolemic hyponatremia related to dehydration Continue IV fluids Plan Alk phos elevation: Appears chronic component. Recheck CMP. DM1: Continue insulin CKD: Currently appears at baseline Anemia Right BKA Other medical problems Attestations 2 Medical Necessity Statement*: patient requires hospitalization for cdiff, enteritis Diagnoses Enteritis K52.9 Hyponatremia E87.1
[2023-11-21] MEDS: sodium chloride 0.9% 1,000 ML 75 ML IV (15:01)
[2023-11-21 16:38] LABS: Glucose Point of Care 65 mg/dL (70-110)
[2023-11-21 17:15] LABS: Glucose Point of Care 111 mg/dL (70-110)
[2023-11-21 18:14] LABS: Glucose Point of Care 161 mg/dL (70-110)
--- NOTE | 2023-11-21 18:27 | PC.NURSE ---
Notified Dr. Marie of blood sugar 65. Gave a soda to patient. Rechecked blood sugar 30 minutes later it was 111. Dr. Marie gave verbal orders to recheck in 1 hour. Blood sugar was 161.
[2023-11-21 21:46] LABS: Glucose Point of Care 57 mg/dL (70-110)
[2023-11-21 22:22] LABS: Glucose Point of Care 140 mg/dL (70-110)
[2023-11-22] VITALS (9 sets, daily range): BP systolic 104–163; BP diastolic 61–86; PULSE 76–91; RESP 16–19; TEMP 36.2–36.6; O2SAT 93–99; BMI 27.4
[2023-11-22] MEDS: HYDROmorphone 1 mg/mL INJ 1 mL 0.4 MG IVP ×4 (01:17→14:45)
[2023-11-22 02:46] LABS: Glucose Point of Care 70 mg/dL (70-110)
[2023-11-22] MEDS: sodium chloride 0.9% 1,000 ML 75 ML IV (04:02)
[2023-11-22] MEDS: metroNIDAZOLE IV 500 MG/100 ML PREMIX 100 MG IV ×3 (04:02→19:58)
[2023-11-22] MEDS: ondansetron 2 mg/ML SDV 2 mL 4 MG IVP ×3 (05:48→21:37)
[2023-11-22 05:55] LABS: Basophils # 0.1 10^3/uL (0.0-0.1); Basophils % 0.8 %; Eosinophils # 0.4 10^3/uL (0.0-0.8); Eosinophils % 4.2 %; Hematocrit 34.5 % (36-47); Lymphocytes # 3.2 10^3/uL (0.8-4.8); Lymphocytes % 37.2 %; Mean Corpuscular HGB Conc 29.6 g/dL (30-55); Mean Corpuscular Hemoglobin 32.6 pg (27-33); Mean Corpuscular Volume 110.2 fl (85-98); Mean Platelet Volume 10.6 fL (7.4-10.4); Monocytes # 0.5 10^3/uL (0.2-0.9); Monocytes % 5.7 %; Neutrophils # 4.43 10^3/uL (1.8-7.7); Neutrophils % 51.5 %; Nucleated Red Blood Cells % 0 %; Platelet Count 363 10^3/cmm (157-399); Red Blood Count 3.13 10^6/uL (3.85-5.65); Red Cell Distribution Width 13.9 % (12.1-15.1)
[2023-11-22] MEDS: dextrose 10% 1,000 ML 50 ML IV (06:09)
[2023-11-22 06:17] LABS: Alanine Aminotransferase 14 U/L (0-33); Albumin Level 2.9 g/dL (3.5-5.2); Alkaline Phosphatase 90 U/L (35-105); Anion Gap 14.4 (5-19); Aspartate Amino Transferase 13 U/L (0-32); Blood Urea Nitrogen 2 mg/dL (6-20); Calcium 7.7 mg/dL (8.5-10.5); Carbon Dioxide 18 mmol/L (22-29); Chloride 111 mmol/L (98-107); Globulin 2.4 g/dL (1.3-4.6); Glomerular Filtration Rate 110.2 mL/min (90-130); Glucose 47 mg/dL (65-115); Osmolality Calculated 283 mOsm/kg (285-295); Potassium 3.4 mmol/L (3.5-5.1); Sodium 140 mmol/L (136-145); Total Bilirubin 0.2 mg/dL (0.15-1.2); Total Protein 5.3 g/dL (6.6-8.7)
--- NOTE | 2023-11-22 08:15 | XR_ITS ---
WS: [id number] K[facility], portable supine AP view, 11/22/2023 Clinical Data: abdominal distention Comparison: KUB, 11/21/2023 Findings: No abnormal intraabdominal masses or calcifications are seen. There is no dilatated small bowel or ev idence of obstruction. There is still air in the stomach. There are dilated small bowel loops. Fecal material is present in the colon. The bladder is full. There are radiopaque surgical clips in the left side of the abdomen a nd pelvis. There is a small clip overlying the right SI joint. Impression: No change in moderate generalized ileus or early small bowel obstruction.
[2023-11-22] MEDS: lamoTRIgine 100 mg Tablet 150 MG PO (09:02)
[2023-11-22] MEDS: vancomycin 125 mg Capsule 250 MG PO ×4 (09:03→21:39)
[2023-11-22] MEDS: gabapentin 300 mg Capsule 600 MG PO ×3 (09:03→21:39)
--- NOTE | 2023-11-22 09:30 | PC.CHAP ---
Pastoral Care Encounter/Spiritual Assessment Type of Contact [] Declined exhibit electrician visit [] Patient/Family/Request visit [] Outpatient visit [] Follow-up visit [] Physician referral [] Code/Alert [] Routine visit [] Staff referral [] Actively dying [] Patient sleeping [] Family support [] [] Out of room [] Palliative care [] [] Receiving care in room [] Pre-surgical visit [] Trauma [] Long length of stay [] ICU visit [x] Other:Contact precautions. No visit. Relational/Emotional Strength [] Patient feels connected with others/family/visitors/staff [] Distress [] Loneliness/isolation [] Abandonment Spirituality of Patient [] Person of E[place]se [] Attends Zoroastrianism of their [place] [] Believes in Prayer [] Reads Bible or Sikh materials [] There are Spiritual issues to be addressed [employer] Nailer Interventions [] Prayer [] Active listening [] Non-anxious presence [] Spiritual/emotional support [] Crisis/trauma care [] Spiritual counseling [] Bereavement support [] Provided bereavement packet [] Provided Bible/devotional materials [] Provided toy/stuffed animal, coloring book to patient or family member [] Provided Communion [] Anointing/Kevil [] Salvation [] Completed spiritual assessment [] Other: Impact on Illness or Injury [] Angry [] Fearful [] Anxious [] Often cries [] Exhaustion [] Unable to work [] Unable to attend baptism [] Unable to walk/stand [] Unable to read [] Unable to drive [] Unable to eat/drink [] Unable to sleep [] Unable to be with family [] Patient intubated [] Other: Summary Time spent with patient
[2023-11-22] MEDS: heparin 5,000 unit/mL INJ 1 mL 5000 UNIT SUBCUT ×2 (10:06→21:45)
--- NOTE | 2023-11-22 10:16 | CT_ITS ---
WS: [id number] CT ABDOMEN AND PELVIS NONCONTRAST HISTORY: abdominal distention TECHNIQUE: Imaging performed through the abdomen and pelvis. Coronal and sagittal reformats are submi tted. All CT scans at [facility] use at least one of these dose optimization techniques: auto mated exposure control; mA and/or kV adjustment per patient size (includes targeted exams where dose is matched to clinical indication); or iterative reconstruction. DLP: 575.43 mGy.cm COMPARISON: 11/19/2023, Lower thorax: Dependent changes at the lung bases and atelectasis. New small bilateral pleural effusi ons. Heart size is normal. Liver: Mild hepatomegaly. Otherwise limited without contrast. Portal vein does appear mildly enlarged . Gallbladder: Normal gallbladder. No pericholecystic fluid or cholelithiasis. No gallbladder wall thic kening. Pancreas: Poorly visualized. Surrounding mesenteric edema. Spleen: Normal. Adrenal glands: Normal. No mass. Right kidney: Nonobstructing calcifications. Mild atrophy. Left kidney: Unremarkable. Aorta: Mild atherosclerosis abdominal aorta with no aneurysm. There is extensive soft tissue anasarca within the body wall and into the pelvis which has progressed since 11/19/2023. There is new extensive mesenteric edema with increasing abdominal ascites. There is still only a very small amount of ascites but it has increased. No free air. GI tract: Progression of small bowel edema and fluid distention. Only a segment of the small bowel is affected. This is predominantly in the RIGHT abdomen where there is increased density within the mus cularis portion of the colon. There is a focal area in the RIGHT lower quadrant which was not present on the prior study. There is an abnormal distribution of air in the RIGHT lower quadrant and a porti on of the distal small bowel and the cecum suspicious for pneumatosis and possible perforation. These findings were not present on the prior study. Prior appendectomy. Abdominal wall: Diffuse soft tissue anasarca. Pelvis: Minimal free fluid in the pelvis. Negative urinary bladder. Also, bilateral tubal ligation cl ips are noted. One of the tubal ligation clips should be in the RIGHT pelvis is in the mid LEFT abdom en. There may be an additional tubal ligation clip near the fallopian tube on the RIGHT. Osseous structures: Unremarkable. IMPRESSION: 1. Progression of soft tissue anasarca throughout the abdomen and pelvis with mesenteric edema. 2. New small bilateral pleural effusions. 3. Persistent small bowel dilatation with thickened muscularis portion of the small bowel. Findings are predominantly in the proximal and mid small bowel and to a lesser extent the colon. This is not a typical presentation for C. difficile. C. difficile is most likely in the colon but can affect the s mall bowel. Consider other etiologies such as different infection etiologies or ischemia. Hemorrhage may appear similar. 4. Abnormality in the RIGHT lower quadrant. Findings are suspicious for pneumatosis and possible per foration near the cecum and distal small bowel. This area is difficult to evaluate due to no separati on of the GI tract but there is more air present which I cannot definitely place within the lumen of the GI tract. Patient needs to be evaluated for possible perforation and ischemic bowel disease. An u nderlying mass is not excluded. Notified Nitin Marie MD at 11/22/2023 12:18 PM.
[2023-11-22 10:42] LABS: Glucose Point of Care 157 mg/dL (70-110)
[2023-11-22 10:43] LABS: Glucose Point of Care 58 mg/dL (70-110)
--- NOTE | 2023-11-22 13:07 | PM.CONSULT ---
Providers/Reason For Consult Consulting Physician/Specialty*: Dr. Ric Brock, DO/General surgery Reason for Consult*: Abdominal pain Attending Physician: Nitin Marie MD History of Present Illness History of Present Illness Anna Tolbert is a 43 year old female who presented to the hospital with a 2-day history of abdominal pain and diarrhea. She reports that she ate some sausage from a food pantry approximately 2 days before her symptoms began. She believes maybe that could have been bad. She denies any other sick contacts. Denies any recent history of travel. She orts that she has been nauseous but denies any emesis. She denies any hematochezia and/or melena. Her abdominal pain is diffuse. Palpation makes the pain worse. Nothing makes pain better. The pain does not radiate. CT the abdomen pelvis shows significant enteritis. Review of Systems General: Reports: 10 or more systems reviewed and unremarkable except in HPI and below Medications/Allergies Home Medications Medication Instructions Recorded Confirmed Last Taken Type insulin NPH isoph U-100 human 100 21 unit SUBCUT BID 06/24/23 11/19/23 11/07/23 History unit/mL subcutaneous suspension (Novolin N NPH U-100 Insulin isophane) insulin lispro 100 unit/mL See Rx Instructions .Route .COMPLEX 06/24/23 11/19/23 11/07/23 History subcutaneous pen (Humalog KwikPen (U-100) Insulin) lamotrigine 150 mg tablet 150 mg PO DAILY 06/24/23 11/19/23 07/05/23 History (Lamictal) bismuth tribrom-petrolatum,wh 5 X #50 ea 07/03/23 11/19/23 07/05/23 Rx 9 bandage (Xeroform Petrolatum Dressing) elastic bandage 2 X 1.9 yard #14 ea 07/03/23 11/19/23 07/05/23 Rx non-adherent bandage 5 X 9 11/07/23 11/19/23 Unknown History gabapentin 600 mg tablet 600 mg PO TID #90 tabs 11/09/23 11/19/23 Unknown Rx Allergies Allergy/AdvReac Type Severity Reaction Status Date / Time amoxicillin Allergy ALGY-Rash Verified 11/07/23 13:32 clavulanic acid Allergy ALGY-Difficulty Verified 11/07/23 13:32 [From Augmentin] Breathing morphine Allergy Unknown Verified 11/19/23 15:39 Penicillins Allergy ALGY-Rash Verified 11/07/23 13:32 Current Medications Generic Name Dose Route Start Last Admin Trade Name Freq PRN Reason Stop Dose Admin Gabapentin 600 mg 11/20/23 09:00 11/23/23 08:57 Gabapentin 300 Mg Capsule PO 600 mg TID FABIAN Administration Heparin Sodium (Porcine) 5,000 unit 11/19/23 22:15 11/23/23 09:51 Heparin 5,000 Unit/Ml Inj 1 Ml SUBCUT 5,000 unit Q12H FABIAN Administration Hydromorphone HCl 1 mg 11/23/23 09:26 11/23/23 09:48 Hydromorphone 1 Mg/Ml Inj 1 Ml IVP 1 mg Q4H PRN Administration SEVERE PAIN Dextrose 250 mls @ 1,000 mls/hr 11/19/23 22:05 11/22/23 22:46 D10w IV Infused PRN PRN Infusion Adult Acute Hypoglycemia Nursing Protocol Protocol Metronidazole 500 mg in 100 mls @ 100 mls/hr 11/21/23 12:15 11/23/23 06:12 Flagyl Iv IV Infused Q8H [facility] Infusion Protocol Meropenem 1,000 mg/ Sodium 50 mls @ 100 mls/hr 11/22/23 13:00 11/23/23 05:44 Chloride IV Infused Q8H [facility] Infusion Protocol Dextrose 1,000 mls @ 100 mls/hr 11/23/23 04:15 11/23/23 05:00 D10w IV 100 mls/hr .Q10H FABIAN Administration Insulin Human Lispro 0 unit 11/19/23 22:15 11/23/23 09:51 Insulin Lispro 100 Unit/1 Ml SUBCUT Not Given Q6H [facility] Protocol Lamotrigine 150 mg 11/20/23 09:00 11/23/23 08:58 Lamotrigine 100 Mg Tablet PO 150 mg DAILY FABIAN Administration Metoclopramide HCl 5 mg 11/22/23 12:56 11/23/23 09:48 Metoclopramide 5 Mg/Ml Sdv 2 Ml IVP 5 mg Q6H PRN Administration NAUSEA AND VOMITING Ondansetron HCl 4 mg 11/20/23 15:56 11/23/23 04:14 Ondansetron 2 Mg/Ml Sdv 2 Ml IVP 4 mg Q6H PRN Administration vomiting, or N/V if npo Vancomycin HCl 250 mg 11/21/23 13:00 11/23/23 08:57 Vancomycin 125 Mg Capsule PO 250 mg QID FABIAN Administration PFSH Acute PFSH: Medical History Chronic kidney disease Type 1 diabetes Surgical History History of appendectomy History of surgery on lower extremity History of tonsillectomy Social History Smoking and tobacco/nicotine status: current every day tobacco/nicotine user Alcohol intake: former Substance/Drug Use: current Vitals/I&O/Wt Last Vital Signs Temp 98 F 11/23/23 12:10 Pulse 87 11/23/23 12:10 Resp 17 11/23/23 12:10 BP 161/93 11/23/23 12:10 Pulse Ox 98 11/23/23 12:10 O2 Del Method Room Air 11/23/23 12:10 11/22/23 11/23/23 11/23/23 22:59 06:59 14:59 Intake Total 2072.75 / 3982.75 1275 / 5257.75 Output Total 500 / 1100 1000 / 2100 Balance 1572.75 / 2882.75 275 / 3157.75 Weight last 48 hrs Weight 154 lb 1.6 oz Weight 154 lb 12.8 oz Physical Exam Narrative: General : Patient is well developed , no acute distress, oriented x3 Head : Normal cephalic, a-traumatic. Ears : Pinnae and external canal are normal. Hearing is normal. Eyes : PERRLA, Sclera and injection are normal. No conjunctival discharge. Nose : Mucous membranes are without erythema. Throat : buccal mucosa is normal, gums are without significant recession or hypertrophy. Lungs : Equal chest rise bilaterally, no use of accessory muscles, trachea is midline. Cor : Rate and rhythm are normal. Abdomen : Soft, distended, diffuse tenderness, no g/r/m Extremities : No edema, no cyanosis or clubbing, dorsalis pedis pulses are present bilaterally, non-tender to palpation of calves. Upper extremities are normal bilaterally. Back : non-tender to palpation, no CVA tenderness. Neuro : CN II - XII intact, Upper and lower extremities have equal and full strength Data 11/23/23 02:45 11/23/23 02:45 A&P Assessment and plan (1) Gastroenteritis: (2) C. difficile colitis: Plan Stool studies pending Clear liquid diet No acute surgical intervention Medical management per hospitalist Agree with antibiotic treatment for presumed gastroenteritis and C. difficile colitis Coding Level of Care Code 75293 Diagnoses Gastroenteritis K52.9 C. difficile colitis A04.72
[2023-11-22] MEDS: dextrose 5%-sod chloride 0.9% 1,000 ML 125 ML IV (13:25)
[2023-11-22 14:11] LABS: Basophils # 0.1 10^3/uL (0.0-0.1); Basophils % 0.8 %; Eosinophils # 0.3 10^3/uL (0.0-0.8); Eosinophils % 4.3 %; Hematocrit 35.9 % (36-47); Lymphocytes # 2.1 10^3/uL (0.8-4.8); Lymphocytes % 32.8 %; Mean Corpuscular HGB Conc 31.5 g/dL (30-55); Mean Corpuscular Volume 101.7 fl (85-98); Monocytes # 0.3 10^3/uL (0.2-0.9); Monocytes % 4.1 %; Neutrophils # 3.76 10^3/uL (1.8-7.7); Neutrophils % 57.5 %; Nucleated Red Blood Cells % 0 %; Platelet Count 358 10^3/cmm (157-399); Red Blood Count 3.53 10^6/uL (3.85-5.65); Red Cell Distribution Width 13.8 % (12.1-15.1); White Blood Count 6.53 10^3/uL (3.29-11.43)
[2023-11-22 14:32] LABS: Erythrocyte Sedimentation Rate 19 mm/hr (0-15)
[2023-11-22 14:33] LABS: Lactate (Lactic Acid level) 1.4 mmol/L (0.5-2.2)
[2023-11-22 14:34] LABS: Anion Gap 14.6 (5-19); Blood Urea Nitrogen 2 mg/dL (6-20); Calcium 7.7 mg/dL (8.5-10.5); Carbon Dioxide 20 mmol/L (22-29); Chloride 105 mmol/L (98-107); Glomerular Filtration Rate 110.2 mL/min (90-130); Glucose 92 mg/dL (65-115); Magnesium 1.7 mg/dL (1.7-2.3); Osmolality Calculated 278 mOsm/kg (285-295); Phosphorus 3.2 mg/dL (2.5-4.5); Potassium 3.6 mmol/L (3.5-5.1); Sodium 136 mmol/L (136-145)
[2023-11-22 14:41] LABS: Procalcitonin 0.05 ng/mL (0-0.5)
[2023-11-22] MEDS: meropenem 1,000 MG in sodium chloride 0.9% (plus) 50 ML 100 MG IV ×2 (14:45→22:20)
[2023-11-22 16:10] LABS: Glucose Point of Care 52 mg/dL (70-110)
[2023-11-22] MEDS: dextrose 10% 125 ML 750 ML IV (16:19)
--- NOTE | 2023-11-22 16:53 | P.PN_ITS ---
Subjective 2 Subjective: Patient was seen this morning -She continues to have diarrhea but impr oving -Has vomiting, no nausea -No fevers, no chills -Does not complain this morning of abdom inal distention, diffuse abdominal pain, does have scattered bowel sounds -On examination abdomen is distended, no fluid wave present, no guarding, no rebound, rigidity, but does have diffuse abdominal tenderness, -We discussed repeating CAT scan she is tolerating clears, she has an appetite -Overnight she was found to be hypoglyce tanika, and insulin was stopped, she was converted on D10 her blood sugars have improved -CAT scan performed IMPRESSION: 1. Progression of soft tissue anasarca throughout the abdomen and pelvis with mesenteric edema. 2. New small bilateral pleural effusion s. 3. Persistent small bowel dilatation wi th thickened muscularis portion of the small bowel. Findings are predominantly in the proximal and mid small bowel and to a lesser extent the colon. This is not a typical presentation for C. difficile. C. difficile is most likely in the colon but can affect the small bowel. Consider other etiologies such as different infection etiologies or ischemia. Hemorrhage may appear similar. 4. Abnormality in the RIGHT lower quadr ant. Findings are suspicious for pneumatosis and possible perforation near the cecum and distal small bowel. This area is difficult to evaluate due to no separation of the GI tract but there is more air present which I cannot definitely place within the lumen of the GI tract. Patient needs to be evaluated for possible perforation and ischemic bowel disease. An underlying mass is not excluded. Notified Nitin Marie MD at 11/22/2023 12:18 PM. -Spoke to radiology about the results -Spoke to general surgery about the resu lts, consulted Dr. Brock -I went back and reexamined patient, her abdomen remains distended, no guarding, no rebound, rigidity, remains soft, has scattered bowel sounds, he is still having diarrhea -No nausea, no vomiting, -We discussed consultation with Dr. Dave burton, as on the CAT scan there is concerns for dilation of small bowel, has risk concerns for pneumatosis and possible perforation -Discussed broadening her antibiotic cov erage to meropenem and continuing Flagyl, continue her p.o. vancomycin -She does tell me that about 5 days ago she got food from a food bank the spaghettios were , and the sausages were , and meat was -She does tell me that the sausages look ed a bit off but she cooked some, she tells me after eating, she did not feel well had a lot of abdominal pain and diarrhea and so did her friend her friend actually went to the emergency room, and I got diagnosed with a UTI however since eating the sausages she has not felt well -She does not tell me that her other fri ends also ate the sausages and they are doing okay right now - Vitals/I&O/Wt Last Vital Signs Temp 97.8 F 11/22/23 12:04 Pulse 80 11/22/23 12:04 Resp 18 11/22/23 12:04 BP 108/74 11/22/23 12:04 Pulse Ox 99 11/22/23 12:04 O2 Del Method Room Air 11/22/23 12:04 11/22/23 11/22/23 11/22/23 06:59 14:59 22:59 Intake Total 1250 / 3520 1910 / 1910 175 / 2085 Output Total 600 / 600 Balance 1250 / 3520 1310 / 1310 175 / 1485 Weight last 48 hrs Weight 70.216 kg Weight 64.637 kg Physical Exam 2 Const: COMMON NORMALS: no acute distress and patient oriented x3 Resp: COMMON NORMALS: normal respiratory effort, No retractions, No use of accessory muscles and clear to auscultation bilaterally AUSCULTATION: clear to auscultation bilaterally Cardio: COMMON NORMALS: regular rate, regular rhythm, S1 normal heart sound present and S2 normal heart sound present RATE: regular rate RHYTHM: r egular rhythm HEART SOUNDS: S1 normal heart sound present and S2 normal heart sound present GI: OTHER: Abdomen soft, distended, diffuse tenderness, scattered bowel sounds, no guarding, no rebound, rigidity Extremity: COMMON NORMALS: no pedal edema Neuro: COMMON NORMALS: patient oriented x3 Psych: COMMON NORMALS: mental status grossly normal Data 11/22/23 13:55 11/22/23 13:55 A&P Assessment and plan (1) Enteritis: IMPRESSION: 1. Progression of soft tissue anasarca throughout the abdomen and pelvis with mesenteric edema. 2. New small bilateral pleural effusions. 3. Persistent small bowel dilatation with thickened muscularis portion of the small bowel. Findings are predominantly in the proximal and mid small bowel and to a lesser extent the colon. This is not a typical presentation for C. difficile. C. difficile is most likely in the colon but can affect the small bowel. Consider other etiologies such as different infection etiologies or ischemia. Hemorrhage may appear similar. 4. Abnormality in the RIGHT lower quadrant. Findings are suspicious for pneumatosis and possible perforation near the cecum and distal small bowel. This area is difficult to evaluate due to no separation of the GI tract but there is more air present which I cannot definitely place within the lumen of the GI tract. Patient needs to be evaluated for possible perforation and ischemic bowel disease. An underlying mass is not excluded. -CRP, Pro-Dominik, sed rate, lactic acid within normal limits -Started on p.o. meropenem -Await stool studies -General surgery consulted -N.p.o., IV fluids -Serial abdominal exams (2) Hyponatremia: Likely hypovolemic hyponatremia related to dehydration Continue IV fluids (3) C. difficile colitis: - On p.o. vancomycin -On IV Flagyl Plan -Hypoglycemia, stop Levemir, monitor blood sugars, D5 normal saline DM1: Continue insulin CKD: Currently appears at baseline Anemia Right BKA Other medical problems Attestations 2 Medical Necessity Statement*: Patient requires hospitalization for enteritis, C. difficile colitis, hyponatremia, inpatient, greater than 2 midnights Diagnoses Enteritis K52.9 Hyponatremia E87.1 C. difficile colitis A04.72
[2023-11-22 17:09] LABS: Glucose Point of Care 102 mg/dL (70-110)
[2023-11-22] MEDS: metoclopramide 5 mg/mL SDV 2 mL IVP (17:22)
[2023-11-22] MEDS: HYDROmorphone 1 mg/mL INJ 1 mL 0.5 MG IVP (19:57)
[2023-11-22] MEDS: dextrose 5%-sod chloride 0.9% 1,000 ML 150 ML IV (19:58)
[2023-11-22] MEDS: dextrose 10% 250 ML 1000 ML IV (21:41)
[2023-11-22 21:52] LABS: Glucose Point of Care 56 mg/dL (70-110)
[2023-11-22 23:22] LABS: Glucose Point of Care 100 mg/dL (70-110)
[2023-11-23] VITALS (9 sets, daily range): BP systolic 122–181; BP diastolic 79–95; PULSE 76–98; RESP 14–18; TEMP 36.3–36.7; O2SAT 94–99
[2023-11-23] MEDS: HYDROmorphone 1 mg/mL INJ 1 mL 0.5 MG IVP ×2 (00:22→04:57)
[2023-11-23 00:30] LABS: Glucose Point of Care 80 mg/dL (70-110)
[2023-11-23] MEDS: metoclopramide 5 mg/mL SDV 2 mL IVP ×2 (02:11→09:48)
[2023-11-23 03:01] LABS: Basophils # 0.1 10^3/uL (0.0-0.1); Basophils % 0.9 %; Eosinophils # 0.2 10^3/uL (0.0-0.8); Hematocrit 34.5 % (36-47); Lymphocytes # 2.1 10^3/uL (0.8-4.8); Lymphocytes % 35.9 %; Mean Corpuscular HGB Conc 29.6 g/dL (30-55); Mean Corpuscular Hemoglobin 32.5 pg (27-33); Mean Corpuscular Volume 109.9 fl (85-98); Mean Platelet Volume 10.5 fL (7.4-10.4); Monocytes # 0.3 10^3/uL (0.2-0.9); Monocytes % 4.7 %; Neutrophils # 3.15 10^3/uL (1.8-7.7); Neutrophils % 54.2 %; Nucleated Red Blood Cells % 0 %; Platelet Count 311 10^3/cmm (157-399); Red Blood Count 3.14 10^6/uL (3.85-5.65); Red Cell Distribution Width 13.9 % (12.1-15.1)
[2023-11-23 03:23] LABS: Lactate (Lactic Acid level) 1.5 mmol/L (0.5-2.2)
[2023-11-23 03:24] LABS: Alanine Aminotransferase 14 U/L (0-33); Albumin Level 2.9 g/dL (3.5-5.2); Alkaline Phosphatase 91 U/L (35-105); Anion Gap 13.5 (5-19); Aspartate Amino Transferase 15 U/L (0-32); Blood Urea Nitrogen 2 mg/dL (6-20); C Reactive Protein 3.5 mg/L (0.0-4.9); Calcium 7.7 mg/dL (8.5-10.5); Carbon Dioxide 21 mmol/L (22-29); Chloride 111 mmol/L (98-107); Globulin 2.4 g/dL (1.3-4.6); Glomerular Filtration Rate 92.2 mL/min (90-130); Glucose 72 mg/dL (65-115); Magnesium 1.8 mg/dL (1.7-2.3); Osmolality Calculated 289 mOsm/kg (285-295); Phosphorus 3.3 mg/dL (2.5-4.5); Potassium 3.5 mmol/L (3.5-5.1); Sodium 142 mmol/L (136-145); Total Bilirubin 0.2 mg/dL (0.15-1.2); Total Protein 5.3 g/dL (6.6-8.7)
[2023-11-23 03:57] LABS: Procalcitonin 0.02 ng/mL (0-0.5)
[2023-11-23] MEDS: ondansetron 2 mg/ML SDV 2 mL 4 MG IVP (04:14)
[2023-11-23] MEDS: dextrose 10% 125 ML 750 ML IV (04:16)
[2023-11-23 04:34] LABS: Glucose Point of Care 67 mg/dL (70-110)
--- NOTE | 2023-11-23 04:36 | CTR_ITS ---
PROCEDURE INFORMATION: Exam: CT Abdomen And Pelvis Without Contrast Exam date and time: 11/23/2023 6:20 AM Age: 43 years old Clinical indication: Abdominal pain; Prior surgery; Surgery date: 6+ months; Surgery type: Tubal, appy csection; Additional info: Worsened abdo distention, tenderness TECHNIQUE: Imaging protocol: Computed tomography of the abdomen and pelvis without contrast. Radiation optimization: All CT scans at this facility use at least one of these dose optimization techniques: automated exposure control; mA and/or kV adjustment per patient size (includes targeted exams where dose is matched to clinical indication); or iterative reconstruction. COMPARISON: CT abdomen pelvis con [id number] 11/22/2023 11:14 AM RADIATION DOSE METRICS: Total DLP (mGy-cm): 579.64 FINDINGS: Pleural spaces: Slightly increased size of small bilateral pleural effusions. Mild edema and bibasilar atelectasis. Liver: No mass. Gallbladder and bile ducts: No calcified stones. No ductal dilation. Pancreas: No ductal dilation. Spleen: Unremarkable. Adrenal glands: Unremarkable. Kidneys and ureters: No hydronephrosis. Stomach and bowel: Improved extent of small bowel wall thickening with residual small bowel in the left hemiabdomen affected (series 4, image 50). No dilated bowel loops. Appendix: Status post appendectomy. Intraperitoneal space: Small volume pelvic free fluid. Vasculature: Unremarkable. No abdominal aortic aneurysm. Lymph nodes: Unremarkable. No enlarged lymph nodes. Urinary bladder: Unremarkable as visualized. Reproductive: Tubal ligation clip in the left adnexa and migrated clip in the left upper quadrant, unchanged. Bones/joints: Unremarkable. No acute fracture. Soft tissues: Body wall edema. CT/CT abdomen pelvis con [id number] IMPRESSION: 1. Decreased extent of small bowel wall thickening with residual moderately thick-walled bowel loop in the left/midline abdomen. 2. Slightly increased size of bilateral pleural effusions. 3. Similar moderate body wall edema and mild ascites.
[2023-11-23] MEDS: dextrose 10% 1,000 ML 100 ML IV ×2 (05:00→15:20)
[2023-11-23] MEDS: meropenem 1,000 MG in sodium chloride 0.9% (plus) 50 ML 100 MG IV ×3 (05:05→22:06)
[2023-11-23] MEDS: metroNIDAZOLE IV 500 MG/100 ML PREMIX 100 MG IV ×3 (05:05→22:06)
[2023-11-23 06:50] LABS: Glucose Point of Care 81 mg/dL (70-110)
[2023-11-23 08:18] LABS: Glucose Point of Care 98 mg/dL (70-110)
[2023-11-23] MEDS: gabapentin 300 mg Capsule 600 MG PO ×3 (08:57→22:04)
[2023-11-23] MEDS: vancomycin 125 mg Capsule 250 MG PO ×4 (08:57→22:05)
[2023-11-23] MEDS: lamoTRIgine 100 mg Tablet 150 MG PO (08:58)
--- NOTE | 2023-11-23 09:31 | XRR_ITS ---
PROCEDURE INFORMATION: Exam: XR Abdomen Exam date and time: 11/23/2023 10:29 AM Age: 43 years old Clinical indication: Other: Increased distention TECHNIQUE: Imaging protocol: Radiologic exam of the abdomen. Views: Frontal supine view of the abdomen. 1 View. COMPARISON: CT abdomen pelvis wo con [id number] 11/23/2023 6:20 AM FINDINGS: Gastrointestinal tract: There is mild gaseous distension of the bowel loops. Bones/joints: Unremarkable. Other findings: Rotated radiograph. XR/XR KUB portable [id number] IMPRESSION: Rotated radiograph. Mild gaseous distension of the bowel loops, similar to yesterday.
[2023-11-23] MEDS: HYDROmorphone 1 mg/mL INJ 1 mL IVP (09:48)
[2023-11-23] MEDS: heparin 5,000 unit/mL INJ 1 mL 5000 UNIT SUBCUT ×2 (09:51→22:06)
[2023-11-23 10:15] LABS: Glucose Point of Care 113 mg/dL (70-110)
[2023-11-23 11:50] LABS: Glucose Point of Care 124 mg/dL (70-110)
--- NOTE | 2023-11-23 13:10 | P.PN_ITS ---
Subjective 2 Subjective: Patient seen and examined. She was very somnolent and difficult to arouse. No grimace to palpation of her abdomen. Positive BM but no longer diarrhea Vitals/I&O/Wt Last Vital Signs Temp 98 F 11/23/23 12:10 Pulse 87 11/23/23 12:10 Resp 17 11/23/23 12:10 BP 161/93 11/23/23 12:10 Pulse Ox 98 11/23/23 12:10 O2 Del Method Room Air 11/23/23 12:10 11/22/23 11/23/23 11/23/23 22:59 06:59 14:59 Intake Total 2072.75 / 3982.75 1275 / 5257.75 Output Total 500 / 1100 1000 / 2100 Balance 1572.75 / 2882.75 275 / 3157.75 Weight last 48 hrs Weight 154 lb 1.6 oz Weight 154 lb 12.8 oz Physical Exam 2 Narrative: General : Patient is well developed , no acute distress, somnolent and difficult to arouse Abdomen : Soft, moderate distention, no grimace to palpation, no g/r/m Data 11/23/23 02:45 11/23/23 02:45 A&P Assessment and plan (1) Gastroenteritis: (2) C. difficile colitis: Plan Stool studies pending, C. difficile PCR positive but confirmatory toxin testing negative Halved IV pain medicine and added oral narcotics Regular diet No acute surgical intervention Medical management per hospitalist Agree with antibiotic treatment for presumed gastroenteritis and C. difficile colitis Attestations 2 Medical Necessity Statement*: Per primary Coding Level of Care Code 70782 Diagnoses Gastroenteritis K52.9 C. difficile colitis A04.72
[2023-11-23 14:27] LABS: Glucose Point of Care 202 mg/dL (70-110)
[2023-11-23] MEDS: HYDROcodone-acetaminophen 7.5-325 mg Tablet 1 TAB PO ×2 (15:21→22:05)
--- NOTE | 2023-11-23 15:24 | P.PN_ITS ---
Subjective 2 Subjective: Patient was seen this morning, she does continue to complain of abdominal distention, she had a bowel movement at 2 AM, she did pass gas last night, none this morning is urinating, no fevers, chills, no nausea, no vomiting has been afebrile overnight, does complain of diffuse abdominal tenderness, she did have persistent episodes of hypoglycemia during the night, and needed D10, no blood or black stools, no nausea, no vomiting Vitals/I&O/Wt Last Vital Signs Temp 98 F 11/23/23 12:10 Pulse 87 11/23/23 12:10 Resp 17 11/23/23 12:10 BP 161/93 11/23/23 12:10 Pulse Ox 98 11/23/23 12:10 O2 Del Method Room Air 11/23/23 12:10 11/23/23 11/23/23 11/23/23 06:59 14:59 22:59 Intake Total 1275 / 5257.75 480 / 480 1000 / 1480 Output Total 1000 / 2100 Balance 275 / 3157.75 480 / 480 1000 / 1480 Weight last 48 hrs Weight 69.899 kg Weight 70.216 kg Physical Exam 2 Const: COMMON NORMALS: no acute distress and patient oriented x3 Resp: COMMON NORMALS: normal respiratory effort, No retractions, No use of accessory muscles and clear to auscultation bilaterally AUSCULTATION: clear to auscultation bilaterally Cardio: COMMON NORMALS: regular rate, regular rhythm, S1 normal heart sound present and S2 normal heart sound present RATE: regular rate RHYTHM: r egular rhythm HEART SOUNDS: S1 normal heart sound present and S2 normal heart sound present GI: OTHER: Abdomen is soft, diffusely tender, distended, no guarding, no rebound, no rigidity, scattered bowel sounds in all 4 quadrants Extremity: COMMON NORMALS: no pedal edema Neuro: COMMON NORMALS: patient oriented x3 Psych: COMMON NORMALS: mental status grossly normal Data 11/23/23 02:45 11/23/23 02:45 A&P Assessment and plan (1) Enteritis: IMPRESSION: 1. Progression of soft tissue anasarca throughout the abdomen and pelvis with mesenteric edema. 2. New small bilateral pleural effusions. 3. Persistent small bowel dilatation with thickened muscularis portion of the small bowel. Findings are predominantly in the proximal and mid small bowel and to a lesser extent the colon. This is not a typical presentation for C. difficile. C. difficile is most likely in the colon but can affect the small bowel. Consider other etiologies such as different infection etiologies or ischemia. Hemorrhage may appear similar. 4. Abnormality in the RIGHT lower quadrant. Findings are suspicious for pneumatosis and possible perforation near the cecum and distal small bowel. This area is difficult to evaluate due to no separation of the GI tract but there is more air present which I cannot definitely place within the lumen of the GI tract. Patient needs to be evaluated for possible perforation and ischemic bowel disease. An underlying mass is not excluded. -Repeat CAT scan last night shows - CT/CT abdomen pelvis wo con [id number] IMPRESSION: 1. Decreased extent of small bowel wall thickening with residual moderately thick-walled bowel loop in the left/midline abdomen. 2. Slightly increased size of bilateral pleural effusions. 3. Similar moderate body wall edema and mild ascites. -CRP, Pro-Dominik, sed rate, lactic acid within normal limits -Plan -Continue IV. meropenem, IV Flagyl -Monitor lactic acid -Await stool studies -General surgery consulted -N.p.o., IV fluids -Serial abdominal exams (2) Hyponatremia: Likely hypovolemic hyponatremia related to dehydration Continue IV fluids (3) C. difficile colitis: - On p.o. vancomycin -On IV Flagyl Plan -Hypoglycemia, stop Levemir, on D10 DM1: Continue insulin CKD: Currently appears at baseline Anemia Right BKA Other medical problems Attestations 2 Medical Necessity Statement*: Patient requires hospitalization for enteritis, C. difficile colitis, hyponatremia, dehydration Diagnoses Enteritis K52.9 Hyponatremia E87.1 C. difficile colitis A04.72
[2023-11-23] MEDS: dextrose 5%-sod chloride 0.9% 1,000 ML 75 ML IV (16:52)
[2023-11-23 17:04] LABS: Glucose Point of Care 231 mg/dL (70-110)
[2023-11-23 19:16] LABS: Glucose Point of Care 231 mg/dL (70-110)
[2023-11-23 21:29] LABS: Glucose Point of Care 204 mg/dL (70-110)
[2023-11-23] MEDS: insulin lispro 100 unit/1 mL SUBCUT (22:06)
[2023-11-23 23:08] LABS: Glucose Point of Care 143 mg/dL (70-110)
[2023-11-24] VITALS (7 sets, daily range): BP systolic 107–160; BP diastolic 70–90; PULSE 86–97; RESP 16–18; TEMP 36.4–36.9; O2SAT 96–100; BMI 27.3
[2023-11-24 01:13] LABS: Glucose Point of Care 97 mg/dL (70-110)
[2023-11-24 03:07] LABS: Glucose Point of Care 140 mg/dL (70-110)
[2023-11-24] MEDS: HYDROmorphone 1 mg/mL INJ 1 mL 0.5 MG IVP (03:28)
[2023-11-24] MEDS: metroNIDAZOLE IV 500 MG/100 ML PREMIX 100 MG IV ×3 (03:28→21:32)
[2023-11-24 05:18] LABS: Glucose Point of Care 192 mg/dL (70-110)
[2023-11-24] MEDS: meropenem 1,000 MG in sodium chloride 0.9% (plus) 50 ML 100 MG IV ×3 (05:41→21:32)
[2023-11-24 07:03] LABS: Glucose Point of Care 171 mg/dL (70-110)
--- NOTE | 2023-11-24 08:00 | XRR_ITS ---
PROCEDURE INFORMATION: Exam: XR Abdomen Exam date and time: 11/24/2023 8:20 AM Age: 43 years old Clinical indication: Abdominal pain; Additional info: Abdominal distention TECHNIQUE: Imaging protocol: Radiologic exam of the abdomen. Views: Frontal supine view of the abdomen. 1 View. COMPARISON: CR (ABDOMEN, ) 11/23/2023 10:29 AM FINDINGS: Gastrointestinal tract: No dilated air-filled bowel loops. Intraperitoneal space: Surgical clips in the left abdomen. The left lateral abdomen is not included on the current study. Bones/joints: There is moderate degenerative disease of both sacroiliac joints and mild degenerative of the left hip joint. XR/XR KUB portable [id number] IMPRESSION: No significant bowel dilatation.
[2023-11-24 08:09] LABS: Basophils # 0.1 10^3/uL (0.0-0.1); Eosinophils # 0.2 10^3/uL (0.0-0.8); Eosinophils % 2.9 %; Hematocrit 39.1 % (36-47); Lymphocytes % 29.9 %; Mean Corpuscular HGB Conc 29.4 g/dL (30-55); Mean Corpuscular Hemoglobin 31.3 pg (27-33); Mean Corpuscular Volume 106.3 fl (85-98); Mean Platelet Volume 11.8 fL (7.4-10.4); Monocytes # 0.4 10^3/uL (0.2-0.9); Monocytes % 5.2 %; Neutrophils # 4.11 10^3/uL (1.8-7.7); Neutrophils % 60.6 %; Nucleated Red Blood Cells % 0 %; Platelet Count 178 10^3/cmm (157-399); Red Blood Count 3.68 10^6/uL (3.85-5.65); Red Cell Distribution Width 13.6 % (12.1-15.1); White Blood Count 6.79 10^3/uL (3.29-11.43)
[2023-11-24 08:30] LABS: Lactate (Lactic Acid level) 1.7 mmol/L (0.5-2.2)
[2023-11-24 08:34] LABS: Alanine Aminotransferase 10 U/L (0-33); Albumin Level 2.9 g/dL (3.5-5.2); Alkaline Phosphatase 103 U/L (35-105); Anion Gap 13.3 (5-19); Aspartate Amino Transferase 12 U/L (0-32); Blood Urea Nitrogen 2 mg/dL (6-20); Calcium 7.5 mg/dL (8.5-10.5); Carbon Dioxide 24 mmol/L (22-29); Chloride 105 mmol/L (98-107); Globulin 2.4 g/dL (1.3-4.6); Glomerular Filtration Rate 92.2 mL/min (90-130); Glucose 162 mg/dL (65-115); Magnesium 1.7 mg/dL (1.7-2.3); Osmolality Calculated 288 mOsm/kg (285-295); Phosphorus 2.3 mg/dL (2.5-4.5); Potassium 3.3 mmol/L (3.5-5.1); Sodium 139 mmol/L (136-145); Total Bilirubin 0.2 mg/dL (0.15-1.2); Total Protein 5.3 g/dL (6.6-8.7)
[2023-11-24 08:41] LABS: Procalcitonin 0.06 ng/mL (0-0.5)
[2023-11-24] MEDS: gabapentin 300 mg Capsule 600 MG PO ×3 (09:05→21:31)
[2023-11-24] MEDS: vancomycin 125 mg Capsule 250 MG PO ×4 (09:05→21:31)
[2023-11-24] MEDS: lamoTRIgine 100 mg Tablet 150 MG PO (09:05)
[2023-11-24] MEDS: HYDROcodone-acetaminophen 7.5-325 mg Tablet 1 TAB PO ×3 (09:06→21:31)
[2023-11-24] MEDS: heparin 5,000 unit/mL INJ 1 mL 5000 UNIT SUBCUT ×2 (09:08→22:35)
[2023-11-24 09:19] LABS: Glucose Point of Care 209 mg/dL (70-110)
--- NOTE | 2023-11-24 10:55 | P.PN_ITS ---
Subjective 2 Subjective: Patient was seen this morning, she feels significantly better abdominal distention abdominal pain has significantly improved she is passing gas from below continues to have diarrhea nausea is under control vomiting is under control she is tolerating a regular diabetic diet however continues to have some abdominal pain,. Particularly in the right upper quadrant, on examination no significant point tenderness,, we discussed her LFTs within normal limits, alk phos within normal limits denies any fevers, no chills I will do a right upper quadrant ultrasound Vitals/I&O/Wt Last Vital Signs Temp 97.6 F 11/24/23 07:50 Pulse 86 11/24/23 07:50 Resp 18 11/24/23 07:50 BP 135/84 11/24/23 07:50 Pulse Ox 100 11/24/23 07:50 O2 Del Method Room Air 11/24/23 07:50 11/23/23 11/24/23 11/24/23 22:59 06:59 14:59 Intake Total 2378.333 / 2858.333 1272.5 / 4130.833 680 / 680 Output Total 500 / 500 1800 / 1800 Balance 2378.333 / 2858.333 772.5 / 3630.833 -1120 / -1120 Weight last 48 hrs Weight 69.899 kg Weight 69.899 kg Physical Exam 2 Const: COMMON NORMALS: no acute distress and patient oriented x3 Resp: COMMON NORMALS: normal respiratory effort, No retractions, No use of accessory muscles and clear to auscultation bilaterally AUSCULTATION: clear to auscultation bilaterally Cardio: COMMON NORMALS: regular rate, regular rhythm, S1 normal heart sound present and S2 normal heart sound present RATE: regular rate RHYTHM: r egular rhythm HEART SOUNDS: S1 normal heart sound present and S2 normal heart sound present GI: COMMON NORMALS: Normal to inspection, nondistended, normoactive bowel sounds present and non-tender Extremity: COMMON NORMALS: no pedal edema Neuro: COMMON NORMALS: patient oriented x3 Psych: COMMON NORMALS: mental status grossly normal Data 11/24/23 07:44 11/24/23 07:44 A&P Assessment and plan (1) Enteritis: IMPRESSION: 1. Progression of soft tissue anasarca throughout the abdomen and pelvis with mesenteric edema. 2. New small bilateral pleural effusions. 3. Persistent small bowel dilatation with thickened muscularis portion of the small bowel. Findings are predominantly in the proximal and mid small bowel and to a lesser extent the colon. This is not a typical presentation for C. difficile. C. difficile is most likely in the colon but can affect the small bowel. Consider other etiologies such as different infection etiologies or ischemia. Hemorrhage may appear similar. 4. Abnormality in the RIGHT lower quadrant. Findings are suspicious for pneumatosis and possible perforation near the cecum and distal small bowel. This area is difficult to evaluate due to no separation of the GI tract but there is more air present which I cannot definitely place within the lumen of the GI tract. Patient needs to be evaluated for possible perforation and ischemic bowel disease. An underlying mass is not excluded. -Repeat CAT scan last night shows - CT/CT abdomen pelvis wo con [id number] IMPRESSION: 1. Decreased extent of small bowel wall thickening with residual moderately thick-walled bowel loop in the left/midline abdomen. 2. Slightly increased size of bilateral pleural effusions. 3. Similar moderate body wall edema and mild ascites. -CRP, Pro-Dominik, sed rate, lactic acid within normal limits -Abdomen improving today less distended, good bowel sounds, no guarding, rigidity, does have right upper quadrant tenderness -Plan -Continue IV. meropenem, IV Flagyl -Monitor lactic acid -Await stool studies -General surgery consulted -IV fluids -Ruq ultrasound -Serial abdominal exams (2) Hyponatremia: Likely hypovolemic hyponatremia related to dehydration Continue IV fluids (3) C. difficile colitis: - On p.o. vancomycin -On IV Flagyl Plan -Hypoglycemia, stop Levemir, on D10 DM1: Continue insulin CKD: Currently appears at baseline Anemia Right BKA Other medical problems Attestations 2 Medical Necessity Statement*: Patient requires hospitalization hospitalization, for severe enteritis, C. difficile colitis Diagnoses Enteritis K52.9 Hyponatremia E87.1 C. difficile colitis A04.72
--- NOTE | 2023-11-24 10:56 | USR_ITS ---
PROCEDURE INFORMATION: Exam: US Abdomen, Limited; Right Upper Quadrant Exam date and time: 11/24/2023 6:18 PM Age: 43 years old Clinical indication: Abdominal pain; Generalized; Prior surgery; Surgery date: 6+ months; Surgery type: Appendectomy; Additional info: Ruq pain, patinet ate lunch. Patient will begin being npo and will scan this evening. TECHNIQUE: Imaging protocol: Real time ultrasound of the abdomen with image documentation. Limited exam focused on the right upper quadrant. COMPARISON: CT abdomen pelvis wo con [id number] 11/23/2023 6:20 AM FINDINGS: Liver: Normal. No masses. Gallbladder: No stone or sludge in the gallbladder. Gallbladder wall is normal in thickness measuring 3 mm. Small amount of abdominal ascites. Biliary ducts: Common bile duct is normal in size measuring 5 mm. Pancreas: Visualized pancreas is unremarkable. Right kidney: Right kidney measures 7.5 cm in length no hydronephrosis or renal calculus. Aorta: The visualized aorta and IVC unremarkable. US/US gall bladder [id number] IMPRESSION: No cholelithiasis or cholecystitis.
[2023-11-24 11:26] LABS: Glucose Point of Care 239 mg/dL (70-110)
--- NOTE | 2023-11-24 12:51 | P.PN_ITS ---
Subjective 2 Subjective: Patient seen and examined. Much more awake today. Pain controlled Vitals/I&O/Wt Last Vital Signs Temp 98 F 11/24/23 11:49 Pulse 92 11/24/23 11:49 Resp 18 11/24/23 11:49 BP 160/90 11/24/23 11:49 Pulse Ox 99 11/24/23 11:49 O2 Del Method Room Air 11/24/23 11:49 11/23/23 11/24/23 11/24/23 22:59 06:59 14:59 Intake Total 2378.333 / 2858.333 1272.5 / 4130.833 680 / 680 Output Total 500 / 500 1800 / 1800 Balance 2378.333 / 2858.333 772.5 / 3630.833 -1120 / -1120 Weight last 48 hrs Weight 154 lb 1.6 oz Weight 154 lb 1.6 oz Physical Exam 2 Narrative: General: No acute distress, awake alert noted x 3 Abdomen: Soft, distended, mild diffuse tenderness to palpation, no guarding rebound or masses Data 11/24/23 07:44 11/24/23 07:44 A&P Assessment and plan (1) Gastroenteritis: (2) C. difficile colitis: Plan Stool studies pending, C. difficile PCR positive but confirmatory toxin testing negative Decrease narcotics again Diabetic diet No acute surgical intervention Medical management per hospitalist Agree with antibiotic treatment for presumed gastroenteritis and C. difficile colitis Attestations 2 Medical Necessity Statement*: Per primary Coding Level of Care Code 05171 Diagnoses Gastroenteritis K52.9 C. difficile colitis A04.72
[2023-11-24 14:44] LABS: Glucose Point of Care 253 mg/dL (70-110)
[2023-11-24 17:04] LABS: Glucose Point of Care 270 mg/dL (70-110)
[2023-11-24 20:53] LABS: Glucose Point of Care 285 mg/dL (70-110)
[2023-11-24] MEDS: metoclopramide 5 mg/mL SDV 2 mL IVP (21:59)
[2023-11-24 22:00] LABS: Glucose Point of Care 310 mg/dL (70-110)
[2023-11-24] MEDS: insulin lispro 100 unit/1 mL SUBCUT (22:35)
[2023-11-25] VITALS: BP 117/57; PULSE 88; RESP 18; TEMP 36.7; O2SAT 96
[2023-11-25 00:20] LABS: Glucose Point of Care 146 mg/dL (70-110)
[2023-11-25 02:37] LABS: Glucose Point of Care 84 mg/dL (70-110)
[2023-11-25 03:22] LABS: Basophils # 0.1 10^3/uL (0.0-0.1); Basophils % 0.7 %; Eosinophils # 0.3 10^3/uL (0.0-0.8); Eosinophils % 2.8 %; Hematocrit 37.4 % (36-47); Lymphocytes # 3.7 10^3/uL (0.8-4.8); Lymphocytes % 35.8 %; Mean Corpuscular HGB Conc 31.8 g/dL (30-55); Mean Corpuscular Hemoglobin 31.5 pg (27-33); Mean Corpuscular Volume 98.9 fl (85-98); Mean Platelet Volume 10.5 fL (7.4-10.4); Monocytes # 0.5 10^3/uL (0.2-0.9); Monocytes % 4.7 %; Neutrophils # 5.77 10^3/uL (1.8-7.7); Neutrophils % 55.4 %; Nucleated Red Blood Cells % 0 %; Platelet Count 432 10^3/cmm (157-399); Red Blood Count 3.78 10^6/uL (3.85-5.65); Red Cell Distribution Width 13.9 % (12.1-15.1); White Blood Count 10.41 10^3/uL (3.29-11.43)
[2023-11-25] MEDS: HYDROcodone-acetaminophen 7.5-325 mg Tablet 1 TAB PO ×2 (03:28→09:42)
[2023-11-25 03:38] LABS: Lactate (Lactic Acid level) 0.8 mmol/L (0.5-2.2)
[2023-11-25 03:39] LABS: Alanine Aminotransferase 13 U/L (0-33); Albumin Level 3.3 g/dL (3.5-5.2); Alkaline Phosphatase 111 U/L (35-105); Anion Gap 7.4 (5-19); Aspartate Amino Transferase 14 U/L (0-32); Blood Urea Nitrogen 6 mg/dL (6-20); Calcium 8.1 mg/dL (8.5-10.5); Carbon Dioxide 32 mmol/L (22-29); Chloride 105 mmol/L (98-107); Globulin 2.4 g/dL (1.3-4.6); Glomerular Filtration Rate 92.2 mL/min (90-130); Glucose 92 mg/dL (65-115); Magnesium 1.8 mg/dL (1.7-2.3); Osmolality Calculated 289 mOsm/kg (285-295); Phosphorus 2.8 mg/dL (2.5-4.5); Potassium 3.4 mmol/L (3.5-5.1); Sodium 141 mmol/L (136-145); Total Bilirubin 0.2 mg/dL (0.15-1.2); Total Protein 5.7 g/dL (6.6-8.7)
[2023-11-25 03:50] LABS: Procalcitonin 0.09 ng/mL (0-0.5)
[2023-11-25 04:00] VITALS: BP 110/67; PULSE 88; RESP 18; TEMP 36.6; O2SAT 100
[2023-11-25] MEDS: metoclopramide 5 mg/mL SDV 2 mL IVP ×2 (04:02→09:42)
[2023-11-25] MEDS: metroNIDAZOLE IV 500 MG/100 ML PREMIX 100 MG IV (04:20)
[2023-11-25] MEDS: meropenem 1,000 MG in sodium chloride 0.9% (plus) 50 ML 100 MG IV (04:20)
[2023-11-25 04:27] LABS: Glucose Point of Care 175 mg/dL (70-110)
[2023-11-25 06:21] LABS: Glucose Point of Care 238 mg/dL (70-110)
[2023-11-25 08:00] VITALS: BP 138/83; PULSE 85; RESP 15; TEMP 36.7; O2SAT 97
[2023-11-25] MEDS: heparin 5,000 unit/mL INJ 1 mL 5000 UNIT SUBCUT (08:23)
[2023-11-25] MEDS: gabapentin 300 mg Capsule 600 MG PO (08:24)
[2023-11-25] MEDS: lamoTRIgine 100 mg Tablet 150 MG PO (08:24)
[2023-11-25] MEDS: vancomycin 125 mg Capsule 250 MG PO (08:25)
[2023-11-25] MEDS: insulin lispro 100 unit/1 mL SUBCUT (08:26)
[2023-11-25 08:43] LABS: Glucose Point of Care 244 mg/dL (70-110)
[2023-11-25 10:15] LABS: Glucose Point of Care 191 mg/dL (70-110)
--- NOTE | 2023-11-25 11:32 | P.DS_ITS ---
Discharge Providers Date of Admission: 11/19/23 21:08 Date of Discharge: November 25, 2023 Attending Provider at Admission: Felice Jennings Attending Provider at Discharge: Landon Clark MD Consults: General surgery Diagnoses at Discharge Discharge Diagnosis (1) Gastroenteritis: Status: Acute (2) C. difficile colitis: Status: Acute Reason for Visit Reason for Visit: Abd pain Hospital Course Hospital Course Anna Tolbert is a 43-year-old female with past medical history significant for type 1 diabetes mellitus, osteomyelitis with BKA, and prior C. difficile infection who presented with abdominal pain, found to have enteritis and C. difficile colitis. General surgery consulted and followed. She might eventually benefit from colonoscopy after acute infection is resolved. She was treated with broad-spectrum antibiotics including IV Flagyl and oral vancomycin. Her enteritis and C. difficile colitis improved with treatment. She was found to have hypovolemic hyponatremia treated with IV fluids. Diarrhea and other symptoms significantly improved. She was rotated to oral Cipro/Flagyl as well as vancomycin to complete a total of 14 days of antibiotic treatment. Patient discharged home in stable condition. She is to follow-up with her primary care provider for further care. Physical Exam Narrative: General: Patient is awake and alert. No acute distress. Pleasant. Head: Normocephalic. Atraumatic. EOM intact. Neck: No JVD. Cardiovascular: RRR. No gallops. No murmurs. Lungs: Clear to auscultation, no use of accessory muscles, no crackles or wheezes. Skin: No jaundice. No rashes. Abdomen: Normal bowel sounds, abdomen soft and nontender. Extremities: No cyanosis or clubbing. Neurological: No myoclonus. Discharge Data Studies Completed and Pending Completed Studies During Hospitalization Category Date Time Status CT abdomen pelvis wo con [id number] Routine Cat Scan 11/23/23 04:[address] abdomen pelvis wo con [id number] Stat Cat Scan 11/19/23 15:[address] abdomen pelvis wo con [id number] Stat Cat Scan 11/22/23 10:16 Completed CTA abdomen pelvis [CT angio abdomen pelvis [id number]] Stat Cat Scan 11/19/23 16:45 Completed XR KUB portable [id number] Routine Exams 11/21/23 12:13 Completed XR KUB portable [id number] Routine Exams 11/22/23 08:15 Completed XR KUB portable [id number] Routine Exams 11/24/23 08:00 Completed XR KUB portable [id number] Stat Exams 11/23/23 09:31 Completed US gall bladder [id number] Routine Ultrasound 11/24/23 10:56 Completed Pending at discharge Category Date Time Status Cryptococcal Antigen w/ Reflex Stat Lab 11/23/23 15:35 Received Enteric Parasite [OVA and Parasites, Conc and PE] Lab 11/23/23 23:10 Received Routine Giardia and Cryptosporidium Ag Routine Lab 11/23/23 15:16 Received Stool Culture - Enteric [Salmonella / Shigella / Campy] Lab 11/19/23 22:44 Received Routine Radiology Impressions Abdomen/Pelvis CTA 11/19/23 16:45 IMPRESSION: 1. Mild to moderate four-quadrant ascites which could be secondary to extensive small bowel inflammation. 2. Patent celiac axis, SMA and ALEX without obvious stenosis or occlusion. 3. Prominent moderate to severe bowel wall thickening in multiple loops of right-sided small bowel with some midline small bowel also most consistent with moderate to severe infectious enteritis with enhancing bowel identified. 4. On arterial phase images the distal branches of the superior mesenteric veins are opacified however the central superior mesenteric vein is indeterminate because there are no venous phase delayed images. ADDENDUM: 11/19/231829 CTA chest was not performed. Please disregard the CTA chest report. ADDENDUM: 11/19/238 THIS REPORT CONTAINS FINDINGS THAT MAY BE CRITICAL TO PATIENT CARE. The findings were verbally communicated via telephone conference with Dr. Sherman at 6:36 PM [employer] on 11/19/2023. The findings were acknowledged and understood. Abdomen/Pelvis CT 11/23/23 04:36 IMPRESSION: 1. Decreased extent of small bowel wall thickening with residual moderately thick-walled bowel loop in the left/midline abdomen. 2. Slightly increased size of bilateral pleural effusions. 3. Similar moderate body wall edema and mild ascites. KUB X-Ray 11/24/23 08:00 IMPRESSION: No significant bowel dilatation. Gallbladder Ultrasound 11/24/23 10:56 IMPRESSION: No cholelithiasis or cholecystitis. Laboratory Results WBC 10.41 10^3/uL (3.29-11.43) 11/25/23 03:02 RBC 3.78 10^6/uL (3.85-5.65) L 11/25/23 03:02 Hgb 11.90 g/dL (11.27-16.99) 11/25/23 03:02 Hct 37.4 % (36-47) 11/25/23 03:02 MCV 98.9 fl (85-98) H D 11/25/23 03:02 MCH 31.5 pg (27-33) 11/25/23 03:02 MCHC 31.8 g/dL (30-55) D 11/25/23 03:02 RDW 13.9 % (12.1-15.1) 11/25/23 03:02 Plt Count 432 10^3/cmm (157-399) H D 11/25/23 03:02 MPV 10.5 fL (7.4-10.4) H 11/25/23 03:02 Neut % (Auto) 55.4 % 11/25/23 03:02 Lymph % (Auto) 35.8 % 11/25/23 03:02 Barber % (Auto) 4.7 % 11/25/23 03:02 Eos % (Auto) 2.8 % 11/25/23 03:02 Baso % (Auto) 0.7 % 11/25/23 03:02 Neut # (Auto) 5.77 10^3/uL (1.8-7.7) 11/25/23 03:02 Lymph # (Auto) 3.7 10^3/uL (0.8-4.8) 11/25/23 03:02 Barber # (Auto) 0.5 10^3/uL (0.2-0.9) 11/25/23 03:02 Eos # (Auto) 0.3 10^3/uL (0.0-0.8) 11/25/23 03:02 Baso # (Auto) 0.1 10^3/uL (0.0-0.1) 11/25/23 03:02 Nucleated RBC % (auto) 0 % 11/25/23 03:02 Nucleated RBCs # 0.0 /100WBC 11/25/23 03:02 ESR 19 mm/hr (0-15) H 11/22/23 13:55 Specimen Type Arterial 11/19/23 14:56 Sample Site Radial, left 11/19/23 14:56 ABG pH 7.43 (7.35-7.45) 11/19/23 14:56 ABG pCO2 42.4 mmHg (35-45) 11/19/23 14:56 ABG pO2 71.5 mmHg (80.0-100.0) L 11/19/23 14:56 ABG PO2/FiO2 Ratio 0 11/19/23 14:56 ABG HCO3 28.1 mmol/L (22-26) H 11/19/23 14:56 ABG O2 Saturation 97.1 11/19/23 14:56 ABG Base Excess 3.4 mmol/L (-2.0-2.0) H 11/19/23 14:56 Don Test Pos 11/19/23 14:56 A-a O2 Gradient 3.4 mmHg (5-10) L 11/19/23 14:56 Hematocrit 37.8 % (37-47) 11/19/23 14:56 Hgb O2 Saturation 90.7 % (95-100) L 11/19/23 14:56 Carboxyhemoglobin 6.2 %THgb (0.4-20.1) 11/19/23 14:56 Methemoglobin 0.5 % (0.4-1.5) 11/19/23 14:56 Total Hemoglobin 12.3 g/dL (12-16) 11/19/23 14:56 Sodium 130.0 mmol/L (131-143) L 11/19/23 14:56 Potassium 3.9 mmol/L (3.5-5.0) 11/19/23 14:56 Glucose 441.0 mg/dL (70-115) H 11/19/23 14:56 Ionized Calcium 1.2 mmol/L (1.1-1.4) 11/19/23 14:56 O2 Delivery Device Room air 11/19/23 14:56 FiO2 21.0 % 11/19/23 14:56 Assistant Fitness Manager ID [place] 11/19/23 14:56 Sodium 141 mmol/L (136-145) 11/25/23 03:02 Potassium 3.4 mmol/L (3.5-5.1) L 11/25/23 03:02 Chloride 105 mmol/L (98-107) 11/25/23 03:02 Carbon Dioxide 32 mmol/L (22-29) H 11/25/23 03:02 Anion Gap 7.4 (5-19) 11/25/23 03:02 BUN 6 mg/dL (6-20) 11/25/23 03:02 Creatinine 0.7 mg/dL (0.5-0.9) 11/25/23 03:02 GFR Calculation 92.2 mL/min (90-130) 11/25/23 03:02 Glucose 92 mg/dL (65-115) 11/25/23 03:02 POC Glucose 191 mg/dL (70-110) H 11/25/23 10:12 Calculated Osmolality 289 mOsm/kg (285-295) 11/25/23 03:02 Lactic Acid 3.2 mmol/L (0.5-2.2) H 11/19/23 14:50 Lactic Acid (Sepsis) 1.4 mmol/L (0.5-2.2) 11/19/23 17:59 Lactate 0.8 mmol/L (0.5-2.2) 11/25/23 03:02 Calcium 8.1 mg/dL (8.5-10.5) L 11/25/23 03:02 Phosphorus 2.8 mg/dL (2.5-4.5) 11/25/23 03:02 Magnesium 1.8 mg/dL (1.7-2.3) 11/25/23 03:02 Total Bilirubin 0.2 mg/dL (0.15-1.2) 11/25/23 03:02 AST 14 U/L (0-32) 11/25/23 03:02 ALT 13 U/L (0-33) 11/25/23 03:02 Alkaline Phosphatase 111 U/L (35-105) H 11/25/23 03:02 Creatine Kinase 26 U/L (26-192) 11/19/23 14:50 C-Reactive Protein 3.0 mg/L (0.0-4.9) 11/25/23 03:02 Total Protein 5.7 g/dL (6.6-8.7) L 11/25/23 03:02 Albumin 3.3 g/dL (3.5-5.2) L 11/25/23 03:02 Globulin 2.4 g/dL (1.3-4.6) 11/25/23 03:02 Lipase 33 U/L (13-60) 11/19/23 14:50 Procalcitonin 0.09 ng/mL (0-0.5) 11/25/23 03:02 Ser , Semi-Qnt 1.00 mIU/mL 11/19/23 14:50 Urine Color Yellow (Yellow) 11/19/23 16:50 Urine Appearance Clear (CLEAR) 11/19/23 16:50 Urine pH 5 (5-7) 11/19/23 16:50 Ur Specific [place] 1.015 (1.005-1.030) 11/19/23 16:50 Urine Protein Neg (Negative) 11/19/23 16:50 Urine Glucose (UA) 4+ (Normal) H 11/19/23 16:50 Urine Ketones Negative (Negative) 11/19/23 16:50 Urine Blood Neg (Negative) 11/19/23 16:50 Urine Nitrate Negative (Negative) 11/19/23 16:50 Urine Bilirubin Neg (Negative) 11/19/23 16:50 Urine Urobilinogen Norm mg/dL (Negative) 11/19/23 16:50 Ur Leukocyte Esterase Negative (Negative) 11/19/23 16:50 Serum Ketones Negative (Negative) 11/19/23 14:50 C. difficile (PCR) Positive (Negative) H 11/21/23 08:25 C.difficile Tox Confrm Negative (Negative) 11/21/23 08:25 Vitals Last Vital Signs Temp 98.1 F 11/25/23 08:00 Pulse 85 11/25/23 08:00 Resp 15 11/25/23 08:00 BP 138/83 11/25/23 08:00 Pulse Ox 97 11/25/23 08:00 O2 Del Method Room Air 11/24/23 15:46 Discharge Plan Discharge Patient Disposition: Home Condition: Stable Prescriptions: New metronidazole 500 mg Tablet 500 mg PO TID 10 Days Qty: 30 0RF ciprofloxacin HCl 500 mg Tablet 500 mg PO BID@0900,2100 10 Days Qty: 20 0RF vancomycin 125 mg Capsule 125 mg PO QID 10 Days Qty: 40 0RF Percocet 10-325 mg tablet 1 tab PO Q4H PRN (Reason: pain) 5 Days Qty: 25 0RF Rx Instructions: Do not exceed 5 tabs in 24 hours. Continued (DME) non-adherent bandage 5 X 9 bandage See Rx Instructions .ROUTE Rx Instructions: As directed gabapentin 600 mg tablet 600 mg PO TID Qty: 90 0RF insulin lispro [Humalog KwikPen Insulin] 100 unit/mL Insulin Pen See Rx Instructions .ROUTE .COMPLEX Rx Instructions: 6 unit subcutaneously three times daily plus sliding scale lamotrigine [Lamictal] 150 mg Tablet 150 mg PO DAILY Novolin N NPH U-100 Insulin 100 unit/mL Suspension 21 unit SUBCUT BID (DME) Xeroform Petrolatum Dressing 5 X 9 bandage See Rx Instructions .Route Qty: 50 3RF Rx Instructions: As directed (DME) elastic bandage 2 X 1.9 -yard bandage See Rx Instructions .Route Qty: 14 3RF Rx Instructions: As directed Discharge Orders: Discharge Order (Routine); Ordered 11/25/23 Ordered By: Landon Clark Referrals: Everett Huddleston MD [Physician] - 11/28/23 10:30 am Discharge Diet: Advance as tolerated and Usual diet Discharge Activity: Resume usual activity and Increase activity as tolerated Patient Instructions: Clostridium Difficile, Ciprofloxacin (By mouth), Oxycodone/Acetaminophen (By mouth), Metronidazole (By mouth), Vancomycin (By mouth), Gastroenteritis (GEN), Opioid Safety Activity Restrictions/Additional Instructions: Take medications as prescribed. Establish with primary care physician. Advance activity as tolerated. Discharge Attestations Time Spent in Discharge Care*: greater than 30 min Quality Metrics Clinical Quality Measures [ No reported AMI, CVA or VTE this stay] Coding Level of Care Code Acute Code for [facility] Fwd Diagnoses Gastroenteritis K52.9 C. difficile colitis A04.72
[2023-11-25 11:58] VITALS: BP 134/79; PULSE 86; RESP 15; TEMP 36.7; O2SAT 96
[2023-11-25 12:17] VITALS: BP 134/79; PULSE 86; RESP 15; TEMP 36.7; O2SAT 96
[2023-11-28 17:25] LABS: Cryptococcal Source SERUM
== END 2023-11-25 12:21 | disposition home or self-care (01) | DRG 372 ==
LOC: ER 18:58 → MEDSURG 21:08
PROVIDERS: Family Medicine; Admitting Provider Internal Medicine; Emergency Provider Internal Medicine; Visit Provider Internal Medicine
DX: A04.72 Enterocolitis due to Clostridium difficile, not specified as recurrent (principal); E87.1 Hypo-osmolality and hyponatremia; R18.8 Other ascites; E10.22 Type 1 diabetes mellitus with diabetic chronic kidney disease; N18.9 Chronic kidney disease, unspecified; E10.65 Type 1 diabetes mellitus with hyperglycemia; E10.649 Type 1 diabetes mellitus with hypoglycemia without coma; F17.200 Nicotine dependence, unspecified, uncomplicated; D63.1 Anemia in chronic kidney disease; E86.1 Hypovolemia; E86.0 Dehydration; Z79.4 Long term (current) use of insulin; Z87.440 Personal history of urinary (tract) infections; Z86.14 Personal history of Methicillin resistant Staphylococcus aureus infection; Z89.511 Acquired absence of right leg below knee
CPT/HCPCS: 36415; 36416; 36600; 74018; 74174; 74176; 76705; 80048; 80051; 80053; 81003; 82009; 82274; 82330; 82550; 82805; 82962; 83605; 83630; 83690; 83735; 84100; 84145; 84702; 85025; 85651; 86140; 86403; 87040; 87045; 87177; 87209; 87324; 87328; 87329; 87427; 87449; 87493; 96365; 96367; 96372; 96375; 99285; J0744; J1170; J1644; J1815; J2185; J2405; J2765; J3010; J3490; J7030; J7042; J7799; Q9967

== ENCOUNTER → 2023-12-20 15:04 | Outpatient (BNVA) | payer MEDICAID, SELFPAY | PROVIDERS: Visit Provider Family Medicine | DX: F32.1 Major depressive disorder, single episode, moderate (principal); A04.72 Enterocolitis due to Clostridium difficile, not specified as recurrent; F31.9 Bipolar disorder, unspecified; G47.00 Insomnia, unspecified; Z89.519 Acquired absence of unspecified leg below knee; G54.7 Phantom limb syndrome without pain; M86.9 Osteomyelitis, unspecified; E10.9 Type 1 diabetes mellitus without complications; R30.0 Dysuria | CPT/HCPCS: 81000; 85025 ==

== ENCOUNTER 2024-01-15 13:48 | Inpatient (IN) | payer MEDICAID, SELFPAY ==
[2024-01-15] VITALS (7 sets, daily range): BP systolic 109–166; BP diastolic 69–106; PULSE 84–100; RESP 11–16; TEMP 36.3–36.6; O2SAT 96–100; BMI 23.0
--- NOTE | 2024-01-15 13:52 | ED_ITS ---
HPI - General Adult 2 General: Chief complaint: General Medical Stated complaint: Sickness Time Seen by Provider: 01/15/24 13:52 Source: patient Mode of arrival: ambulatory History of Present Illness: 43-year-old female presents emergency ro om complaining abdominal pain with hematochezia. She had nausea vomiting dysuria urgency and frequency. She has a history of renal failure in the past as well as MRSA positive cultures. 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 She does report a low-grade fever. Denies chest pain or shortness of breath Onset (ago): minute(s) Relieving factors: none Exacerbating factors: none Associated symptoms: Deny chest pain, confusion, cough, diaphoresis, decreased appetite, dyspnea, fevers/chills, headache(s), malaise, nausea, rash, palpitations, seizures, short of breath, syncope, vomiting or weakness Treatments prior to arrival: none Review of Systems 2 Const: Reports: fever(s) and chills; Denies: malaise or diaphoresis Card: Denies: chest pain, palpitations or syncope Resp: Denies: dyspnea or productive cough GI: Denies: abdominal pain, nausea or vomiting : Reports: dysuria and urinary frequency Musc: Denies: neck pain or back pain Skin/Breast: Denies: rash Neuro: Denies: headache(s) or confusion PFSH ED 2 PFSH: Medical History Phantom limb Insomnia Moderate major depression Bipolar disorder Chronic kidney disease Type 1 diabetes Surgical History History of appendectomy History of surgery on lower extremity History of tonsillectomy Social History Smoking and tobacco/nicotine status: current every day tobacco/nicotine user cigarettes Packs smoked per day: 0.25 and e-cigarettes E-Cigarette Details: e- cigarette Alcohol intake: former Substance/Drug Use: current Physical Exam 2 Const: GENERAL APPEARANCE: cooperative and comfortable O RIENTATION/CONSCIOUSNESS: Yes awake, Yes oriented to person, Yes oriented to place and Yes oriented to time HENMT: COMMON NORMALS: normocephalic, atraumatic and hearing grossly normal bilaterally HEAD & SCALP: normocephalic and atraumatic OTHER: Angular cheilitis with excoriations on the lower lip dried reddened eschars present Resp: COMMON NORMALS: normal respiratory effort, No retractions, No use of accessory muscles and clear to auscultation bilaterally AUSCULTATION: clear to auscultation bilaterally Cardio: COMMON NORMALS: regular rate, regular rhythm and No murmurs present (Cardio) RATE: regular rate RHYTHM: regular rhythm GI: COMMON NORMALS: No hepatosplenomegaly present AUSCULTATION: Yes normoactive bowel sounds PALPATION: Yes Tenderness to palpation present (GI), No Guarding due to palpation present (GI) and Yes No hepatosplenomegaly present Extremity: COMMON NORMALS: normal to inspection, capillary refill normal, no clubbing, cyanosis or edema, no calf tenderness and no pedal edema Neuro: SENSORIUM/ORIENTATION: Yes oriented to person, Yes oriented to place and Yes oriented to time Skin: COMMON NORMALS: no rashes or lesions noted GENERAL SKIN EXAM: no rashes or lesions noted Course 2 Vital Signs: Vital signs: Vital Signs Temperature 97.9 F 01/15/24 13:49 Pulse Rate 90 01/15/24 15:36 Respiratory Rate 12 01/15/24 15:36 Blood Pressure 166/88 01/15/24 15:36 Pulse Oximetry 99 01/15/24 15:36 Oxygen Delivery Me thod Room Air 01/15/24 15:36 MDM - General Adult Medical Decision Making No leukocytosis lactic acid is elevated. Blood sugars improved with insulin and fluids. Urine shows pyelonephritis CT confirms no abscess no stones. Will admit IV antibiotics cultures discussed with hospitalist orders written. No signs of DKA on labs done in the emergency room. Medical Records I reviewed the patient's medical records. Lab Data I reviewed the patient's lab results. 01/15/24 14:28 01/15/24 14:28 Radiology Impressions Abdomen/Pelvis CT 01/15/24 15:47 IMPRESSION: 1. Findings raising the question of chronic recurrent pyelonephritis in the proper clinical setting. Correlation with urinalysis and laboratory findings is recommended. 2. Displaced right-sided tubal ligation clip. Guest Room Attendant follow-up is recommended. 3. Hepatomegaly and hepatic steatosis. Consider correlation with clinical and laboratory findings for steatohepatitis. ADDENDUM: 01/15/24 1618 IMPRESSION #4: Thickened proximal small bowel loops compatible with an infectious or inflammatory enteritis. Consider follow-up GI evaluation. Laboratory Results WBC 11.11 10^3/uL (3.29-11.43) 01/15/24 14: RBC 4.06 10^6/uL (3.85-5.65) 01/15/24 14:28 Hgb 12.80 g/dL (11.27-16.99) 01/15/24 14: Hct 39.4 % (36-47) 01/15/24 14: MCV 97.0 fl (85-98) 01/15/24 14: MCH 31.5 pg (27-33) 01/15/24 14: MCHC 32.5 g/dL (30-55) 01/15/24 14: RDW 12.3 % (12.1-15.1) 01/15/24 14: Plt Count 375 10^3/cmm (157-399) 01/15/24 14: MPV 10.7 fL (7.4-10.4) H 01/15/24 14: Neut % (Auto) 73.1 % 01/15/24 14: Lymph % (Auto) 19.2 % 01/15/24 14:28 [place] % (Auto) 4.4 % 01/15/24 14: Eos % (Auto) 2.3 % 01/15/24 14: Baso % (Auto) 0.6 % 01/15/24 14: Neut # (Auto) 8.13 10^3/uL (1.8-7.7) H 01/15/24 14:28 Lymph # (Auto) 2.1 10^3/uL (0.8-4.8) 01/15/24 14:28 [place] # (Auto) 0.5 10^3/uL (0.2-0.9) 01/15/24 14: Eos # (Auto) 0.3 10^3/uL (0.0-0.8) 01/15/24 14:28 Baso # (Auto) 0.1 10^3/uL (0.0-0.1) 01/15/24 14: Nucleated RBC % (auto) 0 % 01/15/24 14: Nucleated RBCs # 0.0 /100WBC 01/15/24 14:28 Specimen Type Arterial 01/15/24 14:29 Sample Site Brachial, left 01/15/24 14:29 ABG pH 7.41 (7.35-7.45) 01/15/24 14:29 ABG pCO2 47.8 mmHg (35-45) H 01/15/24 14: ABG pO2 66.8 mmHg (80.0-100.0) L 01/15/24 14:29 ABG PO2/FiO2 Ratio 0 01/15/24 14: ABG HCO3 30.2 mmol/L (22-26) H 01/15/24 14: ABG O2 Saturation 94.5 01/15/24 14: ABG Base Excess 4.7 mmol/L (-2.0-2.0) H 01/15/24 14:29 Don Test N/a 01/15/24 14: A-a O2 Gradient 2.9 mmHg (5-10) L 01/15/24 14:29 Hematocrit 37.3 % (37-47) 01/15/24 14:29 Hgb O2 Saturation 92.5 % (95-100) L 01/15/24 14:29 Carboxyhemoglobin 1.6 %THgb (0.4-20.1) 01/15/24 14:29 Methemoglobin 0.5 % (0.4-1.5) 01/15/24 14:29 Total Hemoglobin 12.2 g/dL (12-16) 01/15/24 14:29 Sodium 134.0 mmol/L (131-143) 01/15/24 14:29 Potassium 4.1 mmol/L (3.5-5.0) 01/15/24 14:29 Glucose 335.0 mg/dL (70-115) H 01/15/24 14:29 Ionized Calcium 1.2 mmol/L (1.1-1.4) 01/15/24 14:29 O2 Delivery Device Room air 01/15/24 14:29 FiO2 21.0 % 01/15/24 14:29 Psychiatric Cns ID Amh 01/15/24 14:29 Sodium 133 mmol/L (136-145) L 01/15/24 14:28 Potassium 4.7 mmol/L (3.5-5.1) 01/15/24 14:28 Chloride 94 mmol/L (98-107) L 01/15/24 14:28 Carbon Dioxide 29 mmol/L (22-29) 01/15/24 14: Anion Gap 14.7 (5-19) 01/15/24 14:28 BUN 15 mg/dL (6-20) 01/15/24 14:28 Creatinine 0.7 mg/dL (0.5-0.9) 01/15/24 14: GFR Calculation 92.2 mL/min (90-130) 01/15/24 14:28 Glucose 469 mg/dL (65-115) H 01/15/24 14:28 POC Glucose 200 mg/dL (70-110) H 01/15/24 16:08 Calculated Osmolality 297 mOsm/kg (285-295) H 01/15/24 14:28 Lactic Acid 2.3 mmol/L (0.5-2.2) H 01/15/24 14:28 Calcium 9.2 mg/dL (8.5-10.5) 01/15/24 14:28 Total Bilirubin 0.2 mg/dL (0.15-1.2) 01/15/24 14: AST 12 U/L (0-32) 01/15/24 14: ALT 16 U/L (0-33) 01/15/24 14:28 Alkaline Phosphatase 215 U/L (35-105) H 01/15/24 14:28 Total Protein 7.3 g/dL (6.6-8.7) 01/15/24 14:28 Albumin 3.9 g/dL (3.5-5.2) 01/15/24 14:28 Globulin 3.4 g/dL (1.3-4.6) 01/15/24 14:28 Urine Color Straw (Yellow) 01/15/24 15:35 Urine Appearance Hazy (CLEAR) A 01/15/24 15:35 Urine pH 7 (5-7) 01/15/24 15:35 Ur Specific [place] 1.005 (1.005-1.030) 01/15/24 15:35 Urine Protein Neg (Negative) 01/15/24 15:35 Urine Glucose (UA) 4+ (Normal) H 01/15/24 15:35 Urine Ketones Negative (Negative) 01/15/24 15:35 Urine Blood Neg (Negative) 01/15/24 15:35 Urine Nitrate Negative (Negative) 01/15/24 15:35 Urine Bilirubin Neg (Negative) 01/15/24 15:35 Urine Urobilinogen Neg mg/dL (Negative) 01/15/24 15:35 Ur Leukocyte Esterase 1+ (Negative) H 01/15/24 15:35 Urine RBC 0-4 /hpf (0-2) H 01/15/24 15:35 Urine WBC >100 /hpf (0-5) H 01/15/24 15:35 Ur Squamous Epith Cells 0-4 /hpf (0-5) H 01/15/24 15:35 Amorphous Sediment Not Reportable 01/15/24 15:35 Urine Bacteria Trace /hpf (NONE) 01/15/24 15:35 Urine Yeast 1+ /hpf H 01/15/24 15:35 Serum Ketones Negative (Negative) 01/15/24 14:28 All radiology interpretation(s) finalized by discharge Discharge Plan Discharge Condition: Stable Prescriptions: No Action bupropion HCl [Wellbutrin XL] 150 mg tablet extended release 24 hr 150 mg PO QAM Qty: 30 0RF lamotrigine [Lamictal] 150 mg tablet 150 mg PO DAILY Qty: 90 1RF amitriptyline 75 mg tablet 75 mg PO DAILY Qty: 60 1RF pregabalin [Lyrica] 75 mg capsule 75 mg PO DAILY Qty: 30 0RF tizanidine 4 mg capsule 4 mg PO BID PRN (Reason: muscle spasticity) Qty: 60 1RF meloxicam 7.5 mg tablet 7.5 mg PO DAILY Qty: 60 1RF (DME) non-adherent bandage 5 X 9 bandage See Rx Instructions .Route Rx Instructions: As directed insulin lispro [Humalog KwikPen Insulin] 100 unit/mL Insulin Pen See Rx Instructions .ROUTE .COMPLEX Rx Instructions: 6 unit subcutaneously three times daily plus sliding scale Novolin N NPH U-100 Insulin 100 unit/mL Suspension 21 unit SUBCUT BID (DME) Xeroform Petrolatum Dressing 5 X 9 bandage See Rx Instructions .Route Qty: 50 3RF Rx Instructions: As directed (DME) elastic bandage 2 X 1.9 -yard bandage See Rx Instructions .Route Qty: 14 3RF Rx Instructions: As directed Coding Level of Care Code ED Material Reclaimer for Claudy Morgan
--- NOTE | 2024-01-15 14:30 | PC.NURSE ---
Glucose via fingerstick 145 @1103
[2024-01-15 14:31] LABS: Glucose Point of Care 486 mg/dL (70-110)
[2024-01-15 14:38] LABS: Basophils # 0.1 10^3/uL (0.0-0.1); Basophils % 0.6 %; Eosinophils # 0.3 10^3/uL (0.0-0.8); Eosinophils % 2.3 %; Hematocrit 39.4 % (36-47); Lymphocytes # 2.1 10^3/uL (0.8-4.8); Lymphocytes % 19.2 %; Mean Corpuscular HGB Conc 32.5 g/dL (30-55); Mean Corpuscular Hemoglobin 31.5 pg (27-33); Mean Platelet Volume 10.7 fL (7.4-10.4); Monocytes # 0.5 10^3/uL (0.2-0.9); Monocytes % 4.4 %; Neutrophils # 8.13 10^3/uL (1.8-7.7); Neutrophils % 73.1 %; Nucleated Red Blood Cells % 0 %; Platelet Count 375 10^3/cmm (157-399); Red Blood Count 4.06 10^6/uL (3.85-5.65); Red Cell Distribution Width 12.3 % (12.1-15.1); White Blood Count 11.11 10^3/uL (3.29-11.43)
[2024-01-15 14:40] LABS: ABG PCO2 47.8 mmHg (35-45); ABG PH Result 7.41 (7.35-7.45); Alveolar-Arterial Oxygen Gradi 2.9 mmHg (5-10); Arterial Blood Gas Hematocrit 37.3 % (37-47); Base Excess ABG 4.7 mmol/L (-2.0-2.0); Blood Gas Operator Identificat AMH; Blood Gas Sample Site Brachial, left; Blood Gas Sample Type Arterial; Carboxyhemoglobin 1.6 %THgb (0.4-20.1); HCO3 ABG 30.2 mmol/L (22-26); HGB O2 Sat 92.5 % (95-100); Ionized Calcium Level - ABG 1.2 mmol/L (1.1-1.4); Methemoglobin 0.5 % (0.4-1.5); Oxygen Device ROOM AIR; Oxygen Saturation ABG 94.5; PO2 ABG 66.8 mmHg (80.0-100.0); PO2 FiO2 Ratio Arterial Blood 0; Potassium Level - ABG 4.1 mmol/L (3.5-5.0); Total Hemoglobin 12.2 g/dL (12-16)
[2024-01-15 14:45] LABS: Ketone (Acetest) Serum Negative (Negative)
[2024-01-15] MEDS: insulin regular-human 100 units/1 mL 10 UNIT IVP (14:53)
[2024-01-15] MEDS: sodium chloride 0.9% 1,000 ML 999 ML IV ×2 (14:54→15:50)
[2024-01-15 14:56] LABS: Lactic Sepsis W/Reflex 2.3 mmol/L (0.5-2.2)
[2024-01-15 14:57] LABS: Alanine Aminotransferase 16 U/L (0-33); Albumin Level 3.9 g/dL (3.5-5.2); Alkaline Phosphatase 215 U/L (35-105); Anion Gap 14.7 (5-19); Aspartate Amino Transferase 12 U/L (0-32); Blood Urea Nitrogen 15 mg/dL (6-20); Calcium 9.2 mg/dL (8.5-10.5); Carbon Dioxide 29 mmol/L (22-29); Chloride 94 mmol/L (98-107); Creatinine Clr Calc Pharmacy 91.8751; Globulin 3.4 g/dL (1.3-4.6); Glomerular Filtration Rate 92.2 mL/min (90-130); Glucose 469 mg/dL (65-115); Osmolality Calculated 297 mOsm/kg (285-295); Potassium 4.7 mmol/L (3.5-5.1); Sodium 133 mmol/L (136-145); Total Bilirubin 0.2 mg/dL (0.15-1.2); Total Protein 7.3 g/dL (6.6-8.7)
--- NOTE | 2024-01-15 15:47 | CTR_ITS ---
PROCEDURE INFORMATION: Exam: CT Abdomen And Pelvis With Contrast Exam date and time: 01/15/2024 3:55 PM Age: 43 years old Clinical indication: Abdominal pain; Generalized; Prior surgery; Surgery date: 6+ months; Surgery type: Tubal, appy; Patient HX: Abd pain, blood in stool, n/v/d, dysuria, urinary urgency, fatigue. TECHNIQUE: Imaging protocol: Computed tomography of the abdomen and pelvis with contrast. Contrast material: OMNI 350; Contrast volume: 100 ml; Contrast route: INTRAVENOUS (IV); COMPARISON: CT abdomen pelvis wo con [id number] 11/23/2023 6:20 AM RADIATION DOSE METRICS: Total DLP (mGy-cm): 395.11 FINDINGS: Lungs: Subsegmental bibasilar atelectasis. The visualized lung bases are otherwise grossly clear. Diaphragm: No evidence of diaphragmatic defect. Liver: Hepatomegaly and hepatic steatosis with right lobe measuring up to 21 cm. No evidence of focal hepatic lesion. Gallbladder and bile ducts: Unremarkable. No intra-hepatic or extra-hepatic biliary dilatation. Pancreas: Unremarkable. Spleen: Unremarkable. Adrenal glands: Unremarkable. Kidneys and ureters: There is right renal parenchymal scarring. Patchy parenchymal hypoenhancement is noted on the right and to a lesser extent of the left (for example, image 29 of series 5). No hydronephrosis or ureteral stone. Stomach and bowel: No evidence of bowel obstruction or perienteric inflammatory changes. Appendix: Status post appendectomy. Intraperitoneal space: No evidence of free air or fluid collection. Vasculature: No aneurysmal dilatation or dissection of the abdominal aorta. The celiac trunk, SMA and ALEX are grossly patent. No evidence of IVC thrombus. The portal vein, SMV and splenic veins are grossly patent. Lymph nodes: No adenopathy. Urinary bladder: Grossly unremarkable. Reproductive: Left-sided tubal ligation clip noted in place. The right-sided clip has become displaced into the ventral left lower quadrant (image 57 of series 3). Bones/joints: No evidence of acute fracture or aggressive osseous lesion. Soft tissues: No evidence of fluid collection or hematoma in the superficial soft tissues. CT/CT abdomen pelvis w con* [id number] IMPRESSION: 1. Findings raising the question of chronic recurrent pyelonephritis in the proper clinical setting. Correlation with urinalysis and laboratory findings is recommended. 2. Displaced right-sided tubal ligation clip. Facility Rehab Director follow-up is recommended. 3. Hepatomegaly and hepatic steatosis. Consider correlation with clinical and laboratory findings for steatohepatitis.
[2024-01-15] MEDS: iohexol 350 mg/mL 500 mL Btl (per mL) IV (15:57)
[2024-01-15 16:04] LABS: Bilirubin Urine Neg (Negative); Blood Urine Neg (Negative); Glucose Urine UA 4+ (Normal); Ketones Urine Negative (Negative); Nitrate Urine Negative (Negative); Protein Urine Neg (Negative); Specific Gravity, Urine 1.005 (1.005-1.030); Urine Appearance Hazy (CLEAR); Urine Color Straw (Yellow); pH Urine 7 (5-7)
[2024-01-15 16:05] LABS: Add Urine Culture? Yes; Add Urine Microscopic? YES; Bacteria Urine TRACE /hpf; Leukocyte Esterase Urine 1+ (Negative); RBC Urine 0-4 /hpf (0-2); Squamous Epithelial Cell Urine 0-4 /hpf (0-5); Urobilinogen Urine Neg (Negative); WBC Urine >100 /hpf (0-5)
--- NOTE | 2024-01-15 16:10 | PC.NURSE ---
Glucose recheck: 200 via fingerstick, Dr. Pinzon notified
[2024-01-15 16:12] LABS: Glucose Point of Care 200 mg/dL (70-110)
[2024-01-15 16:21] LABS: Reflex Lactate Order REFLEX LACTIC ORDERD
--- NOTE | 2024-01-15 17:00 | PC.NURSE ---
Medication Delay: antibiotics ordered @1632 delayed d/t not being verified and blood cultures not being drawn
--- NOTE | 2024-01-15 17:39 | P.HP_ITS ---
Providers/Chief Complaint 2 Primary Care Provider: Kurtis Da Silva DO Chief Complaint: Sickness History of Present Illness Ms Anna Tolbert is a a 43-year-old woman with past medical history of type 1 diabetes, depression, bipolar , she is also status post who presents for further evaluation of abdominal pain for a few days. Patient also noted that she had some rectal bleeding prior to admission. She also reports that she had dysuria, urgency , frequency, nausea , fever , vomiting, and generally feeling unwell. She denies chest pain, shortness of breath, diarrhea, constipation or any other symptoms. In the ER, CT of the abdomen and pelvis done showed signs of pyelonephritis. Her UA also consistent with a UTI. Patient also noted to have hyperglycemia but did not have DKA. Review of Systems 2 Const: Reports: fever(s) and chills; Denies: malaise or diaphoresis Eyes: Denies: photophobia ENMT: Denies: enlarged tonsils Card: Denies: chest pain, palpitations or syncope Resp: Denies: dyspnea or productive cough GI: Denies: abdominal pain, nausea or vomiting : Reports: dysuria and urinary frequency Musc: Denies: neck pain, back pain or joint warmth Skin/Breast: Denies: rash Neuro: Denies: headache(s) or confusion Medications/Allergies Home Medications Medication Instructions Recorded Confirmed Last Taken Type insulin NPH isoph U-100 human 100 21 unit SUBCUT BID 06/24/23 01/15/24 01/14/24 History unit/mL subcutaneous suspension (Novolin N NPH U-100 Insulin isophane) insulin lispro 100 unit/mL See Rx Instructions .Route .COMPLEX 06/24/23 01/15/24 01/14/24 History subcutaneous pen (Humalog KwikPen (U-100) Insulin) bismuth tribrom-petrolatum,wh 5 X #50 ea 07/03/23 01/15/24 07/05/23 Rx 9 bandage (Xeroform Petrolatum Dressing) elastic bandage 2 X 1.9 yard #14 ea 07/03/23 01/15/24 07/05/23 Rx non-adherent bandage 5 X 9 11/07/23 01/15/24 Unknown History amitriptyline 75 mg tablet 75 mg PO DAILY #60 tabs 12/20/23 01/15/24 01/14/24 Rx bupropion HCl 150 mg 24 hr tablet, 150 mg PO QAM #30 tabs 12/20/23 01/15/24 01/14/24 Rx extended release (Wellbutrin XL) lamotrigine 150 mg tablet 150 mg PO DAILY #90 tabs 12/20/23 01/15/24 01/14/24 Rx (Lamictal) meloxicam 7.5 mg tablet 7.5 mg PO DAILY #60 tabs 12/20/23 01/15/24 01/14/24 Rx pregabalin 75 mg capsule (Lyrica) 75 mg PO DAILY #30 caps 12/20/23 01/15/24 01/14/24 Rx tizanidine 4 mg capsule 4 mg PO BID PRN muscle spasticity 12/20/23 01/15/24 Unknown Rx #60 caps Allergies Allergy/AdvReac Type Severity Reaction Status Date / Time cyclobenzaprine Allergy Mild ALGY-Hives Verified 12/20/23 13:52 [From Flexeril] amoxicillin Allergy ALGY-Rash Verified 12/20/23 13:35 clavulanic acid Allergy ALGY-Difficulty Verified 12/20/23 13:35 [From Augmentin] Breathing morphine Allergy Unknown Verified 12/20/23 13:35 Penicillins Allergy ALGY-Rash Verified 12/20/23 13:35 PFSH Acute 2 PFSH: Medical History Phantom limb Insomnia Moderate major depression Bipolar disorder Chronic kidney disease Type 1 diabetes Surgical History History of appendectomy History of surgery on lower extremity History of tonsillectomy Social History Smoking and tobacco/nicotine status: current every day tobacco/nicotine user cigarettes Packs smoked per day: 0.25 and e-cigarettes E-Cigarette Details: e- cigarette Alcohol intake: former Substance/Drug Use: current Vitals/I&O/Wt Last Vital Signs Temp 97.9 F 01/15/24 13:49 Pulse 90 01/15/24 15:36 Resp 12 01/15/24 15:36 BP 166/88 01/15/24 15:36 Pulse Ox 99 01/15/24 15:36 O2 Del Method Room Air 01/15/24 15:36 01/15/24 01/15/24 01/15/24 06:59 14:59 22:59 Intake Total 932.4 / 932.4 Balance 932.4 / 932.4 Weight last 48 hrs Weight 58.967 kg Physical Exam 2 Const: COMMON NORMALS: no acute distress, patient oriented x3 and alert HENMT: COMMON NORMALS: normocephalic, atraumatic, external ears normal, Normal external nose present, moist oral mucous membranes and oropharynx normal HEAD & SCALP: normocephalic and atraumatic NOSE: Normal external nose present E XTERNAL EAR: Yes external ears normal Eye: COMMON NORMALS: Equal, round and reactive pupils present, EOMs intact bilaterally, conjunctivae normal and no scleral icterus CONJUNCTIVA: Yes conjunctivae normal PUPIL: Yes Equal, round and reactive pupils present Neck/C-Spine: COMMON NORMALS: full ROM, no lymphadenopathy and no JVD Chest: COMMONS NORMALS: normal inspection of the chest Resp: COMMON NORMALS: normal respiratory effort and clear to auscultation bilaterally AUSCULTATION: clear to auscultation bilaterally OTHER: No wheezes or crcakles Cardio: COMMON NORMALS: no JVD, regular rate, regular rhythm, S1 normal heart sound present and S2 normal heart sound present RATE: regular rate RHYTHM: regular rhythm HEART SOUNDS: S1 normal heart sound present and S2 normal heart sound present GI: PALPATION: Yes Other GI palpation findings present (Soft, generalized tenderness, no rebound or guarding, bowel sounds present.) Extremity: COMMON NORMALS: normal to inspection and no pedal edema Neuro: COMMON NORMALS: patient oriented x3 SENSORIUM/ORIENTATION: Yes alert OTHER: No gross focal deficits Data 01/15/24 14:28 01/15/24 14:28 Micro: Microbiology 01/15/24 17:00 Blood Culture - Preliminary Blood SPECIMEN COLLECTED CT Abd/Pel: Radiologist's impression: CT/CT abdomen pelvis w con* [id number] IMPRESSION: 1. Findings raising the question of chronic recurrent pyelonephritis in the proper clinical setting. Correlation with urinalysis and laboratory findings is recommended. 2. Displaced right-sided tubal ligation clip. E Commerce Web Developer follow-up is recommended. 3. Hepatomegaly and hepatic steatosis. Consider correlation with clinical and laboratory findings for steatohepatitis. 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 No abscess or stone seen on CT of the abdomen and pelvis pyelonephritis -Started on IV meropenem in the ER, will continue -Follow-up blood and urine cultures #Type 1 Diabetes # Hyperglycemia -Patient noted to have hyperglycemia but no DKA -Continue glucose checks checks, sliding scale insulin, long-acting insulin # Depression # Bipolar -Continue chronic medications # Status post Right below the knee amputation -Stable # Displaced right-sided tubal ligation clip -She needs gynecology follow-up # Hepatic steatosis, hepatomegaly -She has elevated alkaline phosphatase, otherwise her LFTs are normal -She will require outpatient follow-up # Elevated blood pressure -Likely due to pain -Continue to monitor VTE ppx - lovenox Attestations 2 Medical Necessity Statement*: Patient will be admitted inpatient with complicated UTI , expected length of stay will be greater than 2 midnights Coding Level of Care Code Acute Code for Chg Fwd Diagnoses Dysuria R30.0 Type 1 diabetes E10.9 Acute hyperglycemia R73.9 Abdominal pain R10.9 Pyelonephritis N12 UTI (urinary tract infection) N39.0 Moderate major depression F32.1 Bipolar disorder F31.9 S/P BKA (below knee amputation) Z89.519 Prosthetic joint infection T84.50XA
[2024-01-15] MEDS: meropenem 2,000 MG in sodium chloride 0.9% (100 ml) 100 ML 200 MG IV (18:17)
--- NOTE | 2024-01-15 18:19 | PC.NURSE ---
Medication Delay: Merrem delayed 2,000mg at 1632 d/t blood cultures not being drawn. Lab attempted to stick x2, unsuccessful. Merrem started at approx 1820.
[2024-01-15 19:05] LABS: Lactic Acid level (Lactate) 1.6 mmol/L (0.5-2.2)
[2024-01-15] MEDS: ondansetron 2 mg/ML SDV 2 mL 4 MG IVP (19:31)
--- NOTE | 2024-01-15 19:38 | PC.NURSE ---
Pt is allergic to Morphine. Hospitalist ordered for pain will need to be re-consulted for different pain medication.
[2024-01-15] MEDS: HYDROmorphone 1 mg/mL INJ 1 mL 0.5 MG IVP (21:06)
[2024-01-15 21:14] LABS: Glucose Point of Care 215 mg/dL (70-110)
[2024-01-15] MEDS: amitriptyline 25 mg Tablet 75 MG PO (21:28)
[2024-01-15] MEDS: potassium chloride ER 20 mEq Tablet PO (21:28)
[2024-01-15] MEDS: enoxaparin 40 mg/0.4 mL Syringe SUBCUT (21:28)
[2024-01-15] MEDS: sodium chloride 0.9% 1,000 ML 100 ML IV (21:29)
[2024-01-15] MEDS: insulin lispro 100 unit/1 mL SUBCUT (21:42)
[2024-01-15 23:30] LABS: Glucose Point of Care 301 mg/dL (70-110)
--- NOTE | 2024-01-15 23:56 | PC.NURSE ---
Patient refused her NPH insulin before bed and stated she drops at night. At that time blood sugar was 215 and this nurse administered sliding scale humalog per dec. Recheck at [address] Clark was notified and ordered to give the 21 units of NPH insulin at this time.
[2024-01-16] VITALS (10 sets, daily range): BP systolic 93–200; BP diastolic 60–80; PULSE 82–113; RESP 14–18; TEMP 36.3–37; O2SAT 92–98
[2024-01-16] MEDS: insulin nph human 100 units/1 mL 21 UNIT SUBCUT ×2 (00:41→08:53)
[2024-01-16] MEDS: meropenem 1,000 MG in sodium chloride 0.9% (plus) 50 ML 100 MG IV ×3 (02:56→18:08)
[2024-01-16 04:57] LABS: Basophils # 0.1 10^3/uL (0.0-0.1); Basophils % 0.8 %; Eosinophils # 0.3 10^3/uL (0.0-0.8); Eosinophils % 3.2 %; Lymphocytes # 2.9 10^3/uL (0.8-4.8); Lymphocytes % 34.6 %; Mean Corpuscular HGB Conc 31.8 g/dL (30-55); Mean Corpuscular Hemoglobin 31.4 pg (27-33); Mean Corpuscular Volume 98.8 fl (85-98); Mean Platelet Volume 10.8 fL (7.4-10.4); Monocytes # 0.4 10^3/uL (0.2-0.9); Nucleated Red Blood Cells % 0 %; Platelet Count 320 10^3/cmm (157-399); Red Blood Count 3.34 10^6/uL (3.85-5.65); Red Cell Distribution Width 12.6 % (12.1-15.1); White Blood Count 8.39 10^3/uL (3.29-11.43)
[2024-01-16 04:57] LABS: Glucose Point of Care 144 mg/dL (70-110)
[2024-01-16 04:57] LABS: Glucose Point of Care 60 mg/dL (70-110)
[2024-01-16 05:12] LABS: Anion Gap 11.1 (5-19); Blood Urea Nitrogen 13 mg/dL (6-20); Calcium 7.8 mg/dL (8.5-10.5); Carbon Dioxide 28 mmol/L (22-29); Chloride 105 mmol/L (98-107); Creatinine Clr Calc Pharmacy 107.7533; Glomerular Filtration Rate 110.2 mL/min (90-130); Glucose 136 mg/dL (65-115); Magnesium 1.7 mg/dL (1.7-2.3); Osmolality Calculated 292 mOsm/kg (285-295); Phosphorus 2.7 mg/dL (2.5-4.5); Potassium 4.1 mmol/L (3.5-5.1); Sodium 140 mmol/L (136-145)
[2024-01-16 05:23] LABS: Glucose Point of Care 147 mg/dL (70-110)
[2024-01-16] MEDS: buPROPion XL (24 HR) 150 mg Tablet PO (05:23)
[2024-01-16] MEDS: sodium chloride 0.9% 1,000 ML 100 ML IV ×2 (06:12→17:17)
[2024-01-16 06:30] LABS: Glucose Point of Care 111 mg/dL (70-110)
[2024-01-16] MEDS: lamoTRIgine 100 mg Tablet 150 MG PO (08:54)
[2024-01-16] MEDS: pregabalin 75 mg Capsule PO (08:55)
--- NOTE | 2024-01-16 09:34 | P.PN_ITS ---
Subjective 2 Subjective: No acute events reported overnight. Patient seen at the bedside and reports some improvement in her symptoms She continues to have generalized weakness and abdominal pain She has no new complaints No rectal bleeding overnight Vitals/I&O/Wt Last Vital Signs Temp 97.8 F 01/16/24 07:29 Pulse 84 01/16/24 07:29 Resp 15 01/16/24 07:29 BP 111/72 01/16/24 07:29 Pulse Ox 98 01/16/24 07:29 O2 Del Method Room Air 01/16/24 07:29 01/15/24 01/16/24 01/16/24 22:59 06:59 14:59 Intake Total 2031. / 2031.4 921.667 / 2954.067 116 / 116 Output Total 100 / 100 Balance 2031. / 2031. 821.667 / 2854.067 116 / 116 Weight last 48 hrs Weight 59.693 kg Weight 59.012 kg Weight 58.967 kg Physical Exam 2 Const: COMMON NORMALS: no acute distress, patient oriented x3 and alert HENMT: COMMON NORMALS: normocephalic, atraumatic, external ears normal, Normal external nose present, moist oral mucous membranes and oropharynx normal HEAD & SCALP: normocephalic and atraumatic NOSE: Normal external nose present E XTERNAL EAR: Yes external ears normal Eye: COMMON NORMALS: Equal, round and reactive pupils present, EOMs intact bilaterally, conjunctivae normal and no scleral icterus CONJUNCTIVA: Yes conjunctivae normal PUPIL: Yes Equal, round and reactive pupils present Neck/C-Spine: COMMON NORMALS: full ROM, no lymphadenopathy and no JVD Chest: COMMONS NORMALS: normal inspection of the chest Resp: COMMON NORMALS: normal respiratory effort and clear to auscultation bilaterally AUSCULTATION: clear to auscultation bilaterally OTHER: No wheezes or crcakles Cardio: COMMON NORMALS: no JVD, regular rate, regular rhythm, S1 normal heart sound present and S2 normal heart sound present RATE: regular rate RHYTHM: regular rhythm HEART SOUNDS: S1 normal heart sound present and S2 normal heart sound present GI: PALPATION: Yes Other GI palpation findings present (Soft, generalized tenderness, no rebound or guarding, bowel sounds present.) Extremity: COMMON NORMALS: normal to inspection and no pedal edema Neuro: COMMON NORMALS: patient oriented x3 SENSORIUM/ORIENTATION: Yes alert OTHER: No gross focal deficits Data 01/16/24 04:41 01/16/24 04:41 Micro: Microbiology 01/15/24 19:43 Occult Blood (FIT) - Final Stool - Stool Aspirate 01/15/24 18:15 Blood Culture - Preliminary Blood SPECIMEN COLLECTED 01/15/24 17:00 Blood Culture - Preliminary Blood SPECIMEN COLLECTED A&P Assessment and plan (1) Dysuria: (2) Type 1 diabetes: (3) Acute hyperglycemia: (4) Abdominal pain: (5) Pyelonephritis: (6) UTI (urinary tract infection): (7) Moderate major depression: (8) Bipolar disorder: (9) S/P BKA (below knee amputation): (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 No abscess or stone seen on CT of the abdomen and pelvis . -Continue IV meropenem -Follow-up blood and urine cultures #Type 1 Diabetes # Hyperglycemia -Patient's blood glucose is improved -Continue glucose checks checks, sliding scale insulin, long-acting insulin # Depression # Bipolar -Continue chronic medications # Status post Right below the knee amputation -Stable # Displaced right-sided tubal ligation clip -She needs gynecology follow-up # Hepatic steatosis, hepatomegaly -She has elevated alkaline phosphatase, otherwise her LFTs are normal -She will require outpatient follow-up -Gall Bladder us done on 11/30 negative for gallstones # Elevated blood pressure -Likely due to pain -Improved #Rectal bleeding -Patient also reports that she has had on and off rectal bleeding since prior admission when she had colitis -She reports that she has followed with GI and she is planning to be scheduled for a ? Colonoscopy -Hemoglobin trended down slightly , still close to her baseline -ct to monitor VTE ppx - lovenox Attestations 2 Medical Necessity Statement*: Patient continues to require inpatient care, she has complicated urinary tract infection and requires IV antibiotics pending urine and blood cultures. Coding Level of Care Code Acute Code for [facility] Fwd Diagnoses Dysuria R30.0 Type 1 diabetes E10.9 Acute hyperglycemia R73.9 Abdominal pain R10.9 Pyelonephritis N12 UTI (urinary tract infection) N39.0 Moderate major depression F32.1 Bipolar disorder F31.9 S/P BKA (below knee amputation) Z89.519 Prosthetic joint infection T84.50XA
[2024-01-16 10:59] LABS: Glucose Point of Care 130 mg/dL (70-110)
[2024-01-16] MEDS: HYDROmorphone 1 mg/mL INJ 1 mL 0.5 MG IVP (11:00)
[2024-01-16] MEDS: ondansetron 2 mg/ML SDV 2 mL 4 MG IVP (11:03)
[2024-01-16 11:16] LABS: Glucose Point of Care 135 mg/dL (70-110)
[2024-01-16 17:07] LABS: Glucose Point of Care 65 mg/dL (70-110)
[2024-01-16] MEDS: enoxaparin 40 mg/0.4 mL Syringe SUBCUT (18:09)
[2024-01-16] MEDS: acetaminophen 325 mg Tablet 650 MG PO (18:09)
[2024-01-16] MEDS: amitriptyline 25 mg Tablet 75 MG PO (20:20)
[2024-01-16] MEDS: oxyCODONE-APAP 5-325 mg Tablet 1 TAB PO (20:56)
[2024-01-16 21:28] LABS: Glucose Point of Care 109 mg/dL (70-110)
[2024-01-16 23:35] LABS: Glucose Point of Care 163 mg/dL (70-110)
--- NOTE | 2024-01-16 23:38 | PC.NURSE ---
This nurse called Dr. Clark to discuss patient's blood sugar and insulin order, patient had a blood sugar of 65 during the afternoon after not receiving insulin during the day and bedtime blood sugar was 109. Dr. Clark ordered to hold bedtime novolin.
[2024-01-17] VITALS (11 sets, daily range): BP systolic 117–169; BP diastolic 73–93; PULSE 82–96; RESP 15–18; TEMP 36.4–37; O2SAT 95–100; BMI 24.4
[2024-01-17] MEDS: meropenem 1,000 MG in sodium chloride 0.9% (plus) 50 ML 100 MG IV ×3 (03:22→21:15)
[2024-01-17] MEDS: sodium chloride 0.9% 1,000 ML 100 ML IV ×3 (03:23→22:07)
[2024-01-17] MEDS: oxyCODONE-APAP 5-325 mg Tablet 1 TAB PO ×4 (03:51→21:19)
[2024-01-17] MEDS: buPROPion XL (24 HR) 150 mg Tablet PO (05:04)
[2024-01-17 06:39] LABS: Glucose Point of Care 119 mg/dL (70-110)
[2024-01-17 06:55] LABS: Basophils # 0.1 10^3/uL (0.0-0.1); Basophils % 0.7 %; Eosinophils # 0.3 10^3/uL (0.0-0.8); Eosinophils % 3.6 %; Hematocrit 33.5 % (36-47); Lymphocytes # 2.4 10^3/uL (0.8-4.8); Lymphocytes % 33.3 %; Mean Corpuscular HGB Conc 32.2 g/dL (30-55); Mean Corpuscular Hemoglobin 31.6 pg (27-33); Mean Platelet Volume 11.6 fL (7.4-10.4); Monocytes # 0.4 10^3/uL (0.2-0.9); Monocytes % 5.3 %; Neutrophils # 4.08 10^3/uL (1.8-7.7); Neutrophils % 56.7 %; Nucleated Red Blood Cells % 0 %; Platelet Count 232 10^3/cmm (157-399); Red Blood Count 3.42 10^6/uL (3.85-5.65); Red Cell Distribution Width 12.8 % (12.1-15.1)
[2024-01-17 07:06] LABS: Blood Urea Nitrogen 15 mg/dL (6-20); Calcium 8.2 mg/dL (8.5-10.5); Carbon Dioxide 28 mmol/L (22-29); Chloride 102 mmol/L (98-107); Creatinine Clr Calc Pharmacy 82.4582; Glucose 118 mg/dL (65-115); Sodium 136 mmol/L (136-145)
[2024-01-17] MEDS: lamoTRIgine 100 mg Tablet 150 MG PO (08:46)
[2024-01-17] MEDS: pregabalin 75 mg Capsule PO (08:47)
--- NOTE | 2024-01-17 09:26 | P.PN_ITS ---
Subjective 2 Subjective: No acute events reported overnight. Patient seen at the bedside and reports some improvement in her symptoms She continues to have generalized weakness and abdominal pain, improved She has no new complaints She was reported to have had a fall this morning, she denied hitting her head. Vitals/I&O/Wt Last Vital Signs Temp 97.6 F 01/17/24 07:35 Pulse 90 01/17/24 07:35 Resp 15 01/17/24 07:35 BP 169/93 01/17/24 07:35 Pulse Ox 97 01/17/24 07:35 O2 Del Method Room Air 01/17/24 07:35 01/16/24 01/17/24 01/17/24 22:59 06:59 14:59 Intake Total 1286 / 1452 1490 / 2942 Output Total 475 / 475 Balance 811 / 977 1490 / 2467 Weight last 48 hrs Weight 63.078 kg Weight 62.505 kg Weight 59.693 kg Weight 59.012 kg Weight 58.967 kg Physical Exam 2 Const: COMMON NORMALS: no acute distress, patient oriented x3 and alert HENMT: COMMON NORMALS: normocephalic, atraumatic, external ears normal, Normal external nose present, moist oral mucous membranes and oropharynx normal HEAD & SCALP: normocephalic and atraumatic NOSE: Normal external nose present E XTERNAL EAR: Yes external ears normal Eye: COMMON NORMALS: Equal, round and reactive pupils present, EOMs intact bilaterally, conjunctivae normal and no scleral icterus CONJUNCTIVA: Yes conjunctivae normal PUPIL: Yes Equal, round and reactive pupils present Neck/C-Spine: COMMON NORMALS: full ROM, no lymphadenopathy and no JVD Chest: COMMONS NORMALS: normal inspection of the chest Resp: COMMON NORMALS: normal respiratory effort and clear to auscultation bilaterally AUSCULTATION: clear to auscultation bilaterally OTHER: No wheezes or crcakles Cardio: COMMON NORMALS: no JVD, regular rate, regular rhythm, S1 normal heart sound present and S2 normal heart sound present RATE: regular rate RHYTHM: regular rhythm HEART SOUNDS: S1 normal heart sound present and S2 normal heart sound present GI: COMMON NORMALS: Normal to inspection, nondistended, normoactive bowel sounds present, Soft to palpation and non-tender PALPATION: Yes Soft to palpation and Yes Other GI palpation findings present (Soft, mild right flank tenderness, bowel sounds present.) Extremity: COMMON NORMALS: normal to inspection and no pedal edema Neuro: COMMON NORMALS: patient oriented x3 SENSORIUM/ORIENTATION: Yes alert OTHER: No gross focal deficits Data 01/17/24 06:40 01/17/24 06:40 Micro: Microbiology 01/15/24 15:35 Urine Culture - Preliminary Urine Catheterized 01/15/24 18:15 Blood Culture - Preliminary Blood NEGATIVE TO DATE 01/15/24 17:00 Blood Culture - Preliminary Blood NEGATIVE TO DATE A&P Assessment and plan (1) Dysuria: (2) Type 1 diabetes: (3) Acute hyperglycemia: (4) Abdominal pain: (5) Pyelonephritis: (6) UTI (urinary tract infection): (7) Moderate major depression: (8) Bipolar disorder: (9) S/P BKA (below knee amputation): (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 No abscess or stone seen on CT of the abdomen and pelvis . -Continue IV meropenem -Urine and blood cultures - pending #Type 1 Diabetes #Episode of hypoglycemia -Dose of nightime decreased due to episode of hypoglycemia -Continue glucose checks checks, sliding scale insulin, long-acting insulin # Depression # Bipolar -Continue chronic medications # Status post Right below the knee amputation -Stable # Displaced right-sided tubal ligation clip -She needs gynecology follow-up # Hepatic steatosis, hepatomegaly -She has elevated alkaline phosphatase, otherwise her LFTs are normal -She will require outpatient follow-up -Gall Bladder us done on 11/30 negative for gallstones # Elevated blood pressure -Likely due to pain -Improved #Rectal bleeding -Patient also reports that she has had on and off rectal bleeding since prior admission when she had colitis -She reports that she has followed with GI and she is planning to be scheduled for a ? Colonoscopy -Hemoglobin is stable -ct to monitor VTE ppx - lovenox Attestations 2 Medical Necessity Statement*: Patient continues to require inpatient care, she has complicated urinary tract infection and requires IV antibiotics pending urine and blood cultures. Coding Level of Care Code Acute Code for [facility] Fw Diagnoses Dysuria R30.0 Type 1 diabetes E10.9 Acute hyperglycemia R73.9 Abdominal pain R10.9 Pyelonephritis N12 UTI (urinary tract infection) N39.0 Moderate major depression F32.1 Bipolar disorder F31.9 S/P BKA (below knee amputation) Z89.519 Prosthetic joint infection T84.50XA
[2024-01-17] MEDS: ondansetron 2 mg/ML SDV 2 mL 4 MG IVP ×2 (09:45→17:21)
[2024-01-17 11:11] LABS: Glucose Point of Care 171 mg/dL (70-110)
[2024-01-17] MEDS: insulin lispro 100 unit/1 mL SUBCUT ×3 (12:02→21:16)
[2024-01-17 16:57] LABS: Glucose Point of Care 200 mg/dL (70-110)
[2024-01-17] MEDS: enoxaparin 40 mg/0.4 mL Syringe SUBCUT (18:39)
[2024-01-17 21:05] LABS: Glucose Point of Care 262 mg/dL (70-110)
[2024-01-17] MEDS: amitriptyline 25 mg Tablet 75 MG PO (21:16)
[2024-01-18] VITALS (14 sets, daily range): BP systolic 102–124; BP diastolic 66–78; PULSE 80–100; RESP 15–19; TEMP 36.3–36.8; O2SAT 93–97
[2024-01-18 00:08] LABS: Glucose Point of Care 99 mg/dL (70-110)
[2024-01-18] MEDS: oxyCODONE-APAP 5-325 mg Tablet 1 TAB PO ×5 (03:58→21:37)
[2024-01-18 04:00] LABS: Basophils # 0.1 10^3/uL (0.0-0.1); Basophils % 0.8 %; Eosinophils # 0.3 10^3/uL (0.0-0.8); Eosinophils % 3.9 %; Lymphocytes # 2.7 10^3/uL (0.8-4.8); Mean Corpuscular HGB Conc 31.4 g/dL (30-55); Mean Corpuscular Hemoglobin 31.4 pg (27-33); Mean Platelet Volume 10.8 fL (7.4-10.4); Monocytes # 0.4 10^3/uL (0.2-0.9); Monocytes % 5.2 %; Neutrophils # 4.92 10^3/uL (1.8-7.7); Neutrophils % 57.5 %; Nucleated Red Blood Cells % 0 %; Platelet Count 324 10^3/cmm (157-399); Red Cell Distribution Width 12.7 % (12.1-15.1); White Blood Count 8.54 10^3/uL (3.29-11.43)
[2024-01-18 04:24] LABS: Anion Gap 8.6 (5-19); Blood Urea Nitrogen 16 mg/dL (6-20); Calcium 8.5 mg/dL (8.5-10.5); Carbon Dioxide 33 mmol/L (22-29); Chloride 102 mmol/L (98-107); Creatinine Clr Calc Pharmacy 82.7931; Glucose 105 mg/dL (65-115); Phosphorus 3.8 mg/dL (2.5-4.5); Potassium 4.6 mmol/L (3.5-5.1); Sodium 139 mmol/L (136-145)
[2024-01-18] MEDS: meropenem 1,000 MG in sodium chloride 0.9% (plus) 50 ML 100 MG IV ×3 (05:31→21:32)
[2024-01-18] MEDS: buPROPion XL (24 HR) 150 mg Tablet PO (06:00)
[2024-01-18 06:36] LABS: Glucose Point of Care 146 mg/dL (70-110)
[2024-01-18] MEDS: pregabalin 75 mg Capsule PO (08:22)
[2024-01-18] MEDS: sodium chloride 0.9% 1,000 ML 100 ML IV ×2 (09:06→19:26)
[2024-01-18] MEDS: lamoTRIgine 100 mg Tablet 150 MG PO (09:08)
--- NOTE | 2024-01-18 09:27 | P.PN_ITS ---
Subjective 2 Subjective: No acute events reported overnight. Patient seen at the bedside and reports some improvement in her symptoms She continues to have generalized weakness and abdominal pain, continues to improve. She has no new complaints Vitals/I&O/Wt Last Vital Signs Temp 98.2 F 01/18/24 07:14 Pulse 80 01/18/24 07:14 Resp 17 01/18/24 08:24 BP 106/78 01/18/24 07:14 Pulse Ox 97 01/18/24 07:14 O2 Del Method Room Air 01/18/24 07:14 01/17/24 01/18/24 01/18/24 22:59 06:59 14:59 Intake Total 1110 / 5 50 / 2075 1000 / 1000 Output Total 1200 / 2200 Balance 1110 / 1025 -1150 / -125 1000 / 1000 Weight last 48 hrs Weight 63.248 kg Weight 63.078 kg Weight 62.505 kg Physical Exam 2 Const: COMMON NORMALS: no acute distress, patient oriented x3 and alert HENMT: COMMON NORMALS: normocephalic, atraumatic, external ears normal, Normal external nose present, moist oral mucous membranes and oropharynx normal HEAD & SCALP: normocephalic and atraumatic NOSE: Normal external nose present E XTERNAL EAR: Yes external ears normal Eye: COMMON NORMALS: Equal, round and reactive pupils present, EOMs intact bilaterally, conjunctivae normal and no scleral icterus CONJUNCTIVA: Yes conjunctivae normal PUPIL: Yes Equal, round and reactive pupils present Neck/C-Spine: COMMON NORMALS: full ROM, no lymphadenopathy and no JVD Chest: COMMONS NORMALS: normal inspection of the chest Resp: COMMON NORMALS: normal respiratory effort and clear to auscultation bilaterally AUSCULTATION: clear to auscultation bilaterally OTHER: No wheezes or crcakles Cardio: COMMON NORMALS: no JVD, regular rate, regular rhythm, S1 normal heart sound present and S2 normal heart sound present RATE: regular rate RHYTHM: regular rhythm HEART SOUNDS: S1 normal heart sound present and S2 normal heart sound present GI: COMMON NORMALS: Normal to inspection, nondistended, normoactive bowel sounds present, Soft to palpation and non-tender PALPATION: Yes Soft to palpation and Yes Other GI palpation findings present (Soft, mild right flank tenderness - improved, bowel sounds present.) Extremity: COMMON NORMALS: normal to inspection and no pedal edema Neuro: COMMON NORMALS: patient oriented x3 SENSORIUM/ORIENTATION: Yes alert OTHER: No gross focal deficits Data 01/18/24 02:57 01/18/24 02:57 Micro: Microbiology 01/15/24 15:35 Urine Culture - Preliminary Urine Catheterized A&P Assessment and plan (1) Dysuria: (2) Type 1 diabetes: (3) Acute hyperglycemia: (4) Abdominal pain: (5) Pyelonephritis: (6) UTI (urinary tract infection): (7) Moderate major depression: (8) Bipolar disorder: (9) S/P BKA (below knee amputation): (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 No abscess or stone seen on CT of the abdomen and pelvis . -Continue IV meropenem -Urine cultures - still pending #Type 1 Diabetes -Dose of nightime NPH decreased due to episode of hypoglycemia . BG more stable -Continue glucose checks checks, sliding scale insulin, long-acting insulin # Depression # Bipolar -Continue chronic medications # Status post Right below the knee amputation -Stable # Displaced right-sided tubal ligation clip -She needs gynecology follow-up # Hepatic steatosis, hepatomegaly -She has elevated alkaline phosphatase, otherwise her LFTs are normal -She will require outpatient follow-up -Gall Bladder us done on 11/30 negative for gallstones # Elevated blood pressure -Likely due to pain -Improved #Rectal bleeding -Patient also reports that she has had on and off rectal bleeding since prior admission when she had colitis -She reports that she has followed with GI and she is planning to be scheduled for a ? Colonoscopy -Hemoglobin is stable -ct to monitor VTE ppx - lovenox Attestations 2 Medical Necessity Statement*: Patient continues to require inpatient care, she has complicated urinary tract infection and requires IV antibiotics pending final urine cultures. Coding Level of Care Code Acute Code for [facility] Fwd Diagnoses Dysuria R30.0 Type 1 diabetes E10.9 Acute hyperglycemia R73.9 Abdominal pain R10.9 Pyelonephritis N12 UTI (urinary tract infection) N39.0 Moderate major depression F32.1 Bipolar disorder F31.9 S/P BKA (below knee amputation) Z89.519 Prosthetic joint infection T84.50XA
[2024-01-18 11:31] LABS: Glucose Point of Care 206 mg/dL (70-110)
[2024-01-18] MEDS: insulin lispro 100 unit/1 mL SUBCUT ×2 (12:44→17:22)
[2024-01-18] MEDS: ondansetron 2 mg/ML SDV 2 mL 4 MG IVP (15:39)
[2024-01-18 16:33] LABS: Glucose Point of Care 157 mg/dL (70-110)
[2024-01-18] MEDS: enoxaparin 40 mg/0.4 mL Syringe SUBCUT (19:26)
[2024-01-18 20:58] LABS: Glucose Point of Care 173 mg/dL (70-110)
[2024-01-18] MEDS: insulin nph human 100 units/1 mL 10 UNIT SUBCUT (21:36)
[2024-01-18] MEDS: amitriptyline 25 mg Tablet 75 MG PO (21:37)
[2024-01-18 23:31] LABS: Glucose Point of Care 229 mg/dL (70-110)
[2024-01-19 03:40] VITALS: BP 108/72; PULSE 86; RESP 17; TEMP 36.6; O2SAT 92
[2024-01-19 03:56] VITALS: RESP 16
[2024-01-19] MEDS: oxyCODONE-APAP 5-325 mg Tablet 1 TAB PO ×3 (03:56→12:18)
[2024-01-19] MEDS: meropenem 1,000 MG in sodium chloride 0.9% (plus) 50 ML 100 MG IV (04:00)
[2024-01-19 04:54] LABS: Basophils # 0.1 10^3/uL (0.0-0.1); Basophils % 0.7 %; Eosinophils # 0.3 10^3/uL (0.0-0.8); Eosinophils % 3.2 %; Hematocrit 35.1 % (36-47); Lymphocytes # 2.6 10^3/uL (0.8-4.8); Lymphocytes % 27.9 %; Mean Corpuscular HGB Conc 31.1 g/dL (30-55); Mean Corpuscular Hemoglobin 31.4 pg (27-33); Mean Corpuscular Volume 101.2 fl (85-98); Mean Platelet Volume 10.6 fL (7.4-10.4); Monocytes # 0.4 10^3/uL (0.2-0.9); Monocytes % 4.5 %; Neutrophils # 5.79 10^3/uL (1.8-7.7); Neutrophils % 63.3 %; Nucleated Red Blood Cells % 0 %; Platelet Count 303 10^3/cmm (157-399); Red Blood Count 3.47 10^6/uL (3.85-5.65); Red Cell Distribution Width 12.8 % (12.1-15.1); White Blood Count 9.14 10^3/uL (3.29-11.43)
[2024-01-19 05:11] LABS: Albumin Level 3.1 g/dL (3.5-5.2); Anion Gap 11.8 (5-19); Blood Urea Nitrogen 17 mg/dL (6-20); Calcium 8.6 mg/dL (8.5-10.5); Carbon Dioxide 31 mmol/L (22-29); Chloride 102 mmol/L (98-107); Creatinine Clr Calc Pharmacy 84.0489; Glucose 149 mg/dL (65-115); Phosphorus 3.8 mg/dL (2.5-4.5); Potassium 4.8 mmol/L (3.5-5.1); Sodium 140 mmol/L (136-145)
[2024-01-19 05:23] VITALS: PULSE 85
[2024-01-19] MEDS: buPROPion XL (24 HR) 150 mg Tablet PO (05:52)
[2024-01-19] MEDS: ondansetron 2 mg/ML SDV 2 mL 4 MG IVP (05:52)
[2024-01-19 06:22] LABS: Glucose Point of Care 121 mg/dL (70-110)
[2024-01-19] MEDS: sodium chloride 0.9% 1,000 ML 100 ML IV (07:10)
[2024-01-19] MEDS: insulin nph human 100 units/1 mL 21 UNIT SUBCUT (07:10)
[2024-01-19 08:00] VITALS: BP 109/69; PULSE 86; RESP 16; TEMP 36.8; O2SAT 96
[2024-01-19] MEDS: lamoTRIgine 100 mg Tablet 150 MG PO (08:14)
[2024-01-19 08:15] VITALS: RESP 18
[2024-01-19] MEDS: pregabalin 75 mg Capsule PO (08:15)
--- NOTE | 2024-01-19 08:27 | XRR_ITS ---
PROCEDURE INFORMATION: Exam: XR Right Knee Exam date and time: 01/19/2024 7:56 AM Age: 43 years old Clinical indication: Pain; Patient HX: Fell on right knee yesterday, right tib fib amputation TECHNIQUE: Imaging protocol: Radiologic exam of the right knee. Views: 1 or 2 views. COMPARISON: CT lower leg RT w con [id number] 07/02/2023 4:54 PM FINDINGS: Bones/joints: Amputation through the proximal right tibial and fibular diaphyses. Enthesophyte from the anterior tibial spine Otherwise, unremarkable. Soft tissues: Soft tissue swelling superficial and anterior to the right patella and proximal patellar tendon. Otherwise, unremarkable soft tissues. XR/XR knee RT 1-2V [id number] IMPRESSION: Superficial anterior soft tissue swelling. No other acute findings.
--- NOTE | 2024-01-19 10:14 | PM.DCS ---
Discharge Providers Date of Admission: 01/15/24 18:54 Date of Discharge: January 19, 2024 Attending Provider at Admission: Robert Garcia MD Attending Provider at Discharge: Robert Garcia MD Primary Care Provider: Kurtis Da Silva DO Diagnoses at Discharge Discharge Diagnosis (1) Dysuria: Status: Acute (2) Type 1 diabetes: Status: Acute (3) Acute hyperglycemia: Status: Acute (4) Abdominal pain: Status: Acute (5) Pyelonephritis: Status: Acute (6) UTI (urinary tract infection): Status: Acute (7) Moderate major depression: Status: Acute (8) Bipolar disorder: Status: Acute (9) S/P BKA (below knee amputation): Status: Acute Reason for Visit Reason for Visit: Sickness Hospital Course Hospital Course In summary, Ms Anna Tolbert is a a 43-year-old woman with past medical history of type 1 diabetes, depression, bipolar , she is also status post right below the knee amputation who presented for further evaluation of abdominal pain for a few days. Patient also noted that she had some rectal bleeding prior to admission. In the ER, CT of the abdomen and pelvis done showed signs of pyelonephritis. Her UA also consistent with a UTI. Patient also noted to have hyperglycemia but did not have DKA. She was admitted for further evaluation and management. Patient symptoms in the setting of an acute complicated UTI with right pyelonephritis. She was managed with IV meropenem had improvement in her symptoms. Her urine cultures yielded mixed urogenital cherise. Patient will complete course of antibiotics with cefdinir outpatient. 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 Dose of NPH was decreased to 10 units at night.. She will continue to monitor blood glucose outpatient and titrate insulin as appropriate. Patient also reported on and off rectal bleeding since her prior admission for colitis. CT abdomen showed thickening of the duodenum and proximal jejunum compatible with infectious or inflammatory enteritis..She reports that she has a follow-up with gastroenterology for colonoscopy. Her hemoglobin was stable during the hospitalization. Patient will follow with her PCP, gastroenterology outpatient. Patient also incidentally found to have right-sided tubal ligation clip. She will follow with gynecology outpatient. Physical Exam Const: COMMON NORMALS: no acute distress, patient oriented x3 and alert HENMT: COMMON NORMALS: normocephalic, atraumatic, moist oral mucous membranes and oropharynx normal HEAD & SCALP: normocephalic and atraumatic Eye: COMMON NORMALS: Equal, round and reactive pupils present, EOMs intact bilaterally, conjunctivae normal and no scleral icterus CONJUNCTIVA: Yes conjunctivae normal PUPIL: Yes Equal, round and reactive pupils present Neck/C-Spine: COMMON NORMALS: full ROM, no lymphadenopathy and no JVD Chest: COMMONS NORMALS: normal inspection of the chest Resp: COMMON NORMALS: normal respiratory effort and clear to auscultation bilaterally AUSCULTATION: clear to auscultation bilaterally OTHER: No wheezes or crcakles Cardio: COMMON NORMALS: no JVD, regular rate, regular rhythm, S1 normal heart sound present and S2 normal heart sound present RATE: regular rate RHYTHM: regular rhythm HEART SOUNDS: S1 normal heart sound present and S2 normal heart sound present GI: COMMON NORMALS: Normal to inspection, nondistended, normoactive bowel sounds present, Soft to palpation and non-tender PALPATION: Yes Soft to palpation Extremity: COMMON NORMALS: normal to inspection and no pedal edema NARRATIVE EXTREMITY EXAM: Right BKA Neuro: COMMON NORMALS: patient oriented x3 SENSORIUM/ORIENTATION: Yes alert OTHER: No gross focal deficits Discharge Data Studies Completed and Pending Completed Studies During Hospitalization Category Date Time Status CT abdomen pelvis w con* [id number] Stat Cat Scan 01/15/24 15:47 Completed XR knee RT 1-2V 22419 Routine Exams 01/19/24 08:27 Completed Pending at discharge Category Date Time Status Blood Culture Stat Lab 01/15/24 18:15 Results Radiology Impressions Abdomen/Pelvis CT 01/15/24 15:47 IMPRESSION: 1. Findings raising the question of chronic recurrent pyelonephritis in the proper clinical setting. Correlation with urinalysis and laboratory findings is recommended. 2. Displaced right-sided tubal ligation clip. 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 3. Hepatomegaly and hepatic steatosis. Consider correlation with clinical and laboratory findings for steatohepatitis. ADDENDUM: 01/15/24 2240 IMPRESSION #4: Thickened proximal small bowel loops compatible with an infectious or inflammatory enteritis. Consider follow-up GI evaluation. Knee X-Ray 01/19/24 08:27 IMPRESSION: Superficial anterior soft tissue swelling. No other acute findings. Laboratory Results WBC 9.14 10^3/uL (3.29-11.43) 01/19/24 04:48 RBC 3.47 10^6/uL (3.85-5.65) L 01/19/24 04:48 Hgb 10.90 g/dL (11.27-16.99) L 01/19/24 04:48 Hct 35.1 % (36-47) L 01/19/24 04:48 MCV 101.2 fl (85-98) H 01/19/24 04:48 MCH 31.4 pg (27-33) 01/19/24 04:48 MCHC 31.1 g/dL (30-55) 01/19/24 04:48 RDW 12.8 % (12.1-15.1) 01/19/24 04:48 Plt Count 303 10^3/cmm (157-399) 01/19/24 04:48 MPV 10.6 fL (7.4-10.4) H 01/19/24 04:48 Neut % (Auto) 63.3 % 01/19/24 04:48 Lymph % (Auto) 27.9 % 01/19/24 04:48 [place] % (Auto) 4.5 % 01/19/24 04:48 Eos % (Auto) 3.2 % 01/19/24 04:48 Baso % (Auto) 0.7 % 01/19/24 04:48 Neut # (Auto) 5.79 10^3/uL (1.8-7.7) 01/19/24 04:48 Lymph # (Auto) 2.6 10^3/uL (0.8-4.8) 01/19/24 04:48 [place] # (Auto) 0.4 10^3/uL (0.2-0.9) 01/19/24 04:48 Eos # (Auto) 0.3 10^3/uL (0.0-0.8) 01/19/24 04:48 Baso # (Auto) 0.1 10^3/uL (0.0-0.1) 01/19/24 04:48 Nucleated RBC % (auto) 0 % 01/19/24 04:48 Nucleated RBCs # 0.0 /100WBC 01/19/24 04:48 Specimen Type Arterial 01/15/24 14:29 Sample Site Brachial, left 01/15/24 14:29 ABG pH 7.41 (7.35-7.45) 01/15/24 14:29 ABG pCO2 47.8 mmHg (35-45) H 01/15/24 14:29 ABG pO2 66.8 mmHg (80.0-100.0) L 01/15/24 14:29 ABG PO2/FiO2 Ratio 0 01/15/24 14:29 ABG HCO3 30.2 mmol/L (22-26) H 01/15/24 14:29 ABG O2 Saturation 94.5 01/15/24 14:29 ABG Base Excess 4.7 mmol/L (-2.0-2.0) H 01/15/24 14:29 Don Test N/a 01/15/24 14: A-a O2 Gradient 2.9 mmHg (5-10) L 01/15/24 14:29 Hematocrit 37.3 % (37-47) 01/15/24 14:29 Hgb O2 Saturation 92.5 % (95-100) L 01/15/24 14:29 Carboxyhemoglobin 1.6 %THgb (0.4-20.1) 01/15/24 14:29 Methemoglobin 0.5 % (0.4-1.5) 01/15/24 14:29 Total Hemoglobin 12.2 g/dL (12-16) 01/15/24 14:29 Sodium 134.0 mmol/L (131-143) 01/15/24 14:29 Potassium 4.1 mmol/L (3.5-5.0) 01/15/24 14:29 Glucose 335.0 mg/dL (70-115) H 01/15/24 14:29 Ionized Calcium 1.2 mmol/L (1.1-1.4) 01/15/24 14:29 O2 Delivery Device Room air 01/15/24 14:29 FiO2 21.0 % 01/15/24 14:29 Latin Professor ID Amh 01/15/24 14:29 Sodium 140 mmol/L (136-145) 01/19/24 04:48 Potassium 4.8 mmol/L (3.5-5.1) 01/19/24 04:48 Chloride 102 mmol/L (98-107) 01/19/24 04:48 Carbon Dioxide 31 mmol/L (22-29) H 01/19/24 04:48 Anion Gap 11.8 (5-19) 01/19/24 04:48 BUN 17 mg/dL (6-20) 01/19/24 04:48 Creatinine 0.8 mg/dL (0.5-0.9) 01/19/24 04:48 GFR Calculation 79.0 mL/min (90-130) L 01/19/24 04:48 Glucose 149 mg/dL (65-115) H 01/19/24 04:48 POC Glucose 121 mg/dL (70-110) H 01/19/24 06:18 Calculated Osmolality 292 mOsm/kg (285-295) 01/16/24 04:41 Lactic Acid 2.3 mmol/L (0.5-2.2) H 01/15/24 14:28 Lactic Acid (Sepsis) 1.6 mmol/L (0.5-2.2) 01/15/24 18:15 Calcium 8.6 mg/dL (8.5-10.5) 01/19/24 04:48 Phosphorus 3.8 mg/dL (2.5-4.5) 01/19/24 04:48 Magnesium 1.7 mg/dL (1.7-2.3) 01/16/24 04:41 Total Bilirubin 0.2 mg/dL (0.15-1.2) 01/15/24 14:28 AST 12 U/L (0-32) 01/15/24 14:28 ALT 16 U/L (0-33) 01/15/24 14:28 Alkaline Phosphatase 215 U/L (35-105) H 01/15/24 14:28 Total Protein 7.3 g/dL (6.6-8.7) 01/15/24 14:28 Albumin 3.1 g/dL (3.5-5.2) L 01/19/24 04:48 Globulin 3.4 g/dL (1.3-4.6) 01/15/24 14:28 Urine Color Straw (Yellow) 01/15/24 15:35 Urine Appearance Hazy (CLEAR) A 01/15/24 15:35 Urine pH 7 (5-7) 01/15/24 15:35 Ur Specific [place] 1.005 (1.005-1.030) 01/15/24 15:35 Urine Protein Neg (Negative) 01/15/24 15:35 Urine Glucose (UA) 4+ (Normal) H 01/15/24 15:35 Urine Ketones Negative (Negative) 01/15/24 15:35 Urine Blood Neg (Negative) 01/15/24 15:35 Urine Nitrate Negative (Negative) 01/15/24 15:35 Urine Bilirubin Neg (Negative) 01/15/24 15:35 Urine Urobilinogen Neg mg/dL (Negative) 01/15/24 15:35 Ur Leukocyte Esterase 1+ (Negative) H 01/15/24 15:35 Urine RBC 0-4 /hpf (0-2) H 01/15/24 15:35 Urine WBC >100 /hpf (0-5) H 01/15/24 15:35 Ur Squamous Epith Cells 0-4 /hpf (0-5) H 01/15/24 15:35 Amorphous Sediment Not Reportable 01/15/24 15:35 Urine Bacteria Trace /hpf (NONE) 01/15/24 15:35 Urine Yeast 1+ /hpf H 01/15/24 15:35 Serum Ketones Negative (Negative) 01/15/24 14:28 Vitals Last Vital Signs Temp 98.3 F 01/19/24 08:00 Pulse 86 01/19/24 08:00 Resp 18 01/19/24 08:15 BP 109/69 01/19/24 08:00 Pulse Ox 96 01/19/24 08:00 O2 Del Method Room Air 01/19/24 08:00 Discharge Plan Discharge Patient Disposition: Home Condition: Stable Prescriptions: New Novolin N NPH U-100 Insulin 100 unit/mL Suspension 10 unit SUBCUT BEDTIME 30 Days Qty: 15 0RF Novolin N NPH U-100 Insulin 100 unit/mL Suspension 21 unit SUBCUT ACBREAKFAST 30 Days Qty: 15 0RF cefdinir 300 mg capsule 300 mg PO BID 3 Days Qty: 6 0RF Continued bupropion HCl [Wellbutrin XL] 150 mg tablet extended release 24 hr 150 mg PO QAM Qty: 30 0RF lamotrigine [Lamictal] 150 mg tablet 150 mg PO DAILY Qty: 90 1RF amitriptyline 75 mg tablet 75 mg PO DAILY Qty: 60 1RF pregabalin [Lyrica] 75 mg capsule 75 mg PO DAILY Qty: 30 0RF tizanidine 4 mg capsule 4 mg PO BID PRN (Reason: muscle spasticity) Qty: 60 1RF meloxicam 7.5 mg tablet 7.5 mg PO DAILY Qty: 60 1RF (DME) non-adherent bandage 5 X 9 bandage See Rx Instructions .Route Rx Instructions: As directed insulin lispro [Humalog KwikPen Insulin] 100 unit/mL Insulin Pen See Rx Instructions .ROUTE .COMPLEX Rx Instructions: 6 unit subcutaneously three times daily plus sliding scale (DME) Xeroform Petrolatum Dressing 5 X 9 bandage See Rx Instructions .Route Qty: 50 3RF Rx Instructions: As directed (DME) elastic bandage 2 X 1.9 -yard bandage See Rx Instructions .Route Qty: 14 3RF Rx Instructions: As directed Discontinued Novolin N NPH U-100 Insulin 100 unit/mL Suspension 21 unit SUBCUT BID Discharge Orders: Discharge Order (Routine); Ordered 01/19/24 Ordered By: Robert Garcia Referrals: Edgardo Spaulding MD [Referring] - 1 week Sapphire Longoria APN, MELINDA [Nurse Practitioner] - 1 week (We have notified your physician's clinic of the need for a follow-up appointment to be scheduled. If you have not heard from them within the next 2 business days, please call them directly. ) Everett Huddleston MD [Physician] - 01/28/24 11:15 am Discharge Diet: Diabetic Discharge Activity: Increase activity as tolerated Patient Instructions: Cefdinir (By mouth), Insulin NPH (By injection), Opioid Safety Activity Restrictions/Additional Instructions: #Follow with Gastroenterology for Colonoscopy #Follow with Gynecology for further evaluation of displaced right - sided tubal ligation clip. #Dose of nighttime NPH was decreased to 10 units due to hypoglycemia. Continue to monitor blood glucose and titrate insulin as appropriate. Follow with your PCP. Discharge Attestations Time Spent in Discharge Care*: greater than 30 min Quality Metrics Clinical Quality Measures [ No reported AMI, CVA or VTE this stay] Coding Level of Care Code Acute Code for Chg Fwd Diagnoses Dysuria R30.0 Type 1 diabetes E10.9 Acute hyperglycemia R73.9 Abdominal pain R10.9 Pyelonephritis N12 UTI (urinary tract infection) N39.0 Moderate major depression F32.1 Bipolar disorder F31.9 S/P BKA (below knee amputation) Z89.519
--- NOTE | 2024-01-19 11:07 | PC.NURSE ---
Medicaid ride attempted to be set up. Medicaid stated ride wasn't accepted by anyone and it was awaiting dispatch.
--- NOTE | 2024-01-19 11:29 | PC.NURSE ---
dc pending medicaid ride
[2024-01-19 11:32] LABS: Glucose Point of Care 112 mg/dL (70-110)
[2024-01-19 12:18] VITALS: RESP 17
== END 2024-01-19 13:30 | disposition home or self-care (01) | DRG 690 ==
LOC: ER 14:08 → MEDSURG 18:59
PROVIDERS: Admitting Provider Student in an Organized Health Care Education/Training Program; Emergency Provider Family Medicine; PCP Family Medicine; Visit Provider Student in an Organized Health Care Education/Training Program
DX: N12 Tubulo-interstitial nephritis, not specified as acute or chronic (principal); F33.1 Major depressive disorder, recurrent, moderate; K92.1 Melena; T83.428A Displacement of other prosthetic devices, implants and grafts of genital tract, initial encounter; N39.0 Urinary tract infection, site not specified; E10.65 Type 1 diabetes mellitus with hyperglycemia; Z79.4 Long term (current) use of insulin; Z89.511 Acquired absence of right leg below knee; E16.2 Hypoglycemia, unspecified; K76.0 Fatty (change of) liver, not elsewhere classified; R03.0 Elevated blood-pressure reading, without diagnosis of hypertension; F17.290 Nicotine dependence, other tobacco product, uncomplicated; Y99.9 Unspecified external cause status
CPT/HCPCS: 12345; 36415; 36416; 36600; 73560; 74177; 80048; 80051; 80053; 80069; 81001; 82009; 82274; 82330; 82805; 82962; 83605; 83735; 84100; 85025; 87040; 87086; 96361; 96365; 96366; 96372; 96375; 99285; J1170; J1650; J1815; J1818; J2185; J2405; J7030; Q9967

== ENCOUNTER 2024-02-11 12:44 | Emergency (ER) | payer OTHER, MEDICAID, SELFPAY ==
[2024-02-11 12:45] VITALS: BP 105/76; PULSE 99; TEMP 36.6; O2SAT 99; BMI 23.0
--- NOTE | 2024-02-11 12:50 | ED_ITS ---
HPI - Abdominal Pain 2 General: Chief Complaint: Abdominal Pain Stated Complaint: Abd/Back Pain Time Seen by Provider: 02/11/24 12:46 Source: patient and EMS Mode of arrival: EMS Limitations: no limitations History of Present Illness: Patient is a 43-year-old female presents to ED today with complaint of abdominal and back pain over the past 3 days or so. Patient states she has an extensive history of abdominal and back pains from previous episodes of colitis and pyelonephritis. States she was told at her last hospitalization she has a displaced tubal ligation clip-she is supposed to have gynecological follow-up for this but has not. She reports nausea and vomiting. She is having intermittent black stools. She reports intermittent bloody stools and diarrhea for over a month now. She states she is scheduled for colonoscopy next Saturday. She is having some painful urination. Patient is a diabetic. She has a history of sepsis/bacteremia. MD elicited complaint: abdominal pain Pertinent past history: other (colitis, pyelonephritis, displaced tubal surgical clip) Onset (ago): day(s) Pain Consistency: constant Location: Diffuse Severity: moderate Quality: cramping Radiation: none Migration to: no migration Relieving factors: nothing Associated Symptoms: Reports GI cramping, dysuria, melena, nausea and vomiting; Denies chills, diarrhea, fever(s), hematochezia and hematemesis Related Data: Patient : No Review of Systems 2 Const: Denies: fever(s), chills, body aches, fatigue or malaise Card: Denies: chest pain Resp: Denies: dyspnea GI: Reports: abdominal pain, nausea, vomiting, GI cramping and melena; Denies: hematemesis, diarrhea or hematochezia : Reports: dysuria; Denies: flank pain, difficulty voiding, urinary frequency, urinary urgency or urinary hesitancy Musc: Reports: back pain; Denies: neck pain, extremity pain, extremity swelling, joint pain or joint swelling Skin/Breast: Denies: rash Neuro: Denies: headache(s), numbness in extremities, weakness in extremities or sensory changes PFSH ED 2 PFSH: Medical History Pyelonephritis Prosthetic joint infection Phantom limb Insomnia Moderate major depression Bipolar disorder Chronic kidney disease Type 1 diabetes Surgical History History of appendectomy History of surgery on lower extremity History of tonsillectomy Social History Smoking and tobacco/nicotine status: current every day tobacco/nicotine user cigarettes Packs smoked per day: 0.25 and e-cigarettes E-Cigarette Details: e- cigarette Alcohol intake: former Substance/Drug Use: current Physical Exam 2 Const: COMMON NORMALS: no acute distress, average body habitus, patient oriented x3, no limitations, alert and well nourished GENERAL APPEARANCE: c ooperative and appears older than stated age ORIENTATION/CONSCIOUSNESS: Yes awake, Yes oriented to person, Yes oriented to place and Yes oriented to time HENMT: COMMON NORMALS: normocephalic and atraumatic HEAD & SCALP: normal to inspection, normocephalic and atraumatic Neck/C-Spine: COMMON NORMALS: full ROM, no lymphadenopathy, supple and no meningeal signs Chest: COMMONS NORMALS: normal inspection of the chest Resp: COMMON NORMALS: normal respiratory effort and clear to auscultation bilaterally AUSCULTATION: clear to auscultation bilaterally Cardio: COMMON NORMALS: regular rate and regular rhythm RATE: regular rate RHYTHM: regular rhythm GI: COMMON NORMALS: Normal to inspection, nondistended, normoactive bowel sounds present, Soft to palpation, No hepatosplenomegaly present and no masses INSPECTION: Yes normal to inspection AUSCULTATION: Yes normoactive bowel sounds PALPATION: Yes Soft to palpation, Yes Tenderness to palpation present (GI) (diffusely ), No Guarding due to palpation present (GI), No Rigid due to palpation and Yes No hepatosplenomegaly present : BLADDER/KIDNEY EXAM: Yes CVA tenderness (has tenderness throughout back but no localized CVA tenderness) Back/Pelvis: COMMON NORMALS: thoracic and lumbar spine normal to inspection GENERAL BACK: Yes CVA tenderness (has tenderness throughout back but no localized CVA tenderness) Extremity: NARRATIVE EXTREMITY EXAM: R BKA GENERAL: Yes normal exam except as noted Neuro: COMMON NORMALS: patient oriented x3, moves all extremities, no focal motor deficits and no sensory deficits noted SENSORIUM/ORIENTATION: Yes alert, Yes oriented to person, Yes oriented to place and Yes oriented to time MENINGEAL SIGNS: Yes no meningeal signs Skin: COMMON NORMALS: no rashes or lesions noted GENERAL SKIN EXAM: no rashes or lesions noted Course 2 Vital Signs: Vital signs: Vital Signs Temperature 97.8 F 02/11/24 12:45 Pulse Rate 99 02/11/24 12:45 Respiratory Rate 16 02/11/24 14:58 Blood Pressure 105/76 02/11/24 12:45 Pulse Oximetry 99 02/11/24 14:58 Oxygen Delivery Me thod Room Air 02/11/24 12:45 MDM - Abdominal Pain Medical Decision Making Patient is a 43-year-old female here for complaints of abdominal and back pain. She clinically appears in no acute distress. Her blood work overall is unremarkable. She has a normal white count. Her chemistry is nonactionable apart from her hyperglycemia which was well over 300 upon presentation. She had not taken her insulin today. She was treated with fluids and insulin and repeat glucose is in the 150s. DKA has been ruled out with negative serum ketones, normal gap, normal pH. Her UA does show overwhelming evidence of infection. She has diffuse back pain and no localized CVA tenderness however given her history of ascending infections we will go ahead and cover her with Ciprofloxacin. She was given a gram of Rocephin prior to discharge. She has not had any vomiting while here. CT scan of her abdomen and pelvis showing some enteritis but otherwise no acute findings. She is scheduled for colonoscopy next Saturday for further evaluation of some other bowel issues she has been having. Strict return to ED precautions given. Medical Records I reviewed the patient's medical records. Lab Data I reviewed the patient's lab results. 02/11/24 13:06 02/11/24 13:06 Labs/Radiology: Radiology Impressions Abdomen/Pelvis CT 02/11/24 12:51 IMPRESSION: 1. Findings of enteritis. 2. Right renal atrophy and nonobstructive nephrolithiasis. 3. Hepatomegaly. 4. Additional chronic and incidental findings as above. COMMENTS: Consistent with the [employer]'s Incidental Findings Committee white paper (J Am Yasmine Radiol 2018): Any incidental renal lesion less than 1 cm or classified as too small to characterize, or any incidental cystic renal lesion characterized as simple-appearing, is likely benign. No follow-up imaging is recommended for these lesions per consensus recommendations based on imaging criteria. Laboratory Results WBC 10.56 10^3/uL (3.29-11.43) 02/11/24 13:06 RBC 4.01 10^6/uL (3.85-5.65) 02/11/24 13:06 Hgb 12.50 g/dL (11.27-16.99) 02/11/24 13:06 Hct 39.8 % (36-47) 02/11/24 13:06 MCV 99.3 fl (85-98) H 02/11/24 13:06 MCH 31.2 pg (27-33) 02/11/24 13:06 MCHC 31.4 g/dL (30-55) 02/11/24 13:06 RDW 13.0 % (12.1-15.1) 02/11/24 13:06 Plt Count 409 10^3/cmm (157-399) H 02/11/24 13:06 MPV 10.0 fL (7.4-10.4) 02/11/24 13:06 Neut % (Auto) 72.1 % 02/11/24 13:06 Lymph % (Auto) 19.1 % 02/11/24 13:06 [place] % (Auto) 5.0 % 02/11/24 13:06 Eos % (Auto) 2.7 % 02/11/24 13:06 Baso % (Auto) 0.8 % 02/11/24 13:06 Neut # (Auto) 7.62 10^3/uL (1.8-7.7) 02/11/24 13:06 Lymph # (Auto) 2.0 10^3/uL (0.8-4.8) 02/11/24 13:06 [place] # (Auto) 0.5 10^3/uL (0.2-0.9) 02/11/24 13:06 Eos # (Auto) 0.3 10^3/uL (0.0-0.8) 02/11/24 13:06 Baso # (Auto) 0.1 10^3/uL (0.0-0.1) 02/11/24 13:06 Nucleated RBC % (auto) 0 % 02/11/24 13:06 Nucleated RBCs # 0.0 /100WBC 02/11/24 13:06 Specimen Type Arterial 02/11/24 13:25 Sample Site Radial, right 02/11/24 13:25 ABG pH 7.36 (7.35-7.45) 02/11/24 13:25 ABG pCO2 45.7 mmHg (35-45) H 02/11/24 13:25 ABG pO2 51.8 mmHg (80.0-100.0) L 02/11/24 13:25 ABG PO2/FiO2 Ratio 0 02/11/24 13:25 ABG HCO3 25.7 mmol/L (22-26) 02/11/24 13:25 ABG O2 Saturation 88.2 02/11/24 13:25 ABG Base Excess -0.1 mmol/L (-2.0-2.0) 02/11/24 13:25 Don Test Pos 02/11/24 13:25 A-a O2 Gradient 5.2 mmHg (5-10) 02/11/24 13:25 Hematocrit 34.5 % (37-47) L 02/11/24 13:25 Hgb O2 Saturation 83.8 % (95-100) L 02/11/24 13:25 Carboxyhemoglobin 4.7 %THgb (0.4-20.1) 02/11/24 13:25 Methemoglobin 0.3 % (0.4-1.5) L 02/11/24 13:25 Total Hemoglobin 11.3 g/dL (12-16) L 02/11/24 13:25 Sodium 133.0 mmol/L (131-143) 02/11/24 13:25 Potassium 4.4 mmol/L (3.5-5.0) 02/11/24 13:25 Glucose 333.0 mg/dL (70-115) H 02/11/24 13:25 Ionized Calcium 1.2 mmol/L (1.1-1.4) 02/11/24 13:25 O2 Delivery Device Room air 02/11/24 13:25 FiO2 21.0 % 02/11/24 13:25 Construction Pit Worker ID [place] 02/11/24 13:25 Sodium 131 mmol/L (136-145) L 02/11/24 13:06 Potassium 4.6 mmol/L (3.5-5.1) 02/11/24 13:06 Chloride 97 mmol/L (98-107) L 02/11/24 13:06 Carbon Dioxide 21 mmol/L (22-29) L 02/11/24 13:06 Anion Gap 17.6 (5-19) 02/11/24 13:06 BUN 18 mg/dL (6-20) 02/11/24 13:06 Creatinine 0.7 mg/dL (0.5-0.9) 02/11/24 13:06 GFR Calculation 92.2 mL/min (90-130) 02/11/24 13:06 Glucose 384 mg/dL (65-115) H 02/11/24 13:06 POC Glucose 153 mg/dL (70-110) H 02/11/24 15:02 Calculated Osmolality 290 mOsm/kg (285-295) 02/11/24 13:06 Calcium 8.7 mg/dL (8.5-10.5) 02/11/24 13:06 Total Bilirubin 0.2 mg/dL (0.15-1.2) 02/11/24 13:06 AST 10 U/L (0-32) 02/11/24 13:06 ALT 9 U/L (0-33) 02/11/24 13:06 Alkaline Phosphatase 199 U/L (35-105) H 02/11/24 13:06 Total Protein 7.1 g/dL (6.6-8.7) 02/11/24 13:06 Albumin 3.6 g/dL (3.5-5.2) 02/11/24 13:06 Globulin 3.5 g/dL (1.3-4.6) 02/11/24 13:06 Lipase 26 U/L (13-60) 02/11/24 13:06 HCG, Qual Negative (Negative) 02/11/24 13:06 Urine Color Yellow (Yellow) 02/11/24 14:03 Urine Appearance Sl hazy (CLEAR) A 02/11/24 14:03 Urine pH 5 (5-7) 02/11/24 14:03 Ur Specific [place] 1.005 (1.005-1.030) 02/11/24 14:03 Urine Protein Neg (Negative) 02/11/24 14:03 Urine Glucose (UA) 4+ (Normal) H 02/11/24 14:03 Urine Ketones Negative (Negative) 02/11/24 14:03 Urine Blood 3+ (Negative) H 02/11/24 14:03 Urine Nitrate Negative (Negative) 02/11/24 14:03 Urine Bilirubin Neg (Negative) 02/11/24 14:03 Urine Urobilinogen Neg mg/dL (Negative) 02/11/24 14:03 Ur Leukocyte Esterase 2+ (Negative) H 02/11/24 14:03 Urine RBC 5-10 /hpf (0-2) H 02/11/24 14:03 Urine WBC 80-100 /hpf (0-5) H 02/11/24 14:03 Ur Squamous Epith Cells 5-10 /hpf (0-5) H 02/11/24 14:03 Amorphous Sediment Not Reportable 02/11/24 14:03 Urine Bacteria 1+ /hpf (NONE) H 02/11/24 14:03 Serum Ketones Negative (Negative) 02/11/24 13:06 All radiology interpretation(s) finalized by discharge Discharge Plan Discharge Patient Disposition: Home Clinical Impression: Enteritis UTI (urinary tract infection) Qualifiers: Urinary tract infection type: acute cystitis Hematuria presence: with hematuria Qualified Code(s): N30.01 - Acute cystitis with hematuria Condition: Stable Prescriptions: New hydrocodone-acetaminophen 5-325 mg tablet 1 tab PO Q6H PRN (Reason: pain) Qty: 8 0RF Cipro 500 mg tablet 500 mg PO Q12H Qty: 14 0RF ondansetron 4 mg tablet,disintegrating 4 mg PO Q8H PRN (Reason: nausea and vomiting) Qty: 14 0RF No Action bupropion HCl [Wellbutrin XL] 150 mg tablet extended release 24 hr 150 mg PO QAM Qty: 30 0RF lamotrigine [Lamictal] 150 mg tablet 150 mg PO DAILY Qty: 90 1RF pregabalin [Lyrica] 75 mg capsule 75 mg PO DAILY Qty: 30 0RF tizanidine 4 mg capsule 4 mg PO BID PRN (Reason: muscle spasticity) Qty: 60 1RF meloxicam 7.5 mg tablet 7.5 mg PO DAILY Qty: 60 1RF (DME) non-adherent bandage 5 X 9 bandage See Rx Instructions .Route Rx Instructions: As directed (DME) Xeroform Petrolatum Dressing 5 X 9 bandage See Rx Instructions .Route Qty: 50 3RF Rx Instructions: As directed (DME) elastic bandage 2 X 1.9 -yard bandage See Rx Instructions .Route Qty: 14 3RF Rx Instructions: As directed ondansetron HCl 4 mg tablet 4 mg PO Q8H PRN (Reason: Nausea) insulin aspart U-100 100 unit/mL (3 mL) insulin pen 5 - 7 unit SUBCUT TID amitriptyline 75 mg tablet 75 mg PO BEDTIME Novolin N NPH U-100 Insulin 100 unit/mL suspension See Rx Instructions .ROUTE .COMPLEX Rx Instructions: TAKE 21 UNITS IN THE MORNING BEFORE BREAKFAST AND 10 UNITS AT BEDTIME. Discharge Orders: Discharge ED (Routine); Ordered 02/11/24 Ordered By: Arlene Mauricio Referrals: Everett Huddleston MD [Primary Care Provider] - Patient Instructions: Urinary Tract Infection in Women (DC), Kidney Infection (ED), Opioid Safety, Pain Management, Pyelonephritis Activity Restrictions/Additional Instructions: As we discussed you need to fill your medications specifically your antibiotics and start them immediately. You have been given a dose of antibiotics prior to discharge. He need to return to the emergency department for worsening abdominal pain, back pain, severe flank pain, fevers greater than 100.4, inability to hold down your antibiotics, repetitive episodes of vomiting. Coding Level of Care Code ED Electrical Maintenance Worker for Claudy Morgan
--- NOTE | 2024-02-11 12:51 | CTR_ITS ---
PROCEDURE INFORMATION: Exam: CT Abdomen And Pelvis With Contrast Exam date and time: 02/11/2024 1:17 PM Age: 43 years old Clinical indication: Nausea and vomiting; Abdominal pain; Generalized; Additional info: Abdominal pain, n/v TECHNIQUE: Imaging protocol: Computed tomography of the abdomen and pelvis with contrast. Radiation optimization: All CT scans at this facility use at least one of these dose optimization techniques: automated exposure control; mA and/or kV adjustment per patient size (includes targeted exams where dose is matched to clinical indication); or iterative reconstruction. Contrast material: OMNI 350; Contrast volume: 80 ml; Contrast route: INTRAVENOUS (IV); COMPARISON: CT abdomen pelvis w con* [id number] 01/15/2024 3:55 PM RADIATION DOSE METRICS: Total DLP (mGy-cm): 410 FINDINGS: Lungs: Mild dependent atelectasis. Liver: Enlarged liver measures 21.8 cm in craniocaudal dimension. Gallbladder and bile ducts: Normal. No calcified stones. No ductal dilation. Pancreas: Normal. No ductal dilation. Spleen: Normal. No splenomegaly. Adrenal glands: Normal. No mass. Kidneys and ureters: Lobulated right renal atrophy. Right renal subcentimeter hypodensity too small to characterize is statistically likely benign and requires no dedicated imaging follow-up. Tiny right upper renal calcifications without hydronephrosis. Otherwise unremarkable. Stomach and bowel: No bowel dilatation to suggest obstruction. Nondilated fluid-filled small bowel loops with mucosal hyperenhancement at the left lower abdomen/pelvis. Appendix: Evidence prior appendectomy. Intraperitoneal space: Unremarkable. No free air. No significant fluid collection. Vasculature: Mild systemic atherosclerosis without abdominal aortic aneurysm. Lymph nodes: Unremarkable. No enlarged lymph nodes. Urinary bladder: Unremarkable as visualized. Reproductive: Left tubal ligation clip. Again, displaced right tubal ligation clip located within the left lower quadrant. Otherwise unremarkable as visualized. Bones/joints: Unremarkable. No acute fracture. Soft tissues: Unremarkable. CT/CT abdomen pelvis w con* [id number] IMPRESSION: 1. Findings of enteritis. 2. Right renal atrophy and nonobstructive nephrolithiasis. 3. Hepatomegaly. 4. Additional chronic and incidental findings as above. COMMENTS: Consistent with the [employer]'s Incidental Findings Committee white paper (J Am Yasmine Radiol 2018): Any incidental renal lesion less than 1 cm or classified as too small to characterize, or any incidental cystic renal lesion characterized as simple-appearing, is likely benign. No follow-up imaging is recommended for these lesions per consensus recommendations based on imaging criteria.
[2024-02-11] MEDS: sodium chloride 0.9% 1,000 ML 999 ML IV (13:05)
[2024-02-11 13:11] LABS: Glucose Point of Care 371 mg/dL (70-110)
[2024-02-11 13:13] LABS: Basophils # 0.1 10^3/uL (0.0-0.1); Basophils % 0.8 %; Eosinophils # 0.3 10^3/uL (0.0-0.8); Eosinophils % 2.7 %; Hematocrit 39.8 % (36-47); Lymphocytes % 19.1 %; Mean Corpuscular HGB Conc 31.4 g/dL (30-55); Mean Corpuscular Hemoglobin 31.2 pg (27-33); Mean Corpuscular Volume 99.3 fl (85-98); Monocytes # 0.5 10^3/uL (0.2-0.9); Neutrophils # 7.62 10^3/uL (1.8-7.7); Neutrophils % 72.1 %; Nucleated Red Blood Cells % 0 %; Platelet Count 409 10^3/cmm (157-399); Red Blood Count 4.01 10^6/uL (3.85-5.65); White Blood Count 10.56 10^3/uL (3.29-11.43)
[2024-02-11 13:23] LABS: HCG, Serum Qual Negative (Negative)
[2024-02-11 13:26] LABS: Ketone (Acetest) Serum Negative (Negative)
[2024-02-11 13:28] LABS: Alanine Aminotransferase 9 U/L (0-33); Albumin Level 3.6 g/dL (3.5-5.2); Alkaline Phosphatase 199 U/L (35-105); Aspartate Amino Transferase 10 U/L (0-32); Blood Urea Nitrogen 18 mg/dL (6-20); Calcium 8.7 mg/dL (8.5-10.5); Carbon Dioxide 21 mmol/L (22-29); Chloride 97 mmol/L (98-107); Creatinine Clr Calc Pharmacy 91.8751; Globulin 3.5 g/dL (1.3-4.6); Glomerular Filtration Rate 92.2 mL/min (90-130); Glucose 384 mg/dL (65-115); Lipase 26 U/L (13-60); Osmolality Calculated 290 mOsm/kg (285-295); Sodium 131 mmol/L (136-145); Total Bilirubin 0.2 mg/dL (0.15-1.2); Total Protein 7.1 g/dL (6.6-8.7)
[2024-02-11 13:30] LABS: Anion Gap 17.6 (5-19); Potassium 4.6 mmol/L (3.5-5.1)
[2024-02-11] MEDS: insulin regular-human 100 units/1 mL 8 UNIT IVP (13:33)
[2024-02-11 13:36] LABS: ABG PCO2 45.7 mmHg (35-45); ABG PH Result 7.36 (7.35-7.45); Alveolar-Arterial Oxygen Gradi 5.2 mmHg (5-10); Arterial Blood Gas Hematocrit 34.5 % (37-47); Base Excess ABG -0.1 mmol/L (-2.0-2.0); Blood Gas Allen Test Pos; Blood Gas Operator Identificat WALCI; Blood Gas Sample Site Radial, right; Blood Gas Sample Type Arterial; Carboxyhemoglobin 4.7 %THgb (0.4-20.1); HCO3 ABG 25.7 mmol/L (22-26); HGB O2 Sat 83.8 % (95-100); Ionized Calcium Level - ABG 1.2 mmol/L (1.1-1.4); Methemoglobin 0.3 % (0.4-1.5); Oxygen Device ROOM AIR; Oxygen Saturation ABG 88.2; PO2 ABG 51.8 mmHg (80.0-100.0); PO2 FiO2 Ratio Arterial Blood 0; Potassium Level - ABG 4.4 mmol/L (3.5-5.0); Total Hemoglobin 11.3 g/dL (12-16)
--- NOTE | 2024-02-11 13:47 | PC.PHAR ---
PT STATES HAS NOT BEEN EATING MUCH SO CUT HER INSULIN IN HALF YESTERDAY 02/10/24.
[2024-02-11] MEDS: iohexol 350 mg/mL 500 mL Btl (per mL) IV (14:11)
[2024-02-11 14:56] LABS: Add Urine Microscopic? YES; Bilirubin Urine Neg (Negative); Blood Urine 3+ (Negative); Glucose Urine UA 4+ (Normal); Ketones Urine Negative (Negative); Leukocyte Esterase Urine 2+ (Negative); Nitrate Urine Negative (Negative); Protein Urine Neg (Negative); Specific Gravity, Urine 1.005 (1.005-1.030); Urine Appearance SL Hazy (CLEAR); Urine Color Yellow (Yellow); Urobilinogen Urine Neg (Negative); pH Urine 5 (5-7)
[2024-02-11 14:57] LABS: WBC Urine 80-100 /hpf (0-5)
[2024-02-11 14:58] VITALS: RESP 16; O2SAT 99
[2024-02-11 14:58] LABS: Add Urine Culture? Yes; Bacteria Urine 1+ /hpf
[2024-02-11] MEDS: fentaNYL 50 mcg/mL INJ 2mL 25 MCG IVP (14:58)
[2024-02-11] MEDS: ondansetron 2 mg/ML SDV 2 mL 4 MG IVP (14:58)
[2024-02-11 15:04] LABS: Glucose Point of Care 153 mg/dL (70-110)
[2024-02-11] MEDS: cefTRIAXone 1,000 MG in water for injection-sterile 2.1 ML 999 MG IM (15:15)
== END 2024-02-11 17:40 | disposition home or self-care (01) ==
PROVIDERS: Emergency Provider Physician Assistant; PCP Family Medicine
DX: K52.9 Noninfective gastroenteritis and colitis, unspecified (principal); N30.01 Acute cystitis with hematuria; Z79.4 Long term (current) use of insulin; E10.22 Type 1 diabetes mellitus with diabetic chronic kidney disease; N18.9 Chronic kidney disease, unspecified; F17.210 Nicotine dependence, cigarettes, uncomplicated; F17.290 Nicotine dependence, other tobacco product, uncomplicated
CPT/HCPCS: 36415; 36416; 36600; 74177; 80051; 80053; 81001; 82009; 82330; 82805; 82962; 83690; 84703; 85025; 87086; 96361; 96372; 96374; 96375; 99285; J0696; J1815; J2405; J3010; J7030; Q9967

== ENCOUNTER 2024-03-09 10:09 | Emergency (ER) | payer OTHER, MEDICAID, SELFPAY ==
[2024-03-09 10:26] VITALS: BP 101/69; PULSE 86; RESP 18; TEMP 36.5; O2SAT 99
--- NOTE | 2024-03-09 11:12 | ED_ITS ---
HPI - Wound/Laceration 2 General: Chief Complaint: Wound/Laceration Stated Complaint: pain from wounds Time Seen by Provider: 03/09/24 10:16 Source: patient Mode of arrival: EMS Limitations: no limitations History of Present Illness: Patient is a 43-year-old female here with complaints of wounds to her lower extremities. Patient is a diabetic. She has a right BKA. Patient reports wounds to her bilateral anterior knees that she states is from transferring and ambulating/walking on her knee/stump. She has had these for quite a while . Documentation shows wound to right knee was present back in December. She has a newer developing wound to the back of her right stump. She states she always has pains to her lower extremities. She states she is out of her gabapentin. She has not noticed any significant redness or foul-smelling drainage to the wounds. She arrives in [facility] with stable vitals. She has a wheelchair at home. Also has a walker with knee lift but states where she is living at right now she cannot really use this. Patient tetanus UTD: Yes Associated symptoms: Reports no associated symptoms; Denies fever(s) Treatments prior to arrival: bandage Review of Systems 2 Const: Denies: fever(s) Musc: Reports: extremity pain; Denies: extremity swelling, joint pain or joint swelling Skin/Breast: Reports: other (wounds/ulcers to bilateral LEs) PFS ED 2 PFSH: Medical History Pyelonephritis Prosthetic joint infection Phantom limb Insomnia Moderate major depression Bipolar disorder Chronic kidney disease Type 1 diabetes Surgical History History of appendectomy History of surgery on lower extremity History of tonsillectomy Social History Smoking and tobacco/nicotine status: current every day tobacco/nicotine user cigarettes Packs smoked per day: 0.25 and e-cigarettes E-Cigarette Details: e- cigarette Alcohol intake: former Substance/Drug Use: current Physical Exam 2 Const: COMMON NORMALS: no acute distress, no limitations, alert and well nourished GENERAL APPEARANCE: cooperative and appears older than stated age NUTRITIONAL APPEARANCE: thin ORIENTATION/CONSCIOUSNESS: Yes awake, Yes oriented to person, Yes oriented to place and Yes oriented to time Extremity: COMMON NORMALS: capillary refill normal, no clubbing, cyanosis or edema, no calf tenderness and no pedal edema GENERAL: Yes normal exam except as noted RIGHT LOWER EXTREMITY: Yes knee joint LEFT LOWER EXTREMITY: Yes knee joint OTHER: has additional wound/ulcer to posterior aspect of R stump fold-again no significant cellulitis/drainage EXTREMITY IMAGE (FRONT): 1. 2. has symmetrical round pressure ulcers to bilateral anterior knees that she states is from attempting to ambulate on them; no drainage or significant cellulitis Neuro: SENSORIUM/ORIENTATION: Yes alert, Yes oriented to person, Yes oriented to place and Yes oriented to time Skin: NARRATIVE SKIN EXAM: see above Course 2 Vital Signs: Vital signs: Vital Signs Temperature 97.7 F 03/09/24 10:26 Pulse Rate 83 03/09/24 11:18 Respiratory Rate 17 03/09/24 11:18 Blood Pressure 114/83 03/09/24 11:18 Pulse Oximetry 98 03/09/24 11:18 Oxygen Delivery Me thod Room Air 03/09/24 10:26 MDM - Wound/Laceration Medical Decision Making Patient here with multiple wounds to her bilateral lower extremities. Some of these have been present over the past several months. She has symmetrical anterior wounds overlying her patella that she states is from transferring/attempting ambulation on her knee/stump. She does have a wheelchair at home. She does have a walker with knee lift. She has a new or developing wound to the fold of her right stump posteriorly. None of these wounds have significant drainage, odor, or cellulitis. She was counseled extensively on dressing knees and avoiding unnecessary pressure to them. Will get her set up with wound care. Will place her on topical and oral antibiotics. She is requesting a refill of her gabapentin which will be provided. She states she is no longer on her Lyrica. Recommend follow-up with primary care. Patient arrives in no acute distress with stable vital signs. Blood work at this time is unlikely to director workforce management. Ultimately she needs wound care. No radiology studies performed this visit Discharge Plan Discharge Patient Disposition: Home Clinical Impression: Pressure ulcer of below knee amputation stump Condition: Stable Prescriptions: New Bactrim DS 800-160 mg tablet 1 tab PO BID 7 Days Qty: 14 0RF mupirocin 2 % ointment 1 applic topical BID Qty: 15 0RF gabapentin 600 mg tablet 300 mg PO TID Qty: 30 0RF Discontinued pregabalin [Lyrica] 75 mg capsule 75 mg PO DAILY Qty: 30 0RF No Action bupropion HCl [Wellbutrin XL] 150 mg tablet extended release 24 hr 150 mg PO QAM Qty: 30 0RF lamotrigine [Lamictal] 150 mg tablet 150 mg PO DAILY Qty: 90 1RF meloxicam 7.5 mg tablet 7.5 mg PO DAILY Qty: 60 1RF tizanidine 4 mg tablet 4 mg PO BID PRN (Reason: muscle spasticity) Qty: 60 2RF (DME) non-adherent bandage 5 X 9 bandage See Rx Instructions .Route Rx Instructions: As directed (DME) Xeroform Petrolatum Dressing 5 X 9 bandage See Rx Instructions .Route Qty: 50 3RF Rx Instructions: As directed (DME) elastic bandage 2 X 1.9 -yard bandage See Rx Instructions .Route Qty: 14 3RF Rx Instructions: As directed insulin aspart U-100 100 unit/mL (3 mL) insulin pen 5 - 7 unit SUBCUT TID amitriptyline 75 mg tablet 75 mg PO BEDTIME Novolin N NPH U-100 Insulin 100 unit/mL suspension See Rx Instructions .ROUTE .COMPLEX Rx Instructions: TAKE 21 UNITS IN THE MORNING BEFORE BREAKFAST AND 10 UNITS AT BEDTIME. ondansetron 4 mg tablet,disintegrating 4 mg PO Q8H PRN (Reason: nausea and vomiting) Qty: 14 0RF Discharge Orders: Discharge ED (Routine); Ordered 03/09/24 Ordered By: Arlene Mauricio Referrals: Everett Huddleston MD [Primary Care Provider] - Activity Restrictions/Additional Instructions: As we discussed I will place a referral for you to see our wound clinic. You need to keep wounds dressed and as dry as possible. Avoid pressure to the wounds to your anterior knees. You may follow up with primary care until you are able to see wound care. Coding Level of Care Code ED Shotblaster for Claudy Morgan
[2024-03-09 11:18] VITALS: BP 114/83; PULSE 83; RESP 17; O2SAT 98
--- NOTE | 2024-03-09 11:46 | PC.PHAR ---
PT WANTS REFILLS ON GABAPENTIN 600MG, BUPROPION XL 150, ANDONDANSETRON 4MG. PT WANTS TO FILL HERE AT [facility]
--- NOTE | 2024-03-09 12:26 | DCPLANNER ---
message sent to wound care for er f/u
== END 2024-03-09 12:20 | disposition home or self-care (01) ==
PROVIDERS: Emergency Provider Physician Assistant; PCP Family Medicine
DX: T87.89 Other complications of amputation stump (principal); L89.899 Pressure ulcer of other site, unspecified stage; Z89.511 Acquired absence of right leg below knee; E10.22 Type 1 diabetes mellitus with diabetic chronic kidney disease; N18.9 Chronic kidney disease, unspecified; F17.210 Nicotine dependence, cigarettes, uncomplicated; F17.290 Nicotine dependence, other tobacco product, uncomplicated; Z79.4 Long term (current) use of insulin
CPT/HCPCS: 99283

== ENCOUNTER 2024-04-06 22:15 | Inpatient (IN) | payer OTHER, MEDICAID, SELFPAY ==
[2024-04-06 22:20] VITALS: BP 133/79; PULSE 114; RESP 18; TEMP 37.6; O2SAT 99; BMI 23.0
--- NOTE | 2024-04-06 22:20 | XRR_ITS ---
PROCEDURE INFORMATION: Exam: XR Left Knee Exam date and time: 04/06/2024 10:26 PM Age: 43 years old Clinical indication: Other: Open sore on knee; Additional info: Erythema TECHNIQUE: Imaging protocol: Radiologic exam of the left knee. Views: 3 views. COMPARISON: No relevant prior studies available. FINDINGS: Bones/joints: Probable small joint effusion. No degenerative changes. No acute bony findings Soft tissues: Cutaneous swelling over the patella. XR/XR knee LT 3V* [id number] IMPRESSION: Prepatellar soft tissue swelling and joint effusion
--- NOTE | 2024-04-06 22:20 | XRR_ITS ---
PROCEDURE INFORMATION: Exam: XR Chest Exam date and time: 04/06/2024 10:27 PM Age: 43 years old Clinical indication: Other: Hyperglycemia TECHNIQUE: Imaging protocol: Radiologic exam of the chest. Views: 1 view. COMPARISON: CR XR chest 1V portable [id number] 11/07/2023 4:04 PM FINDINGS: Lungs: Unremarkable. No consolidation. Pleural spaces: Unremarkable. No pleural effusion. No pneumothorax. Heart/Mediastinum: Unremarkable. No cardiomegaly. Bones/joints: Unremarkable. XR/XR chest 1V portable [id number] IMPRESSION: Normal
--- NOTE | 2024-04-06 22:31 | W.ED.GENADLT ---
HPI - General Adult General: Chief complaint: General Medical Stated complaint: High BG Time Seen by Provider: 04/06/24 22:18 Source: patient and EMS Mode of arrival: EMS Limitations: no limitations History of Present Illness: 43-year-old female who has a history of diabetes she had an amputation to her right lower leg she has had a wound to her left knee states she had increasing erythema and warmth to that wound she was hyperglycemic today as well and she been having increasing pain in that left knee. Denies any vomiting or diarrhea. Associated symptoms: Deny chest pain, dyspnea, headache(s), nausea, rash or vomiting Review of Systems Const: Denies: fever(s), chills, body aches or change in appetite ENMT: Denies: throat pain or dental pain Card: Denies: chest pain Resp: Denies: dyspnea GI: Denies: abdominal pain, nausea, vomiting or diarrhea : Denies: dysuria Musc: Reports: extremity pain; Denies: neck pain or back pain Skin/Breast: Reports: erythema; Denies: rash Neuro: Denies: headache(s) PFSH ED PFSH: Medical History Pyelonephritis Prosthetic joint infection Phantom limb Insomnia Moderate major depression Bipolar disorder Chronic kidney disease Type 1 diabetes Surgical History History of appendectomy History of surgery on lower extremity History of tonsillectomy Social History Smoking and tobacco/nicotine status: current every day tobacco/nicotine user cigarettes Packs smoked per day: 0.25 and e-cigarettes E-Cigarette Details: e-cigarette Alcohol intake: former Substance/Drug Use: current Female Reproductive History: Date of last menstrual period: 03/24/24 Physical Exam Const: COMMON NORMALS: no acute distress, patient oriented x3 and healthy appearing HENMT: COMMON NORMALS: normocephalic and atraumatic HEAD & SCALP: normocephalic and atraumatic Eye: COMMON NORMALS: Equal, round and reactive pupils present and EOMs intact bilaterally PUPIL: Yes Equal, round and reactive pupils present Neck/C-Spine: COMMON NORMALS: full ROM and supple Chest: COMMONS NORMALS: normal inspection of the chest Resp: COMMON NORMALS: normal respiratory effort, No retractions, No use of accessory muscles and clear to auscultation bilaterally AUSCULTATION: clear to auscultation bilaterally Cardio: COMMON NORMALS: regular rhythm and No murmurs present (Cardio) RATE: tachycardic RHYTHM: regular rhythm GI: COMMON NORMALS: Normal to inspection, nondistended, normoactive bowel sounds present, Soft to palpation, non-tender and no masses PALPATION: Yes Soft to palpation Extremity: COMMON NORMALS: full ROM NARRATIVE EXTREMITY EXAM: Wound noted to left knee with surrounding erythema Neuro: COMMON NORMALS: patient oriented x3, moves all extremities and no focal motor deficits Psych: COMMON NORMALS: mental status grossly normal, Normal thought process present and cooperative THOUGHT PROCESS: Normal thought process present Skin: COMMON NORMALS: no rashes or lesions noted and no wounds GENERAL SKIN EXAM: no rashes or lesions noted Course Vital Signs: Vital signs: Vital Signs Temperature 99.6 F 04/06/24 22:20 Pulse Rate 114 H 04/06/24 22:20 Respiratory Rate 18 04/06/24 22:20 Blood Pressure 133/79 04/06/24 22:20 Pulse Oximetry 99 04/06/24 22:20 MDM - General Adult Medical Decision Making Patient presents here with cellulitis to the left leg patient is hyperglycemic not in DKA given IV fluids along with antibiotics spoke to the hospitalist will admit at this time. Medical Records I reviewed the patient's medical records. Lab Data I reviewed the patient's lab results. 04/06/24 22:40 04/06/24 22:40 Laboratory Results WBC 15.39 10^3/uL (3.29-11.43) H 04/06/24 22:40 RBC 3.58 10^6/uL (3.85-5.65) L 04/06/24 22:40 Hgb 10.70 g/dL (11.27-16.99) L 04/06/24 22:40 Hct 34.9 % (36-47) L 04/06/24 22:40 MCV 97.5 fl (85-98) 04/06/24 22:40 MCH 29.9 pg (27-33) 04/06/24 22:40 MCHC 30.7 g/dL (30-55) 04/06/24 22:40 RDW 13.7 % (12.1-15.1) 04/06/24 22:40 Plt Count 328 10^3/cmm (157-399) 04/06/24 22:40 MPV 10.4 fL (7.4-10.4) 04/06/24 22:40 Neut % (Auto) 81.7 % 04/06/24 22:40 Lymph % (Auto) 11.2 % 04/06/24 22:40 [place] % (Auto) 6.0 % 04/06/24 22:40 Eos % (Auto) 0.3 % 04/06/24 22:40 Baso % (Auto) 0.3 % 04/06/24 22:40 Neut # (Auto) 12.56 10^3/uL (1.8-7.7) H 04/06/24 22:40 Lymph # (Auto) 1.7 10^3/uL (0.8-4.8) 04/06/24 22:40 [place] # (Auto) 0.9 10^3/uL (0.2-0.9) 04/06/24 22:40 Eos # (Auto) 0.1 10^3/uL (0.0-0.8) 04/06/24 22:40 Baso # (Auto) 0.1 10^3/uL (0.0-0.1) 04/06/24 22:40 Nucleated RBC % (auto) 0 % 04/06/24 22:40 Nucleated RBCs # 0.0 /100WBC 04/06/24 22:40 Specimen Type Arterial 04/06/24 22:30 Sample Site Radial, right 04/06/24 22:30 ABG pH 7.60 (7.35-7.45) H* 04/06/24 22:30 ABG pCO2 24.9 mmHg (35-45) L 04/06/24 22:30 ABG pO2 106.0 mmHg (80.0-100.0) H 04/06/24 22:30 ABG HCO3 24.4 mmol/L (22-26) 04/06/24 22:30 ABG Base Excess 3.4 mmol/L (-2.0-2.0) H 04/06/24 22:30 Don Test Pos 04/06/24 22:30 Hematocrit 30.1 % (37-47) L 04/06/24 22:30 O2 Delivery Device None 04/06/24 22:30 Health Information Managers ID Cl 04/06/24 22:30 Sodium 128 mmol/L (136-145) L 04/06/24 22:40 Potassium 3.8 mmol/L (3.5-5.1) 04/06/24 22:40 Chloride 91 mmol/L (98-107) L 04/06/24 22:40 Carbon Dioxide 23 mmol/L (22-29) 04/06/24 22:40 Anion Gap 17.8 (5-19) 04/06/24 22:40 BUN 10 mg/dL (6-20) 04/06/24 22:40 Creatinine 0.7 mg/dL (0.5-0.9) 04/06/24 22:40 GFR Calculation 92.2 mL/min (90-130) 04/06/24 22:40 Glucose 572 mg/dL (65-115) H* 04/06/24 22:40 Calculated Osmolality 291 mOsm/kg (285-295) 04/06/24 22:40 Lactic Acid 1.4 mmol/L (0.5-2.2) 04/06/24 22:40 Calcium 8.8 mg/dL (8.5-10.5) 04/06/24 22:40 Magnesium 1.8 mg/dL (1.7-2.3) 04/06/24 22:40 Total Bilirubin 0.4 mg/dL (0.15-1.2) 04/06/24 22:40 AST 6 U/L (0-32) 04/06/24 22:40 ALT 6 U/L (0-33) 04/06/24 22:40 Alkaline Phosphatase 174 U/L (35-105) H 04/06/24 22:40 Total Protein 7.0 g/dL (6.6-8.7) 04/06/24 22:40 Albumin 3.3 g/dL (3.5-5.2) L 04/06/24 22:40 Globulin 3.7 g/dL (1.3-4.6) 04/06/24 22:40 Serum Ketones Negative (Negative) 04/06/24 22:40 XR interpretation done by ED provider, pending radiology final review Discharge Plan Discharge Patient Disposition: Admitted As Inpatient Clinical Impression: Cellulitis of left leg, Hyperglycemia Condition: Stable Prescriptions: No Action lamotrigine [Lamictal] 150 mg tablet 150 mg PO DAILY Qty: 90 1RF meloxicam 7.5 mg tablet 7.5 mg PO DAILY Qty: 60 1RF gabapentin 600 mg tablet 300 mg PO TID Qty: 30 0RF tizanidine 4 mg tablet 4 mg PO BID PRN (Reason: muscle spasticity) Qty: 60 2RF bupropion HCl [Wellbutrin XL] 150 mg tablet extended release 24 hr 150 mg PO QAM Qty: 30 0RF (DME) non-adherent bandage 5 X 9 bandage See Rx Instructions .Route Rx Instructions: As directed mupirocin 2 % ointment 1 applic topical BID Qty: 15 0RF (DME) Xeroform Petrolatum Dressing 5 X 9 bandage See Rx Instructions .Route Qty: 50 3RF Rx Instructions: As directed (DME) elastic bandage 2 X 1.9 -yard bandage See Rx Instructions .Route Qty: 14 3RF Rx Instructions: As directed insulin aspart U-100 100 unit/mL (3 mL) insulin pen 5 - 7 unit SUBCUT TID amitriptyline 75 mg tablet 75 mg PO BEDTIME Novolin N NPH U-100 Insulin 100 unit/mL suspension See Rx Instructions .ROUTE .COMPLEX Rx Instructions: TAKE 21 UNITS IN THE MORNING BEFORE BREAKFAST AND 10 UNITS AT BEDTIME. ondansetron 4 mg tablet,disintegrating 4 mg PO Q8H PRN (Reason: nausea and vomiting) Qty: 14 0RF Referrals: Everett Huddleston MD [Primary Care Provider] - Coding Level of Care Code ED [employer] for [employer]
[2024-04-06] MEDS: ondansetron 2 mg/ML SDV 2 mL 4 MG IVP (22:38)
[2024-04-06 22:39] LABS: ABG PCO2 24.9 mmHg (35-45); Arterial Blood Gas Hematocrit 30.1 % (37-47); Base Excess ABG 3.4 mmol/L (-2.0-2.0); Blood Gas Allen Test Pos; Blood Gas Operator Identificat CL; Blood Gas Sample Site Radial, right; Blood Gas Sample Type Arterial; HCO3 ABG 24.4 mmol/L (22-26)
[2024-04-06] MEDS: sodium chloride 0.9% 1,000 ML 999 ML IV ×2 (22:39→22:45)
[2024-04-06 22:57] LABS: Basophils # 0.1 10^3/uL (0.0-0.1); Basophils % 0.3 %; Eosinophils # 0.1 10^3/uL (0.0-0.8); Eosinophils % 0.3 %; Hematocrit 34.9 % (36-47); Lymphocytes # 1.7 10^3/uL (0.8-4.8); Lymphocytes % 11.2 %; Mean Corpuscular HGB Conc 30.7 g/dL (30-55); Mean Corpuscular Hemoglobin 29.9 pg (27-33); Mean Corpuscular Volume 97.5 fl (85-98); Mean Platelet Volume 10.4 fL (7.4-10.4); Monocytes # 0.9 10^3/uL (0.2-0.9); Neutrophils # 12.56 10^3/uL (1.8-7.7); Neutrophils % 81.7 %; Nucleated Red Blood Cells % 0 %; Platelet Count 328 10^3/cmm (157-399); Red Blood Count 3.58 10^6/uL (3.85-5.65); Red Cell Distribution Width 13.7 % (12.1-15.1); White Blood Count 15.39 10^3/uL (3.29-11.43)
[2024-04-06 23:03] LABS: Ketone (Acetest) Serum Negative (Negative)
[2024-04-06 23:10] LABS: Alanine Aminotransferase 6 U/L (0-33); Albumin Level 3.3 g/dL (3.5-5.2); Alkaline Phosphatase 174 U/L (35-105); Anion Gap 17.8 (5-19); Aspartate Amino Transferase 6 U/L (0-32); Blood Urea Nitrogen 10 mg/dL (6-20); Calcium 8.8 mg/dL (8.5-10.5); Carbon Dioxide 23 mmol/L (22-29); Chloride 91 mmol/L (98-107); Creatinine Clr Calc Pharmacy 91.8751; Globulin 3.7 g/dL (1.3-4.6); Glomerular Filtration Rate 92.2 mL/min (90-130); Magnesium 1.8 mg/dL (1.7-2.3); Osmolality Calculated 291 mOsm/kg (285-295); Potassium 3.8 mmol/L (3.5-5.1); Sodium 128 mmol/L (136-145); Total Bilirubin 0.4 mg/dL (0.15-1.2)
[2024-04-06 23:11] LABS: Lactic Sepsis W/Reflex 1.4 mmol/L (0.5-2.2)
[2024-04-06 23:14] LABS: Glucose 572 mg/dL (65-115)
[2024-04-06 23:38] LABS: Glucose Point of Care 479 mg/dL (70-110)
--- NOTE | 2024-04-06 23:42 | P.HP_ITS ---
Providers/Chief Complaint 2 Primary Care Provider: Everett Huddleston MD Chief Complaint: High BG History of Present Illness Anna Tolbert is a 43 year old female with medical history of type 1 diabetes, pyelonephritis, BKA, bipolar disorder, CKD presented to the hospital for complaint of worsening wound on left knee which has been having increasing redness. She has been having a lot of pain in that knee. Her sugar has also been elevated. She denies having a fever, chest pain, shortness of breath, nausea, vomiting, diarrhea. She has had an amputation right below-knee in the past. She is a known type I diabetic and takes insulin at home. Patient was admitted to ICU secondary to blood sugar being over 600. Subsequent sugar 225 however when being taken from ED to her room patient took an unknown substance from out of her purse. Since then she has been quite drowsy. Does wake up to verbal cues and answer some questions and then falls back asleep. Able to protect her airway at this time. Blood pressure 80s over 50s MAP less than 65. She was given 2 L normal saline bolus in ER. I have ordered an additional bolus and asked RN to start Levophed at this time. Have requested ER for central line placement. CT Left knee shows an effusion. There is a draining wound. Fat pad exposed. ER course: 133/79, 18, 114, 99.6, saturating 99% on room air. WBC 15.39, hemoglobin 10.7, sodium 128 (patient hyperglycemic, blood glucose 572) creatinine 0.7, alkaline phosphatase 174, serum ketones negative. ABG shows pH 7.6, CO2 24.9, O2 106, bicarb 24.4. Medications/Allergies Home Medications Medication Instructions Recorded Confirmed Last Taken Type bismuth tribrom-petrolatum,wh 5 X #50 ea 07/03/23 03/09/24 07/05/23 Rx 9 bandage (Xeroform Petrolatum Dressing) elastic bandage 2 X 1.9 yard #14 ea 07/03/23 03/09/24 07/05/23 Rx non-adherent bandage 5 X 9 11/07/23 03/09/24 Unknown History lamotrigine 150 mg tablet 150 mg PO DAILY #90 tabs 12/20/23 03/09/24 03/09/24 Rx (Lamictal) meloxicam 7.5 mg tablet 7.5 mg PO DAILY #60 tabs 12/20/23 03/09/24 03/09/24 Rx amitriptyline 75 mg tablet 75 mg PO BEDTIME 02/11/24 03/09/24 03/08/24 History insulin NPH isoph U-100 human 100 See Rx Instructions .Route .COMPLEX 02/11/24 03/09/24 03/09/24 History unit/mL subcutaneous suspension (Novolin N NPH U-100 Insulin isophane) insulin aspart U-100 100 unit/mL 5 - 7 unit SUBCUT TID 02/11/24 03/09/24 03/09/24 History (3 mL) subcutaneous pen ondansetron 4 mg disintegrating 4 mg PO Q8H PRN nausea and 02/11/24 03/09/24 Unknown Rx tablet vomiting #14 tabs tizanidine 4 mg tablet 4 mg PO BID PRN muscle spasticity 03/05/24 03/09/24 Unknown Rx #60 tabs mupirocin 2 % topical ointment 1 applic topical BID #15 grams 03/09/24 Unknown Rx bupropion HCl 150 mg 24 hr tablet, 150 mg PO QAM #30 tabs 03/16/24 Unknown Rx extended release (Wellbutrin XL) gabapentin 600 mg tablet 300 mg (1/2 x 600 mg) PO TID #30 03/26/24 03/26/24 Unknown Rx tabs Allergies Allergy/AdvReac Type Severity Reaction Status Date / Time cyclobenzaprine Allergy Mild ALGY-Hives Verified 04/06/24 22:26 [From Flexeril] amoxicillin Allergy ALGY-Rash Verified 04/06/24 22:26 clavulanic acid Allergy ALGY-Difficulty Verified 04/06/24 22:26 [From Augmentin] Breathing morphine Allergy ADR-Itching Verified 04/06/24 22:26 Penicillins Allergy ALGY-Rash Verified 04/06/24 22:26 PFSH Acute 2 PFSH: Medical History Pyelonephritis Prosthetic joint infection Phantom limb Insomnia Moderate major depression Bipolar disorder Chronic kidney disease Type 1 diabetes Surgical History History of appendectomy History of surgery on lower extremity History of tonsillectomy Social History Smoking and tobacco/nicotine status: current every day tobacco/nicotine user cigarettes Packs smoked per day: 0.25 and e-cigarettes E-Cigarette Details: e- cigarette Alcohol intake: former Substance/Drug Use: current Female Reproductive History: Date of last menstrual period: 03/24/24 Vitals/I&O/Wt Last Vital Signs Temp 99.6 F 04/06/24 22:20 Pulse 114 H 04/06/24 22:20 Resp 18 04/06/24 22:20 BP 133/79 04/06/24 22:20 Pulse Ox 99 04/06/24 22:20 Weight last 48 hrs Weight 58.967 kg Physical Exam 2 Narrative: Drowsy, does wake up to answer questions,Patient seen laying in bed sleeping. HEENT: Normocephalic, atraumatic, EOMI, breathing Normally on room air, Able to protect her airway. Cardio: Regular rate rhythm, normal S1-S2, Respiratory: Good bilateral air entry, no wheezes no rhonchi appreciated GI: Abdomen soft, nontender, nondistended, bowel sounds + Extremities: Right below the knee amputation noted, left knee wound present2 x 3 cm, fat pad exposed, significant knee swelling, erythema noted., erythema, warmth noted.Purulent drainage present.Right knee popliteal fossa with additional wounds however not draining at this time.Some track michel can be seen on patient's hands Data 04/06/24 22:40 04/06/24 22:40 A&P Assessment and plan (1) Bipolar disorder: (2) Type 1 diabetes: (3) Hyperglycemia: (4) Chronic kidney disease: (5) S/P BKA (below knee amputation): (6) Cellulitis: Plan #Cellulitis left knee #Left knee effusion, high suspicion of septic arthritis knee joint #Methamphetamine abuse #Type 1 diabetes mellitus complicated by hyperglycemia #Pseudohyponatremia, sodium 128 #Bipolar disorder #CKD #Depression #History of recent UTI, pyelonephritis #History of gram-positive bacteremia in the past. ? Continue on vancomycin and aztreonam at this time. Patient does have history of gram-positive bacteremia in the past. ? Placed on sliding scale insulin moderate dose intensity?complete med rec ? Hold gabapentin at this time. ? Check blood cultures ? Check CT left knee to rule out underlying abscess ? Check sed rate, CRP ? Patient hyperglycemic at admission 572. He was given insulin in ER. Will place on Accu-Cheks. She is not in DKA. ? Placed on normal saline 125 cc/h, Give additional 500 cc bolus. Patient is status post 2 L normal saline in ER. ? Check labs in a.m. CBC, CMP ? Check hemoglobin A1c ? Carbohydrate consistent diet - sodium 128, corrected for hyperglycemia 136. ? Check arthrocentesis in a.m. synovial fluid analysis, Patient may need washout of joint. Please consult orthopedic surgery in a.m. if warranted. ? Urine drug screen positive for methamphetamine. ? Patient hypotensive. Add Levophed. ? Check blood glucose every 6 hours ? N.p.o. at this time since patient not awake enough. Risk of aspiration. Patient able to protect airway. We will continue to monitor in ICU. Low threshold for intubation. Full code DVT prophylaxis: Lovenox 40 daily Attestations 2 Medical Necessity Statement*: Greater than 2 minutes stay for management of cellulitis Diagnoses Bipolar disorder F31.9 Type 1 diabetes E10.9 Hyperglycemia R73.9 Chronic kidney disease N18.9 S/P BKA (below knee amputation) Z89.519 Cellulitis L03.90
[2024-04-06] MEDS: acetaminophen 325 mg Tablet 650 MG PO (23:46)
[2024-04-06] MEDS: vancomycin 1,000 MG in sodium chloride 0.9% 250 ML 250 MG IV (23:46)
[2024-04-06] MEDS: insulin regular-human 100 units/1 mL 10 UNIT IVP (23:47)
[2024-04-06 23:52] VITALS: BP 111/78; PULSE 105; O2SAT 95
[2024-04-07] VITALS (72 sets, daily range): BP systolic 80–144; BP diastolic 42–95; PULSE 83–118; RESP 9–31; TEMP 36.3–37.1; O2SAT 89–100; BMI 23.4
--- NOTE | 2024-04-07 00:01 | CTR_ITS ---
PROCEDURE INFORMATION: Exam: CT Left Lower Extremity With Contrast, Knee Exam date and time: 04/07/2024 12:23 AM Age: 43 years old Clinical indication: Cellulitis; Knee; Left; Additional info: Cellulitis, R/O abscess, include surrounding soft tissue TECHNIQUE: Imaging protocol: CT of the left lower extremity with intravenous contrast was performed. Exam focused on the knee. Radiation optimization: All CT scans at this facility use at least one of these dose optimization techniques: automated exposure control; mA and/or kV adjustment per patient size (includes targeted exams where dose is matched to clinical indication); or iterative reconstruction. Contrast material: OMNI 350; Contrast volume: 100 ml; Contrast route: INTRAVENOUS (IV); COMPARISON: CR (LOW EXM, ) 04/06/2024 10:26 PM RADIATION DOSE METRICS: Total DLP (mGy-cm): 350.6 FINDINGS: Bones/joints: A moderate joint effusion is accompanied by synovial enhancement suspicious for septic joint. No gas in the joint space. There is prepatellar skin thickening , edema and ulceration associated with scattered gas droplets and fluid in the soft tissues. The fluid is somewhat organized in a hemispherical within the subcutaneous tissues superficial to the patella. Fluid measures up to 3 mm in thickness and 6 cm from right to left and 4 cm superior to inferior. No fracture or bone destruction. Soft tissues: See Bones/joints finding. CT/CT knee LT w con [id number] IMPRESSION: 1. Subcutaneous gas and fluid between the skin and patella consistent with abscess. 2. Joint effusion with synovial enhancement suspicious for septic joint. 3. Prepatellar skin thickening and ulceration.
[2024-04-07] MEDS: iohexol 350 mg/mL 500 mL Btl (per mL) IV (00:26)
[2024-04-07 00:53] LABS: D Dimer 1.29 ug/mLFEU (0-0.59)
[2024-04-07 00:57] LABS: Lactic Sepsis W/Reflex 1.5 mmol/L (0.5-2.2)
[2024-04-07 01:00] LABS: Glucose Point of Care > 600 mg/dL (70-110)
[2024-04-07 01:04] LABS: Procalcitonin 0.97 ng/mL (0-0.5)
[2024-04-07 01:27] LABS: Glucose Point of Care 225 mg/dL (70-110)
[2024-04-07 01:52] LABS: Phosphorus 1.8 mg/dL (2.5-4.5)
[2024-04-07] MEDS: aztreonam 1,000 MG in sodium chloride 0.9% (plus) 50 ML 100 MG IV ×2 (02:03→14:40)
[2024-04-07] MEDS: enoxaparin 40 mg/0.4 mL Syringe SUBCUT (02:03)
--- NOTE | 2024-04-07 02:10 | PC.NURSE ---
Patient Belongings Dr. Arriaga at bedside discussing home medications with patient. Verbal permission received from patient to look in personal belongings to assess medications present. Gabapentin, meloxicam, lamotrigine, buspar bottles present, as well as a labeled bottle for carbidopa levidopa prescribed to a different name. Multiple unidentifiable pills lying uncontained in bottom of purse. Patient's purse placed in patient bedside cabinet.
[2024-04-07] MEDS: sodium chloride 0.9% 1,000 ML 125 ML IV (02:27)
[2024-04-07 02:36] LABS: Amphetamines Screen Urine Positive (Negative); Barbiturates Screen Urine Negative (Negative); Benzodiazepines Screen Urine Negative (Negative); Cocaine Screen Urine Negative (Negative); Opiate Screen Urine Negative (Negative); PCP Screen Urine Negative (Negative); THC Screen Urine Negative (Negative)
[2024-04-07] MEDS: sodium chloride 0.9% 500 ML 999 ML IV (03:00)
--- NOTE | 2024-04-07 03:30 | PC.NURSE ---
Patient arrived to unit via bed. Upon initial assessment, patient very lethargic with a RR around 8-10, blood sugar 225, and soft blood pressures. Furthermore, patient's left knee draining purulent yellow drainage with surrounding bright red skin. Dr. Arriaga notified at bedside; orders received to discontinue insulin drip protocol, insert a picc line, administer levophed as needed, insert a arteaga catheter, obtain a urine drug screen and administer a 500 ml NS bolus.
[2024-04-07 04:55] LABS: Basophils # 0.1 10^3/uL (0.0-0.1); Basophils % 0.4 %; Eosinophils # 0.1 10^3/uL (0.0-0.8); Eosinophils % 0.5 %; Erythrocyte Sedimentation Rate 42 mm/hr (0-15); Hematocrit 27.5 % (36-47); Lymphocytes # 2.5 10^3/uL (0.8-4.8); Lymphocytes % 18.5 %; Mean Corpuscular HGB Conc 30.2 g/dL (30-55); Mean Corpuscular Hemoglobin 30.2 pg (27-33); Mean Platelet Volume 10.2 fL (7.4-10.4); Monocytes # 0.8 10^3/uL (0.2-0.9); Monocytes % 6.2 %; Neutrophils # 9.77 10^3/uL (1.8-7.7); Neutrophils % 73.8 %; Nucleated Red Blood Cells % 0 %; Platelet Count 286 10^3/cmm (157-399); Red Blood Count 2.75 10^6/uL (3.85-5.65); White Blood Count 13.24 10^3/uL (3.29-11.43)
[2024-04-07 05:14] LABS: Alanine Aminotransferase < 5 U/L (0-33); Albumin Level 2.7 g/dL (3.5-5.2); Alkaline Phosphatase 133 U/L (35-105); Anion Gap 12.9 (5-19); Aspartate Amino Transferase 5 U/L (0-32); Blood Urea Nitrogen 10 mg/dL (6-20); Calcium 7.7 mg/dL (8.5-10.5); Carbon Dioxide 23 mmol/L (22-29); Chloride 101 mmol/L (98-107); Creatinine Clr Calc Pharmacy 107.1876; Globulin 2.8 g/dL (1.3-4.6); Glomerular Filtration Rate 110.2 mL/min (90-130); Glucose 214 mg/dL (65-115); Magnesium 1.7 mg/dL (1.7-2.3); Osmolality Calculated 281 mOsm/kg (285-295); Potassium 3.9 mmol/L (3.5-5.1); Sodium 133 mmol/L (136-145); Total Bilirubin 0.3 mg/dL (0.15-1.2); Total Protein 5.5 g/dL (6.6-8.7)
[2024-04-07 05:20] LABS: C Reactive Protein 244.6 mg/L (0.0-4.9)
[2024-04-07 07:11] LABS: Glucose Point of Care 254 mg/dL (70-110)
[2024-04-07 07:26] LABS: Estmated Average Glucose 326
[2024-04-07] MEDS: ondansetron 2 mg/ML SDV 2 mL 4 MG IVP (08:06)
[2024-04-07] MEDS: acetaminophen 325 mg Tablet 650 MG PO (08:07)
[2024-04-07] MEDS: gabapentin 300 mg Capsule 600 MG PO ×2 (09:12→21:11)
--- NOTE | 2024-04-07 09:54 | P.PN_ITS ---
Subjective 2 Subjective: Dr. Kwan consulted Patient has septic joint Leukocytosis noted Patient was asking for pain management She is more awake and alert this morning Able to talk able to give history Patient is stating that she is living with a female cousin right now, not interested in rehab She is endorsing eating methamphetamine Vitals/I&O/Wt Last Vital Signs Temp 98.2 F 04/07/24 08:45 Pulse 100 04/07/24 09:15 Resp 15 04/07/24 09:15 BP 125/67 04/07/24 09:15 Pulse Ox 95 04/07/24 09:15 O2 Del Method Room Air 04/07/24 08:45 04/06/24 04/07/24 04/07/24 22:59 06:59 14:59 Intake Total 2868.75 / 2868.75 Output Total 1000 / 1000 100 / 100 Balance 1868.75 / 1868.75 -100 / -100 Weight last 48 hrs Weight 59.965 kg Weight 59.965 kg Weight 58.967 kg Physical Exam 2 Narrative: Left knee has an open ulcer with purulent base Multiple bruises and open wounds left anterior squires area 1 callus at left great toe S1, S2 Hemodynamic stable Afebrile this morning Awake and alert No signs of stroke Abdomen soft Muscle mass loss Urinary Catheter Management: Bustos: Cath Placed During This Visit: yes Reason for Continuing Indwelling Catheter: Accurate Measurement of Urinary Output in Critically Ill Patients Urinary Catheter Date of Insertion: 04/07/24 Urinary Catheter Time of Insertion: 02:10 Data 04/07/24 04:36 04/07/24 04:36 Micro: Microbiology 04/06/24 23:34 Blood Culture - Preliminary Blood SPECIMEN COLLECTED 04/06/24 23:25 Blood Culture - Preliminary Blood SPECIMEN COLLECTED A&P Assessment and plan (1) Abscess: (2) Cellulitis: (3) Cellulitis of left leg: (4) Chronic wound of extremity: (5) Chronic kidney disease: (6) Type 1 diabetes: (7) Hyperglycemia: (8) Bipolar disorder: Plan Septic joint Dr. Kwan consulted I will add clindamycin to vancomycin and aztreonam I will keep her n.p.o. until evaluated by orthopedics Will keep her on sliding scale add Lantus Will start her diet once I know the plan by orthopedics DKA: Resolved Replenish phosphorus and potassium Anion gap improved Patient endorses to eating marijuana over the weekend Off Levophed Continue IV fluids N.p.o. for now Full code DVT prophylaxis on hold until intervention Attestations 2 Medical Necessity Statement*: Continue medical management Diagnoses Abscess L02.91 Cellulitis L03.90 Cellulitis of left leg L03.116 Chronic wound of extremity Chronic kidney disease N18.9 Type 1 diabetes E10.9 Hyperglycemia R73.9 Bipolar disorder F31.9
[2024-04-07] MEDS: oxyCODONE-APAP 5-325 mg Tablet 1 TAB PO ×4 (10:04→21:13)
[2024-04-07] MEDS: potassium chloride ER 20 mEq Tablet PO (10:05)
[2024-04-07] MEDS: clindamycin 900 MG/50 ML PREMIX 100 MG IV (10:09)
[2024-04-07 11:23] LABS: Cyto Order Verification No Order
--- NOTE | 2024-04-07 11:32 | PM.CONSULT ---
Providers/Reason For Consult Consulting Physician/Specialty*: Juancarlos Kwan DO/orthopedic surgery Reason for Consult*: Left knee infection, possible septic joint Attending Physician: Cristobal Henry MD Primary Care Provider: Everett Huddleston MD History of Present Illness History of Present Illness Anna Tolbert is a 43 year old female who was admitted overnight for DKA and concern with worsening left knee pain. 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 Patient was subsequently admitted and being worked up. She states she has had this wound on her knee over the past 5 to 6 weeks where she has been following with our local wound care. She states over the past several days her left knee has been hurting more and more. And she is having more more difficulty with weightbearing due to the pain. He subsequently was admitted and they did have a CT scan performed which shows a joint effusion as well as patient does have an anterior prepatellar draining wound with subcutaneous air noted in this region. As result orthopedics was consulted for evaluation and treatment recommendations. Patient currently in the ICU she is able to provide an appropriate history as well as answer questions and follow commands. Review of Systems General: Reports: 10 or more systems reviewed and unremarkable except in HPI and below Medications/Allergies Home Medications Medication Instructions Recorded Confirmed Last Taken Type bismuth tribrom-petrolatum,wh 5 X #50 07/03/23 04/07/24 07/05/23 Rx 9 bandage (Xeroform Petrolatum Dressing) elastic bandage 2 X 1.9 yard #14 ea 07/03/23 04/07/24 07/05/23 Rx non-adherent bandage 5 X 9 11/07/23 04/07/24 Unknown History lamotrigine 150 mg tablet 150 mg PO DAILY #90 tabs 12/20/23 04/07/24 04/05/24 Rx (Lamictal) meloxicam 7.5 mg tablet 7.5 mg PO DAILY #60 tabs 12/20/23 04/07/24 04/05/24 Rx amitriptyline 75 mg tablet 75 mg PO BEDTIME 02/11/24 04/07/24 04/05/24 History insulin aspart U-100 100 unit/mL 5 - 7 unit SUBCUT TID 02/11/24 04/07/24 04/05/24 History (3 mL) subcutaneous pen ondansetron 4 mg disintegrating 4 mg PO Q8H PRN nausea and 02/11/24 04/07/24 Unknown Rx tablet vomiting #14 tabs tizanidine 4 mg tablet 4 mg PO BID PRN muscle spasticity 03/05/24 04/07/24 Unknown Rx #60 tabs mupirocin 2 % topical ointment 1 applic topical BID #15 grams 03/09/24 04/07/24 04/05/24 Rx bupropion HCl 150 mg 24 hr tablet, 150 mg PO QAM #30 tabs 03/16/24 04/07/24 04/05/24 Rx extended release (Wellbutrin XL) gabapentin 600 mg tablet 600 mg PO TID 04/07/24 04/07/24 04/05/24 History insulin NPH isoph U-100 human 100 15 unit SUBCUT BID 04/07/24 04/07/24 04/05/24 History unit/mL (3 mL) subcutaneous pen (Humulin N NPH U-100 Insulin KwikPen) Allergies Allergy/AdvReac Type Severity Reaction Status Date / Time cyclobenzaprine Allergy Mild ALGY-Hives Verified 04/06/24 22:26 [From Flexeril] amoxicillin Allergy ALGY-Rash Verified 04/06/24 22:26 clavulanic acid Allergy ALGY-Difficulty Verified 04/06/24 22:26 [From Augmentin] Breathing morphine Allergy ADR-Itching Verified 04/06/24 22:26 Penicillins Allergy ALGY-Rash Verified 04/06/24 22:26 Current Medications Generic Name Dose Route Start Last Admin Trade Name Jeffyq PRN Reason Stop Dose Admin Acetaminophen 650 mg 04/07/24 00:01 04/07/24 08:07 Acetaminophen 325 Mg Tablet PO 650 mg Q6H PRN Administration Mild/Mod Pain Or Temp >/= 101 Enoxaparin Sodium 40 mg 04/06/24 23:45 04/07/24 02:03 Enoxaparin 40 Mg/0.4 Ml Syringe SUBCUT 40 mg Q24H FABIAN Administration Gabapentin 600 mg 04/07/24 09:00 04/07/24 09:12 Gabapentin 300 Mg Capsule PO 600 mg TID FABIAN Administration Sodium Chloride 1,000 mls @ 75 mls/hr 04/07/24 00:15 04/07/24 10:07 Sodium Chloride 0.9% IV 75 mls/hr .[id number] FABIAN Infusion Aztreonam 1,000 mg/ Sodium 50 mls @ 100 mls/hr 04/07/24 00:15 04/07/24 03:21 Chloride IV Infused Q12H FABIAN Infusion Protocol Ondansetron HCl 4 mg 04/07/24 00:01 04/07/24 08:06 Ondansetron 2 Mg/Ml Sdv 2 Ml IVP 4 mg Q8H PRN Administration vomiting, or N/V if npo Oxycodone/Acetaminophen 1 tab 04/07/24 09:54 04/07/24 10:04 Oxycodone-Apap 5-325 Mg Tablet PO 1 tab Q4H PRN Administration MODERATE PAIN PFSH Acute PFSH: Medical History Pyelonephritis Prosthetic joint infection Phantom limb Insomnia Moderate major depression Bipolar disorder Chronic kidney disease Type 1 diabetes Surgical History History of appendectomy History of surgery on lower extremity History of tonsillectomy Social History Smoking and tobacco/nicotine status: current every day tobacco/nicotine user cigarettes Packs smoked per day: 0.25 and e-cigarettes E-Cigarette Details: e-cigarette Alcohol intake: former Substance/Drug Use: current Female Reproductive History: Date of last menstrual period: 03/24/24 Vitals/I&O/Wt Last Vital Signs Temp 98.1 F 04/07/24 09:57 Pulse 93 04/07/24 10:45 Resp 24 H 04/07/24 10:45 BP 117/71 04/07/24 10:45 Pulse Ox 98 04/07/24 10:45 O2 Del Method Room Air 04/07/24 10:15 04/06/24 04/07/24 04/07/24 22:59 06:59 14:59 Intake Total 2868.75 / 2868.75 816.667 / 816.667 Output Total 1000 / 1000 100 / 100 Balance 1868.75 / 1868.75 716.667 / 716.667 Weight last 48 hrs Weight 132 lb 3.2 oz Weight 132 lb 3.2 oz Weight 130 lb Physical Exam Narrative: Orthopedic specific examination: Examination left knee demonstrates patient has dressing on in place subsequently taken down she has a granulating wound bed with count of fibrinous slough at the base of the wound bed with exposed subcutaneous fat this is within the prepatellar region. She does have localized erythema around this region with some tenderness to palpation. There is previous lines marked with permanent marker that do not appear to have as much erythema noted which likely is patient responding to a conservative treatment at this point time from a cellulitis standpoint, she is guarded on exam secondary to her pain she does have a palpable joint effusion as well as does have diffuse tenderness palpation of the knee. She does have multiple excoriations distally over the shins these are all scabbed and no draining wounds noted. No significant expressible purulence draining actively out of the wound bed anteriorly. She does have some pain with micromotion of the knee. Unable to perform any ligamentous stability examination secondary to her pain Urinary Catheter Management: Bustos: Cath Placed During This Visit: yes Reason for Continuing Indwelling Catheter: Accurate Measurement of Urinary Output in Critically Ill Patients Urinary Catheter Date of Insertion: 04/07/24 Urinary Catheter Time of Insertion: 02:10 Data 04/07/24 04:36 04/07/24 04:36 Other Labs: WBC 13.24, hemoglobin 8.3, ESR 42, CRP 244.6 NAME: Anna Tolbert LOC: ICU U #: [id number] AGE/SX: 43/F ROOM: [facility] RE04/07/[address]: Cristobal Henry MD : 1980 BED: 1 DIS: FAX #: STATUS: ADM IN TLOC: Spec : [id number] Yasmine: 04/07/24-0 Status: COMP Req : [id number] Recd: 04/07/24-[address]: Jennifer Arriaga MD Ordered: SYN Analysis Test Low Normal High Flag Reference Site Syn Color RED PALE YELLOW Syn Appear BLOODY CLEAR Syn WBC 02242 H 0-150 /uL Syn RBC 34 H 0-0 10^3/uL SYN Bullock % 2.400 % SYN Poly % 97.600 % SYN Bullock# 0.587 10^3/uL SYN Poly # 23.842 10^3/uL PATH YES Micro: Microbiology 04/06/24 23:34 Blood Culture - Preliminary Blood SPECIMEN COLLECTED 04/06/24 23:25 Blood Culture - Preliminary Blood SPECIMEN COLLECTED Other CT: My impression: Review of the CT scan demonstrates patient does have a visible joint effusion there does appear to be a wound the anterior aspect of the prepatellar bursa. This wound does have some subcutaneous gas and air extravasated in this area. There does appear to have a prepatellar fluid collection consistent with possible abscess. Radiologist's impression: Ordering Provider/Ordering MD: Jennifer Arriaga MD Date of Service: 04/07/24 Procedure(s): CT knee LT w con [id number] Accession Number(s): [id number] Report Number: [id number] PROCEDURE INFORMATION: Exam: CT Left Lower Extremity With Contrast, Knee Exam date and time: 04/07/2024 12:23 AM Age: 43 years old Clinical indication: Cellulitis; Knee; Left; Additional info: Cellulitis, R/O abscess, include surrounding soft tissue TECHNIQUE: Imaging protocol: CT of the left lower extremity with intravenous contrast was performed. Exam focused on the knee. Radiation optimization: All CT scans at this facility use at least one of these dose optimization techniques: automated exposure control; mA and/or kV adjustment per patient size (includes targeted exams where dose is matched to clinical indication); or iterative reconstruction. Contrast material: OMNI 350; Contrast volume: 100 ml; Contrast route: INTRAVENOUS (IV); COMPARISON: CR (LOW EXM, ) 04/06/2024 10:26 PM RADIATION DOSE METRICS: Total DLP (mGy-cm): 350.6 FINDINGS: Bones/joints: A moderate joint effusion is accompanied by synovial enhancement suspicious for septic joint. No gas in the joint space. There is prepatellar skin thickening , edema and ulceration associated with scattered gas droplets and fluid in the soft tissues. The fluid is somewhat organized in a hemispherical within the subcutaneous tissues superficial to the patella. Fluid measures up to 3 mm in thickness and 6 cm from right to left and 4 cm superior to inferior. No fracture or bone destruction. Soft tissues: See Bones/joints finding. CT/CT knee LT w con [id number] IMPRESSION: 1. Subcutaneous gas and fluid between the skin and patella consistent with abscess. 2. Joint effusion with synovial enhancement suspicious for septic joint. 3. Prepatellar skin thickening and ulceration. Ordering Provider/Ordering MD: Jaiden Majano MD Date of Service: 04/06/24 Procedure(s): XR knee LT 3V* [id number] Accession Number(s): [id number] Report Number: [id number] PROCEDURE INFORMATION: Exam: XR Left Knee Exam date and time: 04/06/2024 10:26 PM Age: 43 years old Clinical indication: Other: Open sore on knee; Additional info: Erythema TECHNIQUE: Imaging protocol: Radiologic exam of the left knee. Views: 3 views. COMPARISON: No relevant prior studies available. FINDINGS: Bones/joints: Probable small joint effusion. No degenerative changes. No acute bony findings Soft tissues: Cutaneous swelling over the patella. XR/XR knee LT 3V* [id number] IMPRESSION: Prepatellar soft tissue swelling and joint effusion A&P Assessment and plan (1) Abscess: (2) Cellulitis: (3) Cellulitis of left leg: (4) Chronic wound of extremity: (5) Chronic kidney disease: (6) Type 1 diabetes: (7) Hyperglycemia: (8) Bipolar disorder: Plan Plan to take to the OR today urgently for left knee irrigation and debridement and left knee diagnostic and surgical arthroscopy with irrigation debridement N.p.o. since midnight Performed left knee joint aspiration and sent for fluid cell analysis which resulted in 24,[address] scan reviewed X-rays reviewed Case discussed with patient as well as hospitalist Reviewed labs as well as performed left knee joint aspiration. At this point time patient has a complex presentation pertaining to her left knee. She does have what appears to be a wound over the prepatellar bursa with a septic prepatellar bursitis with an abscess noted in this area she does have pain with knee micro range of motion as well as on CT scan had joint effusion as a result was asked by the hospitalist to evaluate patient and aspirate joint which was performed and sent this did have 24,000 WBC count which classically for septic knee joint arthritis this would be for a large joint having white count greater than 50,000. However given her current clinical situation given she already has a wound and appears to have a superficial infection I would worry about any possible issues of this being deep in ultimately and ordered to address both of these problems I feel this will need to be done through open procedure from the standpoint of debriding the wound bed that was being managed by wound care by a simple I&D as well as decompression of the abscess in the subcutaneous tissue once this has been performed then my plan would be to proceed with a diagnostic and surgical arthroscopy with thorough irrigation of the knee joint to treat any underlying infection that could be developing. Once again I do not completely convinced this is a septic joint but given we will be going back for the I&D of the abscess I would rather us wash the knee out given she does have increased WBC count as well as increased PMNs and she does have some clinical pain with micromotion which which could potentially lean towards a septic joint arthritis and as result we talked about this in detail as far as continued nonoperative versus operative mention. Through shared decision-making elected proceed with surgical intervention today we will perform an open I&D of the prepatellar region and then a knee scope with I&D to clear out the knee joint as well. I once again discussed this with the hospitalist as well as patient understand agree with current plan. Questions answered. Risk of surge include not limited to make a better make it worse, possible further surgery, increased wound issues, further progressing infection, possible further surgery and loss of limb. Patient understands and agrees with current plan. Questions answered. Procedure in detail: Obtained consent from patient for left knee joint aspiration. The left knee joint was then sterilely prepped in standard orthopedic fashion I then aspirated from the superior lateral portion of the patella into the suprapatellar pouch this was performed under sterile aseptic technique and was able to aspirate roughly 13 cc of bloody tinged synovial cloudy fluid. This was able to be aspirated outside of the zone of patient's prepatellar region with erythema. Needle was withdrawn fluid was sent for fluid cell analysis as well as cultures. I then subsequently cleaned and placed a Band-Aid over the incision. Patient tolerated procedure without issues or complications. Fluid sent for fluid cell analysis and cultures. Coding Level of Care Code Acute Code for [facility] Fwd Diagnoses Abscess L02.91 Cellulitis L03.90 Cellulitis of left leg L03.116 Chronic wound of extremity Chronic kidney disease N18.9 Type 1 diabetes E10.9 Hyperglycemia R73.9 Bipolar disorder F31.9
[2024-04-07 11:45] LABS: Crystals, Fluid See Path Consult
[2024-04-07 11:47] LABS: RBC Synovial Fluid 34 10^3/uL (0-0); Synovial Fluid Mononuclear # 0.587 10^3/uL; Synovial Fluid Polynuclear # 23.842 10^3/uL; WBC Synovial Fluid 24429 /uL (0-150)
[2024-04-07 11:51] LABS: Appearance Synovial Fluid BLOODY (CLEAR); Color Synovial Fluid RED (PALE YELLOW); PATH Referal YES
[2024-04-07] MEDS: insulin lispro 100 unit/1 mL SUBCUT (11:59)
[2024-04-07 12:10] LABS: Glucose Point of Care 219 mg/dL (70-110)
[2024-04-07 12:34] LABS: Glucose Point of Care 248 mg/dL (70-110)
[2024-04-07] MEDS: vancomycin 1,250 MG/250 ML PIGGYBACK 250 MG IV ×2 (13:03→22:18)
[2024-04-07 13:22] LABS: Glucose Point of Care 191 mg/dL (70-110)
--- NOTE | 2024-04-07 13:35 | P.ANESASSM_ITS ---
Pre-Anesthetic Assessment Height/Weight: Height 1.6 m Weight 59.965 kg Temp Pulse Resp BP Pulse Ox O2 Del Method 98.1 F 93 24 H 117/71 98 Room Air 04/07/24 09:57 04/07/24 10:45 04/07/24 10:45 04/07/24 10:45 04/07/24 10:45 04/07/24 10:15 Preop Diagnosis: Left knee abscess with cellulitis Operation Date: 04/07/24 15:30 Proposed Procedures p Incision & Drainage Lower Extremity Debridement Knee(Left) - Juancarlos Kwan DO s Knee Arthroscopy Knee Diagnostic-Knee(Left) - Juancarlos Kwan DO Familial anesthetic complications: none Was Beta Kesha taken within 24 hours: N/A Was Clonidine taken within 24 hours: N/A Social Tobacco and No alcohol Exam alert and oriented x 3 Slightly hypotensive 80's sys (no pressors currently) Airway Submandibular: within normal limits Cervical ROM: within normal limits Mallampati: Class II Dentition: false Pulmonary Chronic Obstructive Pulmonary Disease CV/HEM Anemia Sepsis Chronic Renal Insufficiency Metabolic Diabetes Mellitus Neuropsych Anxiety and Depression Anesthetic Plan ASA status: 4 Anesthesia: General Medications/Allergies Home Medications Medication Instructions Recorded Confirmed Last Taken Type bismuth tribrom-petrolatum,wh 5 X #50 07/03/23 04/07/24 07/05/23 Rx 9 bandage (Xeroform Petrolatum Dressing) elastic bandage 2 X 1.9 yard #14 ea 07/03/23 04/07/24 07/05/23 Rx non-adherent bandage 5 X 9 11/07/23 04/07/24 Unknown History lamotrigine 150 mg tablet 150 mg PO DAILY #90 tabs 12/20/23 04/07/24 04/05/24 Rx (Lamictal) meloxicam 7.5 mg tablet 7.5 mg PO DAILY #60 tabs 12/20/23 04/07/24 04/05/24 Rx amitriptyline 75 mg tablet 75 mg PO BEDTIME 02/11/24 04/07/24 04/05/24 History insulin aspart U-100 100 unit/mL 5 - 7 unit SUBCUT TID 02/11/24 04/07/24 04/05/24 History (3 mL) subcutaneous pen ondansetron 4 mg disintegrating 4 mg PO Q8H PRN nausea and 02/11/24 04/07/24 Unknown Rx tablet vomiting #14 tabs tizanidine 4 mg tablet 4 mg PO BID PRN muscle spasticity 03/05/24 04/07/24 Unknown Rx #60 tabs mupirocin 2 % topical ointment 1 applic topical BID #15 grams 03/09/24 04/07/24 04/05/24 Rx bupropion HCl 150 mg 24 hr tablet, 150 mg PO QAM #30 tabs 03/16/24 04/07/24 04/05/24 Rx extended release (Wellbutrin XL) gabapentin 600 mg tablet 600 mg PO TID 04/07/24 04/07/24 04/05/24 History insulin NPH isoph U-100 human 100 15 unit SUBCUT BID 04/07/24 04/07/24 04/05/24 History unit/mL (3 mL) subcutaneous pen (Humulin N NPH U-100 Insulin KwikPen) Allergies Allergy/AdvReac Type Severity Reaction Status Date / Time cyclobenzaprine Allergy Mild ALGY-Hives Verified 04/06/24 22:26 [From Flexeril] amoxicillin Allergy ALGY-Rash Verified 04/06/24 22:26 clavulanic acid Allergy ALGY-Difficulty Verified 04/06/24 22:26 [From Augmentin] Breathing morphine Allergy ADR-Itching Verified 04/06/24 22:26 Penicillins Allergy ALGY-Rash Verified 04/06/24 22:26 Current Medications Generic Name Dose Route Start Last Admin Trade Name Freq PRN Reason Stop Dose Admin Acetaminophen 650 mg 04/07/24 00:01 04/07/24 08:07 Acetaminophen 325 Mg Tablet PO 650 mg Q6H PRN Administration Mild/Mod Pain Or Temp >/= 101 Enoxaparin Sodium 40 mg 04/06/24 23:45 04/07/24 02:03 Enoxaparin 40 Mg/0.4 Ml Syringe SUBCUT 40 mg Q24H FABIAN Administration Gabapentin 600 mg 04/07/24 09:00 04/07/24 09:12 Gabapentin 300 Mg Capsule PO 600 mg TID FABIAN Administration Sodium Chloride 1,000 mls @ 75 mls/hr 04/07/24 00:15 04/07/24 10:07 Sodium Chloride 0.9% IV 75 mls/hr .[id number] FABIAN Infusion Aztreonam 1,000 mg/ Sodium 50 mls @ 100 mls/hr 04/07/24 00:15 04/07/24 03:21 Chloride IV Infused Q12H FABIAN Infusion Protocol Vancomycin/PEG/NADA/Lysine/Water 1,250 mg in 250 mls @ 250 mls/hr 04/07/24 11:00 04/07/24 13:03 Vancocin IV 250 mls/hr Q12H FABIAN Administration Insulin Human Lispro 0 unit 04/07/24 12:00 04/07/24 11:59 Insulin Lispro 100 Unit/1 Ml SUBCUT 6 unit TIDWM FABIAN Administration Protocol Ondansetron HCl 4 mg 04/07/24 00:01 04/07/24 08:06 Ondansetron 2 Mg/Ml Sdv 2 Ml IVP 4 mg Q8H PRN Administration vomiting, or N/V if npo Oxycodone/Acetaminophen 1 tab 04/07/24 09:54 04/07/24 10:04 Oxycodone-Apap 5-325 Mg Tablet PO 1 tab Q4H PRN Administration MODERATE PAIN PFSH Anesthesia Medical History Pyelonephritis Prosthetic joint infection Phantom limb Insomnia Moderate major depression Bipolar disorder Chronic kidney disease Type 1 diabetes Surgical History History of appendectomy History of surgery on lower extremity History of tonsillectomy Social History Smoking and tobacco/nicotine status: current every day tobacco/nicotine user cigarettes Packs smoked per day: 0.25 and e-cigarettes E-Cigarette Details: e- cigarette Alcohol intake: former Substance/Drug Use: current Female Reproductive History Date of last menstrual period: 03/24/24 Data Anesthesia 04/07/24 04:36 04/07/24 04:36 Short CBC 04/06/24 04/07/24 Range/Units 22:40 04:36 WBC 15.39 H 13.24 H (3.29-11.43) 10^3/uL Hgb 10.70 L 8.30 L (11.27-16.99) g/dL Hct 34.9 L 27.5 L (36-47) % MCV 97.5 100.0 H (85-98) fl Plt Count 328 286 (157-399) 10^3/cmm Neut % (Auto) 81.7 73.8 % Neut # (Auto) 12.56 H 9.77 H (1.8-7.7) 10^3/uL BMP 04/06/24 04/07/24 22:40 04:36 Sodium 128 L 133 L Potassium 3.8 3.9 Chloride 91 L 101 Carbon Dioxide 23 23 BUN 10 10 Creatinine 0.7 0.6 Glucose 572 H* 214 H Calcium 8.8 7.7 L Liver Function 04/06/24 04/07/24 Range/Units 22:40 04:36 Total Bilirubin 0.4 0.3 (0.15-1.2) mg/dL AST 6 5 (0-32) U/L ALT 6 < 5 (0-33) U/L Alkaline Phosphatase 174 H 133 H (35-105) U/L Albumin 3.3 L 2.7 L (3.5-5.2) g/dL Coags 04/06/24 04/07/24 22:40 04:36 ESR 42 H D-Dimer 1.29 H C-Reactive Protein 244.6 H ABG 04/06/24 22:30 Specimen Type Arterial Sample Site Radial, right ABG pH 7.60 H* ABG pCO2 24.9 L ABG pO2 106.0 H ABG HCO3 24.4 ABG Base Excess 3.4 H O2 Delivery Device None Microbiology 04/06/24 23:34 Blood Culture - Preliminary Blood SPECIMEN COLLECTED 04/06/24 23:25 Blood Culture - Preliminary Blood SPECIMEN COLLECTED Cardiac Studies: 2 Echocardiogram 06/24/23 Transesophageal Echocardiogram 06/27/23
[2024-04-07 13:58] LABS: INR 1.05 (0.8-1.2)
--- NOTE | 2024-04-07 17:02 | US_ITS ---
WS: [id number] INDICATION: Septic joint. TECHNIQUE: Ultrasound soft tissue LEFT knee FINDINGS: Small complex suprapatellar effusion as seen on the recent CT. Associated soft tissue edema compatible with cellulitis. US/US soft tissue/extremity [id number] IMPRESSION: See above
--- NOTE | 2024-04-07 17:16 | PM.OP ---
Operative Report Date of procedure: April 07, 2024 Surgeon: Juancarlos Kwan DO [employer] Engineer: Landon Kwan PA-C: PA was necessary for assistance in this case with leg positioning retraction and assistance with irrigation and debridement,, as well as assistance with instrumentation wound closure and dressing application. Procedure: Preoperative diagnosis: Left knee septic prepatellar bursitis with abscess Possible left knee septic joint/inflammatory arthropathy Post-op diagnosis: Left knee infected bursitis with synovitis and patellofemoral chondral plasia and medial plica and loose body Procedure done: Left knee Irrigation and Debridement (prepatellar abscess/wound size 11cm x 10cm x 2cm) Left knee diagnositic and surgical arthroscopy with Extensive synovectomy Left knee diagnostic and surgical arthroscopy with patellofemoral compartment chondroplasty Left knee diagnostic and surgical arthroscopy with medial plica excision Left knee diagnostic and surgical arthroscopy with removal of loose body Surgeon: Juancarlos Kwan DO Estimated blood loss: 50mL Tourniquet: 49min IV fluids: See anesthesia record Complications: None Findings: See operative report narrative Condition: stable Disposition: same day Brief History: Patient is a 43-year-old female with Left?knee?pain.? Patient's was admitted for DKA currently and is in the ICU orthopedics was consulted as patient had a concern for left knee infection within open mild potential draining anterior wound with concern for abscess fluid collection in the prepatellar space as well as possible septic knee joint. Orthopedics saw and evaluated patient. Patient does have palpable fluctuance on the prepatellar bursal region with a open wound over the prepatellar region. Localized cellulitis appreciated. We did aspirate the joint as well which showed 24,000 WBCs. At this point in time we talked about this in detail with the patient as well as discussed this with the hospitalist staff given patient has abscess and this does not appear to be responding to conservative treatment would benefit from a left knee irrigation debridement with an open procedure of the septic prepatellar bursitis with abscess and cellulitis and subsequently once this is debrided perform a knee arthroscopy for irrigation debridement of the knee joint to treat possibility of septic joint infection. Please refer to detailed consult note for discussion with patient and medical decision making. Plan for left knee irrigation and debridement and left knee diagnostic and surgical arthroscopy with irrigation debridement Patient understand the ins and outs of the procedure the risk benefits complication alternatives to treatment options.? Understanding risk of surgery pt agree to proceed with surgical intervention.? ? Understanding this and patient agree to proceed with surgical intervention all questions answered. Procedure: Patient seen and evaluated in the ICU.? Consent was reviewed and signed with patient.? Correct extremity was then marked.? Patient seen evaluated Anesthesia Department once cleared for surgery patient was taken back to the operative suite.? Patient was transported onto the OR table in supine position.? All bony prominences well-padded patient was appropriate secured to the bed.? Once appropriately anesthetized a nonsterile tourniquet was applied to the Left thigh.? The Left lower extremity was then prepped and draped in standard orthopedic fashion.? Final timeout performed.? Patient received appropriate preoperative antibiotics from empiric antibiotics patient was receiving on the floor. Left lower extremity was then subsequently elevated and tourniquet was insufflated to 250 mmHg. I started off with the open procedure. Patient had a small anterior wound circular in nature on the anterior aspect of the prepatellar area. This unfortunately did not have good position or tissue excursion where I could actually ellipse out this area. As a result my plan was for this to be appropriately packed afterwards. I subsequently utilized blunt hemostats to decompress into the large abscess that was just superiorly to this wound. Immediate decompression of the abscess was noted subsequently took cultures of this. I then bluntly dissected with a hemostat circumferentially to the borders of the wound which equated to being 11 cm x 10 cm x 2 cm in size. The entire abscess was decompressed and then subsequently performed standard irrigation and debridement of this area debridement of the area was performed with sharp scalpel excision as well as rongeur and curette. Once this was too stable healthy vital tissue I then thoroughly irrigated this out with over 3 L of normal saline with Pulsavac. At this point in time this wound was appropriately debrided and now in clean fashion I then subsequently changed out and placed new drapes around the wound as well as covered this hole with betadine soaked gauze. subsequently performed a 2 portal diagnostic and surgical arthroscopy of the left knee. Given the wound was in close proximity to the medial portal I selected for a superior lateral portal and an anterior inferolateral portal. A standard 2 portal vertical incision diagnostic and surgical arthroscopy of the Left?knee?was performed in standard fashion.? Small stab incision made in the inferolateral portal introduced trocar and arthroscope into the suprapatellar pouch.? Subsequently expressing that the joint fluid into a specimen cup and this was subsequently cultured for aerobic and anaerobic and sent for microbiology. Wound had a slightly yellow and cloudy appearance. suprapatellar pouch was subsequently visualized and found to have significant synovitis but no loose bodies.? Patient had noticeable significant inflamed infrapatellar fat pad and thickening hypertrophic within the patellofemoral compartment.? Patient also was found to have a prominent medial plica. ?The medial gutter was free of loose bodies I then introduced the arthroscope into the medial compartment.? Within the medial compartment I then established my inferior medial working portal utilizing spinal needle outside in technique.? Once established I then visualized our articular cartilage of the medial compartment with a valgus stress.? 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 Next I inspected the meniscus.? And no tear of the meniscus was noted medially. Next a introduced the arthroscope to the intercondylar notch.? PCL and ACL were intact. patient had significant thickening of the infrapatellar fat pad spanning into the medial and lateral compartments.? I then performed an extensive synovectomy with the arthroscopic shaver of the patellofemoral medial and lateral compartments as well as the intercondylar notch. Patient was found to have small area loose body within the intercondylar notch and the patellofemoral space this is subsequently arthroscopic shaver was used to remove this loose body Next I introduced the arthroscope into the lateral compartment the lateral compartment was found to have grade 1 chondromalacia.? Lateral meniscus was found to be intact.? Given the grade 1 chondromalacia there is no unstable cartilage pieces to perform chondroplasty.? This completed my work of the lateral compartment and then performed a synovectomy of the lateral compartment.? Next of the arthroscope was placed into the lateral gutter and this was free of loose bodies.? Finally I reintroduced the arthroscope into the patellofemoral compartment.? The patellofemoral was found to have grade 3 chondromalacia of the patellofemoral compartment.? Given the chondromalacia in this area I utilized the thermal wand and arthroscopic shaver to perform patellofemoral compartment chondroplasty to stable articular tissue. At this point I utilized arthroscopic shaver as well as thermal wand to perform extensive synovectomy of the patellofemoral compartment. This completed my work of the patellofemoral space.? I then switch my portal sites to the medial working portal.? Completed the rest of my synovectomy and ultimately reviewing the patient's cartilage as well as meniscus there did not appear to be any significant bacterial infection and necrotic appearing tissue within the knee joint there is just noticed inflammation and synovitis as well as some grade 3 patellofemoral joint arthritis but fairly decent well-maintained cartilage of grade 1-2 medially and grade 1 laterally. To finalize I subsequently flexed the knee with 9 L of normal saline. Tourniquet was deflated no significant bleeding noted. Decision at that time made for no STACIA drain. All fluid was suctioned from the joint.? ?All instruments were withdrawn.? Portal sites were closed with interrupted nylon suture.? I then subsequently performed a final irrigation removing the Betadine gauze outer anterior wound as this was not able to be ellipsed and closed primarily and subsequently thoroughly irrigated this once more and subsequently packed this with iodoform gauze then placed a standard wet-to-dry dressing on the anterior aspect of this and then, the portal sites were then covered with with Xeroform 4 x 4's ABD Curlex and Timbo wrap.? Patient was then subsequently awakened from anesthesia and taken to PACU in stable condition. Disposition: Patient taken back to ICU in stable condition. Will continue empiric antibiotics and follow cultures defer to internal medicine for definitive antibiotic discharge treatment recommendations orthopedics will continue to follow on the floor for appropriate and educate patient as well as discharge instructions for removal of iodoform gauze and packing of anterior wound. Plan will be to see patient in the office in 2 weeks upon discharge. Patient will be weightbearing as tolerated to the Left lower extremity.? Patient understands and agrees with current plan.? All questions answered.
--- NOTE | 2024-04-07 17:31 | W.PM.BPON ---
Date of Procedure: [April 07, 2024] Surgeon: [Dr. Kwan DO] Fpga Engineer(s): [Landon Kwan PA-C] Procedure(s) performed: [Left knee Irrigation and Debridement Wound size 11cm x 10cm x 2cm Left knee diagnositic and surgical arthroscopy Extensive synovectomy Patella Femoral Chondroplasty Medial Plica excision Loose body removal] Findings of the procedure(s): [Left knee infected bursitis with synovitis and patellofemoral chondral plasia and medial plica and loose body.] Estimated blood loss: [50 ml] Specimen(s) removed: [n/a] Post-operative diagnosis: [Left knee infected bursitis with synovitis and patellofemoral chondral plasia and medial plica and loose body]
--- NOTE | 2024-04-07 17:31 | ANE.PACU2 ---
Inpatient post-anesthesia follow up: Airway intact: Yes Vital signs: Temperature 98.8 F Pulse Rate 90 Respiratory Rate 20 Blood Pressure 94/66 Pulse Oximetry 97 Oxygen Delivery Me thod Room Air Oxygen Flow Rate Fraction of Inspir ed Oxygen Hydration adequate: Yes Nausea and vomiting: No Pain level: 2 Mental status: Baseline
[2024-04-07] MEDS: phosphorus 250 mg Tablet PO (17:55)
--- NOTE | 2024-04-07 18:20 | PC.NURSE ---
REceived patient back from SUrgery at 1721. Patient is drowsy, but oriented to person, place, time, and situation. Complains of pain to surgical site. BP: 118/95, SPO2: 98, Temp:98.2, RR: 20, HR: 96.
--- NOTE | 2024-04-07 18:24 | PC.NURSE ---
Shift SUmmary: uneventful shift. Returned from debridement and drainage surgery of left knee at 1721. Has recovered without any complications. Dressing in place to left leg, Dr carter wants dressing left in place, he will do the first dressing change in 2 days.
[2024-04-07 18:50] LABS: Crystals, Fluid See Path Consult
[2024-04-07 18:57] LABS: Glucose Point of Care 107 mg/dL (70-110)
--- NOTE | 2024-04-07 20:19 | PC.NURSE ---
Patient was transferred to [facility] without any complications.
[2024-04-07 20:34] LABS: Glucose Point of Care 354 mg/dL (70-110)
[2024-04-07] MEDS: tranexamic acid 1,000 MG/100 ML PREMIX 600 MG IV (21:11)
[2024-04-07] MEDS: insulin glargine 100 units/1 mL 10 UNIT SUBCUT (21:12)
[2024-04-07] MEDS: sodium chloride 0.9% 1,000 ML 75 ML IV ×2 (21:13→21:15)
[2024-04-08] VITALS (10 sets, daily range): BP systolic 90–133; BP diastolic 46–75; PULSE 96–108; RESP 15–20; TEMP 36.9–37.8; O2SAT 96–99
[2024-04-08] MEDS: aztreonam 1,000 MG in sodium chloride 0.9% (plus) 50 ML 100 MG IV ×2 (00:01→12:45)
[2024-04-08] MEDS: oxyCODONE-APAP 5-325 mg Tablet 1 TAB PO ×2 (01:46→05:38)
[2024-04-08 04:07] LABS: Glucose Point of Care 302 mg/dL (70-110)
[2024-04-08] MEDS: buPROPion XL (24 HR) 150 mg Tablet PO (05:38)
[2024-04-08 06:26] LABS: Glucose Point of Care 290 mg/dL (70-110)
[2024-04-08 07:05] LABS: Basophils # 0.1 10^3/uL (0.0-0.1); Basophils % 0.6 %; Eosinophils # 0.2 10^3/uL (0.0-0.8); Eosinophils % 1.5 %; Lymphocytes # 1.8 10^3/uL (0.8-4.8); Lymphocytes % 13.9 %; Mean Corpuscular Hemoglobin 30.3 pg (27-33); Mean Corpuscular Volume 104.7 fl (85-98); Mean Platelet Volume 10.3 fL (7.4-10.4); Monocytes # 0.7 10^3/uL (0.2-0.9); Monocytes % 5.6 %; Neutrophils # 10.06 10^3/uL (1.8-7.7); Neutrophils % 77.7 %; Nucleated Red Blood Cells % 0 %; Platelet Count 310 10^3/cmm (157-399); Red Blood Count 2.77 10^6/uL (3.85-5.65); Red Cell Distribution Width 14.2 % (12.1-15.1); White Blood Count 12.95 10^3/uL (3.29-11.43)
[2024-04-08 07:21] LABS: Blood Urea Nitrogen 7 mg/dL (6-20); Calcium 7.7 mg/dL (8.5-10.5); Carbon Dioxide 18 mmol/L (22-29); Chloride 100 mmol/L (98-107); Creatinine Clr Calc Pharmacy 107.9652; Glomerular Filtration Rate 110.2 mL/min (90-130); Glucose 290 mg/dL (65-115); Osmolality Calculated 279 mOsm/kg (285-295); Sodium 130 mmol/L (136-145)
[2024-04-08 07:27] LABS: Anion Gap 15.8 (5-19); Potassium 3.8 mmol/L (3.5-5.1)
[2024-04-08 07:36] LABS: Phosphorus 2.7 mg/dL (2.5-4.5)
[2024-04-08] MEDS: gabapentin 300 mg Capsule 600 MG PO ×3 (09:09→20:07)
[2024-04-08] MEDS: phosphorus 250 mg Tablet PO (09:10)
[2024-04-08] MEDS: insulin lispro 100 unit/1 mL SUBCUT ×3 (09:10→21:25)
--- NOTE | 2024-04-08 09:26 | P.PN_ITS ---
Subjective 2 Subjective: No fever Leukocytosis trending down Change diet to consistent carb Patient stating that pain is not well-managed I have added Dilaudid on top of her hydrocodone Vitals/I&O/Wt Last Vital Signs Temp 98.8 F 04/08/24 08:00 Pulse 108 H 04/08/24 08:00 Resp 17 04/08/24 08:00 BP 133/75 04/08/24 08:00 Pulse Ox 96 04/08/24 08:00 O2 Del Method Room Air 04/08/24 08:00 04/07/24 04/08/24 04/08/24 22:59 06:59 14:59 Intake Total 572.5 / 1503.750 420 / 1923.750 Output Total 300 / 400 3500 / 3900 Balance 272.5 / 1103.750 -3080 / -1976.250 Weight last 48 hrs Weight 59.965 kg Weight 59.965 kg Weight 59.965 kg Weight 58.967 kg Physical Exam 2 Narrative: Left leg covered with dressing Euvolemic Awake and alert GCS 15 Nonfocal neuroexam Pleasant cooperative Anxious appearing Pupils reactive to light S1, S2 Urinary Catheter Management: Bustos: Cath Placed During This Visit: yes Reason for Continuing Indwelling Catheter: Other Urinary Catheter Date of Insertion: 04/07/24 Urinary Catheter Time of Insertion: 02:10 Data 04/08/24 06:54 04/08/24 06:54 Micro: Microbiology 04/06/24 23:34 Blood Culture - Preliminary Blood NEGATIVE TO DATE 04/06/24 23:25 Blood Culture - Preliminary Blood NEGATIVE TO DATE 04/07/24 10:20 Gram Stain - Final Other Source A&P Assessment and plan (1) Abscess: (2) Cellulitis: (3) Cellulitis of left leg: (4) Chronic wound of extremity: (5) Chronic kidney disease: (6) Type 1 diabetes: (7) Hyperglycemia: (8) Bipolar disorder: Plan Septic joint less likely white count was not significantly elevated however patient has undergone arthroscopic washout of her left knee We will follow-up with culture report Leukocytosis trending down Afebrile Patient stating pain is not well-managed She can get hydrocodone for breakthrough pain and IV Dilaudid for severe Continue bowel regimen Discontinue clindamycin continue vancomycin aztreonam Methamphetamine abuse: Watch for any sign of withdrawal DKA: Resolved Replenish phosphorus and potassium Anion gap improved Patient tolerating diet consistent carb She has Lantus and sliding scale on board Discontinue IV fluids Full code DVT prophylaxis on board Patient does not want rehab wanting to go home if her leukocytosis Trending down and clinically she does well she might be able to go home in next 24 to 48 hours Attestations 2 Medical Necessity Statement*: Continue medical management Diagnoses Abscess L02.91 Cellulitis L03.90 Cellulitis of left leg L03.116 Chronic wound of extremity Chronic kidney disease N18.9 Type 1 diabetes E10.9 Hyperglycemia R73.9 Bipolar disorder F31.9
[2024-04-08] MEDS: HYDROmorphone 1 mg/mL INJ 1 mL 0.4 MG IVP ×3 (09:52→19:56)
[2024-04-08] MEDS: sodium bicarbonate 650 mg Tablet PO ×3 (09:52→20:07)
[2024-04-08] MEDS: enoxaparin 40 mg/0.4 mL Syringe SUBCUT (09:52)
[2024-04-08 10:49] LABS: Glucose Point of Care 236 mg/dL (70-110)
[2024-04-08] MEDS: vancomycin 1,250 MG/250 ML PIGGYBACK 250 MG IV ×2 (11:17→22:57)
[2024-04-08] MEDS: ondansetron 2 mg/ML SDV 2 mL 4 MG IVP (16:31)
[2024-04-08 17:10] LABS: Glucose Point of Care 124 mg/dL (70-110)
--- NOTE | 2024-04-08 17:13 | P.PN_ITS ---
Subjective 2 Subjective: Patient seen and examined yesterday. She is just set up at bedside will start working with therapy. She states her pain is controlled with medications. Her white count is downtrending. Vitals/I&O/Wt Last Vital Signs Temp 98.9 F 04/08/24 16:40 Pulse 108 H 04/08/24 16:09 Resp 17 04/08/24 16:09 BP 126/70 04/08/24 16:40 Pulse Ox 99 04/08/24 16:09 O2 Del Method Room Air 04/08/24 16:09 04/08/24 04/08/24 04/08/24 06:59 14:59 22:59 Intake Total 420 / 5037.770 7132.75 / 1371.75 Output Total 3500 / 3900 Balance -3080 / -3365.334 2568.75 / 1371.75 Weight last 48 hrs Weight 132 lb 3.2 oz Weight 132 lb 3.2 oz Weight 132 lb 3.2 oz Weight 130 lb Physical Exam 2 Narrative: Dressing on in place to left knee is clean dry and intact no signs of drainage. Her compartments are soft compressible normal postoperative swelling about the knee as well as tenderness palpation of the knee. She does not appear to have any pain with micromotion of the knee at this time. She is able to wiggle toes plantarflex and dorsiflex ankle sensations intact to light touch distally distal pulses are palpable. Urinary Catheter Management: Bustos: Cath Placed During This Visit: yes Reason for Continuing Indwelling Catheter: Other Urinary Catheter Date of Insertion: 04/07/24 Urinary Catheter Time of Insertion: 02:10 Data 04/09/24 04:25 04/09/24 04:25 Micro: Microbiology 04/07/24 10:20 Anaerobic Culture - Preliminary Knee - Left 04/07/24 16:33 Gram Stain - Final Knee - Left Anaerobic Culture - Preliminary Abscess Culture - Preliminary Strep agalactiae - (group b) 04/07/24 16:33 Gram Stain - Final Knee - Left Anaerobic Culture - Preliminary Wound Culture - Preliminary 04/07/24 10:20 Gram Stain - Final Other Source Body Fluid Culture - Preliminary 04/06/24 23:34 Blood Culture - Preliminary Blood NEGATIVE TO DATE 04/06/24 23:25 Blood Culture - Preliminary Blood NEGATIVE TO DATE A&P Assessment and plan (1) Abscess: (2) Cellulitis: (3) Cellulitis of left leg: (4) Chronic wound of extremity: (5) Chronic kidney disease: (6) Type 1 diabetes: (7) Hyperglycemia: (8) Bipolar disorder: Plan Weight-bear as tolerated to left lower extremity Leave dressing in place only change if becomes saturated Will change dressing on postoperative day 3 Patient did have a wound on the anterior aspect that required packing the anterior pocket of abscess anterior to the knee. We will have to have daily dressing changes starting on postoperative day 3 White count downtrending Improving clinical examination Patient did undergo I&D of prepatellar bursitis abscess as well as arthroscopic washout of the knee. Internal medicine on board as primary Cultures pending IV antibiotics per primary Orthopedics will continue to follow-up Attestations 2 Medical Necessity Statement*: Ongoing care status post left knee I&D Coding Level of Care Code Acute Code for [facility] Fwd Diagnoses Abscess L02.91 Cellulitis L03.90 Cellulitis of left leg L03.116 Chronic wound of extremity Chronic kidney disease N18.9 Type 1 diabetes E10.9 Hyperglycemia R73.9 Bipolar disorder F31.9
[2024-04-08] MEDS: sennosides-docusate Tablet 2 TAB PO (17:23)
[2024-04-08 21:16] LABS: Glucose Point of Care 358 mg/dL (70-110)
[2024-04-08] MEDS: insulin glargine 100 units/1 mL 30 UNIT SUBCUT (21:25)
[2024-04-08 22:53] LABS: Vancomycin Trough 14.4 ug/mL (10-15)
[2024-04-08 23:57] LABS: Glucose Point of Care 212 mg/dL (70-110)
[2024-04-09] VITALS (10 sets, daily range): BP systolic 109–147; BP diastolic 59–74; PULSE 92–105; RESP 16–18; TEMP 36.4–37.7; O2SAT 91–98
[2024-04-09] MEDS: aztreonam 1,000 MG in sodium chloride 0.9% (plus) 50 ML 100 MG IV (00:05)
[2024-04-09] MEDS: HYDROmorphone 1 mg/mL INJ 1 mL 0.4 MG IVP ×5 (03:07→22:23)
[2024-04-09 05:17] LABS: Basophils # 0.1 10^3/uL (0.0-0.1); Basophils % 0.6 %; Eosinophils # 0.2 10^3/uL (0.0-0.8); Hematocrit 26.6 % (36-47); Lymphocytes # 1.8 10^3/uL (0.8-4.8); Mean Corpuscular HGB Conc 30.5 g/dL (30-55); Mean Corpuscular Hemoglobin 29.9 pg (27-33); Mean Corpuscular Volume 98.2 fl (85-98); Mean Platelet Volume 10.5 fL (7.4-10.4); Monocytes # 0.7 10^3/uL (0.2-0.9); Monocytes % 6.1 %; Neutrophils # 9.02 10^3/uL (1.8-7.7); Neutrophils % 75.8 %; Nucleated Red Blood Cells % 0 %; Platelet Count 368 10^3/cmm (157-399); Red Blood Count 2.71 10^6/uL (3.85-5.65); Red Cell Distribution Width 14.6 % (12.1-15.1)
[2024-04-09] MEDS: buPROPion XL (24 HR) 150 mg Tablet PO (05:30)
[2024-04-09 05:41] LABS: Blood Urea Nitrogen 10 mg/dL (6-20); Carbon Dioxide 26 mmol/L (22-29); Chloride 100 mmol/L (98-107); Creatinine Clr Calc Pharmacy 107.9652; Glomerular Filtration Rate 110.2 mL/min (90-130); Glucose 127 mg/dL (65-115); Osmolality Calculated 283 mOsm/kg (285-295); Sodium 136 mmol/L (136-145)
[2024-04-09 06:33] LABS: Glucose Point of Care 141 mg/dL (70-110)
--- NOTE | 2024-04-09 09:38 | PC.PT ---
Pt declined PT this morning due to 10/10 pain rating. Waiting on pain meds from RN. RN was notified.
--- NOTE | 2024-04-09 09:40 | P.PN_ITS ---
Subjective 2 Subjective: Hemoglobin is stable Streptococcus culture positive from the left knee aspirate No fever Patient had a BM as well, pain somewhat controlled she is eating breakfast Vitals/I&O/Wt Last Vital Signs Temp 98.4 F 04/09/24 07:31 Pulse 99 04/09/24 07:31 Resp 18 04/09/24 08:34 BP 147/74 04/09/24 07:31 Pulse Ox 96 04/09/24 07:31 O2 Del Method Room Air 04/09/24 07:31 04/08/24 04/09/24 04/09/24 22:59 06:59 14:59 Intake Total 120 / 1491.75 300 / 1791.75 Output Total 1950 / 1950 1000 / 2950 Balance -1830 / -458.25 -700 / -1158.25 Weight last 48 hrs Weight 73.085 kg Weight 59.965 kg Physical Exam 2 Narrative: Patient currently sitting in her bed Eating breakfast Awake and alert no active pain GCS 15 nonfocal neuroexam Left foot covered with dressing Urinary Catheter Management: Bustos: Cath Placed During This Visit: yes Reason for Continuing Indwelling Catheter: Other Urinary Catheter Date of Insertion: 04/07/24 Urinary Catheter Time of Insertion: 02:10 Data 04/09/24 04:25 04/09/24 04:25 Micro: Microbiology 04/07/24 10:20 Anaerobic Culture - Preliminary Knee - Left 04/07/24 16:33 Gram Stain - Final Knee - Left Anaerobic Culture - Preliminary Abscess Culture - Preliminary Strep agalactiae - (group b) 04/07/24 16:33 Gram Stain - Final Knee - Left Anaerobic Culture - Preliminary Wound Culture - Preliminary 04/07/24 10:20 Gram Stain - Final Other Source Body Fluid Culture - Preliminary A&P Assessment and plan (1) Bipolar disorder: (2) Type 1 diabetes: (3) Hyperglycemia: (4) Acute hypokalemia: (5) Chronic kidney disease: (6) Anemia: (7) Leukocytosis: (8) Cellulitis of left leg: (9) Cellulitis: (10) Abscess: Plan Plan to discharge patient by tomorrow Blood cultures negative Afebrile Leukocytosis improving Hemoglobin stable Patient most likely will need p.o. antibiotics at home discharge She will need Medicaid ride by tomorrow Full code Continue DVT prophylaxis Endorsing bowel movement Pain well-managed at this point Attestations 2 Medical Necessity Statement*: Continue medical management Diagnoses Bipolar disorder F31.9 Type 1 diabetes E10.9 Hyperglycemia R73.9 Acute hypokalemia E87.6 Chronic kidney disease N18.9 Anemia D64.9 Leukocytosis D72.829 Cellulitis of left leg L03.116 Cellulitis L03.90 Abscess L02.91
[2024-04-09] MEDS: insulin lispro 100 unit/1 mL SUBCUT ×3 (09:43→17:33)
[2024-04-09] MEDS: gabapentin 300 mg Capsule 600 MG PO ×3 (09:43→22:00)
[2024-04-09] MEDS: sennosides-docusate Tablet 2 TAB PO ×2 (09:44→17:33)
[2024-04-09] MEDS: enoxaparin 40 mg/0.4 mL Syringe SUBCUT (09:45)
[2024-04-09 10:40] LABS: Glucose Point of Care 184 mg/dL (70-110)
[2024-04-09] MEDS: clindamycin 150 mg Capsule 600 MG PO ×2 (10:58→17:32)
[2024-04-09] MEDS: ondansetron 2 mg/ML SDV 2 mL 4 MG IVP ×2 (10:59→22:30)
--- NOTE | 2024-04-09 11:51 | P.PN_ITS ---
Subjective 2 Subjective: Patient seen and examined this morning. Patient is recovering well steadily improving. White count does continue to downtrend. Will be n.p.o. at midnight as well as recheck of CRP and dressing takedown tomorrow. Vitals/I&O/Wt Last Vital Signs Temp 99.1 F 04/09/24 11:26 Pulse 102 H 04/09/24 11:26 Resp 18 04/09/24 11:26 BP 122/66 04/09/24 11:26 Pulse Ox 98 04/09/24 11:26 O2 Del Method Room Air 04/09/24 11:26 04/08/24 04/09/24 04/09/24 22:59 06:59 14:59 Intake Total 120 / 1491.75 300 / 1791.75 Output Total 1950 / 1950 1000 / 2950 Balance -1830 / -458.25 -700 / -1158.25 Weight last 48 hrs Weight 161 lb 2 oz Weight 132 lb 3.2 oz Physical Exam 2 Narrative: Dressing on in place to left knee is clean dry and intact no signs of drainage. Her compartments are soft compressible normal postoperative swelling about the knee as well as tenderness palpation of the knee. She does not appear to have any pain with micromotion of the knee at this time. She is able to wiggle toes plantarflex and dorsiflex ankle sensations intact to light touch distally distal pulses are palpable. Urinary Catheter Management: Bustos: Cath Placed During This Visit: yes Reason for Continuing Indwelling Catheter: Other Urinary Catheter Date of Insertion: 04/07/24 Urinary Catheter Time of Insertion: 02:10 Data 04/09/24 04:25 04/09/24 04:25 Micro: Microbiology 04/07/24 10:20 Anaerobic Culture - Preliminary Knee - Left 04/07/24 16:33 Gram Stain - Final Knee - Left Anaerobic Culture - Preliminary Abscess Culture - Preliminary Strep agalactiae - (group b) 04/07/24 16:33 Gram Stain - Final Knee - Left Anaerobic Culture - Preliminary Wound Culture - Preliminary 04/07/24 10:20 Gram Stain - Final Other Source Body Fluid Culture - Preliminary A&P Assessment and plan (1) Abscess: (2) Cellulitis: (3) Cellulitis of left leg: (4) Chronic wound of extremity: (5) Chronic kidney disease: (6) Type 1 diabetes: (7) Hyperglycemia: (8) Bipolar disorder: Plan POD#2 I&D of prepatellar bursitis abscess as well as arthroscopic washout of the knee. Weight-bear as tolerated to left lower extremity PT/OT Leave dressing in place only change if becomes saturated Will change dressing on postoperative day 3 Patient did have a wound on the anterior aspect that required packing the anterior pocket of abscess anterior to the knee. We will have to have daily dressing changes starting on postoperative day 3 White count downtrending Recheck CRP tomorrow n.p.o. at midnight just in case any need for repeat washouts Improving clinical examination Internal medicine on board as primary Cultures pending IV antibiotics per primary Orthopedics will continue to follow-up Attestations 2 Medical Necessity Statement*: Ongoing care status post left knee I&D Coding Level of Care Code Acute Code for g Fwd Diagnoses Abscess L02.91 Cellulitis L03.90 Cellulitis of left leg L03.116 Chronic wound of extremity Chronic kidney disease N18.9 Type 1 diabetes E10.9 Hyperglycemia R73.9 Bipolar disorder F31.9
[2024-04-09 16:52] LABS: Glucose Point of Care 225 mg/dL (70-110)
[2024-04-09 20:55] LABS: Glucose Point of Care 221 mg/dL (70-110)
[2024-04-09] MEDS: insulin glargine 100 units/1 mL 30 UNIT SUBCUT (22:01)
[2024-04-10] VITALS (8 sets, daily range): BP systolic 115–163; BP diastolic 70–83; PULSE 60–108; RESP 16–18; TEMP 36.7–37.4; O2SAT 95–100
[2024-04-10 00:11] LABS: Glucose Point of Care 308 mg/dL (70-110)
[2024-04-10] MEDS: clindamycin 150 mg Capsule 600 MG PO ×3 (02:21→17:46)
[2024-04-10] MEDS: HYDROmorphone 1 mg/mL INJ 1 mL 0.4 MG IVP ×2 (02:22→07:46)
[2024-04-10] MEDS: buPROPion XL (24 HR) 150 mg Tablet PO (05:38)
[2024-04-10 06:18] LABS: Basophils # 0.1 10^3/uL (0.0-0.1); Basophils % 0.4 %; Eosinophils # 0.3 10^3/uL (0.0-0.8); Eosinophils % 2.4 %; Hematocrit 29.5 % (36-47); Lymphocytes % 17.5 %; Mean Corpuscular HGB Conc 31.5 g/dL (30-55); Mean Corpuscular Hemoglobin 30.5 pg (27-33); Mean Corpuscular Volume 96.7 fl (85-98); Mean Platelet Volume 10.4 fL (7.4-10.4); Monocytes # 0.6 10^3/uL (0.2-0.9); Monocytes % 5.7 %; Neutrophils % 73.3 %; Nucleated Red Blood Cells % 0 %; Platelet Count 355 10^3/cmm (157-399); Red Blood Count 3.05 10^6/uL (3.85-5.65); Red Cell Distribution Width 14.7 % (12.1-15.1); White Blood Count 11.32 10^3/uL (3.29-11.43)
[2024-04-10 06:32] LABS: Glucose Point of Care 227 mg/dL (70-110)
[2024-04-10 06:41] LABS: C Reactive Protein 208.9 mg/L (0.0-4.9)
[2024-04-10] MEDS: insulin lispro 100 unit/1 mL SUBCUT ×2 (07:47→17:47)
--- NOTE | 2024-04-10 08:08 | P.PN_ITS ---
Subjective 2 Subjective: Patient seen and examined this morning she again continues to clinically and steadily improved. Her CRP is downtrending her white count is normalized. She states her knee feels much better improvedfrom what it was prior to surgical intervention. At this point time she is set up for discharge later today per primary. Vitals/I&O/Wt Last Vital Signs Temp 98.2 F 04/10/24 07:56 Pulse 97 04/10/24 07:56 Resp 16 04/10/24 07:56 BP 162/83 04/10/24 07:56 Pulse Ox 100 04/10/24 07:56 O2 Del Method Room Air 04/10/24 04:00 04/09/24 04/10/24 04/10/24 22:59 06:59 14:59 Intake Total 240 / 360 Output Total 1450 / 1450 1550 / 3000 Balance -1210 / -1090 -1550 / -2640 Weight last 48 hrs Weight 147 lb 8 oz Weight 161 lb 2 oz Physical Exam 2 Narrative: Dressing on in place to left knee is clean dry and intact no signs of drainage. Dressing was subsequently taken down and 2 inches of packing was removed today there is no signs of reaccumulation there is no erythema about the knee she is able to tolerate passive range of motion of the knee with no pain or discomfort as well as no pain with micromotion. No signs or evidence of any reaccumulation of any infection. Normal postoperative swelling and tenderness palpation of the knee. She is able to wiggle toes plantarflex and dorsiflex ankle sensations intact to light touch distally distal pulses are palpable. Urinary Catheter Management: Bustos: Cath Placed During This Visit: yes Reason for Continuing Indwelling Catheter: Other Urinary Catheter Date of Insertion: 04/07/24 Urinary Catheter Time of Insertion: 02:10 Data 04/10/24 06:11 04/09/24 04:25 Micro: Microbiology 04/07/24 16:33 Gram Stain - Final Knee - Left Anaerobic Culture - Preliminary Abscess Culture - Preliminary Strep agalactiae - (group b) 04/07/24 10:20 Anaerobic Culture - Preliminary Knee - Left 04/07/24 16:33 Gram Stain - Final Knee - Left Anaerobic Culture - Preliminary Wound Culture - Preliminary 04/07/24 10:20 Gram Stain - Final Other Source Body Fluid Culture - Preliminary A&P Assessment and plan (1) Abscess: (2) Cellulitis: (3) Cellulitis of left leg: (4) Chronic wound of extremity: (5) Chronic kidney disease: (6) Type 1 diabetes: (7) Hyperglycemia: (8) Bipolar disorder: Plan POD#3 I&D of prepatellar bursitis abscess as well as arthroscopic washout of the knee. Weight-bear as tolerated to left lower extremity PT/OT Dressing changed today and 2 inches of packing removed and educated patient on daily packing removal and redressing on discharge Patient did have a wound on the anterior aspect that required packing the anterior pocket of abscess anterior to the knee. We will have to have daily dressing changes starting on postoperative day 3 White count normalizing CRP downtrending No clinical signs of recurrent infection No further surgical intervention required at this time Internal medicine on board as primary Cultures pending-showing group b strep IV antibiotics per primary Patient stable for discharge from orthopedic standpoint. She is responding appropriately clinically we will go ahead and set her up for appropriate discharge instructions as well as she will have DVT prophylaxis and pain medication and antibiotics per primary at discharge. She is responded well to surgical treatment at this point time she will follow-up with us in the office in 2 weeks she is set for discharge later today. Patient understands and agrees with current plan. All questions answered. Attestations 2 Medical Necessity Statement*: Ongoing care status post left knee I&D of prepatellar bursitis abscess as well as arthroscopy irrigation debridement of the left knee joint Coding Level of Care Code Acute Code for [facility] Fwd Diagnoses Abscess L02.91 Cellulitis L03.90 Cellulitis of left leg L03.116 Chronic wound of extremity Chronic kidney disease N18.9 Type 1 diabetes E10.9 Hyperglycemia R73.9 Bipolar disorder F31.9 Time Spent (min) 25
--- NOTE | 2024-04-10 09:31 | PM.DCS ---
Discharge Providers Date of Admission: 04/07/24 01:04 Date of Discharge: April 10, 2024 Attending Provider at Admission: Jennifer Arriaga MD Attending Provider at Discharge: Cristobal Henry MD Primary Care Provider: Everett Huddleston MD Diagnoses at Discharge Discharge Diagnosis (1) Abscess: Status: Acute (2) Cellulitis: Status: Acute (3) Cellulitis of left leg: Status: Acute (4) Chronic wound of extremity: Status: Acute (5) Chronic kidney disease: Status: Acute (6) Type 1 diabetes: Status: Acute (7) Hyperglycemia: Status: Acute (8) Bipolar disorder: Status: Acute Reason for Visit Reason for Visit: High BG Hospital Course Hospital Course 43-year female who was admitted for management & evaluation of sepsis with concerns related to septic joint left knee, Dr. Kwan was consulted, joint aspirate showed white count around 24,000 which was not consistent with septic joint, however arthroscopic washout was done by Dr. Kwan on the same day with I&D for prepatellar abscess, cultures showing strep agalecttecae, patient remained afebrile, leukocytosis improved, erythema around knee joint has improved significantly, blood cultures negative, patient endorsed using meth amphetamine, history of IV drug abuse She has multiple allergies listed. Patient endorsing allergy to penicillin, Augmentin and amoxicillin, at the time of discharge I will give her clindamycin along hydrocodone for her pain She will follow-up with Dr. Kwan outpatient We will give her a 10-day regimen of clindamycin at the time of discharge Dressings instructions has been provided by Dr. Kwan to the patient Physical Exam Narrative: Left knee erythema is improving Left knee dressing changed at the time of discharge per Dr. Kwan Able to put weight on it Awake and alert GCS 15 euvolemic currently on room air Urinary Catheter Management: Bustos: Cath Placed During This Visit: yes Reason for Continuing Indwelling Catheter: Other Urinary Catheter Date of Insertion: 04/07/24 Urinary Catheter Time of Insertion: 02:10 Discharge Data Studies Completed and Pending Completed Studies During Hospitalization Category Date Time Status CT knee LT w con [id number] Stat Cat Scan 04/07/24 00:01 Completed XR chest 1V portable [id number] Stat Exams 04/06/24 22:20 Completed XR knee LT 3V* [id number] Stat Exams 04/06/24 22:20 Completed US soft tissue/extremity [id number] Routine Ultrasound 04/07/24 17:02 Completed Pending at discharge Category Date Time Status Abscess Culture and Gram Stain Routine Lab 04/07/24 16:33 Results Anaerobic Culture Routine Lab 04/07/24 16:33 Results Anaerobic Culture Routine Lab 04/07/24 16:33 Results Anaerobic Culture Stat Lab 04/07/24 10:20 Results Blood Culture Stat Lab 04/06/24 23:34 Results Body Fluid Culture & GS Routine Lab 04/07/24 10:20 Results Wound Culture and Gram Stain Routine Lab 04/07/24 16:33 Results Radiology Impressions Chest X-Ray 04/06/24 22:20 IMPRESSION: Normal Knee X-Ray 04/06/24 22:20 IMPRESSION: Prepatellar soft tissue swelling and joint effusion Knee CT 04/07/24 00:01 IMPRESSION: 1. Subcutaneous gas and fluid between the skin and patella consistent with abscess. 2. Joint effusion with synovial enhancement suspicious for septic joint. 3. Prepatellar skin thickening and ulceration. Soft Tissue Ultrasound 04/07/24 17:02 IMPRESSION: See above Laboratory Results WBC 11.32 10^3/uL (3.29-11.43) 04/10/24 06:11 RBC 3.05 10^6/uL (3.85-5.65) L 04/10/24 06:11 Hgb 9.30 g/dL (11.27-16.99) L 04/10/24 06:11 Hct 29.5 % (36-47) L 04/10/24 06:11 MCV 96.7 fl (85-98) 04/10/24 06:11 MCH 30.5 pg (27-33) 04/10/24 06:11 MCHC 31.5 g/dL (30-55) 04/10/24 06:11 RDW 14.7 % (12.1-15.1) 04/10/24 06:11 Plt Count 355 10^3/cmm (157-399) 04/10/24 06:11 MPV 10.4 fL (7.4-10.4) 04/10/24 06:11 Neut % (Auto) 73.3 % 04/10/24 06:11 Lymph % (Auto) 17.5 % 04/10/24 06:11 Gall[place] % (Auto) 5.7 % 04/10/24 06:11 Eos % (Auto) 2.4 % 04/10/24 06:11 Baso % (Auto) 0.4 % 04/10/24 06:11 Neut # (Auto) 8.30 10^3/uL (1.8-7.7) H 04/10/24 06:11 Lymph # (Auto) 2.0 10^3/uL (0.8-4.8) 04/10/24 06:11 [place] # (Auto) 0.6 10^3/uL (0.2-0.9) 04/10/24 06:11 Eos # (Auto) 0.3 10^3/uL (0.0-0.8) 04/10/24 06:11 Baso # (Auto) 0.1 10^3/uL (0.0-0.1) 04/10/24 06:11 Nucleated RBC % (auto) 0 % 04/10/24 06:11 Nucleated RBCs # 0.0 /100WBC 04/10/24 06:11 ESR 42 mm/hr (0-15) H 04/07/24 04:36 PT 14.10 SECONDS (12.1-14.9) 04/07/24 13:30 INR 1.05 (0.8-1.2) 04/07/24 13:30 D-Dimer 1.29 ug/mLFEU (0-0.59) H 04/06/24 22:40 Specimen Type Arterial 04/06/24 22:30 Sample Site Radial, right 04/06/24 22:30 ABG pH 7.60 (7.35-7.45) H* 04/06/24 22:30 ABG pCO2 24.9 mmHg (35-45) L 04/06/24 22:30 ABG pO2 106.0 mmHg (80.0-100.0) H 04/06/24 22:30 ABG HCO3 24.4 mmol/L (22-26) 04/06/24 22:30 ABG Base Excess 3.4 mmol/L (-2.0-2.0) H 04/06/24 22:30 Don Test Pos 04/06/24 22:30 Hematocrit 30.1 % (37-47) L 04/06/24 22:30 O2 Delivery Device None 04/06/24 22:30 Server Systems Administrator ID Cl 04/06/24 22:30 Sodium 136 mmol/L (136-145) 04/09/24 04:25 Potassium 4.0 mmol/L (3.5-5.1) 04/09/24 04:25 Chloride 100 mmol/L (98-107) 04/09/24 04:25 Carbon Dioxide 26 mmol/L (22-29) 04/09/24 04:25 Anion Gap 14.0 (5-19) 04/09/24 04:25 BUN 10 mg/dL (6-20) 04/09/24 04:25 Creatinine 0.6 mg/dL (0.5-0.9) 04/09/24 04:25 GFR Calculation 110.2 mL/min (90-130) 04/09/24 04:25 Glucose 127 mg/dL (65-115) H 04/09/24 04:25 POC Glucose 227 mg/dL (70-110) H 04/10/24 06:27 Estimat Average Glucose 326 04/06/24 22:40 Hemoglobin A1c 13.0 % (4.0-6.0) H 04/06/24 22:40 Calculated Osmolality 283 mOsm/kg (285-295) L 04/09/24 04:25 Lactic Acid 1.5 mmol/L (0.5-2.2) 04/06/24 23:34 Calcium 8.0 mg/dL (8.5-10.5) L 04/09/24 04:25 Phosphorus 2.7 mg/dL (2.5-4.5) 04/08/24 06:54 Magnesium 1.7 mg/dL (1.7-2.3) 04/07/24 04:36 Total Bilirubin 0.3 mg/dL (0.15-1.2) 04/07/24 04:36 AST 5 U/L (0-32) 04/07/24 04:36 ALT < 5 U/L (0-33) 04/07/24 04:36 Alkaline Phosphatase 133 U/L (35-105) H 04/07/24 04:36 C-Reactive Protein 208.9 mg/L (0.0-4.9) H 04/10/24 06:11 Total Protein 5.5 g/dL (6.6-8.7) L D 04/07/24 04:36 Albumin 2.7 g/dL (3.5-5.2) L 04/07/24 04:36 Globulin 2.8 g/dL (1.3-4.6) 04/07/24 04:36 Procalcitonin 0.97 ng/mL (0-0.5) H 04/06/24 22:40 Fluid Crystals See path consult 04/07/24 16:33 Synovial Color Red (PALE YELLOW) 04/07/24 10:20 Synovial Appearance Bloody (CLEAR) 04/07/24 10:20 Synovial WBC 76528 /uL (0-150) H 04/07/24 10:20 Synovial RBC 34 10^3/uL (0-0) H 04/07/24 10:20 Synovial Mononuclear 0.587 10^3/uL 04/07/24 10:20 Synov Polynuclear WBCs 23.842 10^3/uL 04/07/24 10:20 Synovial Other Cells Not Reportable 04/07/24 10:20 Synovial Polynuclear % 97.600 % 04/07/24 10:20 Synovial Mononuclear % 2.400 % 04/07/24 10:20 Vancomycin Trough 14.4 ug/mL (10-15) 04/08/24 22:11 Urine Opiates Screen Negative ng/mL (Negative) 04/07/24 02:17 Ur Barbiturates Screen Negative ng/mL (Negative) 04/07/24 02:17 Ur Phencyclidine Scrn Negative ng/mL (Negative) 04/07/24 02:17 Ur Amphetamines Screen Positive ng/mL (Negative) H 04/07/24 02:17 U Benzodiazepines Scrn Negative ng/mL (Negative) 04/07/24 02:17 Urine Cocaine Screen Negative ng/mL (Negative) 04/07/24 02:17 U Marijuana (THC) Screen Negative ng/mL (Negative) 04/07/24 02:17 Serum Ketones Negative (Negative) 04/06/24 22:40 Path Cons w/Slide Yes 04/07/24 10:20 Vitals Last Vital Signs Temp 98.2 F 04/10/24 07:56 Pulse 97 04/10/24 07:56 Resp 16 04/10/24 07:56 BP 162/83 04/10/24 07:56 Pulse Ox 100 04/10/24 07:56 O2 Del Method Room Air 04/10/24 04:00 Discharge Plan Discharge Patient Disposition: Home Condition: Stable Prescriptions: New hydrocodone-acetaminophen 5-325 mg tablet 1 tab PO Q8H PRN (Reason: pain) Qty: 12 0RF aspirin 81 mg tablet,delayed release (DR/EC) 81 mg PO BID 30 Days Qty: 60 0RF clindamycin HCl 300 mg capsule 300 mg PO Q8H 10 Days Qty: 30 0RF omeprazole 40 mg capsule,delayed release(DR/EC) 40 mg PO DAILY Qty: 30 0RF Continued lamotrigine [Lamictal] 150 mg tablet 150 mg PO DAILY Qty: 90 1RF meloxicam 7.5 mg tablet 7.5 mg PO DAILY Qty: 60 1RF tizanidine 4 mg tablet 4 mg PO BID PRN (Reason: muscle spasticity) Qty: 60 2RF bupropion HCl [Wellbutrin XL] 150 mg tablet extended release 24 hr 150 mg PO QAM Qty: 30 0RF (DME) non-adherent bandage 5 X 9 bandage See Rx Instructions .Route Rx Instructions: As directed mupirocin 2 % ointment 1 applic topical BID Qty: 15 0RF (DME) Xeroform Petrolatum Dressing 5 X 9 bandage See Rx Instructions .Route Qty: 50 3RF Rx Instructions: As directed (DME) elastic bandage 2 X 1.9 -yard bandage See Rx Instructions .Route Qty: 14 3RF Rx Instructions: As directed insulin aspart U-100 100 unit/mL (3 mL) insulin pen 5 - 7 unit SUBCUT TID ondansetron 4 mg tablet,disintegrating 4 mg PO Q8H PRN (Reason: nausea and vomiting) Qty: 14 0RF Humulin N NPH Insulin KwikPen 100 unit/mL (3 mL) Insulin Pen 15 unit SUBCUT BID gabapentin 600 mg tablet 600 mg PO TID Held amitriptyline 75 mg tablet 75 mg PO BEDTIME Hold Instructions: Resume on 05/01/24. Discharge Orders: Discharge Order (Routine); Ordered 04/10/24 Ordered By: Cristobal Henry Referrals: Juancarlos Kwan DO [Physician] - 7-10 days Everett Huddleston MD [Primary Care Provider] - 2 weeks Discharge Diet: Advance as tolerated Discharge Activity: Increase activity as tolerated, Use walker/crutches as instructed and As per PT/OT instructions Patient Instructions: Acute Wound Care (DC), Opioid Safety, Post Anesthesia Care Activity Restrictions/Additional Instructions: Orthopedic discharge instructions: Keep dressing clean dry and intact May remove an inch of the packing every day Take antibiotics as prescribed by primary Take pain medication as prescribed Take aspirin as prescribed Encourage knee range of motion as tolerated May weight-bear as tolerated right lower extremity Ice as needed for pain and swelling Utilize Timbo wrap for swelling Follow-up in the orthopedic office in 2 weeks Contact the office for any questions or concerns Discharge Attestations Time Spent in Discharge Care*: greater than 30 min Quality Metrics Clinical Quality Measures [ No reported AMI, CVA or VTE this stay] Coding Level of Care Code Acute Code for [facility] Fwd Diagnoses Abscess L02.91 Cellulitis L03.90 Cellulitis of left leg L03.116 Chronic wound of extremity Chronic kidney disease N18.9 Type 1 diabetes E10.9 Hyperglycemia R73.9 Bipolar disorder F31.9
--- NOTE | 2024-04-10 09:40 | PC.CHAP ---
Pastoral Care Encounter/Spiritual Assessment Type of Contact [] Declined planer setup operator visit [] Patient/Family/Request visit [] Outpatient visit [] Follow-up visit [] Physician referral [] Code/Alert [] Routine visit [] Staff referral [] Actively dying [] Patient sleeping [] Family support [] [] Out of room [] Palliative care [] [x] Receiving care in room [] Pre-surgical visit [] Trauma [] Long length of stay [] ICU visit [] Other: Relational/Emotional Strength [] Patient feels connected with others/family/visitors/staff [] Distress [] Loneliness/isolation [] Abandonment Spirituality of Patient [] Person of [place] [] Attends Nondenominational of their [place] [] Believes in Prayer [] Reads Bible or Evangelical materials [] There are Spiritual issues to be addressed Envelope Machine Adjuster Interventions [] Prayer [] Active listening [] Non-anxious presence [] Spiritual/emotional support [] Crisis/trauma care [] Spiritual counseling [] Bereavement support [] Provided bereavement packet [] Provided Bible/devotional materials [] Provided toy/stuffed animal, coloring book to patient or family member [] Provided Communion [] Anointing/[place] [] Salvation [] Completed spiritual assessment [] Other: Impact on Illness or Injury [] Angry [] Fearful [] Anxious [] Often cries [] Exhaustion [] Unable to work [] Unable to attend jehovah's witness [] Unable to walk/stand [] Unable to read [] Unable to drive [] Unable to eat/drink [] Unable to sleep [] Unable to be with family [] Patient intubated [] Other: Summary Time spent with patient
[2024-04-10] MEDS: gabapentin 300 mg Capsule 600 MG PO ×2 (10:20→14:09)
[2024-04-10] MEDS: enoxaparin 40 mg/0.4 mL Syringe SUBCUT (10:20)
[2024-04-10] MEDS: sennosides-docusate Tablet 2 TAB PO (10:20)
[2024-04-10 10:55] LABS: Glucose Point of Care 86 mg/dL (70-110)
--- NOTE | 2024-04-10 11:59 | PC.NURSE ---
Patient is refusing Novolin due to the fact that she has Humulin at home and plenty of it. She also is refusing to have her baby aspirin filled by our pharmacy meds to beds stating that she has this medication at home.
--- NOTE | 2024-04-10 12:47 | PC.NURSE ---
Medication Note: Pt requested Dilaudid for severe pain. Dilaudid 0.4 mg scanned to administer to pt. As this nurse begin to administer medication, this nurse noticed the IV catheter was too far out of the skin. Administration of medication did not get completed. 0.4 mg of Dilaudid in syringe along with the remaining 0.6 mg in vial, wasted in Pyxis with witness sign in. Actual medication wasted in designated medication waste site in medication room with signed witness. Pharmacy notified
[2024-04-10] MEDS: oxyCODONE 5 mg IR Tab/Cap PO (14:09)
[2024-04-10 16:55] LABS: Glucose Point of Care 348 mg/dL (70-110)
== END 2024-04-10 19:22 | disposition home or self-care (01) | DRG 485 ==
LOC: ER 23:24 → MEDSURG 04-07 01:08 → ICU 04-07 01:58 → MEDSURG 04-07 21:07
PROVIDERS: Student in an Organized Health Care Education/Training Program; Admitting Provider Internal Medicine; Emergency Provider Emergency Medicine; PCP Family Medicine; Visit Provider Internal Medicine
PROC: 0S9D3ZX Drainage of Left Knee Joint, Percutaneous Approach, Diagnostic (ICD-10-PCS; principal; 2024-04-07 15:30)
PROC: 0S9D3ZX Drainage of Left Knee Joint, Percutaneous Approach, Diagnostic (ICD-10-PCS; CPT 29870; 2024-04-07 15:30)
DX: M71.162 Other infective bursitis, left knee (principal); E10.10 Type 1 diabetes mellitus with ketoacidosis without coma; L02.416 Cutaneous abscess of left lower limb; L97.829 Non-pressure chronic ulcer of other part of left lower leg with unspecified severity; L03.116 Cellulitis of left lower limb; G47.00 Insomnia, unspecified; F31.9 Bipolar disorder, unspecified; Z89.511 Acquired absence of right leg below knee; F17.210 Nicotine dependence, cigarettes, uncomplicated; F17.290 Nicotine dependence, other tobacco product, uncomplicated; E10.22 Type 1 diabetes mellitus with diabetic chronic kidney disease; N18.9 Chronic kidney disease, unspecified; E87.6 Hypokalemia; M25.462 Effusion, left knee; M65.9 Synovitis and tenosynovitis, unspecified; B95.1 Streptococcus, group B, as the cause of diseases classified elsewhere; D63.1 Anemia in chronic kidney disease; Z79.4 Long term (current) use of insulin; F15.10 Other stimulant abuse, uncomplicated; Z87.440 Personal history of urinary (tract) infections
CPT/HCPCS: 36415; 36416; 36600; 51702; 71045; 73562; 73701; 76882; 80048; 80053; 80202; 80306; 80503; 82009; 82803; 82962; 83036; 83605; 83735; 84100; 84145; 85025; 85378; 85610; 85651; 86140; 87040; 87070; 87075; 87077; 87186; 87205; 89050; 96365; 96372; 96374; 96375; 96376; 97161; 97165; 99285; J1170; J1650; J1815; J2371; J2405; J2704; J3010; J3370; J3490; J7030; J7040; J7050; Q9967